=== PATIENT | male | born 1935 | race Caucasian/White ===

== ENCOUNTER 2018-10-31 21:03 | Emergency (ER) | payer OTHER ==
[~2018-10-31] VITALS: Ht 177.8 cm; Wt 77.1 kg
== END 2018-10-31 22:15 | disposition home or self-care (01) ==
LOC: ED 21:03
DX: F10.129 Alcohol abuse with intoxication, unspecified (principal); Z85.46 Personal history of malignant neoplasm of prostate; Z85.118 Personal history of other malignant neoplasm of bronchus and lung
CPT/HCPCS: 99284

== ENCOUNTER 2019-02-24 07:10 | Inpatient (IN) | payer MEDICARE, OTHER ==
[~2019-02-24] VITALS: Ht 175.3 cm; Wt 73.9 kg
--- OUTSIDE RECORDS SUMMARY | ~2019-02-24 | XMS | Encounter Summary ---
Demographics + + + | Address | [address] | | | [place] [address] | + + + | Home Phone | | + + + | Preferred Language | Unknown | + + + | Marital Status | Single | + + + | Uatsdin Affiliation | Unknown | + + + | Race | Unknown | + + + | Ethnic Group | Other Race | + + + Author + + + | Author | [facility] | + + + | Organization | [facility] | + + + | Address | Unknown | + + + | Phone | Unavailable | + + + Support + + +---------+ + | Name | Relationship | Address | Phone | + + +---------+ + | Alia Tracy | ECON | Unknown | | + + +---------+ + Care Team Providers + +------+ + | Care Cable Rigger Name | Role | Phone | + +------+ + | No Pcp Per Patient | PCP | Unavailable | + +------+ + Encounter Details +--------+ + + + + | Date | Type | Department | Care Team | Description | +--------+ + + + + | 02/18/ | Hospital | Radiation Oncology | | | | 2019 | Encounter | at [facility] [address] | | | | | | [address] | | | | | | [place] | | | | | | [place], [place] | | | | | | [address] | | | | | | [phone] | | | +--------+ + + + + Social History + +-------+ +--------+ + | Tobacco Use | Types | Packs/Day | Years | Date | | | | | Used | | + +-------+ +--------+ + | Former Smoker | | | | Quit: 05/29/1998 | + +-------+ +--------+ + + +---+---+---+ | Smokeless Tobacco: | | | | | Never Used | | | | + +---+---+---+ + + +---------+ + | Alcohol Use | Drinks/Week | oz/Week | Comments | + + +---------+ + | Not Asked | | | | + + +---------+ + + + + | Sex Assigned at [...]
--- OUTSIDE RECORDS SUMMARY | ~2019-02-24 | XMS | Encounter Summary ---
Demographics + + + | Address | [address] | | | [place] [address] | + + + | Home Phone | | + + + | Preferred Language | Unknown | + + + | Marital Status | Single | + + + | Scientologist Affiliation | Unknown | + + + | Race | Unknown | + + + | Ethnic Group | Other Race | + + + Author + + + | Author | [facility] | + + + | Organization | [facility] | + + + | Address | Unknown | + + + | Phone | Unavailable | + + + Support + + +---------+ + | Name | Relationship | Address | Phone | + + +---------+ + | Alia Tracy | ECON | Unknown | | + + +---------+ + Care Team Providers + +------+ + | Care Help Desk Intern Name | Role | Phone | + +------+ + | No Pcp Per Patient | PCP | Unavailable | + +------+ + Encounter Details +--------+ + + + + | Date | Type | Department | Care Team | Description | +--------+ + + + + | 08/31/ | Hospital | Radiation Oncology | | | | 2014 | Encounter | at [facility] [address] | | | | | | [address] | | | | | | [place] | | | | | | [place], [place] | | | | | | [address] | | | | | | [phone] | | | +--------+ + + + [...] Not on filedocumented as of this encounter Procedures + +--------+ + + + | Procedure Name | Priori | Date/Time | Associated Diagnosis | Comments | | | ty | | | | + +--------+ + + + | ONCOLOGY PATHWAYS | Routin | 09/18/2014 | | Results for this | | TREATMENT DECISION | e | | | procedure are in the | | | | | | results section. | + +--------+ + + + | ONCOLOGY PATHWAYS | Routin | 09/09/2014 | | Results for this | | TREATMENT DECISION | e | | | procedure are in the | | | | | | results section. | + +--------+ + + + documented in this encounter Results ONCOLOGY PATHWAYS TREATMENT DECISION (09/18/2014) + + + + + + | Component | Value | Ref Range | Performed | Pathologist | | | | | At | Signature | + + + + + + | ONCOLOGY | START ON PATHWAY REGIMEN | | [facility] | | | PATHWAYS | - Prostate PRO17: | | DEPARTMENT | | | TREATMENT | IGRT/IMRT with Androgen | | OF | | | PLAN | Suppression for | | PATHOLOGY | | | REGIMEN | Approximately 12 Months | | | | | | or Longer Radiation | | | | | | Selected: EBRT: | | | | | | (IGRT/IMRT) Prescription | | | | | | dose is 75.6 ? 81 Gy. | | | | | | 42 - 45 Fx at 1.8 Gy/fx. | | | | | | Additional Orders: | | | | | | PTV1: 50.4 ? 54 Gy to P | | | | | | + SV + 10 mm (5 mm | | | | | | posteriorly).PTV2: 21.6 | | | | | | ? 30.6 Gy to P + 5 mm. | | | | | | Clinician Notes: 70 Gy | | | | | | over 28 fractions. ADT x | | | | | | 24 months. IGRT with | | | | | | [place]. Patient | | | | | | Characteristics:High - | | | | | | RiskPost Prostatectomy?: | | | | | | NoRecurrence?: | | | | | | NoGleason Score: | | | | | | 8Gleason Secondary: | | | | | | 4Gleason Primary: 4AJCC | | | | | | T Stage: 3aPSA: ? 20AJCC | | | | | | Prognostic Grouping: | | | | | | IIIAJCC N Stage: 0AJCC M | | | | | | Stage: 0 Intent of | | | | | | Therapy:Curative Intent, | | | | | | Discussed with Patient | | | | + + + + + + | ONCOLOGY | PRO17 | | [facility] | | | PATHWAYS | | | DEPARTMENT | | | TREATMENT | | | OF | | | DECISION | | | PATHOLOGY | | + + + + + + + + | Specimen | + + | | + + + + + + + | Performing | Address | City/State/Zipcode | Phone Number | | Organization | | | | + + + + + | [facility] | [address] | [place], [place] [address] | | | PATHOLOGY | [address] | | | + + + + + ONCOLOGY PATHWAYS TREATMENT DECISION (09/09/2014) + + + + + + | Component | Value | Ref Range | Performed | Pathologist | | | | | At | Signature | + + + + + + | ONCOLOGY | START ON PATHWAY REGIMEN | | [facility] | | | PATHWAYS | - Prostate PRO17: | | DEPARTMENT | | | TREATMENT | IGRT/IMRT with Androgen | | OF | | | PLAN | Suppression for | | PATHOLOGY | | | REGIMEN | Approximately 12 Months | | | | | | or Longer Radiation | | | | | | Selected: EBRT: | | | | | | (IGRT/IMRT) Prescription | | | | | | dose is 75.6 ? 81 Gy. | | | | | | 42 - 45 Fx at 1.8 Gy/fx. | | | | | | Additional Orders: | | | | | | PTV1: 50.4 ? 54 Gy to P | | | | | | + SV + 10 mm (5 mm | | | | | | posteriorly).PTV2: 21.6 | | | | | | ? 30.6 Gy to P + 5 mm. | | | | | | Clinician Notes: 70 Gy | | | | | | over 28 fractions. ADT x | | | | | | 24 months. IGRT with | | | | | | [place]. Patient | | | | | | Characteristics:High - | | | | | | RiskPost Prostatectomy?: | | | | | | NoRecurrence?: | | | | | | NoGleason Score: | | | | | | 8Gleason Secondary: | | | | | | 4Gleason Primary: 4AJCC | | | | | | T Stage: 3aPSA: ? 20AJCC | | | | | | Prognostic Grouping: | | | | | | IIIAJCC N Stage: 0AJCC M | | | | | | Stage: 0 Intent of | | | | | | Therapy:Curative Intent, | | | | | | Discussed with Patient | | | | + + + + + + | ONCOLOGY | PRO17 | | [facility] | | | PATHWAYS | | | DEPARTMENT | | | TREATMENT | | | OF | | | DECISION | | | PATHOLOGY | | + + + + + + + + | Specimen | + + | | + + + + + + + | Performing | Address | City/State/Zipcode | Phone Number | | Organization | | | | + + + + + | [facility] | [address] | [place] [address] | | | PATHOLOGY | [address] | | | + + + + + documented in this encounter Visit Diagnoses Not on filedocumented in this encounter"
--- OUTSIDE RECORDS SUMMARY | ~2019-02-24 | XMS | Encounter Summary ---
Demographics + + + | Address | [address] | | | [place] [address] | + + + | Home Phone [...] Team Providers + +------+ + | Care Freight Tallier Name | Role | Phone | + +------+ + | No Pcp Per Patient | PCP | Unavailable | + +------+ + Reason for Visit + + + | Reason | Comments | + + + | RT Plan Review Note | | + + + Encounter Details +--------+ + + + + | Date | Type | Department | Care Team | Description | +--------+ + + + + | 02/07/ | Documentati | Radiation Oncology | Ye Doss MD | RT Plan Review Note | | 2019 | on | at [facility] [address] | [address] | | | | | [address] | [place], | | | | | [place] | [place] [address] | | | | | [place], [place] | [phone] | | | | | [address] | | | | | | [phone] | | | +--------+ + + + [...]
--- OUTSIDE RECORDS SUMMARY | ~2019-02-24 | XMS | Encounter Summary ---
Demographics + + + | Address | [address] | | | [place] [address] | + + + | Home Phone | | + + + | Preferred Language | Unknown | + + + | Marital Status | Single | + + + | Druze Affiliation | Unknown | + + + | Race | Unknown | + + + | Ethnic Group | Other Race | + + + Author + + + | Author | [facility] | + + + | Organization | [facility] | + + + | Address | Unknown | + + + | Phone | Unavailable | + + + Support + + +---------+ + | Name | Relationship | Address | Phone | + + +---------+ + | Alia Tracy | ECON | Unknown | | + + +---------+ + Care Team Providers + +------+ + | Care Process Environmental Technician Name | Role | Phone | + [...] neoplasm of | [address] | [address] [facility] | | | | | prostate | [facility] | [facility] | | | | | (HCC) | Way | [address], | | | | | Procedures | [place], [place] | [place] | | | | | Consult, | [address] | [address] | | | | | treat, f/u | Phone: | Phone: | | | | | | [phone] | [phone] | | | | | | Fax: | Fax: | | | | | | [phone] | [phone] | +--------+--------+ + + + + Encounter Details +--------+ + + + + | Date | Type | Department | Care Team | Description | +--------+ + + + + | 10/05/ | Hospital | Radiation Oncology | | | | 2014 | Encounter | at [facility] [address] | | | | | | [address] | | | | | | [address] | | | | | | [place], [place] | | | | | | [address] | | | | | | [phone] | | | +--------+ + + + [...]
--- OUTSIDE RECORDS SUMMARY | ~2019-02-24 | XMS | Encounter Summary ---
Demographics + + + | Address | [address] | | | [place] [address] | + + + | Home Phone | | + + + | Preferred Language | Unknown | + + + | Marital Status | Single | + + + | Advent Affiliation | Unknown | + + + | Race | Unknown | + + + | Ethnic Group | Other Race | + + + Author + + + | Author | [facility] | + + + | Organization | [facility] | + + + | Address | Unknown | + + + | Phone | Unavailable | + + + Support + + +---------+ + | Name | Relationship | Address | Phone | + + +---------+ + | Alia Tracy | ECON | Unknown | | + + +---------+ + Care Team Providers + +------+ + | Care Program Dir Name | Role | Phone | + [...] neoplasm of | [address] | [address] [facility] | | | | | prostate | [facility] | [facility] | | | | | (HCC) | Way | [address] [place], | | | | | Procedures | [place], [place] | [place] | | | | | Consult, | [address] | [address] | | | | | treat, f/u | Phone: | Phone: | | | | | | [phone] | [phone] | | | | | | Fax: | Fax: | | | | | | [phone] | [phone] | +--------+--------+ + + + + Encounter Details +--------+ + + + + | Date | Type | Department | Care Team | Description | +--------+ + + + + | 09/04/ | Hospital | Radiation Oncology | | | | 2014 | Encounter | at [facility] [address] | | | | | | [address] | | | | | | [address] | | | | | | [place], [place] | | | | | | [address] | | | | | | [phone] | | | +--------+ + + + [...]
--- OUTSIDE RECORDS SUMMARY | ~2019-02-24 | XMS | Encounter Summary ---
Demographics + + + | Address | [address] | | | [place] [address] | + + + | Home Phone [...] Author + + + | Author | [facility] | + + + | Organization | [facility] | + + + | Address | Unknown | + + + | Phone | Unavailable | + + + Support + + +---------+ + | Name | Relationship | Address | Phone | + + +---------+ + | Alia Tracy | ECON | Unknown | | + + +---------+ + Care Team Providers + +------+ + | Care Cloth Stretcher Name | Role | Phone | + +------+ + | No Pcp Per Patient | PCP | Unavailable | + +------+ + Encounter Details +--------+ + + + + | Date | Type | Department | Care Team | Description | +--------+ + + + + | 07/17/ | Outside | NON-[facility] | Veterans, | | | 2008 | Referral | Department | Administration | | | | Order | | [facility] | | | | | | [place] [id number] [facility] | | | | | | [facility] | | | | | | [address] [place], [place] | | | | | | [address] | | | | | | | | +--------+ + + + [...] as of this encounter Plan of Treatment + +---------+--------+ + + | Name | Type | Priori | Associated Diagnoses | Date/Time | | | | ty | | | + +---------+--------+ + + | PET LUNG INITIAL | Imaging | Priori | Malignant Neoplasm | 07/23/2008 1:22 PM | | ATTENUATED | | ty | of Bronchus and | PST | | | | | Lung, Unspecified | | | | | | Site | | + +---------+--------+ + + + +---------+--------+ + + | Name | Type | Priori | Associated Diagnoses | Order Schedule | | | | ty | | | + +---------+--------+ + + | PET LUNG INITIAL | Imaging | Routin | Malignant Neoplasm | Expected: 07/17/2008 | | ATTENUATED | | e | of Bronchus and | | | | | | Lung, Unspecified | | | | | | Site | | + +---------+--------+ + + documented as of this encounter Visit Diagnoses + + | Diagnosis | + + | Malignant neoplasm of bronchus and lung, unspecified site - Primary | + + documented in this encounter"
--- OUTSIDE RECORDS SUMMARY | ~2019-02-24 | XMS | Encounter Summary ---
Demographics + + + | Address | [address] | | | [place] [address] | + + + | Home Phone | | + + + | Preferred Language | Unknown | + + + | Marital Status | Single | + + + | Jew Affiliation | Unknown | + + + | Race | Unknown | + + + | Ethnic Group | Other Race | + + + Author + + + | Author | [facility] | + + + | Organization | [facility] | + + + | Address | Unknown | + + + | Phone | Unavailable | + + + Support + + +---------+ + | Name | Relationship | Address | Phone | + + +---------+ + | Alia Tracy | ECON | Unknown | | + + +---------+ + Care Team Providers + +------+ + | Care Firmware Developer Name | Role | Phone | + +------+ + | No Pcp Per Patient | PCP | Unavailable | + +------+ + Encounter Details +--------+ + + + + | Date | Type | Department | Care Team | Description | +--------+ + + + + | 02/11/ | Hospital | Radiation Oncology | | | | 2019 | Encounter | at [facility] [address] | | | | | | [address] | | | | | | [address] | | | | | | [place], [place] | | | | | | [address] | | | | | | [phone] | | | +--------+ + + + [...]
--- OUTSIDE RECORDS SUMMARY | ~2019-02-24 | XMS | Encounter Summary ---
Demographics + + + | Address | [address] | | | [place] [address] | + + + | Home Phone | | + + + | Preferred Language | Unknown | + + + | Marital Status | Single | + + + | Shinto Affiliation | Unknown | + + + | Race | Unknown | + + + | Ethnic Group | Other Race | + + + Author + + + | Author | [facility] | + + + | Organization | [facility] | + + + | Address | Unknown | + + + | Phone | Unavailable | + + + Support + + +---------+ + | Name | Relationship | Address | Phone | + + +---------+ + | Alia Tracy | ECON | Unknown | | + + +---------+ + Care Team Providers + +------+ + | Care Forming Process Line Worker Name | Role | Phone | + [...] neoplasm of | [address] | [address] [facility] | | | | | prostate | [facility] | [facility] | | | | | (HCC) | Way | [address] [place], | | | | | Procedures | [place], [place] | [place] | | | | | Consult, | [address] | [address] | | | | | treat, f/u | Phone: | Phone: | | | | | | [phone] | [phone] | | | | | | Fax: | Fax: | | | | | | [phone] | [phone] | +--------+--------+ + + + + Encounter Details +--------+ + + + + | Date | Type | Department | Care Team | Description | +--------+ + + + + | 09/18/ | Hospital | Radiation Oncology | | | | 2014 | Encounter | at [facility] [address] | | | | | | [address] | | | | | | [address] | | | | | | [place], [place] | | | | | | [address] | | | | | | [phone] | | | +--------+ + + + [...]
--- OUTSIDE RECORDS SUMMARY | ~2019-02-24 | XMS | Encounter Summary ---
Demographics + + + | Address | [address] | | | [place] [address] | + + + | Home Phone [...] Team Providers + +------+ + | Care Forestry Fire Aide Name | Role | Phone | + +------+ + | No Pcp Per Patient | PCP | Unavailable | + +------+ + Reason for Visit + + + | Reason | Comments | + + + | On Treatment Visit | | | (OTV) | | + + + Encounter Details +--------+---------+ + + + | Date | Type | Department | Care Team | Description | +--------+---------+ + + + | 09/08/ | Office | Radiation Oncology | Rishabh Quan MD | Radiotherapy | | 2014 | Visit | at [facility] [address] | [address] | (Primary Dx) | | | | [address] | [place], | | | | | [place] | [place] [address] | | | | | [place], [place] | [phone] | | | | | [address] | | | | | | [phone] | | | +--------+---------+ + + + Social History + +-------+ [...] + + documented as of this encounter Last Filed Vital Signs + + + + + | Vital Sign | Reading | Time Taken | Comments | + + + + + | Blood Pressure | 174/79 | 09/08/2014 5:13 PM | | | | | PDT | | + + + + + | Pulse | 71 | 09/08/2014 5:13 PM | | | | | PDT | | + + + + + | Temperature | - | - | | + + + + + | Respiratory Rate | - | - | | + + + + + | Oxygen Saturation | 100% | 09/08/2014 5:13 PM | | | | | PDT | | + + + + + | Inhaled Oxygen | - | - | | | Concentration | | | | + + + + + | Weight | 80.2 kg (176 lb 12.8 | 09/08/2014 5:13 PM | | | | oz) | PDT | | + + + + + | Height | 175.3 cm (5' 9") | 09/08/2014 5:13 PM | per Pt verbal report | | | | PDT | | + + + + + | Body Mass Index | 26.11 | 09/08/2014 5:13 PM | | | | | PDT | | + + + + + documented in this encounter Patient Instructions Patient Instructions Doni Flores MD - 09/08/2014 5:42 PM PDT-continue radiation -try some metamucil - one heaping tablespoon with a large glass a water every morning -please feel free to contact us with further questions: [phone] documented in this encounter Progress Notes Rishabh Quan MD - 09/08/2014 5:52 PM PDTI personally interviewed julius Sandoval uplicated the pertinent parts of the physical examination and formulated the treatment plan. I reviewed the excellent note by Dr. Flores and entered my findings directly into his not e. oni Flores MD - 0 09/08/2014 5:39 PM PDT 09/08/2014 Ammon Tracy is a 79 y.o. 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 This was treated successfully with jose adjuvant radiotherapy followed by surgical resection. 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 His pre-treatment PSA is 26.5 ng/mL drawn on 08/03/14. He is to be treated to a total dose of 70 Gy over 28 fra ctions with an IMRT technique with image guidance using [place] beacons. The patient will be receiving concurrent androgen deprivation for 24 months. His first inje ctions was 08/14/14 here today during treatment for a weekly visit. He has completed 4 fract ions of a planned 28. He notes nocturia of 4-5 times a night. He is having variable BM a day, he had to use sennosides the other day but he doesn't alway s need laxatives. He notes things are well, he is staying at [facility] and [place]. His legs are weak. Current Outpatient Prescriptions Medication Sig albuterol-ipratropium 18-103 mcg/Actuation Inhalation Aerosol Inhale 2 Puffs four times daily as needed for dyspnea/SOB. dexamethasone 4 mg Oral Tablet Take 4 mg by mouth. Take 2 tablets (for a dose of 8 mg) each evening for 2 days begiining the day of your chemotherapy lisinopril 20 mg Oral Tablet Take 20 mg by mouth once daily. metformin 500 mg Oral Tablet Take 500 mg by mouth. Take 2 tablets (for total dose of 10 00 mg) twice a day ondansetron (ZOFRAN) 8 mg Oral Tablet Take 8 mg by mouth every twelve hours as needed simvastatin 80 mg Oral Tablet Take 80 mg by mouth once daily in the evening. terazosin 2 mg Oral Capsule Take 2 mg by mouth. Take 2 capsules (for a total dose of 4 mg) at bedtime vardenafil 10 mg Oral Tablet Take 5-10 mg by mouth once daily as needed Administer appr oximately 1 hour before sexual activity. Max frequency: once daily. VICODIN 5-500 mg Oral Tablet Take 1-2 Tabs by mouth every six hours as needed Not to ex ceed 8 tablets per any 24 hour period. (Not to exceed 4000 mg of acetaminophen from all prod ucts per 24 hour period.) Ammon Tracy's mode of transportation is ambulatory. The patient looks well. A/P: Continue RT. The patient's chart and films were reviewed. Will try some metamucil. Zhanna Robert RN - 5:15 PM PDT Nursing Note Patient here for an On Treatment Visit. Completed 4 fractions of a planned 28. Current dose 1000 cGy of total 7000 cGy. Vitals/Pain Level: BP 174/79 | Pulse 71 | Ht 1.753 m (5' 9") | Wt 80.196 kg (176 lb 12.8 oz ) | SpO2 100% | BMI 26.1 kg/(m^2) Pain Score: 0/10 - denies pain Wt Readings from Last 3 Encounters: 09/08/14 80.196 kg (176 lb 12.8 oz) 09/03/14 49.034 kg (108 lb 1.6 oz) 08/04/14 81.647 kg (180 lb) No results found for this basename: WBC, HB, HCT, PLT, BUN, CR, NA, K, MG, in the last 720 hours Subjective: Pt reports 1/10 fatigue level - resolves with short nap. Pt c/o difficulty ini tiating urine stream. Pt denies any other problems at this time. Objective: Pt alert, oriented, and ambulatory. Driving self to treatments. Nursing Plan: Continue supportive care. Will continue to monitor. documented in this en counter Plan of Treatment Not on filedocumented as of this encounter Visit Diagnoses + + | Diagnosis | + + | Radiotherapy - Primary | + + documented in this encounter
--- OUTSIDE RECORDS SUMMARY | ~2019-02-24 | XMS | Encounter Summary ---
Demographics + + + | Address | [address] | | | [place] [address] | + + + | Home Phone | | + + + | Preferred Language | Unknown | + + + | Marital Status | Single | + + + | Orthodox Affiliation | Unknown | + + + | Race | Unknown | + + + | Ethnic Group | Other Race | + + + Author + + + | Author | [facility] | + + + | Organization | [facility] | + + + | Address | Unknown | + + + | Phone | Unavailable | + + + Support + + +---------+ + | Name | Relationship | Address | Phone | + + +---------+ + | Alia Tracy | ECON | Unknown | | + + +---------+ + Care Team Providers + +------+ + | Care Decator Operator Name | Role | Phone | + [...] neoplasm of | [address] | [address] [facility] | | | | | prostate | [facility] | [facility] | | | | | (HCC) | Way | [address] [place], | | | | | Procedures | [place], [place] | [place] | | | | | Consult, | [address] | [address] | | | | | treat, f/u | Phone: | Phone: | | | | | | [phone] | [phone] | | | | | | Fax: | Fax: | | | | | | [phone] | [phone] | +--------+--------+ + + + + Encounter Details +--------+ + + + + | Date | Type | Department | Care Team | Description | +--------+ + + + + | 10/05/ | Hospital | Radiation Oncology | | | | 2014 | Encounter | at [facility] [address] | | | | | | [address] | | | | | | [place] | | | | | | [place], [place] | | | | | | [address] | | | | | | [phone] | | | +--------+ + + + [...]
--- OUTSIDE RECORDS SUMMARY | ~2019-02-24 | XMS | Encounter Summary ---
Demographics + + + | Address | [address] | | | [place] [address] | + + + | Home Phone | | + + + | Preferred Language | Unknown | + + + | Marital Status | Single | + + + | Evangelical Affiliation | Unknown | + + + | Race | Unknown | + + + | Ethnic Group | Other Race | + + + Author + + + | Author | [facility] | + + + | Organization | [facility] | + + + | Address | Unknown | + + + | Phone | Unavailable | + + + Support + + +---------+ + | Name | Relationship | Address | Phone | + + +---------+ + | Alia Tracy | ECON | Unknown | | + + +---------+ + Care Team Providers + +------+ + | Care Produce Department Supervisor Name | Role | Phone | + [...] neoplasm of | [address] | [address] [facility] | | | | | prostate | [facility] | [facility] | | | | | (HCC) | Way | Rd [place], | | | | | Procedures | [place], [place] | [place] | | | | | Consult, | [address] | [address] | | | | | treat, f/u | Phone: | Phone: | | | | | | [phone] | [phone] | | | | | | Fax: | Fax: | | | | | | [phone] | [phone] | +--------+--------+ + + + + Encounter Details +--------+ + + + + | Date | Type | Department | Care Team | Description | +--------+ + + + + | 09/28/ | Hospital | Radiation Oncology | | | | 2014 | Encounter | at [facility] [address] | | | | | | [address] | | | | | | [place] | | | | | | [place], [place] | | | | | | [address] | | | | | | [phone] | | | +--------+ + + + [...]
--- OUTSIDE RECORDS SUMMARY | ~2019-02-24 | XMS | Encounter Summary ---
Demographics + + + | Address | [address] | | | [place] [address] | + + + | Home Phone [...] Author + + + | Author | [facility] | + + + | Organization | [facility] | + + + | Address | Unknown | + + + | Phone | Unavailable | + + + Support + + +---------+ + | Name | Relationship | Address | Phone | + + +---------+ + | Alia Tracy | ECON | Unknown | | + + +---------+ + Care Team Providers + +------+ + | Care Pot Filler Name | Role | Phone | + +------+ + PCP | Unavailable | + +------+ + Reason for Visit + + + | Reason | Comments | + + + | RT Treatment Summary | | + + + Encounter Details +--------+ + + + + | Date | Type | Department | Care Team | Description | +--------+ + + + + | 10/19/ | Documentati | Radiation Oncology | Ye Doss MD | RT Treatment Summary | | 2008 | on | at [facility] [address] | [address] | | | | | [address] | [place] | | | | | [place] | [place] [address] | | | | | [place], [place] | [phone] | | | | | [address] | | | | | | [phone] | | | +--------+ + + + [...]
--- OUTSIDE RECORDS SUMMARY | ~2019-02-24 | XMS | Encounter Summary ---
Demographics + + + | Address | [address] | | | [place] [address] | + + + | Home Phone [...] Author + + + | Author | [facility] | + + + | Organization | [facility] | + + + | Address | Unknown | + + + | Phone | Unavailable | + + + Support + + +---------+ + | Name | Relationship | Address | Phone | + + +---------+ + | Alia Tracy | ECON | Unknown | | + + +---------+ + Care Team Providers + +------+ + | Care Bass Singer Name | Role | Phone | + [...] neoplasm of | [address] | [address] [facility] | | | | | prostate | [facility] | [facility] | | | | | (HCC) | Way | [address] [place], | | | | | Procedures | [place], [place] | [place] | | | | | Consult, | [address] | [address] | | | | | treat, f/u | Phone: | Phone: | | | | | | [phone] | [phone] | | | | | | Fax: | Fax: | | | | | | [phone] | [phone] | +--------+--------+ + + + + Encounter Details +--------+ + + + + | Date | Type | Department | Care Team | Description | +--------+ + + + + | 09/29/ | Hospital | Radiation Oncology | | | | 2014 | Encounter | at [facility] [address] | | | | | | [address] | | | | | | [place] | | | | | | [place], [place] | | | | | | [address] | | | | | | [phone] | | | +--------+ + + + [...]
--- OUTSIDE RECORDS SUMMARY | ~2019-02-24 | XMS | Encounter Summary ---
Demographics + + + | Address | [address] | | | [place] [address] | + + + | Home Phone | | + + + | Preferred Language | Unknown | + + + | Marital Status | Single | + + + | Adventist Affiliation | Unknown | + + + | Race | Unknown | + + + | Ethnic Group | Other Race | + + + Author + + + | Author | [facility] | + + + | Organization | [facility] | + + + | Address | Unknown | + + + | Phone | Unavailable | + + + Support + + +---------+ + | Name | Relationship | Address | Phone | + + +---------+ + | Alia Tracy | ECON | Unknown | | + + +---------+ + Care Team Providers + +------+ + | Care Netsuite Developer Name | Role | Phone | [...] neoplasm of | [address] | [address] [facility] | | | | | prostate | [facility] | [facility] | | | | | (HCC) | Way | Rd [place], | | | | | Procedures | [place], [place] | [place] | | | | | Consult, | [address] | [address] | | | | | treat, f/u | Phone: | Phone: | | | | | | [phone] | [phone] | | | | | | Fax: | Fax: | | | | | | [phone] | [phone] | +--------+--------+ + + + + Encounter Details +--------+ + + + + | Date | Type | Department | Care Team | Description | +--------+ + + + + | 09/18/ | Hospital | Radiation Oncology | | | | 2014 | Encounter | at [facility] [address] | | | | | | [address] | | | | | | [place] | | | | | | [place], [place] | | | | | | [address] | | | | | | [phone] | | | +--------+ + + + [...]
--- OUTSIDE RECORDS SUMMARY | ~2019-02-24 | XMS | Encounter Summary ---
Demographics + + + | Address | [address] | | | [place] [address] | + + + | Home Phone | | + + + | Preferred Language | Unknown | + + + | Marital Status | Single | + + + | Episcopal Affiliation | Unknown | + + + | Race | Unknown | + + + | Ethnic Group | Other Race | + + + Author + + + | Author | [facility] | + + + | Organization | [facility] | + + + | Address | Unknown | + + + | Phone | Unavailable | + + + Support + + +---------+ + | Name | Relationship | Address | Phone | + + +---------+ + | Alia Tracy | ECON | Unknown | | + + +---------+ + Care Team Providers + +------+ + | Care Emergency Department Nurse Name | Role | Phone | + +------+ + PCP | Unavailable | + +------+ + Encounter Details +--------+ + + + + | Date | Type | Department | Care Team | Description | +--------+ + + + + | 10/09/ | Hospital | Radiation Oncology | | | | 2008 | Encounter | at [facility] [address] | | | | | | [address] | | | | | | [place] | | | | | | [place], [place] | | | | | | [address] | | | | | | [phone] | | | +--------+ + + + [...]
--- OUTSIDE RECORDS SUMMARY | ~2019-02-24 | XMS | Encounter Summary ---
Demographics + + + | Address | [address] | | | [place] [address] | + + + | Home Phone [...] Team Providers + +------+ + | Care Teaching Associate Name | Role | Phone | + [...] | [address] | [place], | | | | | [place] | [place] [address] | | | | | [place], [place] | [phone] | | | | | [address] | | | | | | [phone] | | | +--------+ + + + [...]
--- OUTSIDE RECORDS SUMMARY | ~2019-02-24 | XMS | Encounter Summary ---
Demographics + + + | Address | [address] | | | [place] [address] | + + + | Home Phone [...] + + + | Author | [facility] | + + + | Organization | [facility] | + + + | Address | Unknown | + + + | Phone | Unavailable | + + + Support + + +---------+ + | Name | Relationship | Address | Phone | + + +---------+ + | Alia Tracy | ECON | Unknown | | + + +---------+ + Care Team Providers + +------+ + | Care Fish Receiver Name | Role | Phone | + [...] neoplasm of | [address] | [address] [facility] | | | | | prostate | [facility] | [facility] | | | | | (HCC) | Way | [address] [place], | | | | | Procedures | [place], [place] | [place] | | | | | Consult, | [address] | [address] | | | | | treat, f/u | Phone: | Phone: | | | | | | [phone] | [phone] | | | | | | Fax: | Fax: | | | | | | [phone] | [phone] | +--------+--------+ + + + + Encounter Details +--------+ + + + + | Date | Type | Department | Care Team | Description | +--------+ + + + + | 09/15/ | Hospital | Radiation Oncology | | | | 2014 | Encounter | at [facility] [address] | | | | | | [address] | | | | | | [place] | | | | | | [place], [place] | | | | | | [address] | | | | | | [phone] | | | +--------+ + + + [...]
--- OUTSIDE RECORDS SUMMARY | ~2019-02-24 | XMS | Encounter Summary ---
Demographics + + + | Address | [address] | | | [place] [address] | + + + | Home Phone | | + + + | Preferred Language | Unknown | + + + | Marital Status | Single | + + + | Baptism Affiliation | Unknown | + + + | Race | Unknown | + + + | Ethnic Group | Other Race | + + + Author + + + | Author | [facility] | + + + | Organization | [facility] | + + + | Address | Unknown | + + + | Phone | Unavailable | + + + Support + + +---------+ + | Name | Relationship | Address | Phone | + + +---------+ + | Alia Tracy | ECON | Unknown | | + + +---------+ + Care Team Providers + +------+ + | Care Bonding Machine Setter Name | Role | Phone | + [...] [address] | | | | | | [place], [place] | | | | | | [address] | | | | | | [phone] | | | +--------+ + + + [...]
--- OUTSIDE RECORDS SUMMARY | ~2019-02-24 | XMS | Encounter Summary ---
Demographics + + + | Address | [address] | | | [place] [address] | + + + | Home Phone | | + + + | Preferred Language | Unknown | + + + | Marital Status | Single | + + + | Restorationist Affiliation | Unknown | + + + [...] Team Providers + +------+ + | Care Mat Weaver Name | Role | Phone | + [...] neoplasm of | [address] | [address] [facility] | | | | | prostate | [facility] | [facility] | | | | | (HCC) | Way | [address] [place], | | | | | Procedures | [place], [place] | [place] | | | | | Consult, | [address] | [address] | | | | | treat, f/u | Phone: | Phone: | | | | | | [phone] | [phone] | | | | | | Fax: | Fax: | | | | | | [phone] | [phone] | +--------+--------+ + + + + Encounter Details +--------+ + + + + | Date | Type | Department | Care Team | Description | +--------+ + + + + | 09/14/ | Hospital | Radiation Oncology | | | | 2014 | Encounter | at [facility] [address] | | | | | | [address] | | | | | | [place] | | | | | | [place], [place] | | | | | | [address] | | | | | | [phone] | | | +--------+ + + + [...]
--- OUTSIDE RECORDS SUMMARY | ~2019-02-24 | XMS | Encounter Summary ---
Demographics + + + | Address | [address] | | | [place] [address] | + + + | Home Phone | | + + + | Preferred Language | Unknown | + + + | Marital Status | Single | + + + | Orthodoxy Affiliation | Unknown | + + + | Race | Unknown | + + + | Ethnic Group | Other Race | + + + Author + + + | Author | [facility] | + + + | Organization | [facility] | + + + | Address | Unknown | + + + | Phone | Unavailable | + + + Support + + +---------+ + | Name | Relationship | Address | Phone | + + +---------+ + | Alia Tracy | ECON | Unknown | | + + +---------+ + Care Team Providers + +------+ + | Care Advertising Dispatch Clerks Supervisor Name | Role | Phone | [...] neoplasm of | [address] | [address] [facility] | | | | | prostate | [facility] | [facility] | | | | | (HCC) | Way | [address] [place], | | | | | Procedures | [place], [place] | [place] | | | | | Consult, | [address] | [address] | | | | | treat, f/u | Phone: | Phone: | | | | | | [phone] | [phone] | | | | | | Fax: | Fax: | | | | | | [phone] | [phone] | +--------+--------+ + + + + Encounter Details +--------+ + + + + | Date | Type | Department | Care Team | Description | +--------+ + + + + | 10/07/ | Hospital | Radiation Oncology | | | | 2014 | Encounter | at [facility] [address] | | | | | | [address] | | | | | | [place] | | | | | | [place], [place] | | | | | | [address] | | | | | | [phone] | | | +--------+ + + + [...]
--- OUTSIDE RECORDS SUMMARY | ~2019-02-24 | XMS | Encounter Summary ---
Demographics + + + | Address | [address] | | | [place] [address] | + + + | Home Phone | | + + + | Preferred Language | Unknown | + + + | Marital Status | Single | + + + | Yarsani Affiliation | Unknown | + + + | Race | Unknown | + + + | Ethnic Group | Other Race | + + + Author + + + | Author | [facility] | + + + | Organization | [facility] | + + + | Address | Unknown | + + + | Phone | Unavailable | + + + Support + + +---------+ + | Name | Relationship | Address | Phone | + + +---------+ + | Alia Tracy | ECON | Unknown | | + + +---------+ + Care Team Providers + +------+ + | Care Aoc Operations Intelligence Chief Name | Role | Phone | + [...] neoplasm of | [address] | [address] [facility] | | | | | prostate | [facility] | [facility] | | | | | (HCC) | Way | Rd [place], | | | | | Procedures | [place], [place] | [place] | | | | | Consult, | [address] | [address] | | | | | treat, f/u | Phone: | Phone: | | | | | | [phone] | [phone] | | | | | | Fax: | Fax: | | | | | | [phone] | [phone] | +--------+--------+ + + + + Encounter Details +--------+ + + + + | Date | Type | Department | Care Team | Description | +--------+ + + + + | 09/04/ | Hospital | Radiation Oncology | | | | 2014 | Encounter | at [facility] [address] | | | | | | [address] | | | | | | [place] | | | | | | [place], [place] | | | | | | [address] | | | | | | [phone] | | | +--------+ + + + [...]
--- OUTSIDE RECORDS SUMMARY | ~2019-02-24 | XMS | Encounter Summary ---
Demographics + + + | Address | [address] | | | [place] [address] | + + + | Home Phone [...] Author + + + | Author | [facility] | + + + | Organization | [facility] | + + + | Address | Unknown | + + + | Phone | Unavailable | + + + Support + + +---------+ + | Name | Relationship | Address | Phone | + + +---------+ + | Alia Tracy | ECON | Unknown | | + + +---------+ + Care Team Providers + +------+ + | Care Steel Detailer Name | Role | Phone | + +------+ + | No Pcp Per Patient | PCP | Unavailable | + +------+ + Reason for Visit + + + | Reason | Comments | + + + | Teaching session | | | with patient | | + + + Encounter Details +--------+ + + + + | Date | Type | Department | Care Team | Description | +--------+ + + + + | 09/03/ | Clinical | Radiation Oncology | [facility] [address] | Teaching session | | 2014 | Support | at [facility] [address] | [address] | with patient | | | Staff | [address] | [place], [place] | | | | | [place] | [address] | | | | | [place], [place] | | | | | | [address] | | | | | | [phone] | | | +--------+ + + + [...] + + + | Blood Pressure | - | - | | + + + + + | Pulse | - | - | | + + + + + | Temperature | - | - | | + + + + + | Respiratory Rate | - | - | | + + + + + | Oxygen Saturation | - | - | | + + + + + | Inhaled Oxygen | - | - | | | Concentration | | | | + + + + + | Weight | 49 kg (108 lb 1.6 | 09/03/2014 6:50 PM | | | | oz) | PDT | | + + + + + | Height | 175.3 cm (5' 9") | 09/03/2014 6:50 PM | per pt report | | | | PDT | | + + + + + | Body Mass Index | 15.96 | 09/03/2014 6:50 PM | | | | | PDT | | + + + + + documented in this encounter Progress Notes Sabiha Ty, LISA - 09/04/2014 10:58 AM PDTMet with pt today to give site specifi c radiation treatment education. Discussed short term side effects, length of treatment coar se, the overall process of radiation treatment, and the schedule for weekly physician visits . The pt is here to begin radiation treatment to the prostate, and has verified this is the c orrect location of treatment. The pt lives in [place], [place]; he is staying locally at [facility] housing during the course of his treatment. At the conclusion of the discussion the pt states that he unde rstands the information discussed and has no questions at this time. The pt will be seen tanisha dia and lamont. Patient's medications reviewed and updated. See Patient Education Activity for details of teaching session documented in this encounter Plan of Treatment Not on filedocumented as of this encounter Visit Diagnoses + + | Diagnosis | + + | Malignant neoplasm of prostate (HCC) - Primary Malignant neoplasm of prostate | + + documented in this encounter
--- OUTSIDE RECORDS SUMMARY | ~2019-02-24 | XMS | Encounter Summary ---
Demographics + + + | Address | [address] | | | [place] [address] | + + + | Home Phone | | + + + | Preferred Language | Unknown | + + + | Marital Status | Single | + + + | Adventism Affiliation | Unknown | + + + | Race | Unknown | + + + | Ethnic Group | Other Race | + + + Author + + + | Author | [facility] | + + + | Organization | [facility] | + + + | Address | Unknown | + + + | Phone | Unavailable | + + + Support + + +---------+ + | Name | Relationship | Address | Phone | + + +---------+ + | Alia Tracy | ECON | Unknown | | + + +---------+ + Care Team Providers + +------+ + | Care Palaeontologist Name | Role | Phone | + [...] neoplasm of | [address] | [address] [facility] | | | | | prostate | [facility] | [facility] | | | | | (HCC) | Way | [address], | | | | | Procedures | [place], [place] | [place] | | | | | Consult, | [address] | [address] | | | | | treat, f/u | Phone: | Phone: | | | | | | [phone] | [phone] | | | | | | Fax: | Fax: | | | | | | [phone] | [phone] | +--------+--------+ + + + + Encounter Details +--------+ + + + + | Date | Type | Department | Care Team | Description | +--------+ + + + + | 10/07/ | Hospital | Radiation Oncology | | | | 2014 | Encounter | at [facility] [address] | | | | | | [address] | | | | | | [address] | | | | | | [place], [place] | | | | | | [address] | | | | | | [phone] | | | +--------+ + + + [...]
--- OUTSIDE RECORDS SUMMARY | ~2019-02-24 | XMS | Encounter Summary ---
Demographics + + + | Address | [address] | | | [place] [address] | + + + | Home Phone | | + + + | Preferred Language | Unknown | + + + | Marital Status | Single | + + + | Hinduism Affiliation | Unknown | + + + [...] Team Providers + +------+ + | Care Stereo Operator Name | Role | Phone | + +------+ + PCP | Unavailable | + +------+ + Encounter Details +--------+ + + + + | Date | Type | Department | Care Team | Description | +--------+ + + + + | 09/17/ | Hospital | Radiation Oncology | | | | 2008 | Encounter | at [facility] [address] | | | | | | [address] | | | | | | [address] | | | | | | [place], [place] | | | | | | [address] | | | | | | [phone] | | | +--------+ + + + [...]
--- OUTSIDE RECORDS SUMMARY | ~2019-02-24 | XMS | Encounter Summary ---
Demographics + + + | Address | [address] | | | [place] [address] | + + + | Home Phone [...] Team Providers + +------+ + | Care Coal Bagger Name | Role | Phone | + [...] neoplasm of | [address] | [address] [facility] | | | | | prostate | [facility] | [facility] | | | | | (HCC) | Way | [address] [place], | | | | | Procedures | [place], [place] | [place] | | | | | Consult, | [address] | [address] | | | | | treat, f/u | Phone: | Phone: | | | | | | [phone] | [phone] | | | | | | Fax: | Fax: | | | | | | [phone] | [phone] | +--------+--------+ + + + + Encounter Details +--------+ + + + + | Date | Type | Department | Care Team | Description | +--------+ + + + + | 10/01/ | Hospital | Radiation Oncology | | | | 2014 | Encounter | at [facility] [address] | | | | | | [address] | | | | | | [address] | | | | | | [place], [place] | | | | | | [address] | | | | | | [phone] | | | +--------+ + + + [...]
--- OUTSIDE RECORDS SUMMARY | ~2019-02-24 | XMS | Encounter Summary ---
Demographics + + + | Address | [address] | | | [place] [address] | + + + | Home Phone | | + + + | Preferred Language | Unknown | + + + | Marital Status | Single | + + + | Taoism Affiliation | Unknown | + + + [...] Team Providers + +------+ + | Care Milling Machine Operator Name | Role | Phone | + +------+ + PCP | Unavailable | + +------+ + Encounter Details +--------+ + + + + | Date | Type | Department | Care Team | Description | +--------+ + + + + | 09/02/ | Documentati | Radiation Oncology | Ye Doss MD | | | 2008 | on | at [facility] [address] [facility] | [address] | | | | | [address] | [address] [place], | | | | | [place] | [place] [address] | | | | | [place], [place] | [phone] | | | | | [address] | | | | | | [phone] | | | +--------+ + + + [...]
--- OUTSIDE RECORDS SUMMARY | ~2019-02-24 | XMS | Encounter Summary ---
Demographics + + + | Address | [address] | | | [place] [address] | + + + | Home Phone | | + + + | Preferred Language | Unknown | + + + | Marital Status | Single | + + + | Caodaism Affiliation | Unknown | + + + [...] Team Providers + +------+ + | Care Drying Room Attendant Name | Role | Phone | [...] [address] | | | | | | [place], [place] | | | | | | [address] | | | | | | [phone] | | | +--------+ + + + [...]
--- OUTSIDE RECORDS SUMMARY | ~2019-02-24 | XMS | Encounter Summary ---
Demographics + + + | Address | [address] | | | [place] [address] | + + + | Home Phone [...] Author + + + | Author | [facility] | + + + | Organization | [facility] | + + + | Address | Unknown | + + + | Phone | Unavailable | + + + Support + + +---------+ + | Name | Relationship | Address | Phone | + + +---------+ + | Alia Tracy | ECON | Unknown | | + + +---------+ + Care Team Providers + +------+ + | Care Engineering Job Titles Name | Role | Phone | + +------+ + | No Pcp Per Patient | PCP | Unavailable | + +------+ + Reason for Referral PROC - Dept/Practice Procedure (Routine) +--------+--------+ + + + + | Status | Reason | Specialty | Diagnoses / | Referred By | Referred To | | | | | Procedures | Contact | Contact | +--------+--------+ + + + + | Closed | | Radiation | Diagnoses | Rafaela, | Romario, | | | | Oncology | Malignant | Oj Booker MD | MD Ye | | | | | neoplasm of | [place] | [address] [facility] | | | | | lung, | A MEDICAL | [facility] | | | | | unspecified | CENTER [address] | [address], | | | | | laterality, | [address] | [place] | | | | | unspecified | [place] | [address] | | | | | part of lung | [address] | Phone: | | | | | (HCC) | [place], | [phone] | | | | | Procedures | [place] [address] | Fax: | | | | | SIMULATION | Phone: | [phone] | | | | | IMAGING | [phone] | | | | | | | Fax: | | | | | | | [phone] | | +--------+--------+ + + + + PROC - Dept/Practice Procedure (Routine) +--------+--------+ + + + + | Status | Reason | Specialty | Diagnoses / | Referred By | Referred To | | | | | Procedures | Contact | Contact | +--------+--------+ + + + + | Closed | | Radiation | Diagnoses | Rafaela, | Romario, | | | | Oncology | Malignant | Oj Booker MD | MD Ye | | | | | neoplasm of | [place] | [address] [facility] | | | | | lung, | A MEDICAL | [facility] | | | | | unspecified | [address]ENTER [address] | [address], | | | | | laterality, | [address] [place] | [place] | | | | | unspecified | [place] | [address] | | | | | part of lung | [address] | Phone: | | | | | (HCC) | [place], | [phone] | | | | | Procedures | [place] [address] | Fax: | | | | | SIMULATION | Phone: | [phone] | | | | | IMAGING | [phone] | | | | | | | Fax: | | | | | | | [phone] | | +--------+--------+ + + + + Reason for Visit PROC - Dept/Practice Procedure (Routine) +--------+--------+ + + + + | Status | Reason | Specialty | Diagnoses / | Referred By | Referred To | | | | | Procedures | Contact | Contact | +--------+--------+ + + + + | Closed | | Radiation | Diagnoses | Rafaela, | Romario, | | | | Oncology | Malignant | Oj Booker MD | MD Ye | | | | | neoplasm of | [place] | [address] [facility] | | | | | lung, | A MEDICAL | [facility] | | | | | unspecified | [address] | [address] [place], | | | | | laterality, | [address] [place] | [place] | | | | | unspecified | [place] | [address] | | | | | part of lung | [address] | Phone: | | | | | (HCC) | [place], | [phone] | | | | | Procedures | [place] [address] | Fax: | | | | | SIMULATION | Phone: | [phone] | | | | | IMAGING | [phone] | | | | | | | Fax: | | | | | | | [phone] | | +--------+--------+ + + + + Encounter Details +--------+ + + + + | Date | Type | Department | Care Team | Description | +--------+ + + + + | 02/06/ | Hospital | Radiation Oncology | | | | 2019 | Encounter | at [facility] [address] | | | | | | [address] | | | | | | [address] [address] | | | | | | [place], [place] | | | | | | [address] | | | | | | [phone] | | | +--------+ + + + [...] | | + +--------+ + + + documented in this encounter Results SIMULATION IMAGING (02/06/2019 1:17 PM PDT) [...] | | | + +---------+ + + documented in this encounter Visit Diagnoses + + | Diagnosis | + + | Malignant neoplasm of lung, unspecified laterality, unspecified part of lung (HCC) | + + documented in this encounter"
--- OUTSIDE RECORDS SUMMARY | ~2019-02-24 | XMS | Encounter Summary ---
Demographics + + + | Address | [address] | | | [place] [address] | + + + | Home Phone [...] Author + + + | Author | [facility] | + + + | Organization | [facility] | + + + | Address | Unknown | + + + | Phone | Unavailable | + + + Support + + +---------+ + | Name | Relationship | Address | Phone | + + +---------+ + | Alia Tracy | ECON | Unknown | | + + +---------+ + Care Team Providers + +------+ + | Care End Worker Name | Role | Phone | + +------+ + | No Pcp Per Patient | PCP | Unavailable | + +------+ + Encounter Details +--------+ + + + + | Date | Type | Department | Care Team | Description | +--------+ + + + + | 11/17/ | Document-Sc | UNKNOWN DEPARTMENT | Unknown . | | | 2014 | anned | [address] | | | | | | [address] | | | | | | [place], [place] | | | | | | [address] | | | +--------+ + + + [...]
--- OUTSIDE RECORDS SUMMARY | ~2019-02-24 | XMS | Encounter Summary ---
Demographics + + + | Address | [address] | | | [place] [address] | + + + | Home Phone | | + + + | Preferred Language | Unknown | + + + | Marital Status | Single | + + + | Congregational Affiliation | Unknown | + + + [...] Team Providers + +------+ + | Care Security Tester Name | Role | Phone | + +------+ + PCP | Unavailable | + +------+ + Encounter Details +--------+ + + + + | Date | Type | Department | Care Team | Description | +--------+ + + + + | 09/21/ | Hospital | Radiation Oncology | | | | 2008 | Encounter | at [facility] [address] | | | | | | [address] | | | | | | [address] | | | | | | [place], [place] | | | | | | [address] | | | | | | [phone] | | | +--------+ + + + [...]
--- OUTSIDE RECORDS SUMMARY | ~2019-02-24 | XMS | Encounter Summary ---
Demographics + + + | Address | [address] | | | [place] [address] | + + + | Home Phone | | + + + | Preferred Language | Unknown | + + + | Marital Status | Single | + + + | Moravian Affiliation | Unknown | + + + [...] Team Providers + +------+ + | Care Running Specialist Name | Role | Phone | + +------+ + PCP | Unavailable | + +------+ + Encounter Details +--------+ + + + + | Date | Type | Department | Care Team | Description | +--------+ + + + + | 08/18/ | Office | Radiation Oncology | Ye Doss MD | CORRESPONDENCE | | 2008 | [facility]ECX | [facility] [address] | [address] | | | | | [address] | [address] [facility] | | | | | Mailcode: [id number] | [place] [address] | | | | | [facility] | [phone] | | | | | [place], [place] | | | | | | [address] | | | | | | [phone] | | | +--------+ + + + [...] + + documented as of this encounter Progress Notes Ye Doss MD - 08/23/2008 2:19 PM PDTI saw and examined Mr. Tracy with Dr. Jerry lion nd agree with her findings on examination and her treatment plan. EBUS is being scheduled to evaluate for the presence of mediastinal disease. If that is negative, then I would recommend neoadjuvant chemoradiation in a manner similar to Herrera, followed by surgical resection. If the mediastinum is involved, I recommend definitive chemoradiation for this gentleman. I will place our notes into [facility] with [facility]. 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 Consultation was requested to evaluate for pre-operati ve vs. definitive radiation in conjunction with chemotherapy. HPI: He underwent CXR to evaluate left anterior CW pain in 04/2008, which showed a 3cm cavitary TIMBO mass. Subsequent CT chest at [facility] 06/17/08 showed a 4cm cavitary mass with spic ulated margins in the posterior TIMBO with adjacent rib fractures, rib erosion, and pleural th ickening. PET 07/23/08 demonstrated SUV of 12.6 in TIMBO mass only. CT guided biopsy 08/06/08 s howed a moderately differentiated SCCA. MRI of the thoracic spine 08/07/08 shows erosion of the tumor 1cm into the left T5 transverse process. His case was discussed at [place] multi-disci plinary lung conference 08/17/08 with a consensus for the next step to be evaluation of the m ediastinum with EBUS vs. mediastinoscopy. We are seeing him in consultation for radiation, either pre-operative or definitive. Currently, he is doing pretty well. He reports some ache, 10 in the left upper chest. Rip hanson uses Vicodin 1qhs and Excedrin 1000mg daily for pain. He otherwise denies SOB, cough, darryl ght loss. PMH: -Esophagitis, Upper GI bleed due esophageal ulcer -05/2000 -Benign colon polyps last Colonoscopy 09/25 -High PSA with normal prostate bx in 11/23 -Smoked 2 ppd x 45 yrs, quit in 1998 -Hyperlipidemia -?neurogenic claudication -Hypertension -Diabetes Mellitus Type II FAMILY HISTORY: Non-contributory. 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 ALLERGIES: NKDA MEDICATIONS: Aspirin 81mg Ec Tab QD Albuterol 90/Ipratrop 18mcg 200d QID Hydrochlorothiazide 25mg QD Metformin Hcl 1000mg BID Omeprazole 20mg QD Simvastatin 80mg QD Vardenafil Hcl 20mg Lisinopril 20mg QD Terazosin Hcl 2mg QD REVIEW OF SYSTEMS: [facility] Radiation Oncology Questionnaire was completed by the patient and reviewed with e patient. It's positive for chest wall pain, 1 episode of blood tinged sputum. No prior h istory of radiation therapy. Remainder of ROS is otherwise negative except as reported in H PI, PMH and PSH. PHYSICAL EXAM: Vitals: Temp: 98.6 F (37 C) Pulse:108 Resp: 16 B/P: 128/82 Weight:197 lb (89.5 kg) P ain: 0 General: WDWN male in NAD. Appears younger than stated age. HEENT: NC/AT, sclera anicteric, MMM. CV: RR, no m/r/g Pulm: Some rhonchi. Abd: soft, NT/ND, NABS, no masses, no HSM, no inguinal LAD Ext: 2+ DP b/l, no c/c/e Neuro: CN II-XII intact, PERRLA, EOMI, nonfocal, gait wnl Musc: No spinous/paraspinous tenderness, no tenderness over b/l hips, no tenderness over P SIS b/l IMAGING: TUMOR IMAGING PET W/ CT TORSO Exm Date: JUL 23, 2008@13:00 FINDINGS: No abnormal metabolic activity in the head and neck region to suggest a malignant or metastatic process. The mass in the posterior aspect of the left lung apex demonstrates increased metabolic activity. The most metabolically active portion is the soft tissue between the cavitary mass and the rib at that level. MaxSUV is 12.2. This metabolic activity overlies the rib and it is difficult to delineate whether the rib is involved or not. The cavitary lesion itself demonstrates a mild rim of metabolic activity with a maxSUV of 4.0 Of clear evidence of mediastinal or hilar involvement. No clear evidence of hepatic or adrenal metastasis. Impression: The soft tissue between left upper lobe cavitary mass and adjacent rib demonstrates the most metabolic activity. This is concerning for a malignant process. Difficult to delineate whether the adjacent rib is involved or not. However, no clear evidence of mediastinal or hilar involvement. MRI SPINE, THORACIC W/O CONTRAST Exm Date: AUG 06, 2008@07:00 FINDINGS: Expected distruction and replacement of the normal marrow signal intensity within the left thoracic rib noted. The adjacent vertebral body and transverse process show normal cortical margins. The marrow signal intensity on T1-weighted sequences is normal. On the axial T2-weighted fat-suppressed sequence, there is questionable increased fluid signal intensity along the anterior margin of the left transverse process which is underlying the destroyed rib. The possibility of periosteal involvement is raised, and an additional axial sequence with gadolinium contrast will be helpful for clarification. The extent of rib involvement appears unchanged since the original PET CT scan. Impression: Edema in the articular space between the involved left thoracic rib and the adjacent transverse process raises the possibility of periosteal involvement of the transverse process. Additional imaging sequence with contrast would be helpful. PATHOLOGY: ---- SURGICAL PATHOLOGY ---- Date Spec taken: Aug 06, 2008 12:17 Pathologist:Maru DRISCOLL MD Date Spec rec'd: Aug 06, 2008 12:17 Resident: Date completed: Aug 07, 2008 Accession #: [id number] Submitted by: Practitioner:TREMAYNE ADAMSON MD MICROSCOPIC EXAM: (Date Spec taken: Aug 06, 2008 12:17) DIAGNOSIS AFTER MICROSCOPIC DESCRIPTION: LUNG, NEEDLE BIOPSY: - SQUAMOUS CELL CARCINOMA, MODERATELY DIFFERENTIATED. DIAGNOSIS: Ammon Tracy is a 73 y.o. male with a locally advanced SCCA of the TIMBO , needing mediastinal evaluation. KARNOFSKY SCORE: 80-90 RECOMMENDATIONS: Mr. Tracy will be scheduled for mediastinal evaluation with Dr. Russo next week. If th ere are no involved mediastinal nodes, we will plan for concurrent neoadjuvant chemoRT, foll owed by a coordinated neuro (involved transverse process) and thoracic surgical approach. If there are involved nodes, we will plan for definitive chemoRT. He is amenable to this plan. This patient was seen, examined and discussed with my attending, Dr. Ye Doss, who agre es with this assessment and plan. Thank you for the opportunity to participate in the care of this pleasant patient. Please contact us should you have any questions or concerns. EVELYN EDWARDS MD RADIATION MEDICINE [address] [place] [address] [address]: [address] [place] [address] CC: Oj Russo MD This note was uploaded into the [place] electronic medical record so it can be viewed by the ref erring provider, Oj Russo MD. documented in this e ncounter Plan of Treatment Not on filedocumented as of this encounter Visit Diagnoses Not on filedocumented in this encounter"
--- OUTSIDE RECORDS SUMMARY | ~2019-02-24 | XMS | Encounter Summary ---
Demographics + + + | Address | [address] | | | [place] [address] | + + + | Home Phone [...] Team Providers + +------+ + | Care Health Club Manager Name | Role | Phone | [...] Tr[place] | | | | | | [place], [place] | | | | | | [address] | | | | | | [phone] | | | +--------+ + + + [...]
--- OUTSIDE RECORDS SUMMARY | ~2019-02-24 | XMS | Encounter Summary ---
Demographics + + + | Address | [address] | | | [place] [address] | + + + | Home Phone | | + + + | Preferred Language | Unknown | + + + | Marital Status | Single | + + + | Yazidism Affiliation | Unknown | + + + [...] Team Providers + +------+ + | Care Paper Bag Maker Name | Role | Phone | + [...] neoplasm of | [address] | [address] [facility] | | | | | prostate | [facility] | [facility] | | | | | (HCC) | Way | [address], | | | | | Procedures | [place], [place] | [place] | | | | | Consult, | [address] | [address] | | | | | treat, f/u | Phone: | Phone: | | | | | | [phone] | [phone] | | | | | | Fax: | Fax: | | | | | | [phone] | [phone] | +--------+--------+ + + + + Encounter Details +--------+ + + + + | Date | Type | Department | Care Team | Description | +--------+ + + + + | 10/09/ | Hospital | Radiation Oncology | | | | 2014 | Encounter | at [facility] [address] | | | | | | [address] | | | | | | [address] | | | | | | [place], [place] | | | | | | [address] | | | | | | [phone] | | | +--------+ + + + [...]
--- OUTSIDE RECORDS SUMMARY | ~2019-02-24 | XMS | Encounter Summary ---
Demographics + + + | Address | [address] | | | [place] [address] | + + + | Home Phone | | + + + | Preferred Language | Unknown | + + + | Marital Status | Single | + + + | Jewish Affiliation | Unknown | + + + | Race | Unknown | + + + | Ethnic Group | Other Race | + + + Author + + + | Author | [facility] | + + + | Organization | [facility] | + + + | Address | Unknown | + + + | Phone | Unavailable | + + + Support + + +---------+ + | Name | Relationship | Address | Phone | + + +---------+ + | Alia Tracy | ECON | Unknown | | + + +---------+ + Care Team Providers + +------+ + | Care Gifted Teacher Name | Role | Phone | + +------+ + | No Pcp Per Patient | PCP | Unavailable | + +------+ + Encounter Details +--------+ + + + + | Date | Type | Department | Care Team | Description | +--------+ + + + + | 11/16/ | Document-Sc | UNKNOWN DEPARTMENT | Unknown . | | | 2014 | anned | [address] | | | | | | [address] | | | | | | [place], [place] | | | | | | [address] | | | +--------+ + + + [...]
--- OUTSIDE RECORDS SUMMARY | ~2019-02-24 | XMS | Encounter Summary ---
Demographics + + + | Address | [address] | | | [place] [address] | + + + | Home Phone [...] Team Providers + +------+ + | Care Commercial Front Load Operator Name | Role | Phone | [...]
--- OUTSIDE RECORDS SUMMARY | ~2019-02-24 | XMS | Encounter Summary ---
Demographics + + + | Address | [address] | | | [place] [address] | + + + | Home Phone | | + + + | Preferred Language | Unknown | + + + | Marital Status | Single | + + + | Holiness Affiliation | Unknown | + + + [...] Team Providers + +------+ + | Care Seed Cleaning Manager Name | Role | Phone | [...] neoplasm of | [address] | [address] [facility] | | | | | prostate | [facility] | [facility] | | | | | (HCC) | Way | [address] [place], | | | | | Procedures | [place], [place] | [place] | | | | | Consult, | [address] | [address] | | | | | treat, f/u | Phone: | Phone: | | | | | | [phone] | [phone] | | | | | | Fax: | Fax: | | | | | | [phone] | [phone] | +--------+--------+ + + + + Encounter [...] Tran | | | | | | [place], [place] | | | | | | [address] | | | | | | [phone] | | | +--------+ + + + [...]
--- OUTSIDE RECORDS SUMMARY | ~2019-02-24 | XMS | Encounter Summary ---
Demographics + + + | Address | [address] | | | [place] [address] | + + + | Home Phone [...] Team Providers + +------+ + | Care Lead Generation Representative Name | Role | Phone | + +------+ + PCP | Unavailable | + +------+ + Encounter Details +--------+ + + + + | Date | Type | Department | Care Team | Description | +--------+ + + + + | 10/19/ | Hospital | Radiation Oncology | | | | 2008 | Encounter | at [facility] [address] | | | | | | [address] | | | | | | [address] [address] | | | | | | [place], [place] | | | | | | [address] | | | | | | [phone] | | | +--------+ + + + [...]
--- OUTSIDE RECORDS SUMMARY | ~2019-02-24 | XMS | Encounter Summary ---
Demographics + + + | Address | [address] | | | [place] [address] | + + + | Home Phone [...] Team Providers + +------+ + | Care Sports Journalist Name | Role | Phone | + [...] Tran | | | | | | [place], [place] | | | | | | [address] | | | | | | [phone] | | | +--------+ + + + [...]
--- OUTSIDE RECORDS SUMMARY | ~2019-02-24 | XMS | Encounter Summary ---
Demographics + + + | Address | [address] | | | [place] [address] | + + + | Home Phone [...] + + + | Author | [facility] | + + + | Organization | [facility] | + + + | Address | Unknown | + + + | Phone | Unavailable | + + + Support + + +---------+ + | Name | Relationship | Address | Phone | + + +---------+ + | Alia Tracy | ECON | Unknown | | + + +---------+ + Care Team Providers + +------+ + | Care Rehabilitation Aide/Scheduler Name | Role | Phone | + +------+ + | No Pcp Per Patient | PCP | Unavailable | + +------+ + Reason for Visit + + + | Reason | Comments | + + + | On Treatment Visit | | | (OTV) | | + + + | On Treatment Visit | | | (OTV) | | + + + Encounter Details +--------+---------+ + + + | Date | Type | Department | Care Team | Description | +--------+---------+ + + + | 02/11/ | Office | Radiation Oncology | Ye Doss MD | Encounter for | | 2019 | Visit | at [facility] [address] | [address] | radiotherapy | | | | [address] | [address] [place], | (Primary Dx) | | | | [place] | [place] [address] | | | | | [place], [place] | [phone] | | | | | [address] | | | | | | [phone] | | | +--------+---------+ + + + [...] in this encounter Patient Instructions Patient Instructions Ye Doss MD - 02/11/2019 11:20 AM PDTFUP with new chest CT in [place] [address] more to go documented in this encounter Progress Notes Ye Doss MD - 02/11/2019 11:20 AM PDTJust starting this SBRT yesterday 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 This was treated successfully with neoadjuvant radiotherapy followed by surgical rese ction. 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 His pre-treatment PSA is 26.5 ng/mL drawn on 08/03/14. He was treated to a total dose of 70 Gy over 28 fraction s with an IMRT technique with image guidance using [employer], completed 10/09/14. The patient will be receiving concurrent androgen deprivation for 24 months. 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 5 C (97.7 F) (Oral) | Resp 14 | Wt 74.8 kg (165 lb) | SpO2 100% | BMI 24.37 kg/m | BSA 1.91 m +wheezy Finish SBRT next Monday 02/19 FUP with new chest CT in [place] erg[place], VIKA Santos - 11:20 AM PDT Nursing Note Patient here for an On Treatment Visit. Completed 2 fractions of a planned 5. Current dose 2200 cGy of total 5500 cGy. Vitals/Pain Level: BP 101/60 (BP Location: Right upper arm, Patient Position: Sitting) | P ulse 79 | Temp 36.5 C (97.7 F) (Oral) | Resp 14 | Wt 74.8 kg (165 lb) | SpO2 100% | BMI 24.37 kg/m | BSA 1.91 m Pain Score: Wt Readings from Last 3 Encounters: 02/11/19 74.8 kg (165 lb) 02/06/19 74.1 kg (163 lb 6.4 oz) 10/05/14 81.3 kg (179 lb 3.2 oz) No results for input(s): WBC, HB, HCT, PLT, BUN, CR, NA, K, MG in the last 720 hours. documented in this enc ounter Plan of Treatment Not on filedocumented as of this encounter Visit Diagnoses + + | Diagnosis | + + | Encounter for radiotherapy - Primary Radiotherapy | + + documented in this encounter"
--- OUTSIDE RECORDS SUMMARY | ~2019-02-24 | XMS | Encounter Summary ---
Demographics + + + | Address | [address] | | | [place] [address] | + + + | Home Phone [...] + + + | Author | [facility] | + + + | Organization | [facility] | + + + | Address | Unknown | + + + | Phone | Unavailable | + + + Support + + +---------+ + | Name | Relationship | Address | Phone | + + +---------+ + | Alia Tracy | ECON | Unknown | | + + +---------+ + Care Team Providers + +------+ + | Care Doctor Of Pharmacy Name | Role | Phone | + +------+ + | No Pcp Per Patient | PCP | Unavailable | + +------+ + Reason for Visit + + + | Reason | Comments | + + + | Patient education | | + + + Encounter Details +--------+ + + + + | Date | Type | Department | Care Team | Description | +--------+ + + + + | 02/06/ | Clinical | Radiation Oncology | Yfn Moya [address] | Patient education | | 2019 | Support | at [facility] [address] | [address] | | | | Staff | [address] | [place], [place] | | | | | [place] | [address] | | | | | [place], [place] | | | | | | [address] | | | | | | [phone] | | | +--------+ + + + [...] + documented as of this encounter Progress Lucie Santacruz RN - 02/06/2019 2:00 PM PDTNursing Note: Met with Ammon Tracy today to give site specific radiation treatment education. Jeyson de leon is alert, oriented, and ambulatory with stable gait, and is alone. The patient lives in [place]. He will stay at [facility] in [place] with his , and plans on takin g the shuttle to daily radiation treatments. The patient is here for radiation simulation. He will begin radiation treatment to the RUL Lung and has verified this is the correct location of the treatment. He is familiar with radiation, and has been treated previously to lung and prostate. Patient oriented to clinic, treatment routine, projected length of treatment (5 fractions S BRT), and the schedule for weekly physician visits. A site specific radiation therapy inform ational packet was given and possible side effects were reviewed. Patient verbalized underst anding of information discussed. 10 minutes was spent in face to face discussion and teaching with the patient during this e ncounter. Refer to Patient Education Report for additional documentation. documented in this enc ounter Plan of Treatment Not on filedocumented as of this encounter Visit Diagnoses + + | Diagnosis | + + | Malignant neoplasm of lung, unspecified laterality, unspecified part of lung (HCC) - | | Primary | + + documented in this encounter"
--- OUTSIDE RECORDS SUMMARY | ~2019-02-24 | XMS | Encounter Summary ---
Demographics + + + | Address | [address] | | | [place] [address] | + + + | Home Phone [...] Team Providers + +------+ + | Care Sand Filler Name | Role | Phone | + +------+ + | No Pcp Per Patient | PCP | Unavailable | + +------+ + Encounter Details +--------+--------+ + + + | Date | Type | Department | Care Team | Description | +--------+--------+ + + + | 02/10/ | Travel [...]
--- OUTSIDE RECORDS SUMMARY | ~2019-02-24 | XMS | Encounter Summary ---
Demographics + + + | Address | [address] | | | [place] [address] | + + + | Home Phone [...] Team Providers + +------+ + | Care Welt Pocket Machine Operator Name | Role | Phone [...]
--- OUTSIDE RECORDS SUMMARY | ~2019-02-24 | XMS | Encounter Summary ---
Demographics + + + | Address | [address] | | | [place] [address] | + + + | Home Phone | | + + + | Preferred Language | Unknown | + + + | Marital Status | Single | + + + | Oriental Orthodox Affiliation | Unknown | + + + | Race | Unknown | + + + | Ethnic Group | Other Race | + + + Author + + + | Author | [facility] | + + + | Organization | [facility] | + + + | Address | Unknown | + + + | Phone | Unavailable | + + + Support + + +---------+ + | Name | Relationship | Address | Phone | + + +---------+ + | Alia Tracy | ECON | Unknown | | + + +---------+ + Care Team Providers + +------+ + | Care Biomass Plant Technician Name | Role | Phone | [...] | 2014 | Only | at [facility] [address] | [address] | | | | | [address] | [address] [place] | | | | | [place] | [place] [address] | | | | | [place] | [phone] | | | | | [address] | | | | | | [phone] | | | +--------+ + + + [...]
--- OUTSIDE RECORDS SUMMARY | ~2019-02-24 | XMS | Encounter Summary ---
Demographics + + + | Address | [address] | | | [place] [address] | + + + | Home Phone | | + + + | Preferred Language | Unknown | + + + | Marital Status | Single | + + + | Bahai Affiliation | Unknown | + + + [...] Team Providers + +------+ + | Care Quail Farmer Name | Role | Phone | + [...] | | 2019 | Support | at [facility] [address] | [address] | | | | Staff | [address] | [place], [place] | | | | | [place] | [address] | | | | | [place], [place] | | | | | | [address] | | | | | | [phone] | | | +--------+ + + + [...] and is alone. The patient lives in [place]. He will stay at [facility] in [place] with his , and plans on takin [...]
--- OUTSIDE RECORDS SUMMARY | ~2019-02-24 | XMS | Encounter Summary ---
Demographics + + + | Address | [address] | | | [place] [address] | + + + | Home Phone [...] Team Providers + +------+ + | Care Collator Operator Name | Role | Phone | [...] Tran | | | | | | [place], [place] | | | | | | [address] | | | | | | [phone] | | | +--------+ + + + [...] + documented as of this encounter Discharge Summaries Other, Faculty - 09/02/2008 12:00 AM PDT documented [...]
--- OUTSIDE RECORDS SUMMARY | ~2019-02-24 | XMS | Encounter Summary ---
Demographics + + + | Address | [address] | | | [place] [address] | + + + | Home Phone | | + + + | Preferred Language | Unknown | + + + | Marital Status | Single | + + + | Lutheran Affiliation | Unknown | + + + | Race | Unknown | + + + | Ethnic Group | Other Race | + + + Author + + + | Author | [facility] | + + + | Organization | [facility] | + + + | Address | Unknown | + + + | Phone | Unavailable | + + + Support + + +---------+ + | Name | Relationship | Address | Phone | + + +---------+ + | Alia Tracy | ECON | Unknown | | + + +---------+ + Care Team Providers + +------+ + | Care Peritoneal Dialysis Registered Nurse Name | Role | Phone | [...] Tran | | | | | | [place], [place] | | | | | | [address] | | | | | | [phone] | | | +--------+ + + + [...]
--- OUTSIDE RECORDS SUMMARY | ~2019-02-24 | XMS | Encounter Summary ---
Demographics + + + | Address | [address] | | | [place] [address] | + + + | Home Phone | | + + + | Preferred Language | Unknown | + + + | Marital Status | Single | + + + | Sabianist Affiliation | Unknown | + + + [...] Team Providers + +------+ + | Care Form Setter Steel Pan Forms Name | Role | Phone | + [...] + + + + | 09/14/ | Documentati | Radiation Oncology | Ye Doss MD | Teaching session | | 2008 | on | at [facility] [address] [facility] | [address] | with patient | | | | [address] | [address] [place], | | | | | [place] | [place] [address] | | | | | [place], [place] | [phone] | | | | | [address] | | | | | | [phone] | | | +--------+ + + + [...]
--- OUTSIDE RECORDS SUMMARY | ~2019-02-24 | XMS | Encounter Summary ---
Demographics + + + | Address | [address] | | | [place] [address] | + + + | Home Phone | | + + + | Preferred Language | Unknown | + + + | Marital Status | Single | + + + | Mormonism Affiliation | Unknown | + + + [...] Team Providers + +------+ + | Care Oil Burner Mechanic Name | Role | Phone | + [...] Tran | | | | | | [place], [place] | | | | | | [address] | | | | | | [phone] | | | +--------+ + + + [...]
--- OUTSIDE RECORDS SUMMARY | ~2019-02-24 | XMS | Encounter Summary ---
Demographics + + + | Address | [address] | | | [place] [address] | + + + | Home Phone [...] Team Providers + +------+ + | Care Horticultural Specialty Grower Inside Name | Role | Phone | + [...] neoplasm of | [address] | [address] [facility] | | | | | prostate | [facility] | [facility] | | | | | (HCC) | Way | [address] [place], | | | | | Procedures | [place], [place] | [place] | | | | | Consult, | [address] | [address] | | | | | treat, f/u | Phone: | Phone: | | | | | | [phone] | [phone] | | | | | | Fax: | Fax: | | | | | | [phone] | [phone] | +--------+--------+ + + + + Encounter Details +--------+ + + + + | Date | Type | Department | Care Team | Description | +--------+ + + + + | 09/07/ | Hospital | Radiation Oncology | | | | 2014 | Encounter | at [facility] [address] | | | | | | [address] | | | | | | [place] | | | | | | [place], [place] | | | | | | [address] | | | | | | [phone] | | | +--------+ + + + [...]
--- OUTSIDE RECORDS SUMMARY | ~2019-02-24 | XMS | Encounter Summary ---
Demographics + + + | Address | [address] | | | [place] [address] | + + + | Home Phone [...] Team Providers + +------+ + | Care Biochemical Engineer Name | Role | Phone | [...] 2008 | Visit | at [facility] [address] [facility] | [address] | Therapy | | | | [address] | [address] [place], | | | | | [place] | [place] [address] | | | | | [place], [place] | [phone] | | | | | [address] | | | | | | [phone] | | | +--------+---------+ + + + [...] is a 73 y.o. male with a [id number] SCCA of TIMBO with posterior CW and [...] up both zofran and ativan today at [place]-will try ativan for anxiety-help sleeping at night. Nursing Intervention: continue supportive care.Electronically signed by Mila Martinez at 12:39 PM PDTdocumented in this encounter Plan of Treatment Not on filedocumented as of this encounter Visit Diagnoses + + | Diagnosis | + + | OTV/Radiation Therapy Radiotherapy | + + documented in this encounter"
--- OUTSIDE RECORDS SUMMARY | ~2019-02-24 | XMS | Encounter Summary ---
Demographics + + + | Address | [address] | | | [place] [address] | + + + | Home Phone | | + + + | Preferred Language | Unknown | + + + | Marital Status | Single | + + + | Amish Affiliation | Unknown | + + + | Race | Unknown | + + + | Ethnic Group | Other Race | + + + Author + + + | Author | [facility] | + + + | Organization | [facility] | + + + | Address | Unknown | + + + | Phone | Unavailable | + + + Support + + +---------+ + | Name | Relationship | Address | Phone | + + +---------+ + | Alia Tracy | ECON | Unknown | | + + +---------+ + Care Team Providers + +------+ + | Care Printmaker Name | Role | Phone | + [...] neoplasm of | [address] | [address] [facility] | | | | | prostate | [facility] | [facility] | | | | | (HCC) | Way | Rd [place], | | | | | Procedures | [place], [place] | [place] | | | | | Consult, | [address] | [address] | | | | | treat, f/u | Phone: | Phone: | | | | | | [phone] | [phone] | | | | | | Fax: | Fax: | | | | | | [phone] | [phone] | +--------+--------+ + + + + Encounter Details +--------+ + + + + | Date | Type | Department | Care Team | Description | +--------+ + + + + | 10/07/ | Hospital | Radiation Oncology | | | | 2014 | Encounter | at [facility] [address] | | | | | | [address] | | | | | | [place] | | | | | | [place], [place] | | | | | | [address] | | | | | | [phone] | | | +--------+ + + + [...]
--- OUTSIDE RECORDS SUMMARY | ~2019-02-24 | XMS | Encounter Summary ---
Demographics + + + | Address | [address] | | | [place] [address] | + + + | Home Phone | | + + + | Preferred Language | Unknown | + + + | Marital Status | Single | + + + | Christianity Affiliation | Unknown | + + + [...] Team Providers + +------+ + | Care Trauma Surgeon Name | Role | Phone | + [...] Tran | | | | | | [place], [place] | | | | | | [address] | | | | | | [phone] | | | +--------+ + + + [...]
--- OUTSIDE RECORDS SUMMARY | ~2019-02-24 | XMS | Encounter Summary ---
Demographics + + + | Address | [address] | | | [place] [address] | + + + | Home Phone [...] Team Providers + +------+ + | Care Patient Services Specialist Name | Role | Phone | [...] | [address] | [address] [place], | | | | | [place] | [place] [address] | | | | | [place], [place] | [phone] | | | | | [address] | | | | | | [phone] | | | +--------+ + + + [...]
--- OUTSIDE RECORDS SUMMARY | ~2019-02-24 | XMS | Encounter Summary ---
Demographics + + + | Address | [address] | | | [place] [address] | + + + | Home Phone [...] Team Providers + +------+ + | Care Employee Counselor Name | Role | Phone | [...] Tran | | | | | | [place], [place] | | | | | | [address] | | | | | | [phone] | | | +--------+ + + + [...]
--- OUTSIDE RECORDS SUMMARY | ~2019-02-24 | XMS | Encounter Summary ---
Demographics + + + | Address | [address] | | | [place] [address] | + + + | Home Phone [...] + + + | Author | [facility] | + + + | Organization | [facility] | + + + | Address | Unknown | + + + | Phone | Unavailable | + + + Support + + +---------+ + | Name | Relationship | Address | Phone | + + +---------+ + | Alia Tracy | ECON | Unknown | | + + +---------+ + Care Team Providers + +------+ + | Care Resident Care Assistant Name | Role | Phone [...] | | | | prostate | [facility] | [facility] | | | | | (HCC) | Way | Rd [place], | | | | | Procedures | [place], [place] | [place] | | | | | Consult, | [address] | [address] | | | | | treat, f/u | Phone: | Phone: | | | | | | [phone] | [phone] | | | | | | Fax: | Fax: | | | | | | [phone] | [phone] | +--------+--------+ + + + + Encounter Details +--------+ + + + + | Date | Type | Department | Care Team | Description | +--------+ + + + + | 09/03/ | Hospital | Radiation Oncology | | | | 2014 | Encounter | at [facility] [address] | | | | | | [address] | | | | | | [place] | | | | | | [place], [place] | | | | | | [address] | | | | | | [phone] | | | +--------+ + + + [...]
--- OUTSIDE RECORDS SUMMARY | ~2019-02-24 | XMS | Encounter Summary ---
Demographics + + + | Address | [address] | | | [place] [address] | + + + | Home Phone | | + + + | Preferred Language | Unknown | + + + | Marital Status | Single | + + + | Mandaeism Affiliation | Unknown | + + + [...] Team Providers + +------+ + | Care Bariatric Program Coordinator Name | Role | Phone | [...] neoplasm of | [address] | [address] [facility] | | | | | prostate | [facility] | [facility] | | | | | (HCC) | Way | [address] [place], | | | | | Procedures | [place], [place] | [place] | | | | | Consult, | [address] | [address] | | | | | treat, f/u | Phone: | Phone: | | | | | | [phone] | [phone] | | | | | | Fax: | Fax: | | | | | | [phone] | [phone] | +--------+--------+ + + + + Encounter Details +--------+ + + + + | Date | Type | Department | Care Team | Description | +--------+ + + + + | 09/24/ | Hospital | Radiation Oncology | | | | 2014 | Encounter | at [facility] [address] | | | | | | [address] | | | | | | [place] | | | | | | [place], [place] | | | | | | [address] | | | | | | [phone] | | | +--------+ + + + [...]
--- OUTSIDE RECORDS SUMMARY | ~2019-02-24 | XMS | Encounter Summary ---
Demographics + + + | Address | [address] | | | [place] [address] | + + + | Home Phone | | + + + | Preferred Language | Unknown | + + + | Marital Status | Single | + + + | Worship Affiliation | Unknown | + + + [...] Team Providers + +------+ + | Care Elementary School Band Director Name | Role | Phone | + +------+ + PCP | Unavailable | + +------+ + Encounter Details +--------+ + + + + | Date | Type | Department | Care Team | Description | +--------+ + + + + | 07/23/ | Hospital | Radiation Oncology | | | | 2008 | Encounter | at [facility] [address] | | | | | | [address] | | | | | | [place] | | | | | | [place] | | | | | | [place], [place] | | | | | | [address] | | | | | | [phone] | | | +--------+ + + + [...] Imaging | Routin | Malignant Neoplasm | 1 Occurrences | | ATTENUATED | | e | of Bronchus and | starting 07/23/2008 | | | | | Lung, Unspecified | | | | | | Site | | + +---------+--------+ + + documented as of this encounter Procedures + +--------+ + + + | Procedure Name | Priori | Date/Time | Associated Diagnosis | Comments | | | ty | | | | + +--------+ + + + | ORDERS OTHER | | 07/24/2008 | | Results for this | | | | 12:00 AM | | procedure are in the | | | | PST | | results section. | + +--------+ + + + documented in this encounter Results ORDERS OTHER (07/24/2008 12:00 AM PST) + + + | Narrative | Performed At | + + + | | | + + + + + | Procedure Note | + + | Jeane Horowitz - 07/24/2008 12:00 AM PST | | | + + documented in this encounter Visit Diagnoses + + | Diagnosis | + + | Malignant neoplasm of bronchus and lung, unspecified site | + + documented in this encounter"
--- OUTSIDE RECORDS SUMMARY | ~2019-02-24 | XMS | Encounter Summary ---
Demographics + + + | Address | [address] | | | [place] [address] | + + + | Home Phone [...] Team Providers + +------+ + | Care Nursing Home Director Name | Role | Phone | [...] | Radiation | Diagnoses | Parag, | Kademe, | | | | Oncology | Malignant | Pavan Booker MD | MD Rishabh | | | | | neoplasm of | [address] | [address] [facility] | | | | | prostate | [facility] | [facility] | | | | | (HCC) | Way | [address] [place], | | | | | Procedures | [place], [place] | [place] | | | | | Consult, | [address] | [address] | | | | | treat, f/u | Phone: | Phone: | | | | | | [phone] | [phone] | | | | | | Fax: | Fax: | | | | | | [phone] | [phone] | +--------+--------+ + + + + Encounter Details +--------+ + + + + | Date | Type | Department | Care Team | Description | +--------+ + + + + | 09/07/ | Hospital | Radiation Oncology | | | | 2014 | Encounter | at [facility] [address] | | | | | | [address] | | | | | | [place] | | | | | | [place], [place] | | | | | | [address] | | | | | | [phone] | | | +--------+ + + + [...]
--- OUTSIDE RECORDS SUMMARY | ~2019-02-24 | XMS | Encounter Summary ---
Demographics + + + | Address | [address] | | | [place] [address] | + + + | Home Phone [...] Team Providers + +------+ + | Care Lock Operator Name | Role | Phone | [...] | | prostate | [facility] | [facility] | | | | | (HCC) | Way | Rd [place], | | | | | Procedures | [place], [place] | [place] | | | | | Consult, | [address] | [address] | | | | | treat, f/u | Phone: | Phone: | | | | | | [phone] | [phone] | | | | | | Fax: | Fax: | | | | | | [phone] | [phone] | +--------+--------+ + + + + Encounter Details +--------+ + + + + | Date | Type | Department | Care Team | Description | +--------+ + + + + | 09/17/ | Hospital | Radiation Oncology | | | | 2014 | Encounter | at [facility] [address] | | | | | | [address] | | | | | | [place] | | | | | | [place], [place] | | | | | | [address] | | | | | | [phone] | | | +--------+ + + + [...]
--- OUTSIDE RECORDS SUMMARY | ~2019-02-24 | XMS | Encounter Summary ---
Demographics + + + | Address | [address] | | | [place] [address] | + + + | Home Phone [...] Team Providers + +------+ + | Care Software Consultant Name | Role | Phone | [...] neoplasm of | [address] | [address] [facility] | | | | | prostate | [facility] | [facility] | | | | | (HCC) | Way | [address] [place], | | | | | Procedures | [place], [place] | [place] | | | | | Consult, | [address] | [address] | | | | | treat, f/u | Phone: | Phone: | | | | | | [phone] | [phone] | | | | | | Fax: | Fax: | | | | | | [phone] | [phone] | +--------+--------+ + + + + Encounter Details +--------+ + + + + | Date | Type | Department | Care Team | Description | +--------+ + + + + | 09/23/ | Hospital | Radiation Oncology | | | | 2014 | Encounter | at [facility] [address] | | | | | | [address] | | | | | | [place] | | | | | | [place], [place] | | | | | | [address] | | | | | | [phone] | | | +--------+ + + + [...]
--- OUTSIDE RECORDS SUMMARY | ~2019-02-24 | XMS | Encounter Summary ---
Demographics + + + | Address | [address] | | | [place] [address] | + + + | Home Phone [...] + +------+ + | Care Occupational Therapy Asst Name | Role | Phone | + +------+ + | No Pcp Per Patient | PCP | Unavailable | + +------+ + Reason for Referral PROC - Dept/Practice Procedure (Routine) + +--------+ + + + + | Status | Reason | Specialty | Diagnoses / | Referred By | Referred To | | | | | Procedures | Contact | Contact | + +--------+ + + + + | Canceled | | Radiation | Diagnoses | Mark, | [facility] | | | | Oncology | Malignant | Doni Soriano MD | [facility] [address] | | | | | neoplasm of | [address] | [address] | | | | | prostate | [address] | [facility] [place] | | | | | (HCC) | [facility] | Mailcode: | | | | | Procedures | [place], [place] | [address] | | | | | SIMULATION, | [address] [facility] | | | | | RADIATION | | Hospital | | | | | | | [facility] | | | | | | | [place], [place] | | | | | | | [address] | | | | | | | Phone: | | | | | | | [phone] | | | | | | | Fax: | | | | | | | [phone] | + +--------+ + + + + Reason for Visit + + + | Reason | Comments | + + + | Consultation | | + + + Encounter Details +--------+---------+ + + + | Date | Type | Department | Care Team | Description | +--------+---------+ + + + | 08/04/ | Office | Radiation Oncology | Rishabh Quan MD | Malignant neoplasm | | 2015 | Visit | at [facility] [address] | [address] | of prostate (HCC) | | | | [address] | [place], | (Primary Dx) | | | | [place] [address] | [place] [address] | | | | | [place], [place] | [phone] | | | | | [address] | | | | | | [phone] | | | +--------+---------+ + + + [...] + + + | Blood Pressure | 125/67 | 08/04/2014 11:15 AM | | | | | PDT | | + + + + + | Pulse | 67 | 08/04/2014 11:15 AM | | | | | PDT [...] + + + + | Weight | 81.6 kg (180 lb) | 08/04/2014 11:15 AM | | | | | PDT | | + + + + + | Height | 175.3 cm (5' 9") | 08/04/2014 11:15 AM | | | | | PDT | | + + + + + | Body Mass Index | 26.58 | 08/04/2014 11:15 AM | | | | | PDT | | + + + + + documented in this encounter Patient Instructions Patient Instructions Doni Flores MD - 08/04/2014 12:13 PM PDTWe will have Alia Russell son, she works in social work and housing at the [facility], call you about housing here in [place] during treatment. We will setup the bone scan and CT Pelvis as well as thebeacon placement to coordinate over the same trip. START TAKING THE BICALUTAMIDE TWO DAYS BEFORE THE BONE SCAN IS SCHEDULED, NOT ANY EARLIER!! One to two weeks after the beacon placement we will setup the simulation (planning) appoint ment here at [facility]. You should plan to start radiation two to three weeks after the planning session documented in this encounter Progress Notes Rishabh Quan MD - 08/11/2014 2:28 PM PDTI personally interviewed Ammon Hilliard Tracyjulius uplicated the pertinent parts of the physical examination and formulated the treatment plan. I reviewed the excellent note by Dr. Flores and entered my findings directly into his not e. Riri Clarke RN - 07/19 1:07 PM PDTNursing documentation: Pt here for a consultation visit with Dr. Quan regarding radiation treatment options. Pt a lert, oriented, and ambulatory with a steady gait and accompanied by his . Pt oriented to clinic and reviewed the Introduction to the [facility] Radiation Oncology Departme nt pt information handout. Pt verbalizes understanding. 10 minutes was spent in face to face discussion and teaching with the patient. Doni Emerson MD - 08/04/2014 10:40 AM PDT RADIATION ONCOLOGY CONSULTATION Requesting Physician: Dr. Tuttle. CHIEF COMPLAINT: Prostate cancer IDENTIFICATION: Ammon Tracy is a 79 year old male with prostate adenocarcinoma. He was originally diagnosed in December of [address] Limon because of a elevated PSA, negat mera SAVANNAH. He underwent a biopsy on 01/12/2014 that revealed a prostate of 30 mL. The biopsy demonstrated a maximum Shayan score of 8 (4+4) in 3 of 12 cores. Involving right base, rig ht lateral mid and right lateral base with 10 - 90% involvement. Has had two previous negati ve biopsy most recently in July 2010. The urologist talked to him about the various treatment options for prostate cancer. His current urinary symptoms are hesitation and weak stream. His AUA BPH score is 13. He notes nocturia of 2-3, he takes tamsulosin 0.4mg qhs . He wakes up with sporadic erections. His MAGDA score is 8. He notes bowel movements are regular. DATE PSA ng/mL 08/03/2014 26.5 04/02/2013 14.55 09/04/2012 10.95 % free 14-16. Chemoradiation neoadjuvant lung cancer in 2008, he was just given a clean bill of health in regards to lung cancer by his light technician Dr. Russo yesterday. Consultation was requested to evaluate for radiotherapy. 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 It's positive for memory loss, sleep disturbance, easy bruising and nose bleeds. No prior history of radiation therapy. Remainder of ROS is otherwise negative except as r eported in HPI, PMH and PSH. PHYSICAL EXAM: Vitals: BP 125/67 | Pulse 67 | Ht 1.753 m (5' 9") | Wt 81.647 kg (180 lb) | BMI 26.57 kg/(m ^2) Pain Score: General: WDWN in NAD ECOG Performance Status: 1 HEENT: PERRL, EOMI. Abd: soft, NTND Ext: no edema Neuro: nonfocal Rectal: normal sphincter tone. Firm small nodule on the right lateral prostate, nontender, about the 1cm in size, left side of prostate is firm but no palpable nodule, edges of the p rostate are crisp LABORATORY: DATE PSA ng/mL 08/03/2014 26.5 04/02/2013 14.55 09/04/2012 10.95 IMAGING: CT Pelvis w/contrast 02/06/14 - no suspicious adenopathy PATHOLOGY: DIAGNOSIS: cT3a high risk prostate cancer KARNOFSKY SCORE: 90 ECO RECOMMENDATIONS: Ammon Tracy is a 79 y.o. male with a Lizemores 8 (in 3 of 12 cores) adenocarcinoma of the prostate. His pre-treatment PSA is 26.5 ng/mL from 08/02/2014. We counseled him abou t the different treatment options. We discussed in detail the treatment options for high-ri sk prostate cancer as defined by NCCN guidelines: Low (T1 - T2a and Shayan score 2 - 6 and PSA < 10 ng/mL), Intermediate (X7e-Y4s or Lizemores score of 7 or PSA 10 - 20 ng/mL), High (T3 a or Lizemores score 8 - 10 or PSA > 20 ng/mL, Locally Advanced/Very High (T3b or T4). We dis cussed how the best current standard therapy is combined modality therapy consisting of conc urrent androgen ablation and external beam radiation. We specifically mentioned the expecte d outcomes from the EORTC trial combining 3 years of androgen ablation with radiation demons trating a survival benefit and a 5 year disease-free survival of 74%. We discussed how surgery usually provides the best outcome when the disease is confined to the prostate. But in high-risk disease, the cancer is rarely confined to the prostate. The Colton Tables indicate that patients are likely to have high rates of extracapsular extensi on, seminal vesicle involvement and/or lymph node metastasis. Surgery alone is possible for patients with high-risk features, but two randomized trials ( SWOG 8794 and EORTC 14928) have demonstrated a significant benefit with the addition of adju vant radiation for patients with any high-risk features found at the time of surgery. The 5 -year disease free survival for surgery alone in this population of patients from the two ia was 40 - 50%. With the addition of radiation, the 5-year disease-free survival for fernanda karo followed by adjuvant radiation is about 70 - 75%. . We would want to restage with bone scan and CT Pelvis w/contrast before proceeding with ro atment [facility] here at [facility]. His previous bone scan had a right rib lesion that was equivocal but though to be from tra sarah. If these are negative we would plan to treat to 70 Gy in 28 fractions, ~5.5 weeks, with two years of androgen deprivation therapy, 30 days of bicalutamide followed by 6 month leup rolide injections coordinated at the [facility] urology team. [place] beacons to be place by Dr. Dov fenton's team one to two weeks prior to simulation. -Have Alia Mayo Call him with housing discussion during treatment -We will send bicalutamide but we don't want him to start taking until 3 days before bone s can to not change the results documented in this encou nter Plan of Treatment + + +--------+ + + | Name | Type | Priori | Associated Diagnoses | Order Schedule | | | | ty | | | + + +--------+ + + | SIMULATION, | Procedures | Routin | Malignant neoplasm | Ordered: 08/04/2014 | | RADIATION | | e | of prostate (HCC) | | + + +--------+ + + documented as of this encounter Visit Diagnoses + + | Diagnosis | + + | Malignant neoplasm of prostate (HCC) - Primary Malignant neoplasm of prostate | + + documented in this encounter
--- OUTSIDE RECORDS SUMMARY | ~2019-02-24 | XMS | Encounter Summary ---
Demographics + + + | Address | [address] | | | [place] [address] | + + + | Home Phone [...] + + + | Author | [facility] | + + + | Organization | [facility] | + + + | Address | Unknown | + + + | Phone | Unavailable | + + + Support + + +---------+ + | Name | Relationship | Address | Phone | + + +---------+ + | Alia Tracy | ECON | Unknown | | + + +---------+ + Care Team Providers + +------+ + | Care Photo Stylist Name | Role | Phone | + [...] neoplasm of | [address] | [address] [facility] | | | | | prostate | [facility] | [facility] | | | | | (HCC) | Way | Rd [place], | | | | | Procedures | [place], [place] | [place] | | | | | Consult, | [address] | [address] | | | | | treat, f/u | Phone: | Phone: | | | | | | [phone] | [phone] | | | | | | Fax: | Fax: | | | | | | [phone] | [phone] | +--------+--------+ + + + + Encounter Details +--------+ + + + + | Date | Type | Department | Care Team | Description | +--------+ + + + + | 09/08/ | Hospital | Radiation Oncology | | | | 2014 | Encounter | at [facility] [address] | | | | | | [address] | | | | | | [address] | | | | | | [place], [place] | | | | | | [address] | | | | | | [phone] | | | +--------+ + + + [...]
--- OUTSIDE RECORDS SUMMARY | ~2019-02-24 | XMS | Encounter Summary ---
Demographics + + + | Address | [address] | | | [place] [address] | + + + | Home Phone [...] Team Providers + +------+ + | Care Curriculum Assistant Principal Name | Role | Phone | + [...] Tran | | | | | | [place], [place] | | | | | | [address] | | | | | | [phone] | | | +--------+ + + + [...]
--- OUTSIDE RECORDS SUMMARY | ~2019-02-24 | XMS | Encounter Summary ---
Demographics + + + | Address | [address] | | | [place] [address] | + + + | Home Phone [...] Team Providers + +------+ + | Care Rubber Attacher Name | Role | Phone | + [...] Tran | | | | | | [place], [place] | | | | | | [address] | | | | | | [phone] | | | +--------+ + + + [...]
--- OUTSIDE RECORDS SUMMARY | ~2019-02-24 | XMS | Encounter Summary ---
Demographics + + + | Address | [address] | | | [place] [address] | + + + | Home Phone [...] Providers + +------+ + | Care Environmental Engineering Manager Name | Role | Phone | [...] neoplasm of | [address] | [address] [facility] | | | | | prostate | [facility] | [facility] | | | | | (HCC) | Way | [address] [place], | | | | | Procedures | [place], [place] | [place] | | | | | Consult, | [address] | [address] | | | | | treat, f/u | Phone: | Phone: | | | | | | [phone] | [phone] | | | | | | Fax: | Fax: | | | | | | [phone] | [phone] | +--------+--------+ + + + + Encounter Details +--------+ + + + + | Date | Type | Department | Care Team | Description | +--------+ + + + + | 09/22/ | Hospital | Radiation Oncology | | | | 2014 | Encounter | at [facility] [address] | | | | | | [address] | | | | | | [address] | | | | | | [place], [place] | | | | | | [address] | | | | | | [phone] | | | +--------+ + + + [...]
--- OUTSIDE RECORDS SUMMARY | ~2019-02-24 | XMS | Encounter Summary ---
Demographics + + + | Address | [address] | | | [place] [address] | + + + | Home Phone | | + + + | Preferred Language | Unknown | + + + | Marital Status | Single | + + + | Rastafarian Affiliation | Unknown | + + + [...] Team Providers + +------+ + | Care Civil Draftsman Name | Role | Phone | + [...] neoplasm of | [address] | [address] [facility] | | | | | prostate | [facility] | [facility] | | | | | (HCC) | Way | [address] [place], | | | | | Procedures | [place], [place] | [place] | | | | | Consult, | [address] | [address] | | | | | treat, f/u | Phone: | Phone: | | | | | | [phone] | [phone] | | | | | | Fax: | Fax: | | | | | | [phone] | [phone] | +--------+--------+ + + + + Encounter Details +--------+ + + + + | Date | Type | Department | Care Team | Description | +--------+ + + + + | 09/10/ | Hospital | Radiation Oncology | | | | 2014 | Encounter | at [facility] [address] | | | | | | [address] | | | | | | [address] [address] | | | | | | [place], [place] | | | | | | [address] | | | | | | [phone] | | | +--------+ + + + [...]
--- OUTSIDE RECORDS SUMMARY | ~2019-02-24 | XMS | Encounter Summary ---
Demographics + + + | Address | [address] | | | [place] [address] | + + + | Home Phone [...] Team Providers + +------+ + | Care Conflicts Analyst Name | Role | Phone | [...] Tran | | | | | | [place], [place] | | | | | | [address] | | | | | | [phone] | | | +--------+ + + + [...]
--- OUTSIDE RECORDS SUMMARY | ~2019-02-24 | XMS | Encounter Summary ---
Demographics + + + | Address | [address] | | | [place] [address] | + + + | Home Phone [...] Team Providers + +------+ + | Care Tag Stringer Name | Role | Phone | + [...] Rd | | | | | | [place], [place] | | | | | | [address] | | | +--------+ + + + [...]
--- OUTSIDE RECORDS SUMMARY | ~2019-02-24 | XMS | Encounter Summary ---
Demographics + + + | Address | [address] | | | [place] [address] | + + + | Home Phone | | + + + | Preferred Language | Unknown | + + + | Marital Status | Single | + + + | Yarsanism Affiliation | Unknown | + + + [...] Team Providers + +------+ + | Care Farm Boss Name | Role | Phone | + [...] 2008 | Visit | at [facility] [address] [facility] | [address] | Therapy | | | | [address] | [place], | | | | | [place] [address] | [place] [address] | | | | | [place], [place] | [phone] | | | | | [address] | | | | | | [phone] | | | +--------+---------+ + + + [...] is a 73 y.o. male with a [id number] SCCA of TIMBO with posterior CW and [...]
--- OUTSIDE RECORDS SUMMARY | ~2019-02-24 | XMS | Encounter Summary ---
Demographics + + + | Address | [address] | | | [place] [address] | + + + | Home Phone [...] Team Providers + +------+ + | Care Gis Software Developer Name | Role | Phone | [...]
--- OUTSIDE RECORDS SUMMARY | ~2019-02-24 | XMS | Encounter Summary ---
Demographics + + + | Address | [address] | | | [place] [address] | + + + | Home Phone [...] Team Providers + +------+ + | Care Transformer Molder Name | Role | Phone | [...] neoplasm of | [address] | [address] [facility] | | | | | prostate | [facility] | [facility] | | | | | (HCC) | Way | Rd [place], | | | | | Procedures | [place], [place] | [place] | | | | | Consult, | [address] | [address] | | | | | treat, f/u | Phone: | Phone: | | | | | | [phone] | [phone] | | | | | | Fax: | Fax: | | | | | | [phone] | [phone] | +--------+--------+ + + + + Encounter Details +--------+ + + + + | Date | Type | Department | Care Team | Description | +--------+ + + + + | 10/02/ | Hospital | Radiation Oncology | | | | 2014 | Encounter | at [facility] [address] | | | | | | [address] | | | | | | [address] | | | | | | [place], [place] | | | | | | [address] | | | | | | [phone] | | | +--------+ + + + [...]
--- OUTSIDE RECORDS SUMMARY | ~2019-02-24 | XMS | Encounter Summary ---
Demographics + + + | Address | [address] | | | [place] [address] | + + + | Home Phone [...] Team Providers + +------+ + | Care Senior Backup Administrator Name | Role | Phone | + [...] | | Oncology | Malignant | Pavan oBoker MD | MD Rishabh | | | | | neoplasm of | [address] | [address] [facility] | | | | | prostate | [facility] | [facility] | | | | | (HCC) | Way | [address] [place], | | | | | Procedures | [place], [place] | [place] | | | | | Consult, | [address] | [address] | | | | | treat, f/u | Phone: | Phone: | | | | | | [phone] | [phone] | | | | | | Fax: | Fax: | | | | | | [phone] | [phone] | +--------+--------+ + + + + Encounter Details +--------+ + + + + | Date | Type | Department | Care Team | Description | +--------+ + + + + | 09/09/ | Hospital | Radiation Oncology | | | | 2014 | Encounter | at [facility] [address] | | | | | | [address] | | | | | | [address] [address] | | | | | | [place], [place] | | | | | | [address] | | | | | | [phone] | | | +--------+ + + + [...]
--- OUTSIDE RECORDS SUMMARY | ~2019-02-24 | XMS | Encounter Summary ---
Demographics + + + | Address | [address] | | | [place] [address] | + + + | Home Phone [...] Author + + + | Author | [facility] | + + + | Organization | [facility] | + + + | Address | Unknown | + + + | Phone | Unavailable | + + + Support + + +---------+ + | Name | Relationship | Address | Phone | + + +---------+ + | Alia Tracy | ECON | Unknown | | + + +---------+ + Care Team Providers + +------+ + | Care Cobol Application Developer Name | Role | Phone | [...] Oncology | [address] [place] [address] | Teaching session | | 2014 | Support | at [facility] [address] | [address] | with patient | | | Staff | [address] | [place], [place] | | | | | [place] [address] | [address] | | | | | [place], [place] | | | | | | [address] | | | | | | [phone] | | | +--------+ + + + [...] location of treatment. The pt lives in [place], [place]; he is staying locally at [facility] housing during the course of his treatment. [...]
--- OUTSIDE RECORDS SUMMARY | ~2019-02-24 | XMS | Encounter Summary ---
Demographics + + + | Address | [address] | | | [place] [address] | + + + | Home Phone [...] Author + + + | Author | [facility] | + + + | Organization | [facility] | + + + | Address | Unknown | + + + | Phone | Unavailable | + + + Support + + +---------+ + | Name | Relationship | Address | Phone | + + +---------+ + | Alia Tracy | ECON | Unknown | | + + +---------+ + Care Team Providers + +------+ + | Care Extermination Supervisor Name | Role | Phone | [...] Tran | | | | | | [place], [place] | | | | | | [address] | | | | | | [phone] | | | +--------+ + + + [...]
--- OUTSIDE RECORDS SUMMARY | ~2019-02-24 | XMS | Encounter Summary ---
Demographics + + + | Address | [address] | | | [place] [address] | + + + | Home Phone [...] Team Providers + +------+ + | Care Latin Dance Instructor Name | Role | Phone | + [...] Tran | | | | | | [place], [place] | | | | | | [address] | | | | | | [phone] | | | +--------+ + + + [...]
--- OUTSIDE RECORDS SUMMARY | ~2019-02-24 | XMS | Encounter Summary ---
Demographics + + + | Address | [address] | | | [place] [address] | + + + | Home Phone | | + + + | Preferred Language | Unknown | + + + | Marital Status | Single | + + + | Zoroastrian Affiliation | Unknown | + + + [...] Team Providers + +------+ + | Care Roller Leveler Operator Name | Role | Phone | + +------+ + PCP | Unavailable | + +------+ + Encounter Details +--------+ + + + + | Date | Type | Department | Care Team | Description | +--------+ + + + + | 08/26/ | Community Living Specialist | Radiation Oncology | Ye Doss MD | Lung Cancer (HCC) | | 2008 | | at [facility] [address] | [address] | (Primary Dx) | | | | [address] | [place], | | | | | [address] | [place] [address] | | | | | [place], [place] | [phone] | | | | | [address] | | | | | | [phone] | | | +--------+ + + + [...]
--- OUTSIDE RECORDS SUMMARY | ~2019-02-24 | XMS | Encounter Summary ---
Demographics + + + | Address | [address] | | | [place] [address] | + + + | Home Phone [...] Team Providers + +------+ + | Care Taxi Truck Driver Name | Role | Phone | + [...] neoplasm of | [address] | [address] [facility] | | | | | prostate | [facility] | [facility] | | | | | (HCC) | Way | Rd [place], | | | | | Procedures | [place], [place] | [place] | | | | | Consult, | [address] | [address] | | | | | treat, f/u | Phone: | Phone: | | | | | | [phone] | [phone] | | | | | | Fax: | Fax: | | | | | | [phone] | [phone] | +--------+--------+ + + + + Encounter [...] Tran | | | | | | [place], [place] | | | | | | [address] | | | | | | [phone] | | | +--------+ + + + [...]
--- OUTSIDE RECORDS SUMMARY | ~2019-02-24 | XMS | Clinical Summary ---
Demographics + + + | Address | [address] | | | [place] [address] | + + + | Home Phone | | + + + | Preferred Language | Unknown | + + + | Marital Status | Single | + + + | Nondenominational Affiliation | Unknown | + + + [...] Providers + +------+ + | Care Medical And Health Services Manager Name | Role | Phone | + +------+ + | No Pcp Per Patient | PCP | Unavailable | + +------+ + Source Comments KORTNEY is fully live on both [facility] Ambulatory and [facility] InPatient.[facility] Allergies + + + + + [...] | ITY | | for | | [place], | | | | [place] | | all | | [place] [address] | | | | RCE | | dates | | | | + +--------+ +--------+ + +--------+ | [facility] | [place] | [phone] | | [phone] | [address] | Agency | | ADMINISTRATION | CHOICE | | [address]-/ | 8 | [phone] | | | | PLAN | | | | [place], | | | | | | 0 | | [place] [address] | | + +--------+ +--------+ + +--------+ [...] | 1935 | [phone] | [place] [address] | | | prateek | | | 3 (Home) | | + +--------+ +--------+ + + | Ammon Tracy | [place] | Self | [birth year] | [address] | | Babak | Kimmyo | | 1935 | [phone] | [place] [address] | | | red | | | 3 (Home) | | + +--------+ +--------+ + + Advance Directives + + + + + | Type | Date Recorded | Patient | Explanation | | | | Signal Operator | | + + + + + | Advance | | | | | Directives and | | | | | Living Will | | | | + + + + + | Power of | | | | | Energy Efficiency Finance Manager | | | | + + + + +
--- OUTSIDE RECORDS SUMMARY | ~2019-02-24 | XMS | Encounter Summary ---
Demographics + + + | Address | [address] | | | [place] [address] | + + + | Home Phone [...] Team Providers + +------+ + | Care Hourly Shift Name | Role | Phone | + [...] neoplasm of | [address] | [address] [facility] | | | | | prostate | [facility] | [facility] | | | | | (HCC) | Way | [address] [place], | | | | | Procedures | [place], [place] | [place] | | | | | Consult, | [address] | [address] | | | | | treat, f/u | Phone: | Phone: | | | | | | [phone] | [phone] | | | | | | Fax: | Fax: | | | | | | [phone] | [phone] | +--------+--------+ + + + + Encounter Details +--------+ + + + + | Date | Type | Department | Care Team | Description | +--------+ + + + + | 10/07/ | Hospital | Radiation Oncology | | | | 2014 | Encounter | at [facility] [address] | | | | | | [address] | | | | | | [address] [address] | | | | | | [place], [place] | | | | | | [address] | | | | | | [phone] | | | +--------+ + + + [...]
--- OUTSIDE RECORDS SUMMARY | ~2019-02-24 | XMS | Encounter Summary ---
Demographics + + + | Address | [address] | | | [place] [address] | + + + | Home Phone [...] Team Providers + +------+ + | Care Garage Supervisor Name | Role | Phone | [...] Tran | | | | | | [place], [place] | | | | | | [address] | | | | | | [phone] | | | +--------+ + + + [...]
--- OUTSIDE RECORDS SUMMARY | ~2019-02-24 | XMS | Clinical Summary ---
Demographics + + + | Address | [address] | | | [place] [address] | + + + | Home Phone | | + + + | Preferred Language | Unknown | + + + | Marital Status | Single | + + + | Amish Affiliation | Unknown | + + + | Race | Unknown | + + + | Ethnic Group | Unknown | + + + Author + + + | Author | [facility] | | | and [place] | + + + | Organization | [facility] | | | and [place] | + + + | Address | Unknown | + + + | Phone | Unavailable | + + + Support + + +---------+ + | Name | Relationship | Address | Phone | + + +---------+ + | GUSTABO SALINAS | KAROL | Unknown | | + + +---------+ + Care Team Providers + +------+ + | Care Clerical Specialist Name | Role | Phone | [...] | | | | | Pneumococcal 65+ | 1 | | | | Low/Medium Risk (1 | | | | | of 2 - PCV13) | | | | + + + + + | Vaccine: Influenza | | | | | (#1) | 9 | | | + + + + + Results Not on filefrom Last 3 Months"
--- OUTSIDE RECORDS SUMMARY | ~2019-02-24 | XMS | Encounter Summary ---
Demographics + + + | Address | [address] | | | [place] [address] | + + + | Home Phone [...] Team Providers + +------+ + | Care Network Security Consultant Name | Role | Phone | [...] | | 2019 | Visit | at [facility] [address] | [address] | radiotherapy | | | | [address] | [address] [place], | (Primary Dx) | | | | [place] | [place] [address] | | | | | [place], [place] | [phone] | | | | | [address] | | | | | | [phone] | | | +--------+---------+ + + + [...] AM PDTFUP with new chest CT in [place] [address] more to go documented in this encounter Progress Notes Ye Doss MD - 02/11/2019 11:20 AM PDTJust starting this SBRT yesterday history of a Stage 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 The patient will be receiving [...]
--- OUTSIDE RECORDS SUMMARY | ~2019-02-24 | XMS | Encounter Summary ---
Demographics + + + | Address | [address] | | | [place] [address] | + + + | Home Phone [...] Team Providers + +------+ + | Care Leather Grader Name | Role | Phone | + [...] | | Oncology | Malignant | Oj Hanson MD | MD Ye | | | | | neoplasm of | [place] | [address] [facility] | | | | | lung, | A MEDICAL | [facility] | | | | | unspecified | CENTER [address] [place], | | | | | laterality, | [place] | [place] | | | | | unspecified | [place] | [address] | | | | | part of lung | HOS[address] | Phone: | | | | | (HCC) | [place], | [phone] | | | | | Procedures | [place] [address] | Fax: | | | | | SIMULATION | Phone: | [phone] | | | | | IMAGING | [phone] | | | | | | | Fax: | | | | | | | [phone] | | +--------+--------+ + + + + Reason for Visit + + + | Reason | Comments | + + + | Consultation | | + + + Intake Referral (Routine) + +--------+ + + + + | Status | Reason | Specialty | Diagnoses / | Referred By | Referred To | | | | | Procedures | Contact | Contact | + +--------+ + + + + | Authorized | | Radiation | Diagnoses | Rafaela, | Romario, | | | | Oncology | Solitary | Oj Hanson MD | MD Ye | | | | | pulmonary | [place] | [address] [facility] | | | | | nodule | A MEDICAL | [facility] | | | | | | [place] [address] | [address] [place], | | | | | | [address] [place] | [place] | | | | | | [place] | [address] | | | | | | [address] | Phone: | | | | | | [place], | [phone] | | | | | | [place] [address] | Fax: | | | | | | Phone: | [phone] | | | | | | [phone] | | | | | | | Fax: | | | | | | | [phone] | | + +--------+ + + + + Encounter Details +--------+---------+ + + + | Date | Type | Department | Care Team | Description | +--------+---------+ + + + | 02/06/ | Office | Radiation Oncology | Ye Doss MD | Malignant neoplasm | | 2019 | Visit | at [facility] [address] | [address] | of lung, unspecified | | | | [address] | [address] [place], | laterality, | | | | [place] | [place] [address] | unspecified part of | | | | [place], [place] | [phone] | lung (HCC) (Primary | | | | [address] | | Dx) | | | | [phone] | | | +--------+---------+ + + + [...] + + + | Blood Pressure | 105/60 | 02/06/2019 9:38 AM | | | | | PDT | | + + + + + | Pulse | 85 | 02/06/2019 9:38 AM | | | | | PDT | | + + + + + | Temperature | - | - | | + + + + + | Respiratory Rate | - | - | | + + + + + | Oxygen Saturation | 97% | 02/06/2019 9:38 AM | | | | | PDT | | + + + + + | Inhaled Oxygen | - | - | | | Concentration | | | | + + + + + | Weight | 74.1 kg (163 lb 6.4 | 02/06/2019 9:38 AM | | | | oz) | PDT | | + + + + + | Height | - | - | | + + + + + | Body Mass Index | 24.13 | 09/08/2014 5:13 PM | | | | | PDT | | + + + + + documented in this encounter Progress Notes Ye Doss MD - 02/06/2019 9:30 AM PDTI saw and examined Mr. Ammon Tracy with Dr. Ivan Contreras. I agree with Dr. Contreras's findings on examination and his treatment recommendations. I know Mr. Tracy well from his 2009 radiation for lung cancer. He now has a small RUL lesion which has been biopsied and shows cells consistent with non-s mall cell lung cancer. We plan stereotactic body radiotherapy (SBRT) for this lesion. We simulated today with 4D CT and plan 11 Gy x 5 to 55 Gy to this disease starting Sunday. I will place a brief note into [facility] to communicate with [facility]. JH Bere Roberto RN - 02/06/2019 9:30 AM PDTNursing Note: Met with Ammon Tracy today. The patient is here today to be seen by Dr. Doss and Dr. Contreras in consultation for consideration of radiotherapy options. The pt is alert and oriented, and walks with a steady gait. Patient is unaccompanied. The purpose and flow of the consult visit was reviewed with the pt. The pt has had radiation treatment previously an d is familiar with our department. He has already spoken with the [facility] about lodging assistanc e during treatment. Cameron Perrin MD - 01/19 9:30 AM PDT RADIATION ONCOLOGY CONSULTATION Requesting Physician: Oj Russo MD [facility] [address] [place] [address] Identification/Chief Complaint: Ammon Tracy is a 84 year old male with RUL nodule s/p bronch EBUS confirmed to be non small lung cancer. HPI: Mr. Ammon Tracy is a 84 y.o. 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 This was treated successfully w ith neoadjuvant radiotherapy followed by surgical resection back in 2008. He also had a hx o f adenocarcinoma of the prostate, which he was treated to a total dose of 70 Gy over 28 frac tions with an IMRT technique with image guidance using [place] beacons, completed 10/09/14. Rip hanson now has a small (T1aN0) NSCLC of the RUL lung. We plan SBRT to this cancer. The patient is being seen today in consultation for consideration of radiotherapy treatment options. PMH: has a past medical history of Lung cancer (HCC) (08/26/2008) and Unspecified essential hyper tension. Medications: Current Outpatient Medications Medication albuterol-ipratropium 18-103 mcg/Actuation Inhalation Aerosol dexamethasone 4 mg Oral Tablet lisinopril 20 mg Oral Tablet metformin 500 mg Oral Tablet ondansetron (ZOFRAN) 8 mg Oral Tablet simvastatin 80 mg Oral Tablet terazosin 2 mg Oral Capsule vardenafil 10 mg Oral Tablet VICODIN 5-500 mg Oral Tablet No current facility-administered medications for this visit. Allergies: No Known Allergies Social History: Tobacco use: Social History Tobacco Use Smoking Status Former Smoker Last attempt to quit: 05/29/1998 Years since quittin.6 Alcohol use: has no alcohol history on file. Social History Social History Narrative Not on file Family History: Family History Problem Relation Cancer Brother Prostate Cancer REVIEW OF SYSTEMS: [facility] Radiation Oncology Questionnaire was completed by the patient a nd reviewed with the patient. Remainder of ROS is otherwise negative except as reported in H PI, PMH and PSH. PHYSICAL EXAM: General: NCAT, in no acute distress, breathing comfortably on room air Back: ~ 20 cm surgical scar on his left back from his previous lung surgery, no sign of inf ection, healed well ENT: No cervical LAD, no visible mucosal abnormalities Pulm: Unlabored breathing in RA Abd: Non-distended Extremities: No distal extremity swelling LABORATORY: No results found for: NA, K, CL, BICARB, BUN, EGFRAFRICAN, EGFRNONAFR, CR, GLU, CA, ANIONGA P, ANIONALBCOR No results found for: WBC, HB, HCT, PLT, MCV, RDW IMAGIN01/23/[address] chest from 01/23/2019 PATHOLOGY: EBUS FNA from 01/24/2019 Karnofsky Performance Status: 90% ASSESSMENT: Mr. Ammon Tracy is a 84 y.o. male with history of a Stage [id number] SCC A of TIMBO with posterior CW and left T5 transverse process invasion. This was treated success fully with neoadjuvant radiotherapy followed by surgical resection back in 2008. He also had a hx of adenocarcinoma of the prostate, which he was treated to a total dose of 70 Gy over 28 fractions with an IMRT technique with image guidance using [employer] beacons, completed 09/19 07/05. 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 We plan SBRT to this cancer. The pat john is being seen today in consultation for consideration of radiotherapy treatment options . PLAN: The risks and benefits of radiation therapy were discussed in detail with the patient. Our plan is as below: - He underwent successful CT simulation today. - We plan to give SBRT to his RUL, 5 Gy x 11 to 55 Gy. - He is scheduled to start SBRT on 02/10/2019. He will be treated on 02/10, 02/11, 01/20, 02/17, and 02/19 at [facility]. Cameron Contreras MD PGY2 Radiation Medicine The attending of this encounter is Dr. Doss who agrees with the findings and the plans.E lectronically signed by Cameron Contreras MD at 02/07/2019 9:02 AM PDTdocumented in this encounter Plan of Treatment Not on filedocumented as of this encounter Results SIMULATION IMAGING (02/06/2019 1:17 [...]
--- OUTSIDE RECORDS SUMMARY | ~2019-02-24 | XMS | Encounter Summary ---
Demographics + + + | Address | [address] | | | [place] [address] | + + + | Home Phone [...] Author + + + | Author | [facility] | + + + | Organization | [facility] | + + + | Address | Unknown | + + + | Phone | Unavailable | + + + Support + + +---------+ + | Name | Relationship | Address | Phone | + + +---------+ + | Alia Tracy | ECON | Unknown | | + + +---------+ + Care Team Providers + +------+ + | Care House Detective Name | Role | Phone | + [...] neoplasm of | [address] | [address] [facility] | | | | | prostate | [facility] | [facility] | | | | | (HCC) | Way | Rd [place], | | | | | Procedures | [place], [place] | [place] | | | | | Consult, | [address] | [address] | | | | | treat, f/u | Phone: | Phone: | | | | | | [phone] | [phone] | | | | | | Fax: | Fax: | | | | | | [phone] | [phone] | +--------+--------+ + + + + Encounter Details +--------+ + + + + | Date | Type | Department | Care Team | Description | +--------+ + + + + | 09/22/ | Hospital | Radiation Oncology | | | | 2014 | Encounter | at [facility] [address] | | | | | | [address] | | | | | | [address] | | | | | | [place], [place] | | | | | | [address] | | | | | | [phone] | | | +--------+ + + + [...]
--- OUTSIDE RECORDS SUMMARY | ~2019-02-24 | XMS | Encounter Summary ---
Demographics + + + | Address | [address] | | | [place] [address] | + + + | Home Phone [...] Team Providers + +------+ + | Care Marbleizing Machine Tender Name | Role | Phone [...] neoplasm of | [address] | [address] [facility] | | | | | prostate | [facility] | [facility] | | | | | (HCC) | Way | [address] [place], | | | | | Procedures | [place], [place] | [place] | | | | | Consult, | [address] | [address] | | | | | treat, f/u | Phone: | Phone: | | | | | | [phone] | [phone] | | | | | | Fax: | Fax: | | | | | | [phone] | [phone] | +--------+--------+ + + + + Encounter [...] Tran | | | | | | [place], [place] | | | | | | [address] | | | | | | [phone] | | | +--------+ + + + [...]
--- OUTSIDE RECORDS SUMMARY | ~2019-02-24 | XMS | Encounter Summary ---
Demographics + + + | Address | [address] | | | [place] [address] | + + + | Home Phone [...] Team Providers + +------+ + | Care Food Service Name | Role | Phone | + [...] Tran | | | | | | [place], [place] | | | | | | [address] | | | | | | [phone] | | | +--------+ + + + [...]
--- OUTSIDE RECORDS SUMMARY | ~2019-02-24 | XMS | Encounter Summary ---
Demographics + + + | Address | [address] | | | [place] [address] | + + + | Home Phone [...] Team Providers + +------+ + | Care Loan Teller Name | Role | Phone | + [...] Tran | | | | | | [place], [place] | | | | | | [address] | | | | | | [phone] | | | +--------+ + + + [...]
--- OUTSIDE RECORDS SUMMARY | ~2019-02-24 | XMS | Encounter Summary ---
Demographics + + + | Address | [address] | | | [place] [address] | + + + | Home Phone [...] Team Providers + +------+ + | Care Quarter Backer Name | Role | Phone | + [...] | | | 2019 | | at [facility] [address] | [address] | | | | | [address] | [address] [place], | | | | | [place] [address] | [place] [address] | | | | | [place] | [phone] | | | | | [address] | | | | | | [phone] | | | +--------+ + + + [...]
--- OUTSIDE RECORDS SUMMARY | ~2019-02-24 | XMS | Encounter Summary ---
Demographics + + + | Address | [address] | | | [place] [address] | + + + | Home Phone [...] Team Providers + +------+ + | Care Baggage Agent Name | Role | Phone | [...] | 2014 | on | at [facility] [address] [facility] | [address] [facility] [address] | RT Clinical | | | | [address] | [address] [place], | Treatment Planning | | | | [place] [address] | [place] [address] | Note | | | | [place], [place] | [phone] | | | | | [address] | | | | | | [phone] | | | +--------+ + + + [...]
--- OUTSIDE RECORDS SUMMARY | ~2019-02-24 | XMS | Encounter Summary ---
Demographics + + + | Address | [address] | | | [place] [address] | + + + | Home Phone [...] Team Providers + +------+ + | Care Copy Center Specialist Name | Role | Phone | [...] | | | | | prostate | [facility] | [facility] | | | | | (HCC) | Way | Rd [place], | | | | | Procedures | [place], [place] | [place] | | | | | Consult, | [address] | [address] | | | | | treat, f/u | Phone: | Phone: | | | | | | [phone] | [phone] | | | | | | Fax: | Fax: | | | | | | [phone] | [phone] | +--------+--------+ + + + + Encounter Details +--------+ + + + + | Date | Type | Department | Care Team | Description | +--------+ + + + + | 09/29/ | Hospital | Radiation Oncology | | | | 2014 | Encounter | at [facility] [address] | | | | | | [address] | | | | | | [address] | | | | | | [place], [place] | | | | | | [address] | | | | | | [phone] | | | +--------+ + + + [...]
--- OUTSIDE RECORDS SUMMARY | ~2019-02-24 | XMS | Encounter Summary ---
Demographics + + + | Address | [address] | | | [place] [address] | + + + | Home Phone [...] + + + | Author | [facility] | + + + | Organization | [facility] | + + + | Address | Unknown | + + + | Phone | Unavailable | + + + Support + + +---------+ + | Name | Relationship | Address | Phone | + + +---------+ + | Alia Tracy | ECON | Unknown | | + + +---------+ + Care Team Providers + +------+ + | Care Pack Worker Name | Role | Phone | [...] Tran | | | | | | [place], [place] | | | | | | [address] | | | | | | [phone] | | | +--------+ + + + [...]
--- OUTSIDE RECORDS SUMMARY | ~2019-02-24 | XMS | Encounter Summary ---
Demographics + + + | Address | [address] | | | [place] [address] | + + + | Home Phone [...] Team Providers + +------+ + | Care Hat Blocking Operator Name | Role | Phone | [...] | | | | | prostate | [facility] | [facility] | | | | | (HCC) | Way | Rd [place], | | | | | Procedures | [place], [place] | [place] | | | | | Consult, | [address] | [address] | | | | | treat, f/u | Phone: | Phone: | | | | | | [phone] | [phone] | | | | | | Fax: | Fax: | | | | | | [phone] | [phone] | +--------+--------+ + + + + Encounter Details +--------+ + + + + | Date | Type | Department | Care Team | Description | +--------+ + + + + | 09/24/ | Hospital | Radiation Oncology | | | | 2014 | Encounter | at [facility] [address] | | | | | | [address] | | | | | | [place] [address] | | | | | | [place], [place] | | | | | | [address] | | | | | | [phone] | | | +--------+ + + + [...]
--- OUTSIDE RECORDS SUMMARY | ~2019-02-24 | XMS | Encounter Summary ---
Demographics + + + | Address | [address] | | | [place] [address] | + + + | Home Phone [...] Team Providers + +------+ + | Care Web Content Writer Name | Role | Phone | + +------+ + PCP | Unavailable | + +------+ + Encounter Details +--------+ + + + + | Date | Type | Department | Care Team | Description | +--------+ + + + + | 10/14/ | Hospital | Radiation Oncology | | | | 2008 | Encounter | at [facility] [address] | | | | | | [address] | | | | | | [place] [address] | | | | | | [place], [place] | | | | | | [address] | | | | | | [phone] | | | +--------+ + + + [...]
--- OUTSIDE RECORDS SUMMARY | ~2019-02-24 | XMS | Encounter Summary ---
Demographics + + + | Address | [address] | | | [place] [address] | + + + | Home Phone [...] Providers + +------+ + | Care Quality Systems Manager Name | Role | Phone | [...] Tran | | | | | | [place], [place] | | | | | | [address] | | | | | | [phone] | | | +--------+ + + + [...]
--- OUTSIDE RECORDS SUMMARY | ~2019-02-24 | XMS | Encounter Summary ---
Demographics + + + | Address | [address] | | | [place] [address] | + + + | Home Phone [...] Team Providers + +------+ + | Care Stock Speculator Name | Role | Phone | + [...] 2008 | Visit | at [facility] [address] [facility] | [address] | Therapy | | | | [address] | [address] [place], | | | | | [place] [address] | [place] [address] | | | | | [place], [place] | [phone] | | | | | [address] | | | | | | [phone] | | | +--------+---------+ + + + [...] chemo finished last Thursday 09/21 JH Evelyn iVcente MD - 09/29/2008 1:21 PM PDT 09/29/2008 1:15 PM Ammon Tracy is a 73 y.o. male with a [id number] SCCA of TIMBO with posterior CW and [...]
--- OUTSIDE RECORDS SUMMARY | ~2019-02-24 | XMS | Encounter Summary ---
Demographics + + + | Address | [address] | | | [place] [address] | + + + | Home Phone [...] Team Providers + +------+ + | Care Director Corporate Name | Role | Phone | + [...] neoplasm of | [address] | [address] [facility] | | | | | prostate | [facility] | [facility] | | | | | (HCC) | Way | Rd [place], | | | | | Procedures | [place], [place] | [place] | | | | | Consult, | [address] | [address] | | | | | treat, f/u | Phone: | Phone: | | | | | | [phone] | [phone] | | | | | | Fax: | Fax: | | | | | | [phone] | [phone] | +--------+--------+ + + + + Encounter [...] Tran | | | | | | [place], [place] | | | | | | [address] | | | | | | [phone] | | | +--------+ + + + [...]
--- OUTSIDE RECORDS SUMMARY | ~2019-02-24 | XMS | Encounter Summary ---
Demographics + + + | Address | [address] | | | [place] [address] | + + + | Home Phone [...] Author + + + | Author | [facility] | + + + | Organization | [facility] | + + + | Address | Unknown | + + + | Phone | Unavailable | + + + Support + + +---------+ + | Name | Relationship | Address | Phone | + + +---------+ + | Alia Tracy | ECON | Unknown | | + + +---------+ + Care Team Providers + +------+ + | Care Lecturer In Computer Science Name | Role | Phone | + [...] Tran | | | | | | [place], [place] | | | | | | [address] | | | | | | [phone] | | | +--------+ + + + [...]
--- OUTSIDE RECORDS SUMMARY | ~2019-02-24 | XMS | Encounter Summary ---
Demographics + + + | Address | [address] | | | [place] [address] | + + + | Home Phone [...] Team Providers + +------+ + | Care Welder Setter Resistance Machine Name | Role | Phone | + [...] | [address] | [address] [place], | | | | | [place] | [place] [address] | | | | | [place], [place] | [phone] | | | | | [address] | | | | | | [phone] | | | +--------+---------+ + + + [...] male with a history of a Stage [id number] SCCA of TIMBO with posterior CW and [...] an IMRT technique with image guidance using [place] beacons. The patient will be receiving concurrent [...]
--- OUTSIDE RECORDS SUMMARY | ~2019-02-24 | XMS | Encounter Summary ---
Demographics + + + | Address | [address] | | | [place] [address] | + + + | Home Phone [...] + +------+ + | Care Quality Assurance Intern Name | Role | Phone | [...] Tran | | | | | | [place], [place] | | | | | | [address] | | | | | | [phone] | | | +--------+ + + + [...]
--- OUTSIDE RECORDS SUMMARY | ~2019-02-24 | XMS | Encounter Summary ---
Demographics + + + | Address | [address] | | | [place] [address] | + + + | Home Phone [...] Team Providers + +------+ + | Care Consulting Utility Forester Name | Role | Phone | + [...] | on | at [facility] [address] [facility] | [address] | with patient | | | | [address] | [address] [place], | | | | | [place] [address] | [place] [address] | | | | | [place], [place] | [phone] | | | | | [address] | | | | | | [phone] | | | +--------+ + + + [...]
--- OUTSIDE RECORDS SUMMARY | ~2019-02-24 | XMS | Encounter Summary ---
Demographics + + + | Address | [address] | | | [place] [address] | + + + | Home Phone [...] Team Providers + +------+ + | Care Presser Hand Name | Role | Phone | + [...] | | | | | Procedures | [place], [place] | [address] | | | | | SIMULATION, | [address] [facility] | | | | | RADIATION | | Hospital | | | | | | | [facility] | | | | | | | [place], [place] | | | | | | | [address] | | | | | | | Phone: | | | | | | | [phone] | | | | | | | Fax: | | | | | | | [phone] | + +--------+ + + + + [...] | [address] | Charis Valdes [place], | (Primary Dx) | | | | [place] | [place] [address] | | | | | [place], [place] | [phone] | | | | | [address] | | | | | | [phone] | | | +--------+---------+ + + + [...] [place], call you about housing here in [place] during treatment. We will setup the bone scan and CT Pelvis as well as thebeacon placement to coordinate over the same trip. START TAKING THE BICALUTAMIDE TWO DAYS BEFORE THE BONE SCAN IS SCHEDULED, NOT ANY EARLIER!! One to two weeks after the beacon placement we will setup the simulation (planning) appoint ment here at [facility]. You should plan to start radiation [...] clinic and reviewed the Introduction to the [facility] Radiation Oncology Departme nt pt information [...] in regards to lung cancer by his engineering research manager Dr. Russo yesterday. Consultation was requested to [...] inhaler Budenosinide inhaler REVIEW OF SYSTEMS: The [facility] Radiation Oncology Questionnaire was completed by [...] is a 79 y.o. male with a [place] 8 (in 3 of 12 cores) adenocarcinoma of the prostate. His pre-treatment PSA is 26.5 ng/mL from 08/02/2014. We counseled him abou t the different treatment options. We discussed in detail the treatment options for high-ri sk prostate cancer as defined by NCCN guidelines: Low (T1 - T2a and [place] score 2 - 6 and PSA < 10 ng/mL), Intermediate (O9t-U2u or [place] score of 7 or PSA 10 - 20 ng/mL), High (T3 a or [place] score 8 - 10 or PSA > [...] randomized trials ( SWOG 8794 and EORTC 36040) have demonstrated a significant benefit with the [...] coordinate with injection, beacon placement here at [facility]. His previous bone scan had a [...]
--- OUTSIDE RECORDS SUMMARY | ~2019-02-24 | XMS | Encounter Summary ---
Demographics + + + | Address | [address] | | | [place] [address] | + + + | Home Phone [...] Team Providers + +------+ + | Care Clinical Provider Trainer Name | Role | Phone | + [...] at [place] [address] | ,PhD [address] | | | | | [address] | [address] | | | | | [place] | [place], [place] | | | | | [place], [place] | [address] | | | | | [address] | [phone] | | | | | [phone] | | | +--------+ + + + [...]
--- OUTSIDE RECORDS SUMMARY | ~2019-02-24 | XMS | Encounter Summary ---
Demographics + + + | Address | [address] | | | [place] [address] | + + + | Home Phone [...] Team Providers + +------+ + | Care Spiral Winder Name | Role | Phone | + [...] | | | | | | [place], [place] | | | | | | [address] | | | | | | [phone] | | | +--------+ + + + [...]
--- OUTSIDE RECORDS SUMMARY | ~2019-02-24 | XMS | Encounter Summary ---
Demographics + + + | Address | [address] | | | [place] [address] | + + + | Home Phone | | + + + | Preferred Language | Unknown | + + + | Marital Status | Single | + + + | Tenriism Affiliation | Unknown | + + + [...] Team Providers + +------+ + | Care Merchandise For Resale Purchasing Agent Name | Role | Phone | [...] Tran | | | | | | [place], [place] | | | | | | [address] | | | | | | [phone] | | | +--------+ + + + [...]
--- OUTSIDE RECORDS SUMMARY | ~2019-02-24 | XMS | Encounter Summary ---
Demographics + + + | Address | [address] | | | [place] [address] | + + + | Home Phone [...] Team Providers + +------+ + | Care Heat Treatment Technician Name | Role | Phone | [...] Tran | | | | | | [place], [place] | | | | | | [address] | | | | | | [phone] | | | +--------+ + + + [...]
--- OUTSIDE RECORDS SUMMARY | ~2019-02-24 | XMS | Encounter Summary ---
Demographics + + + | Address | [address] | | | [place] [address] | + + + | Home Phone [...] Team Providers + +------+ + | Care Inspector Salvage Name | Role | Phone | + [...] neoplasm of | [address] | [address] [facility] | | | | | prostate | [facility] | [facility] | | | | | (HCC) | Way | Rd [place], | | | | | Procedures | [place], [place] | [place] | | | | | Consult, | [address] | [address] | | | | | treat, f/u | Phone: | Phone: | | | | | | [phone] | [phone] | | | | | | Fax: | Fax: | | | | | | [phone] | [phone] | +--------+--------+ + + + + Encounter Details +--------+ + + + + | Date | Type | Department | Care Team | Description | +--------+ + + + + | 10/08/ | Hospital | Radiation Oncology | | | | 2014 | Encounter | at [facility] [address] | | | | | | [address] | | | | | | [place] | | | | | | [place], [place] | | | | | | [address] | | | | | | [phone] | | | +--------+ + + + [...]
--- OUTSIDE RECORDS SUMMARY | ~2019-02-24 | XMS | Encounter Summary ---
Demographics + + + | Address | [address] | | | [place] [address] | + + + | Home Phone [...] Team Providers + +------+ + | Care Computer Operator Name | Role | Phone | [...] Tran | | | | | | [place], [place] | | | | | | [address] | | | | | | [phone] | | | +--------+ + + + [...]
--- OUTSIDE RECORDS SUMMARY | ~2019-02-24 | XMS | Encounter Summary ---
Demographics + + + | Address | [address] | | | [place] [address] | + + + | Home Phone [...] Team Providers + +------+ + | Care Housekeeper And Laundry Assistant Name | Role | Phone | [...] Tran | | | | | | [place], [place] | | | | | | [address] | | | | | | [phone] | | | +--------+ + + + [...]
--- OUTSIDE RECORDS SUMMARY | ~2019-02-24 | XMS | Encounter Summary ---
Demographics + + + | Address | [address] | | | [place] [address] | + + + | Home Phone [...] Team Providers + +------+ + | Care Sharepoint Consultant Name | Role | Phone | + +------+ + PCP | Unavailable | + +------+ + Encounter Details +--------+ + + + + | Date | Type | Department | Care Team | Description | +--------+ + + + + | 08/31/ | Abstract | Radiation Oncology | Ye Doss MD | | | 2008 | | at [place] [address] [facility] | [address] | | | | | [address] | Charis Valdes [facility] | | | | | [place] | [place] [address] | | | | | [place], [place] | [phone] | | | | | [address] | | | | | | [phone] | | | +--------+ + + + [...]
--- OUTSIDE RECORDS SUMMARY | ~2019-02-24 | XMS | Encounter Summary ---
Demographics + + + | Address | [address] | | | [place] [address] | + + + | Home Phone [...] Team Providers + +------+ + | Care Manager Of Maintenance Name | Role | Phone | + [...] Doss MD | RT Clinical | | 2008 | on | at [place] [address] [facility] | [address] | Treatment Planning | | | | [address] | Charis Valdes [place], | Note | | | | [place] | [place] [address] | | | | | [place], [place] | [phone] | | | | | [address] | | | | | | [phone] | | | +--------+ + + + [...]
--- OUTSIDE RECORDS SUMMARY | ~2019-02-24 | XMS | Encounter Summary ---
Demographics + + + | Address | [address] | | | [place] [address] | + + + | Home Phone [...] Team Providers + +------+ + | Care Logistics Supply Officer Name | Role | Phone | [...] | | 2015 | Visit | at 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 The patient will be receiving concurrent [...]
--- OUTSIDE RECORDS SUMMARY | ~2019-02-24 | XMS | Encounter Summary ---
Demographics + + + | Address | [address] | | | [place] [address] | + + + | Home Phone [...] Team Providers + +------+ + | Care Group Account Director Name | Role | Phone | [...] | | | | neoplasm of | [place] | [address] [facility] | | | | | lung, | A MEDICAL | [facility] | | | | | unspecified | CENTER [address] | [address] [place], | | | | | laterality, | [address] [place] | [place] | | | | | unspecified | [place] | [address] | | | | | part of lung | [address] | Phone: | | | | | (HCC) | [place], | [phone] | | | | | Procedures | [place] [address] | Fax: | | | | | SIMULATION | Phone: | [phone] | | | | | IMAGING | [phone] | | | | | | | Fax: | | | | | | | [phone] | | +--------+--------+ + + + + [...] | | | | | pulmonary | [place] | [address] [facility] | | | | | nodule | A MEDICAL | [facility] | | | | | | [place] [address] | [address] [place], | | | | | | [address] [place] | [place] | | | | | | [place] | [address] | | | | | | [address] | Phone: | | | | | | [place], | [phone] | | | | | | [place] [address] | Fax: | | | | | | Phone: | [phone] | | | | | | [phone] | | | | | | | Fax: | | | | | | | [phone] | | + +--------+ + + + + Encounter Details +--------+---------+ + + + | Date | Type | Department | Care Team | Description | +--------+---------+ + + + | 02/06/ | Office | Radiation Oncology | Ye Doss MD | Malignant neoplasm | | 2019 | Visit | at [facility] [address] | [address] | of lung, unspecified | | | | [address] | Charis Valdes [place], | laterality, | | | | [place] | [place] [address] | unspecified part of | | | | [place], [place] | [phone] | lung (HCC) (Primary | | | | [address] | | Dx) | | | | [phone] | | | +--------+---------+ + + + [...] ONCOLOGY CONSULTATION Requesting Physician: Oj Russo MD [facility] [address] [place] [address] Identification/Chief Complaint: Ammon Tracy is a 84 year old male with RUL nodule s/p bronch EBUS confirmed to be non small lung cancer. HPI: Mr. Ammon Tracy is a 84 y.o. 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 This was treated successfully w ith neoadjuvant radiotherapy followed by surgical resection back in 2008. He also had a hx o f adenocarcinoma of the prostate, which he was treated to a total dose of 70 Gy over 28 frac tions with an IMRT technique with image guidance using [place] beacons, completed 10/09/14. Rip hanson now has [...] Brother Prostate Cancer REVIEW OF SYSTEMS: The [facility] Radiation Oncology Questionnaire was completed by the [...] y.o. male with history of a Stage [id number] SCC A of TIMBO with posterior CW and left T5 transverse process invasion. This was treated success fully with neoadjuvant radiotherapy followed by surgical resection back in 2008. He also had a hx of adenocarcinoma of the prostate, which he was treated to a total dose of 70 Gy over 28 fractions with an IMRT technique with image guidance using [employer] beacons, completed 09/19 07/05. He now has [...]
--- OUTSIDE RECORDS SUMMARY | ~2019-02-24 | XMS | Encounter Summary ---
Demographics + + + | Address | [address] | | | [place] [address] | + + + | Home Phone [...] Team Providers + +------+ + | Care Compensation Administrator Name | Role | Phone | [...] Tran | | | | | | [place], [place] | | | | | | [address] | | | | | | [phone] | | | +--------+ + + + [...]
--- OUTSIDE RECORDS SUMMARY | ~2019-02-24 | XMS | Encounter Summary ---
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 This was treated successfully with jose adjuvant radiotherapy followed by surgical resection. Stage cT3a, [place] 4+4 (3 of 12 cores), adenocarcinoma of the prostate. His pre-treatment PSA is 26.5 ng/mL drawn on 08/03/14. He is to be treated to a total dose of 70 Gy over 28 fra ctions with an IMRT technique with image guidance using [employer] beacons. The patient will be receiving concurrent [...]
--- OUTSIDE RECORDS SUMMARY | ~2019-02-24 | XMS | Encounter Summary ---
Demographics + + + | Address | [address] | | | [place] [address] | + + + | Home Phone [...] Team Providers + +------+ + | Care Assembler Liquid Center Name | Role | Phone | + [...] Rd | | | | | | [place], [place] | | | | | | [address] | | | +--------+ + + + [...]
--- OUTSIDE RECORDS SUMMARY | ~2019-02-24 | XMS | Encounter Summary ---
Demographics + + + | Address | [address] | | | [place] [address] | + + + | Home Phone [...] Team Providers + +------+ + | Care Biostatistics Director Name | Role | Phone | [...] Tran | | | | | | [place], [place] | | | | | | [address] | | | | | | [phone] | | | +--------+ + + + [...]
--- OUTSIDE RECORDS SUMMARY | ~2019-02-24 | XMS | Encounter Summary ---
Demographics + + + | Address | [address] | | | [place] [address] | + + + | Home Phone [...] Team Providers + +------+ + | Care Sap Bw Architect Name | Role | Phone | [...] 2008 | Visit | at [facility] [address] [facility] | [address] | Therapy | | | | [address] | Charis Valdes [place], | | | | | [place] | [place] [address] | | | | | [place], [place] | [phone] | | | | | [address] | | | | | | [phone] | | | +--------+---------+ + + + [...] and chemotherapy both on 10/19 [facility] at [facility] with a new chest CT 11/16 Evaluate for surgical resection at that FUP [facility] Evelyn Vicente MD - 10/13/2008 3:57 PM PDT 10/13/2008 3:46 PM Ammon Tracy is a 73 y.o. male with a yK3IkT1 SCCA of TIMBO with posterior CW and [...] We would like to see him in [place] lung clinic 11/16/08 , with CT prior. [...]
--- OUTSIDE RECORDS SUMMARY | ~2019-02-24 | XMS | Encounter Summary ---
Demographics + + + | Address | [address] | | | [place] [address] | + + + | Home Phone [...] Team Providers + +------+ + | Care Bullet Slugs Inspector Name | Role | Phone | [...] Tran | | | | | | [place], [place] | | | | | | [address] | | | | | | [phone] | | | +--------+ + + + [...]
--- OUTSIDE RECORDS SUMMARY | ~2019-02-24 | XMS | Encounter Summary ---
Demographics + + + | Address | [address] | | | [place] [address] | + + + | Home Phone [...] Team Providers + +------+ + | Care Residential Designer Name | Role | Phone | [...] 2008 | Visit | at [facility] [address] [facility] | [address] | Therapy | | | | [address] | Charis Valdes [place], | | | | | [place] | [place] [address] | | | | | [place], [place] | [phone] | | | | | [address] | | | | | | [phone] | | | +--------+---------+ + + + [...] is a 73 y.o. male with a yA1RhY3 SCCA of TIMBO with posterior CW and [...]
--- OUTSIDE RECORDS SUMMARY | ~2019-02-24 | XMS | Encounter Summary ---
Demographics + + + | Address | [address] | | | [place] [address] | + + + | Home Phone [...] Providers + +------+ + | Care Cloth Cutter Name | Role | Phone | + [...]
--- OUTSIDE RECORDS SUMMARY | ~2019-02-24 | XMS | Encounter Summary ---
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 This was treated successfully with jose adjuvant radiotherapy followed by surgical resection. Stage cT3a, [place] 4+4 (3 of 12 cores), adenocarcinoma of the prostate. His pre-treatment PSA is 26.5 ng/mL drawn on 08/03/14. He is to be treated to a total dose of 70 Gy over 28 fra ctions with an IMRT technique with image guidance using [place] beacons. The patient will be receiving concurrent [...]
--- OUTSIDE RECORDS SUMMARY | ~2019-02-24 | XMS | Encounter Summary ---
Demographics + + + | Address | [address] | | | [place] [address] | + + + | Home Phone [...] Providers + +------+ + | Care Medical Accounts Receivable Specialist Name | Role | Phone | [...] Tran | | | | | | [place], [place] | | | | | | [address] | | | | | | [phone] | | | +--------+ + + + [...]
--- OUTSIDE RECORDS SUMMARY | ~2019-02-24 | XMS | Encounter Summary ---
Demographics + + + | Address | [address] | | | [place] [address] | + + + | Home Phone [...] Team Providers + +------+ + | Care Manufacturing Shift Supervisor Name | Role | Phone | [...] Tran | | | | | | [place], [place] | | | | | | [address] | | | | | | [phone] | | | +--------+ + + + [...]
--- OUTSIDE RECORDS SUMMARY | ~2019-02-24 | XMS | Encounter Summary ---
Demographics + + + | Address | [address] | | | [place] [address] | + + + | Home Phone [...] Providers + +------+ + | Care Warp Trucker Name | Role | Phone | + [...] Tran | | | | | | [place], [place] | | | | | | [address] | | | | | | [phone] | | | +--------+ + + + [...]
--- OUTSIDE RECORDS SUMMARY | ~2019-02-24 | XMS | Encounter Summary ---
Demographics + + + | Address | [address] | | | [place] [address] | + + + | Home Phone [...] Team Providers + +------+ + | Care Central Supply Aide Name | Role | Phone | [...] of | [address] | [address] [facility] | | | | | prostate | [facility] | [facility] | | | | | (HCC) | Way | Rd [place], | | | | | Procedures | [place], [place] | [place] | | | | | Consult, | [address] | [address] | | | | | treat, f/u | Phone: | Phone: | | | | | | [phone] | [phone] | | | | | | Fax: | Fax: | | | | | | [phone] | [phone] | +--------+--------+ + + + + Encounter Details +--------+ + + + + | Date | Type | Department | Care Team | Description | +--------+ + + + + | 09/11/ | Hospital | Radiation Oncology | | | | 2014 | Encounter | at [facility] [address] | | | | | | [address] | | | | | | [place] | | | | | | [place], [place] | | | | | | [address] | | | | | | [phone] | | | +--------+ + + + [...]
--- OUTSIDE RECORDS SUMMARY | ~2019-02-24 | XMS | Encounter Summary ---
Demographics + + + | Address | [address] | | | [place] [address] | + + + | Home Phone [...] Providers + +------+ + | Care Retail Management Trainee Name | Role | Phone | + [...] | [address] | Charis Valdes [place], | | | | | [place] | [place] [address] | | | | | [place], [place] | [phone] | | | | | [address] | | | | | | [phone] | | | +--------+---------+ + + + [...] male with a history of a Stage yC8KgT4 SCCA of TIMBO with posterior CW and [...] an IMRT technique with image guidance using [place] beacons. The patient will be receiving concurrent [...]
--- OUTSIDE RECORDS SUMMARY | ~2019-02-24 | XMS | Encounter Summary ---
Demographics + + + | Address | [address] | | | [place] [address] | + + + | Home Phone [...] Team Providers + +------+ + | Care Lathing Supervisor Name | Role | Phone | + +------+ + PCP | Unavailable | + +------+ + Encounter Details +--------+ + + + + | Date | Type | Department | Care Team | Description | +--------+ + + + + | 08/26/ | Stake Driver | Radiation Oncology | Ye Doss MD | Lung Cancer (HCC) | | 2008 | | at [facility] [address] | [address] | (Primary Dx) | | | | [address] | Charis Valdes [place], | | | | | [place] | [place] [address] | | | | | [place], [place] | [phone] | | | | | [address] | | | | | | [phone] | | | +--------+ + + + [...]
--- OUTSIDE RECORDS SUMMARY | ~2019-02-24 | XMS | Encounter Summary ---
Demographics + + + | Address | [address] | | | [place] [address] | + + + | Home Phone [...] Team Providers + +------+ + | Care Coating And Embossing Unit Operator Name | Role | Phone | [...] Tran | | | | | | [place], [place] | | | | | | [address] | | | | | | [phone] | | | +--------+ + + + [...]
--- OUTSIDE RECORDS SUMMARY | ~2019-02-24 | XMS | Encounter Summary ---
Demographics + + + | Address | [address] | | | [place] [address] | + + + | Home Phone | | + + + | Preferred Language | Unknown | + + + | Marital Status | Single | + + + | Christian Affiliation | Unknown | + + + [...] Providers + +------+ + | Care Mold Cutting Machine Operator Name | Role | [...]
--- OUTSIDE RECORDS SUMMARY | ~2019-02-24 | XMS | Encounter Summary ---
Demographics + + + | Address | [address] | | | [place] [address] | + + + | Home Phone [...] Team Providers + +------+ + | Care Acute Dialysis Registered Nurse Name | Role | [...] | [address] | Charis Valdes [place], | | | | | [place] | [place] [address] | | | | | [place], [place] | [phone] | | | | | [address] | | | | | | [phone] | | | +--------+---------+ + + + [...] male with a history of a Stage yM6AuY4 SCCA of TIMBO with posterior CW and [...] an IMRT technique with image guidance using [employer] beacons. The patient will be receiving concurrent [...]
--- OUTSIDE RECORDS SUMMARY | ~2019-02-24 | XMS | Encounter Summary ---
Demographics + + + | Address | [address] | | | [place] [address] | + + + | Home Phone [...] Team Providers + +------+ + | Care Incident Engineer Name | Role | Phone | [...] | | | | | | [place], [place] | | | | | | [address] | | | | | | [phone] | | | +--------+ + + + [...]
--- OUTSIDE RECORDS SUMMARY | ~2019-02-24 | XMS | Encounter Summary ---
Demographics + + + | Address | [address] | | | [place] [address] | + + + | Home Phone [...] Team Providers + +------+ + | Care Dry Kiln Operator Name | Role | Phone [...] of | [address] | [address] [facility] | | | | | prostate | [facility] | [facility] | | | | | (HCC) | Way | [address], | | | | | Procedures | [place], [place] | [place] | | | | | Consult, | [address] | [address] | | | | | treat, f/u | Phone: | Phone: | | | | | | [phone] | [phone] | | | | | | Fax: | Fax: | | | | | | [phone] | [phone] | +--------+--------+ + + + + Encounter Details +--------+ + + + + | Date | Type | Department | Care Team | Description | +--------+ + + + + | 10/06/ | Hospital | Radiation Oncology | | | | 2014 | Encounter | at [facility] [address] | | | | | | [address] | | | | | | [place] | | | | | | [place], [place] | | | | | | [address] | | | | | | [phone] | | | +--------+ + + + [...]
--- OUTSIDE RECORDS SUMMARY | ~2019-02-24 | XMS | Encounter Summary ---
Demographics + + + | Address | [address] | | | [place] [address] | + + + | Home Phone [...] Team Providers + +------+ + | Care Lacing Cutter Name | Role | Phone | [...] Rd | | | | | | [place], [place] | | | | | | [address] | | | +--------+ + + + [...]
--- OUTSIDE RECORDS SUMMARY | ~2019-02-24 | XMS | Encounter Summary ---
Demographics + + + | Address | [address] | | | [place] [address] | + + + | Home Phone [...] Team Providers + +------+ + | Care Russian Language Professor Name | Role | Phone | [...] of | [address] | [address] [facility] | | | | | prostate | [facility] | [facility] | | | | | (HCC) | Way | Rd [place], | | | | | Procedures | [place], [place] | [place] | | | | | Consult, | [address] | [address] | | | | | treat, f/u | Phone: | Phone: | | | | | | [phone] | [phone] | | | | | | Fax: | Fax: | | | | | | [phone] | [phone] | +--------+--------+ + + + + Encounter Details +--------+ + + + + | Date | Type | Department | Care Team | Description | +--------+ + + + + | 09/03/ | Hospital | Radiation Oncology | | | | 2014 | Encounter | at [facility] [address] | | | | | | [address] | | | | | | [place] | | | | | | [place], [place] | | | | | | [address] | | | | | | [phone] | | | +--------+ + + + [...]
--- OUTSIDE RECORDS SUMMARY | ~2019-02-24 | XMS | Encounter Summary ---
Demographics + + + | Address | [address] | | | [place] [address] | + + + | Home Phone [...] Providers + +------+ + | Care Senior Mobile Developer Name | Role | Phone | [...] 2008 | Visit | at [facility] [address] [facility] | [address] | Therapy | | | | [address] | Charis Valdes [place], | | | | | [place] | [place] [address] | | | | | [place], [place] | [phone] | | | | | [address] | | | | | | [phone] | | | +--------+---------+ + + + [...] is a 73 y.o. male with a [id number] SCCA of TIMBO with posterior CW and [...]
--- OUTSIDE RECORDS SUMMARY | ~2019-02-24 | XMS | Encounter Summary ---
Demographics + + + | Address | [address] | | | [place] [address] | + + + | Home Phone [...] Providers + +------+ + | Care Senior Shipping Clerk Name | Role | Phone | [...] | on | at [facility] [address] [facility] | [address] [facility] [address] | RT Clinical | | | | [address] | Charis Valdes [place], | Treatment Planning | | | | [place] | [place] [address] | Note | | | | [place], [place] | [phone] | | | | | [address] | | | | | | [phone] | | | +--------+ + + + [...]
--- OUTSIDE RECORDS SUMMARY | ~2019-02-24 | XMS | Encounter Summary ---
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 This was treated successfully with jose adjuvant radiotherapy followed by surgical resection. Stage cT3a, Morven 4+4 (3 of 12 cores), adenocarcinoma of the prostate. His pre-treatment PSA is 26.5 ng/mL drawn on 08/03/14. He is to be treated to a total dose of 70 Gy over 28 fra ctions with an IMRT technique with image guidance using Duncan beacons. The patient will be receiving concurrent [...]
--- OUTSIDE RECORDS SUMMARY | ~2019-02-24 | XMS | Encounter Summary ---
Demographics + + + | Address | [address] | | | [place] [address] | + + + | Home Phone [...] Team Providers + +------+ + | Care Graphics Production Specialist Name | Role | Phone | [...] | [address] | Charis Valdes [place], | Note | | | | [place] | [place] [address] | | | | | [place], [place] | [phone] | | | | | [address] | | | | | | [phone] | | | +--------+ + + + [...]
--- OUTSIDE RECORDS SUMMARY | ~2019-02-24 | XMS | Encounter Summary ---
Demographics + + + | Address | [address] | | | [place] [address] | + + + | Home Phone [...] Team Providers + +------+ + | Care Shuttle Truck Driver Name | Role | Phone [...] Rd | | | | | | [place], [place] | | | | | | [address] | | | +--------+ + + + [...]
--- OUTSIDE RECORDS SUMMARY | ~2019-02-24 | XMS | Encounter Summary ---
Demographics + + + | Address | [address] | | | [place] [address] | + + + | Home Phone [...] Team Providers + +------+ + | Care Investment Officer Name | Role | Phone | [...] | [address] | [address] [facility] | | | | | prostate | [facility] | [facility] | | | | | (HCC) | Way | Rd [place], | | | | | Procedures | [place], [place] | [place] | | | | | Consult, | [address] | [address] | | | | | treat, f/u | Phone: | Phone: | | | | | | [phone] | [phone] | | | | | | Fax: | Fax: | | | | | | [phone] | [phone] | +--------+--------+ + + + + Encounter Details +--------+ + + + + | Date | Type | Department | Care Team | Description | +--------+ + + + + | 09/21/ | Hospital | Radiation Oncology | | | | 2014 | Encounter | at [facility] [address] | | | | | | [address] | | | | | | [place] | | | | | | [place], [place] | | | | | | [address] | | | | | | [phone] | | | +--------+ + + + [...]
--- OUTSIDE RECORDS SUMMARY | ~2019-02-24 | XMS | Encounter Summary ---
Demographics + + + | Address | [address] | | | [place] [address] | + + + | Home Phone [...] Team Providers + +------+ + | Care Scanning Manager Name | Role | Phone | [...] Tran | | | | | | [place], [place] | | | | | | [address] | | | | | | [phone] | | | +--------+ + + + [...]
--- OUTSIDE RECORDS SUMMARY | ~2019-02-24 | XMS | Encounter Summary ---
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 | Pavan Booker MD | MD Rishabh | | | | | neoplasm of | [address] | [address] [facility] | | | | | prostate | [facility] | [facility] | | | | | (HCC) | Way | Rd [place], | | | | | Procedures | [place], [place] | [place] | | | | | Consult, | [address] | [address] | | | | | treat, f/u | Phone: | Phone: | | | | | | [phone] | [phone] | | | | | | Fax: | Fax: | | | | | | [phone] | [phone] | +--------+--------+ + + + + Encounter Details +--------+ + + + + | Date | Type | Department | Care Team | Description | +--------+ + + + + | 09/16/ | Hospital | Radiation Oncology | | | | 2014 | Encounter | at [facility] [address] | | | | | | [address] | | | | | | [place] | | | | | | [place], [place] | | | | | | [address] | | | | | | [phone] | | | +--------+ + + + [...]
--- OUTSIDE RECORDS SUMMARY | ~2019-02-24 | XMS | Encounter Summary ---
Demographics + + + | Address | [address] | | | [place] [address] | + + + | Home Phone [...] Team Providers + +------+ + | Care Ore Trimmer Name | Role | Phone | + [...] Tran | | | | | | [place], [place] | | | | | | [address] | | | | | | [phone] | | | +--------+ + + + [...]
--- OUTSIDE RECORDS SUMMARY | ~2019-02-24 | XMS | Encounter Summary ---
Demographics + + + | Address | [address] | | | [place] [address] | + + + | Home Phone [...] Team Providers + +------+ + | Care Steamboat Inspector Name | Role | Phone | [...] Tran | | | | | | [place], [place] | | | | | | [address] | | | | | | [phone] | | | +--------+ + + + [...]
--- OUTSIDE RECORDS SUMMARY | ~2019-02-24 | XMS | Encounter Summary ---
Demographics + + + | Address | [address] | | | [place] [address] | + + + | Home Phone [...] Team Providers + +------+ + | Care Diamond Wheel Molder Name | Role | Phone | [...] Tran | | | | | | [place], [place] | | | | | | [address] | | | | | | [phone] | | | +--------+ + + + [...]
--- OUTSIDE RECORDS SUMMARY | ~2019-02-24 | XMS | Encounter Summary ---
Demographics + + + | Address | [address] | | | [place] [address] | + + + | Home Phone [...] Team Providers + +------+ + | Care Assessment Rn Name | Role | Phone | [...] | | | | Order | | [facility] | | | | | | [place] [id number] [facility] | | | | | | [facility] | | | | | | RD [place], [place] | | | | | | [...]
--- OUTSIDE RECORDS SUMMARY | ~2019-02-24 | XMS | Encounter Summary ---
Demographics + + + | Address | [address] | | | [place] [address] | + + + | Home Phone [...] Author | [facility] | + + + | Organization | 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 The patient will be receiving concurrent [...]
--- OUTSIDE RECORDS SUMMARY | ~2019-02-24 | XMS | Encounter Summary ---
Demographics + + + | Address | [address] | | | [place] [address] | + + + | Home Phone [...] Team Providers + +------+ + | Care Interior Plant Caretaker Name | Role | Phone | + [...] Rd | | | | | | [place], [place] | | | | | | [address] | | | +--------+ + + + [...]
--- OUTSIDE RECORDS SUMMARY | ~2019-02-24 | XMS | Encounter Summary ---
Demographics + + + | Address | [address] | | | [place] [address] | + + + | Home Phone [...] Team Providers + +------+ + | Care Furnace Tapper Name | Role | Phone | + [...] Tran | | | | | | [place], [place] | | | | | | [address] | | | | | | [phone] | | | +--------+ + + + [...] with | | | | | | Florien. Patient | | | | | | [...] DEPARTMENT OF | [address] | [place], [place] [address] | | | PATHOLOGY | [address] [...] with | | | | | | Florien. Patient | | | | | | [...] | + + + + + | [facility] | [address] | [place] [address] | | | PATHOLOGY | NAOMI AGUSTIN | | | + + + + + documented in this encounter Visit Diagnoses Not on filedocumented in this encounter"
--- OUTSIDE RECORDS SUMMARY | ~2019-02-24 | XMS | Encounter Summary ---
Demographics + + + | Address | [address] | | | [place] [address] | + + + | Home Phone [...] Team Providers + +------+ + | Care Farmer Diversified Crops Name | Role | Phone | + [...] Tran | | | | | | [place], [place] | | | | | | [address] | | | | | | [phone] | | | +--------+ + + + [...]
--- OUTSIDE RECORDS SUMMARY | ~2019-02-24 | XMS | Encounter Summary ---
Demographics + + + | Address | [address] | | | [place] [address] | + + + | Home Phone [...] Providers + +------+ + | Care Car Jockey Name | Role | Phone | + [...] Tran | | | | | | [place], [place] | | | | | | [address] | | | | | | [phone] | | | +--------+ + + + [...]
--- OUTSIDE RECORDS SUMMARY | ~2019-02-24 | XMS | Encounter Summary ---
Demographics + + + | Address | [address] | | | [place] [address] | + + + | Home Phone [...] Team Providers + +------+ + | Care Webfed Offset Press Operator Name | Role | Phone [...] Tran | | | | | | [place], [place] | | | | | | [address] | | | | | | [phone] | | | +--------+ + + + [...]
--- OUTSIDE RECORDS SUMMARY | ~2019-02-24 | XMS | Encounter Summary ---
Demographics + + + | Address | [address] | | | [place] [address] | + + + | Home Phone [...] Team Providers + +------+ + | Care Contracts Administrator Name | Role | Phone | [...] 2008 | Visit | at [facility] [address] [facility] | [address] | Therapy | | | | [address] | Charis Valdes [place], | | | | | [place] | [place] [address] | | | | | [place], [place] | [phone] | | | | | [address] | | | | | | [phone] | | | +--------+---------+ + + + [...] is a 73 y.o. male with a [id number] SCCA of TIMBO with posterior CW and [...]
--- OUTSIDE RECORDS SUMMARY | ~2019-02-24 | XMS | Encounter Summary ---
Demographics + + + | Address | [address] | | | [place] [address] | + + + | Home Phone [...] Team Providers + +------+ + | Care Financial Sales Associate Name | Role | Phone | [...] neoplasm of | [address] | [address] [facility] | | | | | prostate | [facility] | [facility] | | | | | (HCC) | Way | [address] [place], | | | | | Procedures | [place], [place] | [place] | | | | | Consult, | [address] | [address] | | | | | treat, f/u | Phone: | Phone: | | | | | | [phone] | [phone] | | | | | | Fax: | Fax: | | | | | | [phone] | [phone] | +--------+--------+ + + + + Encounter [...] Tran | | | | | | [place], [place] | | | | | | [address] | | | | | | [phone] | | | +--------+ + + + [...]
--- OUTSIDE RECORDS SUMMARY | ~2019-02-24 | XMS | Encounter Summary ---
Demographics + + + | Address | [address] | | | [place] [address] | + + + | Home Phone [...] Team Providers + +------+ + | Care Catering Associate Name | Role | Phone | [...] 2008 | Visit | at [facility] [address] [facility] | [address] | Therapy | | | | [address] | Charis Valdes [place], | | | | | [place] | [place] [address] | | | | | [place], [place] | [phone] | | | | | [address] | | | | | | [phone] | | | +--------+---------+ + + + [...] is a 73 y.o. male with a [id number] SCCA of TIMBO with posterior CW and [...]
--- OUTSIDE RECORDS SUMMARY | ~2019-02-24 | XMS | Encounter Summary ---
Demographics + + + | Address | [address] | | | [place] [address] | + + + | Home Phone [...] Team Providers + +------+ + | Care Rink Rat Name | Role | Phone | + [...]
--- OUTSIDE RECORDS SUMMARY | ~2019-02-24 | XMS | Encounter Summary ---
Demographics + + + | Address | [address] | | | [place] [address] | + + + | Home Phone [...] Team Providers + +------+ + | Care Alternative Energy Engineer Name | Role | Phone | + +------+ + PCP | Unavailable | + +------+ + Encounter Details +--------+ + + + + | Date | Type | Department | Care Team | Description | +--------+ + + + + | 08/31/ | Abstract | Radiation Oncology | Ye Doss MD | | | 2008 | | at [facility] [address] [facility] | [address] | | | | | [address] | Charis Valdes [facility] | | | | | [place] | [place] [address] | | | | | [place], [place] | [phone] | | | | | [address] | | | | | | [phone] | | | +--------+ + + + [...]
--- OUTSIDE RECORDS SUMMARY | ~2019-02-24 | XMS | Encounter Summary ---
Demographics + + + | Address | [address] | | | [place] [address] | + + + | Home Phone [...] Team Providers + +------+ + | Care Explosives Truck Driver Name | Role | Phone [...] | | prostate | [facility] | [facility] | | | | | (HCC) | Way | Rd [place], | | | | | Procedures | [place], [place] | [place] | | | | | Consult, | [address] | [address] | | | | | treat, f/u | Phone: | Phone: | | | | | | [phone] | [phone] | | | | | | Fax: | Fax: | | | | | | [phone] | [phone] | +--------+--------+ + + + + Encounter Details +--------+ + + + + | Date | Type | Department | Care Team | Description | +--------+ + + + + | 09/25/ | Hospital | Radiation Oncology | | | | 2014 | Encounter | at [facility] [address] | | | | | | [address] | | | | | | [place] | | | | | | [place], [place] | | | | | | [address] | | | | | | [phone] | | | +--------+ + + + [...]
--- OUTSIDE RECORDS SUMMARY | ~2019-02-24 | XMS | Encounter Summary ---
Demographics + + + | Address | [address] | | | [place] [address] | + + + | Home Phone [...] Team Providers + +------+ + | Care Career Development Associate Name | Role | Phone | + +------+ + PCP | Unavailable | + +------+ + Encounter Details +--------+ + + + + | Date | Type | Department | Care Team | Description | +--------+ + + + + | 09/02/ | Documentati | Radiation Oncology | Ye Doss MD | | | 2008 | on | at [facility] [address] [facility] | [address] | | | | | [address] | Charis [place], | | | | | [place] | [place] [address] | | | | | [place], [place] | [phone] | | | | | [address] | | | | | | [phone] | | | +--------+ + + + [...]
--- OUTSIDE RECORDS SUMMARY | ~2019-02-24 | XMS | Encounter Summary ---
Demographics + + + | Address | [address] | | | [place] [address] | + + + | Home Phone [...] Team Providers + +------+ + | Care Insurance Investigator Name | Role | Phone | + [...] Closed | | Radiation | Diagnoses | Paarg, | Kadeem, | | | | Oncology | Malignant | Pavan Booker MD | MD Rishabh | | | | | neoplasm of | [address] | [address] [facility] | | | | | prostate | [facility] | [facility] | | | | | (HCC) | Way | Rd [place], | | | | | Procedures | [place], [place] | [place] | | | | | Consult, | [address] | [address] | | | | | treat, f/u | Phone: | Phone: | | | | | | [phone] | [phone] | | | | | | Fax: | Fax: | | | | | | [phone] | [phone] | +--------+--------+ + + + + Encounter Details +--------+ + + + + | Date | Type | Department | Care Team | Description | +--------+ + + + + | 10/06/ | Hospital | Radiation Oncology | | | | 2014 | Encounter | at [facility] [address] | | | | | | [address] | | | | | | [place] | | | | | | [place], [place] | | | | | | [address] | | | | | | [phone] | | | +--------+ + + + [...]
--- OUTSIDE RECORDS SUMMARY | ~2019-02-24 | XMS | Encounter Summary ---
Demographics + + + | Address | [address] | | | [place] [address] | + + + | Home Phone [...] Team Providers + +------+ + | Care Machining Engineer Name | Role | Phone | [...] neoplasm of | [address] | [address] [facility] | | | | | prostate | [facility] | [facility] | | | | | (HCC) | Way | Rd [place], | | | | | Procedures | [place], [place] | [place] | | | | | Consult, | [address] | [address] | | | | | treat, f/u | Phone: | Phone: | | | | | | [phone] | [phone] | | | | | | Fax: | Fax: | | | | | | [phone] | [phone] | +--------+--------+ + + + + Encounter Details +--------+ + + + + | Date | Type | Department | Care Team | Description | +--------+ + + + + | 09/21/ | Hospital | Radiation Oncology | | | | 2014 | Encounter | at [facility] [address] | | | | | | [address] | | | | | | [place] | | | | | | [place], [place] | | | | | | [address] | | | | | | [phone] | | | +--------+ + + + [...]
--- OUTSIDE RECORDS SUMMARY | ~2019-02-24 | XMS | Encounter Summary ---
Demographics + + + | Address | [address] | | | [place] [address] | + + + | Home Phone [...] Team Providers + +------+ + | Care Straightener Gun Parts Name | Role | Phone | + [...] neoplasm of | [address] | [address] [facility] | | | | | prostate | [facility] | [facility] | | | | | (HCC) | Way | [address] [place], | | | | | Procedures | [place], [place] | [place] | | | | | Consult, | [address] | [address] | | | | | treat, f/u | Phone: | Phone: | | | | | | [phone] | [phone] | | | | | | Fax: | Fax: | | | | | | [phone] | [phone] | +--------+--------+ + + + + Encounter Details +--------+ + + + + | Date | Type | Department | Care Team | Description | +--------+ + + + + | 10/08/ | Hospital | Radiation Oncology | | | | 2014 | Encounter | at [facility] [address] | | | | | | [address] | | | | | | [place] | | | | | | [place], [place] | | | | | | [address] | | | | | | [phone] | | | +--------+ + + + [...]
--- OUTSIDE RECORDS SUMMARY | ~2019-02-24 | XMS | Encounter Summary ---
Demographics + + + | Address | [address] | | | [place] [address] | + + + | Home Phone [...] Team Providers + +------+ + | Care Aquatics Group Fitness Instructor Name | Role | Phone | [...] | [address] [facility] | | | | | prostate | [facility] | [facility] | | | | | (HCC) | Way | Rd [place], | | | | | Procedures | [place], [place] | [place] | | | | | Consult, | [address] | [address] | | | | | treat, f/u | Phone: | Phone: | | | | | | [phone] | [phone] | | | | | | Fax: | Fax: | | | | | | [phone] | [phone] | +--------+--------+ + + + + Encounter Details +--------+ + + + + | Date | Type | Department | Care Team | Description | +--------+ + + + + | 09/10/ | Hospital | Radiation Oncology | | | | 2014 | Encounter | at [facility] [address] | | | | | | [address] | | | | | | [place] | | | | | | [place], [place] | | | | | | [address] | | | | | | [phone] | | | +--------+ + + + [...]
--- OUTSIDE RECORDS SUMMARY | ~2019-02-24 | XMS | Encounter Summary ---
Demographics + + + | Address | [address] | | | [place] [address] | + + + | Home Phone [...] Providers + +------+ + | Care Recreation Teacher Name | Role | Phone | [...] Tran | | | | | | [place], [place] | | | | | | [address] | | | | | | [phone] | | | +--------+ + + + [...]
--- OUTSIDE RECORDS SUMMARY | ~2019-02-24 | XMS | Encounter Summary ---
Demographics + + + | Address | [address] | | | [place] [address] | + + + | Home Phone [...] Team Providers + +------+ + | Care Cleaner And Polisher Name | Role | Phone | + [...] neoplasm of | [address] | [address] [facility] | | | | | prostate | [facility] | [facility] | | | | | (HCC) | Way | Rd [place], | | | | | Procedures | [place], [place] | [place] | | | | | Consult, | [address] | [address] | | | | | treat, f/u | Phone: | Phone: | | | | | | [phone] | [phone] | | | | | | Fax: | Fax: | | | | | | [phone] | [phone] | +--------+--------+ + + + + Encounter [...] Tran | | | | | | [place], [place] | | | | | | [address] | | | | | | [phone] | | | +--------+ + + + [...]
--- OUTSIDE RECORDS SUMMARY | ~2019-02-24 | XMS | Encounter Summary ---
Demographics + + + | Address | [address] | | | [place] [address] | + + + | Home Phone [...] Team Providers + +------+ + | Care Convertible Power Shovel Operator Name | Role | Phone | [...] Tran | | | | | | [place], [place] | | | | | | [address] | | | | | | [phone] | | | +--------+ + + + [...]
--- OUTSIDE RECORDS SUMMARY | ~2019-02-24 | XMS | Encounter Summary ---
Demographics + + + | Address | [address] | | | [place] [address] | + + + | Home Phone [...] Team Providers + +------+ + | Care Hide Handler Name | Role | Phone | [...] 2008 | Visit | at [facility] [address] [facility] | [address] | Therapy | | | | [address] | Charis Valdes [place], | | | | | [place] | [place] [address] | | | | | [place], [place] | [phone] | | | | | [address] | | | | | | [phone] | | | +--------+---------+ + + + [...] is a 73 y.o. male with a [id number] SCCA of TIMBO with posterior CW and [...] up both zofran and ativan today at [place]-will try ativan for anxiety-help sleeping at night. Nursing Intervention: continue supportive care.Electronically signed by Mila Martinez at 12:39 PM PDTdocumented in this encounter Plan of Treatment Not on filedocumented as of this encounter Visit Diagnoses + + | Diagnosis | + + | OTV/Radiation Therapy Radiotherapy | + + documented in this encounter"
--- OUTSIDE RECORDS SUMMARY | ~2019-02-24 | XMS | Encounter Summary ---
Demographics + + + | Address | [address] | | | [place] [address] | + + + | Home Phone [...] Providers + +------+ + | Care General Manager [employer] Name | Role | Phone | + [...] Tran | | | | | | [place], [place] | | | | | | [address] | | | | | | [phone] | | | +--------+ + + + [...]
--- OUTSIDE RECORDS SUMMARY | ~2019-02-24 | XMS | Encounter Summary ---
Demographics + + + | Address | [address] | | | [place] [address] | + + + | Home Phone [...] Team Providers + +------+ + | Care Quarantine Officer Name | Role | Phone | [...] | | | | | prostate | [facility] | [facility] | | | | | (HCC) | Way | [address], | | | | | Procedures | [place], [place] | [place] | | | | | Consult, | [address] | [address] | | | | | treat, f/u | Phone: | Phone: | | | | | | [phone] | [phone] | | | | | | Fax: | Fax: | | | | | | [phone] | [phone] | +--------+--------+ + + + + Encounter Details +--------+ + + + + | Date | Type | Department | Care Team | Description | +--------+ + + + + | 09/23/ | Hospital | Radiation Oncology | | | | 2014 | Encounter | at [facility] [address] | | | | | | [address] | | | | | | [place] | | | | | | [place], [place] | | | | | | [address] | | | | | | [phone] | | | +--------+ + + + [...]
--- OUTSIDE RECORDS SUMMARY | ~2019-02-24 | XMS | Encounter Summary ---
Demographics + + + | Address | [address] | | | [place] [address] | + + + | Home Phone [...] Team Providers + +------+ + | Care Loom Operator Name | Role | Phone | [...] | [address] | Charis Valdes [place], | Note | | | | [place] | [place] [address] | | | | | [place], [place] | [phone] | | | | | [address] | | | | | | [phone] | | | +--------+ + + + [...]
--- OUTSIDE RECORDS SUMMARY | ~2019-02-24 | XMS | Encounter Summary ---
Demographics + + + | Address | [address] | | | [place] [address] | + + + | Home Phone [...] Team Providers + +------+ + | Care Websphere Administrator Name | Role | Phone | + +------+ + PCP | Unavailable | + +------+ + Encounter Details +--------+ + + + + | Date | Type | Department | Care Team | Description | +--------+ + + + + | 07/23/ | Document-Sc | UNKNOWN DEPARTMENT | Radiologist, Nuc | | | 2008 | anned | [address] | [facility] | | | | | [address] | | | | | | [place], [place] | | | | | | [address] | | | +--------+ + + + [...]
--- OUTSIDE RECORDS SUMMARY | ~2019-02-24 | XMS | Encounter Summary ---
Demographics + + + | Address | [address] | | | [place] [address] | + + + | Home Phone [...] Providers + +------+ + | Care Customer Service Receptionist Name | Role | Phone | [...] 2008 | Visit | at [facility] [address] [facility] | [address] | Therapy | | | | [address] | Charis Valdes [place], | | | | | [place] | [place] [address] | | | | | [place], [place] | [phone] | | | | | [address] | | | | | | [phone] | | | +--------+---------+ + + + [...] and chemotherapy both on 10/19 [facility] at [place] [facility] with a new chest CT 11/16 Evaluate for surgical resection at that F[facility] Evelyn Vicente MD - 10/13/2008 3:57 PM PDT 10/13/2008 3:46 PM Ammon Tracy is a 73 y.o. male with a [id number] SCCA of TIMBO with posterior CW and [...] We would like to see him in [place] [facility] 11/16/08 , with CT prior. [...]
--- OUTSIDE RECORDS SUMMARY | ~2019-02-24 | XMS | Encounter Summary ---
Demographics + + + | Address | [address] | | | [place] [address] | + + + | Home Phone [...] Team Providers + +------+ + | Care Cancer Genetic Counselor Name | Role | Phone | [...] Tran | | | | | | [place], [place] | | | | | | [address] | | | | | | [phone] | | | +--------+ + + + [...]
--- OUTSIDE RECORDS SUMMARY | ~2019-02-24 | XMS | Encounter Summary ---
Demographics + + + | Address | [address] | | | [place] [address] | + + + | Home Phone [...] Providers + +------+ + | Care Supervisor Coffee Name | Role | Phone | + [...] | | | 2019 | | at [facility] [address] | [address] | | | | | [address] | Charis Valdes [place], | | | | | [place] | [place] [address] | | | | | [place] | [phone] | | | | | [address] | | | | | | [phone] | | | +--------+ + + + [...]
--- OUTSIDE RECORDS SUMMARY | ~2019-02-24 | XMS | Encounter Summary ---
Demographics + + + | Address | [address] | | | [place] [address] | + + + | Home Phone [...] Team Providers + +------+ + | Care Heating Element Repairer Name | Role | Phone | [...]
--- OUTSIDE RECORDS SUMMARY | ~2019-02-24 | XMS | Clinical Summary ---
Demographics + + + | Address | [address] | | | [place] [address] | + + + | Home Phone [...] Providers + +------+ + | Care Car Refinisher Name | Role | Phone | + +------+ + | No Pcp Per Patient | PCP | Unavailable | + +------+ + Source Comments KORTNEY is fully live on both [facility] Ambulatory and [facility] InPatient.[facility] Allergies + + + + + [...] | Clinical | Radiation Oncology | Yfn oMya | Patient education | | 2018 | [...] | ITY | | for | | [place], | | | | [place] | | all | | [place] [address] | | | | RCE | | dates | | | | + +--------+ +--------+ + +--------+ | [place] | [place] | [phone] | | [phone] | [address] | Agency | | ADMINISTRATION | CHOICE | | 019-/ | 8 | [phone] | | | | PLAN | | | | [place], | | | | | | 0 | | [place] [address] | | + +--------+ +--------+ + +--------+ [...] | 1935 | [phone] | [place] [address] | | | prateek | | | 3 (Home) | | + +--------+ +--------+ + + | Ammon Tracy | [place] | Self | [birth year] | [address] | | Babak | Kimmyo | | 1935 | [id number] | [place] [address] | | | red | | | 3 (Home) | | + +--------+ +--------+ + + Advance Directives + + + + + | Type | Date Recorded | Patient | Explanation | | | | Roll Builder | | + + + + + | Advance | | | | | Directives and | | | | | Living Will | | | | + + + + + | Power of | | | | | Hand Compositor | | | | + + + + +
--- OUTSIDE RECORDS SUMMARY | ~2019-02-24 | XMS | Encounter Summary ---
Demographics + + + | Address | [address] | | | [place] [address] | + + + | Home Phone [...] Team Providers + +------+ + | Care School Janitor Name | Role | Phone | + [...] | | | | neoplasm of | [place] [facility] | [address] [facility] | | | | | lung, | A MEDICAL | [facility] | | | | | unspecified | CENTER [address] | [address] [place], | | | | | laterality, | [place] | [place] | | | | | unspecified | [place] | [address] | | | | | part of lung | [address] | Phone: | | | | | (HCC) | [place], | [phone] | | | | | Procedures | [place] [address] | Fax: | | | | | SIMULATION | Phone: | [phone] | | | | | IMAGING | [phone] | | | | | | | Fax: | | | | | | | [phone] | | +--------+--------+ + + + + [...] | | | | neoplasm of | [place] | [address] [facility] | | | | | lung, | A MEDICAL | [facility] | | | | | unspecified | CENTER [address] | [address] [place], | | | | | laterality, | [address] [place] | [place] | | | | | unspecified | [place] | [address] | | | | | part of lung | [address] | Phone: | | | | | (HCC) | [place], | [phone] | | | | | Procedures | [place] [address] | Fax: | | | | | SIMULATION | Phone: | [phone] | | | | | IMAGING | [phone] | | | | | | | Fax: | | | | | | | [phone] | | +--------+--------+ + + + + [...] | | | | neoplasm of | [place] | [address] [facility] | | | | | lung, | A MEDICAL | [facility] | | | | | unspecified | CENTER [address] | [address] [place], | | | | | laterality, | [address] [place] | [place] | | | | | unspecified | [place] | [address] | | | | | part of lung | [address] | Phone: | | | | | (HCC) | [place], | [phone] | | | | | Procedures | [place] [address] | Fax: | | | | | SIMULATION | Phone: | [phone] | | | | | IMAGING | [phone] | | | | | | | Fax: | | | | | | | [phone] | | +--------+--------+ + + + + Encounter Details +--------+ + + + + | Date | Type | Department | Care Team | Description | +--------+ + + + + | 02/06/ | Hospital | Radiation Oncology | | | | 2019 | Encounter | at [facility] [address] | | | | | | [address] | | | | | | [place] | | | | | | [place], [place] | | | | | | [address] | | | | | | [phone] | | | +--------+ + + + [...]
--- OUTSIDE RECORDS SUMMARY | ~2019-02-24 | XMS | Encounter Summary ---
Demographics + + + | Address | [address] | | | [place] [address] | + + + | Home Phone [...] Team Providers + +------+ + | Care Endoscopy Technican Name | Role | Phone | + [...] | | prostate | [facility] | [facility] | | | | | (HCC) | Way | [address] [place], | | | | | Procedures | [place], [place] | [place] | | | | | Consult, | [address] | [address] | | | | | treat, f/u | Phone: | Phone: | | | | | | [phone] | [phone] | | | | | | Fax: | Fax: | | | | | | [phone] | [phone] | +--------+--------+ + + + + Encounter Details +--------+ + + + + | Date | Type | Department | Care Team | Description | +--------+ + + + + | 09/11/ | Hospital | Radiation Oncology | | | | 2014 | Encounter | at [facility] [address] | | | | | | [address] | | | | | | [place] | | | | | | [place], [place] | | | | | | [address] | | | | | | [phone] | | | +--------+ + + + [...]
--- OUTSIDE RECORDS SUMMARY | ~2019-02-24 | XMS | Encounter Summary ---
Demographics + + + | Address | [address] | | | [place] [address] | + + + | Home Phone [...] Team Providers + +------+ + | Care Radiology Supervisor Name | Role | Phone | [...] | [facility] | [facility] | | | | | (HCC) | Way | [address] [place], | | | | | Procedures | [place], [place] | [place] | | | | | Consult, | [address] | [address] | | | | | treat, f/u | Phone: | Phone: | | | | | | [phone] | [phone] | | | | | | Fax: | Fax: | | | | | | [phone] | [phone] | +--------+--------+ + + + + Encounter Details +--------+ + + + + | Date | Type | Department | Care Team | Description | +--------+ + + + + | 09/25/ | Hospital | Radiation Oncology | | | | 2014 | Encounter | at [facility] [address] | | | | | | [address] | | | | | | [place] | | | | | | [place], [place] | | | | | | [address] | | | | | | [phone] | | | +--------+ + + + [...]
--- OUTSIDE RECORDS SUMMARY | ~2019-02-24 | XMS | Encounter Summary ---
[...] Providers + +------+ + | Care Event Sales Manager Name | Role | Phone | [...] [place] | | | | | | [address] | | | | | | [phone] | | | +--------+ + + + [...]
--- OUTSIDE RECORDS SUMMARY | ~2019-02-24 | XMS | Encounter Summary ---
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 Consultation was requested to evaluate for pre-operati ve vs. definitive radiation in conjunction with chemotherapy. HPI: He underwent CXR to evaluate left anterior CW pain in 04/2008, which showed a 3cm cavitary TIMBO mass. Subsequent CT chest at [facility] 06/17/08 showed a 4cm cavitary [...] transverse process. His case was discussed at [facility] multi-disci plinary lung conference 08/17/08 with a [...] Use: 2 drinks daily Social History Narrative [employer], then [employer]. Plays Nubli. ALLERGIES: NKDA MEDICATIONS: Aspirin 81mg Ec Tab QD Albuterol 90/Ipratrop 18mcg 200d QID Hydrochlorothiazide 25mg QD Metformin Hcl 1000mg BID Omeprazole 20mg QD Simvastatin 80mg QD Vardenafil Hcl 20mg Lisinopril 20mg QD Terazosin Hcl 2mg QD REVIEW OF SYSTEMS: The [facility] Radiation Oncology Questionnaire was completed by the [...] Accession #: [id number] Submitted by: Practitioner:TREAMYNE ADAMSON MD MICROSCOPIC EXAM: (Date Spec taken: [...] or concerns. EVELYN EDWARDS MD RADIATION MEDICINE [address] [place] [address] Mailcode: L[address] [place] [address] CC: Oj Russo MD This note was uploaded into the [place] electronic medical record so it can be viewed by the ref erring provider, Oj Russo MD. documented in this e ncounter Plan of Treatment Not on filedocumented as of this encounter Visit Diagnoses Not on filedocumented in this encounter"
--- OUTSIDE RECORDS SUMMARY | ~2019-02-24 | XMS | Encounter Summary ---
Demographics + + + | Address | [address] | | | [place] [address] | + + + | Home Phone [...] Team Providers + +------+ + | Care Sod Farmer Name | Role | Phone | [...] | | | [place] [address] | [place] [address] | | | | | [place], [place] | [phone] | | | | | [address] | | | | | | [phone] | | | +--------+ + + + [...]
--- OUTSIDE RECORDS SUMMARY | ~2019-02-24 | XMS | Encounter Summary ---
Demographics + + + | Address | [address] | | | [place] [address] | + + + | Home Phone [...] Team Providers + +------+ + | Care Tire Mounter Name | Role | Phone | + +------+ + | No Pcp Per Patient | PCP | Unavailable | + +------+ + Encounter Details +--------+ + + + + | Date | Type | Department | Care Team | Description | +--------+ + + + + | 08/31/ | Results | Radiation Oncology | Rishabh Quna MD | | | 2014 | Only | at [facility] [address] | [address] | | | | | [address] | Charis [place]des [place] | | | | | [place] | [place] [address] | | | | | [place] | [phone] | | | | | [address] | | | | | | [phone] | | | +--------+ + + + [...]
--- OUTSIDE RECORDS SUMMARY | ~2019-02-24 | XMS | Encounter Summary ---
Demographics + + + | Address | [address] | | | [place] [address] | + + + | Home Phone [...] Team Providers + +------+ + | Care Social Science Teacher Name | Role | Phone | [...] Tran | | | | | | [place], [place] | | | | | | [address] | | | | | | [phone] | | | +--------+ + + + [...]
--- OUTSIDE RECORDS SUMMARY | ~2019-02-24 | XMS | Encounter Summary ---
Demographics + + + | Address | [address] | | | [place] [address] | + + + | Home Phone [...] Team Providers + +------+ + | Care Bilingual Legal Assistant Name | Role | Phone | [...] | [address] | Charis Valdes [place], | | | | | [place] | [place] [address] | | | | | [place], [place] | [phone] | | | | | [address] | | | | | | [phone] | | | +--------+ + + + [...]
--- OUTSIDE RECORDS SUMMARY | ~2019-02-24 | XMS | Encounter Summary ---
Demographics + + + | Address | [address] | | | [place] [address] | + + + | Home Phone [...] Providers + +------+ + | Care Escrow Officer Name | Role | Phone | [...] Tran | | | | | | [place], [place] | | | | | | [address] | | | | | | [phone] | | | +--------+ + + + [...]
--- OUTSIDE RECORDS SUMMARY | ~2019-02-24 | XMS | Encounter Summary ---
Demographics + + + | Address | [address] | | | [place] [address] | + + + | Home Phone [...] Team Providers + +------+ + | Care Map And Chart Mounter Name | Role | Phone | [...] neoplasm of | [address] | [address] [facility] | | | | | prostate | [facility] | [facility] | | | | | (HCC) | Way | [address] [place], | | | | | Procedures | [place], [place] | [place] | | | | | Consult, | [address] | [address] | | | | | treat, f/u | Phone: | Phone: | | | | | | [phone] | [phone] | | | | | | Fax: | Fax: | | | | | | [phone] | [phone] | +--------+--------+ + + + + Encounter Details +--------+ + + + + | Date | Type | Department | Care Team | Description | +--------+ + + + + | 09/14/ | Hospital | Radiation Oncology | | | | 2014 | Encounter | at [facility] [address] | | | | | | [address] | | | | | | [place] | | | | | | [place], [place] | | | | | | [address] | | | | | | [phone] | | | +--------+ + + + [...]
--- OUTSIDE RECORDS SUMMARY | ~2019-02-24 | XMS | Encounter Summary ---
Demographics + + + | Address | [address] | | | [place] [address] | + + + | Home Phone [...] Team Providers + +------+ + | Care Continuing Education Director Name | Role | Phone | [...] Rd | | | | | | [place], [place] | | | | | | [address] | | | +--------+ + + + [...]
--- OUTSIDE RECORDS SUMMARY | ~2019-02-24 | XMS | Encounter Summary ---
Demographics + + + | Address | [address] | | | [place] [address] | + + + | Home Phone [...] Providers + +------+ + | Care Baker Second Name | Role | Phone | + [...] | | 2015 | Visit | at [facility] [address] [facility] | [address] | (Primary Dx) | | | | [address] | [place], [place] | | | | | [place] | [address] | | | | | [place], [place] | [phone] | | | | | [address] | | | | | | [phone] | | | +--------+---------+ + + + [...] male with a history of a Stage [id number] SCCA of TIMBO with posterior CW and [...] an IMRT technique with image guidance using Tedcas beacons. The patient will be receiving concurrent [...]
--- OUTSIDE RECORDS SUMMARY | ~2019-02-24 | XMS | Encounter Summary ---
Demographics + + + | Address | [address] | | | [place] [address] | + + + | Home Phone [...] Team Providers + +------+ + | Care Finger Buffs Assembler Name | Role | Phone | [...] [place] | | | | | | [address] | | | | | | [phone] | | | +--------+ + + + [...]
--- OUTSIDE RECORDS SUMMARY | ~2019-02-24 | XMS | Encounter Summary ---
Demographics + + + | Address | [address] | | | [place] [address] | + + + | Home Phone [...] Providers + +------+ + | Care Marine Cargo Specialist Name | Role | Phone | [...] [place] | | | | | | [address] | | | | | | [phone] | | | +--------+ + + + [...]
--- OUTSIDE RECORDS SUMMARY | ~2019-02-24 | XMS | Encounter Summary ---
Demographics + + + | Address | [address] | | | [place] [address] | + + + | Home Phone [...] Team Providers + +------+ + | Care Base Cloth Inspector Name | Role | Phone | [...] neoplasm of | [address] | [address] [facility] | | | | | prostate | [facility] | [facility] | | | | | (HCC) | Way | Rd [place], | | | | | Procedures | [place], [place] | [place] | | | | | Consult, | [address] | [address] | | | | | treat, f/u | Phone: | Phone: | | | | | | [phone] | [phone] | | | | | | Fax: | Fax: | | | | | | [phone] | [phone] | +--------+--------+ + + + + Encounter [...] Tran | | | | | | [place], [place] | | | | | | [address] | | | | | | [phone] | | | +--------+ + + + [...]
--- OUTSIDE RECORDS SUMMARY | ~2019-02-24 | XMS | Encounter Summary ---
Demographics + + + | Address | [address] | | | [place] [address] | + + + | Home Phone [...] Team Providers + +------+ + | Care Medication Specialist Name | Role | Phone | + +------+ + PCP | Unavailable | + +------+ + Encounter Details +--------+ + + + + | Date | Type | Department | Care Team | Description | +--------+ + + + + | 07/23/ | Document-Sc | UNKNOWN DEPARTMENT | Radiologist, Nuc | | | 2008 | anned | [address] | [facility] | | | | | [address] | | | | | | [place], [place] | | | | | | [address] | | | +--------+ + + + [...]
--- OUTSIDE RECORDS SUMMARY | ~2019-02-24 | XMS | Encounter Summary ---
Demographics + + + | Address | [address] | | | [place] [address] | + + + | Home Phone [...] Team Providers + +------+ + | Care Revenue Coordinator Name | Role | Phone | [...] at [facility] [address] | ,PhD [address] | | | | | [address] | [address] | | | | | [place] | [place], [place] | | | | | [place], [place] | [address] | | | | | [address] | [phone] | | | | | [phone] | | | +--------+ + + + [...]
--- OUTSIDE RECORDS SUMMARY | ~2019-02-24 | XMS | Encounter Summary ---
Demographics + + + | Address | [address] | | | [place] [address] | + + + | Home Phone [...] Team Providers + +------+ + | Care Licensing Court Magistrate Name | Role | Phone | + [...] Tran | | | | | | [place], [place] | | | | | | [address] | | | | | | [phone] | | | +--------+ + + + [...]
--- OUTSIDE RECORDS SUMMARY | ~2019-02-24 | XMS | Encounter Summary ---
Demographics + + + | Address | [address] | | | [place] [address] | + + + | Home Phone [...] Providers + +------+ + | Care Educational Manager Name | Role | Phone | [...] neoplasm of | [address] | [address] [facility] | | | | | prostate | [facility] | [facility] | | | | | (HCC) | Way | Rd [place], | | | | | Procedures | [place], [place] | [place] | | | | | Consult, | [address] | [address] | | | | | treat, f/u | Phone: | Phone: | | | | | | [phone] | [phone] | | | | | | Fax: | Fax: | | | | | | [phone] | [phone] | +--------+--------+ + + + + Encounter Details +--------+ + + + + | Date | Type | Department | Care Team | Description | +--------+ + + + + | 09/30/ | Hospital | Radiation Oncology | | | | 2014 | Encounter | at [facility] [address] | | | | | | [address] | | | | | | [place] | | | | | | [place], [place] | | | | | | [address] | | | | | | [phone] | | | +--------+ + + + [...]
--- OUTSIDE RECORDS SUMMARY | ~2019-02-24 | XMS | Encounter Summary ---
Demographics + + + | Address | [address] | | | [place] [address] | + + + | Home Phone [...] Providers + +------+ + | Care Medical Grade Shoemaker Name | Role | Phone | + [...] | prostate | [facility] | [facility] | | | | | (HCC) | Way | [address] [place], | | | | | Procedures | [place], [place] | [place] | | | | | Consult, | [address] | [address] | | | | | treat, f/u | Phone: | Phone: | | | | | | [phone] | [phone] | | | | | | Fax: | Fax: | | | | | | [phone] | [phone] | +--------+--------+ + + + + Encounter Details +--------+ + + + + | Date | Type | Department | Care Team | Description | +--------+ + + + + | 10/02/ | Hospital | Radiation Oncology | | | | 2014 | Encounter | at [facility] [address] | | | | | | [address] | | | | | | [place] | | | | | | [place], [place] | | | | | | [address] | | | | | | [phone] | | | +--------+ + + + [...]
--- OUTSIDE RECORDS SUMMARY | ~2019-02-24 | XMS | Encounter Summary ---
Demographics + + + | Address | [address] | | | [place] [address] | + + + | Home Phone [...] Team Providers + +------+ + | Care Full Charge Bookkeeper Name | Role | Phone | + [...] Tran | | | | | | [place], [place] | | | | | | [address] | | | | | | [phone] | | | +--------+ + + + [...]
--- OUTSIDE RECORDS SUMMARY | ~2019-02-24 | XMS | Encounter Summary ---
Demographics + + + | Address | [address] | | | [place] [address] | + + + | Home Phone [...] Providers + +------+ + | Care Web Search Evaluator Name | Role | Phone | + [...] [place] | | | | | | [address] | | | | | | [phone] | | | +--------+ + + + [...]
--- OUTSIDE RECORDS SUMMARY | ~2019-02-24 | XMS | Encounter Summary ---
Demographics + + + | Address | [address] | | | [place] [address] | + + + | Home Phone [...] Team Providers + +------+ + | Care Unit Assistant Name | Role | Phone | + +------+ + PCP | Unavailable | + +------+ + Encounter Details +--------+ + + + + | Date | Type | Department | Care Team | Description | +--------+ + + + + | 09/02/ | Results | Radiation Oncology | Ye Doss MD | | | 2008 | Only | at [facility] [address] [facility] | [address] | | | | | [address] | Charis Valdes [facility] | | | | | [place] | [place] [address] | | | | | [place], [place] | [phone] | | | | | [address] | | | | | | [phone] | | | +--------+ + + + [...]
--- OUTSIDE RECORDS SUMMARY | ~2019-02-24 | XMS | Encounter Summary ---
Demographics + + + | Address | [address] | | | [place] [address] | + + + | Home Phone [...] Team Providers + +------+ + | Care Camp Maintenance Supervisor Name | Role | Phone | [...] neoplasm of | [address] | [address] [facility] | | | | | prostate | [facility] | [facility] | | | | | (HCC) | Way | [address], | | | | | Procedures | [place], [place] | [place] | | | | | Consult, | [address] | [address] | | | | | treat, f/u | Phone: | Phone: | | | | | | [phone] | [phone] | | | | | | Fax: | Fax: | | | | | | [phone] | [phone] | +--------+--------+ + + + + Encounter Details +--------+ + + + + | Date | Type | Department | Care Team | Description | +--------+ + + + + | 10/09/ | Hospital | Radiation Oncology | | | | 2014 | Encounter | at [facility] [address] | | | | | | [address] | | | | | | [address] [address] | | | | | | [place], [place] | | | | | | [address] | | | | | | [phone] | | | +--------+ + + + [...]
--- OUTSIDE RECORDS SUMMARY | ~2019-02-24 | XMS | Encounter Summary ---
Demographics + + + | Address | [address] | | | [place] [address] | + + + | Home Phone [...] Team Providers + +------+ + | Care Harp Maker Name | Role | Phone | [...] [address] | | | | | | [place], [place] | | | | | | [address] | | | | | | [phone] | | | +--------+ + + + [...]
--- OUTSIDE RECORDS SUMMARY | ~2019-02-24 | XMS | Encounter Summary ---
[...] Providers + +------+ + | Care Plant Operations Vice President Name | Role | Phone | + [...] 2008 | on | at [facility] [address] [facility] | [address] | Treatment Planning | | | | [address] | [address] [place], | Note | | | | [place] | [place] [address] | | | | | [place], [place] | [phone] | | | | | [address] | | | | | | [phone] | | | +--------+ + + + [...]
--- OUTSIDE RECORDS SUMMARY | ~2019-02-24 | XMS | Clinical Summary ---
Demographics + + + | Address | [address] | | | [place] [address] | + + + | Home Phone | | + + + | Preferred Language | Unknown | + + + | Marital Status | Single | + + + | Christianity Affiliation | Unknown | + + + | Race | Unknown | + + + | Ethnic Group | Unknown | + + + Author + + + | Author | [facility] | | | and [place] | + + + | Organization | [facility] | | | and [place] | [...] Providers + +------+ + | Care Traffic Safety Administrator Name | Role | Phone | [...]
--- OUTSIDE RECORDS SUMMARY | ~2019-02-24 | XMS | Encounter Summary ---
Demographics + + + | Address | [address] | | | [place] [address] | + + + | Home Phone [...] Providers + +------+ + | Care Engineering Analyst Name | Role | Phone | + +------+ + PCP | Unavailable | + +------+ + Encounter Details +--------+ + + + + | Date | Type | Department | Care Team | Description | +--------+ + + + + | 09/02/ | Results | Radiation Oncology | Ye Doss MD | | | 2008 | Only | at [facility] [address] [facility] | [address] | | | | | [address] | [address] [facility] | | | | | [place] | [place] [address] | | | | | [place], [place] | [phone] | | | | | [address] | | | | | | [phone] | | | +--------+ + + + [...]
--- OUTSIDE RECORDS SUMMARY | ~2019-02-24 | XMS | Encounter Summary ---
Demographics + + + | Address | [address] | | | [place] [address] | + + + | Home Phone [...] Team Providers + +------+ + | Care Fagoter Name | Role | Phone | + [...] neoplasm of | [address] | [address] [facility] | | | | | prostate | [facility] | [facility] | | | | | (HCC) | Way | [address] [place], | | | | | Procedures | [place], [place] | [place] | | | | | Consult, | [address] | [address] | | | | | treat, f/u | Phone: | Phone: | | | | | | [phone] | [phone] | | | | | | Fax: | Fax: | | | | | | [phone] | [phone] | +--------+--------+ + + + + Encounter Details +--------+ + + + + | Date | Type | Department | Care Team | Description | +--------+ + + + + | 10/01/ | Hospital | Radiation Oncology | | | | 2014 | Encounter | at [facility] [address] | | | | | | [address] | | | | | | [address] [address] | | | | | | [place], [place] | | | | | | [address] | | | | | | [phone] | | | +--------+ + + + [...]
[~2019-02-24 07:10] MED LIST: ASPIR-LOW81 MG PO; ATORVASTATIN CA20 MG PO; B-121000 MC2 PO; DONEPEZIL HCL10 MG PO; FLOMAX0.4 MG PO; FOLIC ACID1 MG PO; KEFLEX500 MG PO; MELATONIN5 M2 PO; PROAIR RESPICL90 MCG INH; PROSCAR5 MG PO; SPIRIVA18 MCG INH; VITAMIN D31000 UNI1 PO; ZOLOFT100 MG PO
--- OUTSIDE RECORDS SUMMARY | 2019-02-24 07:16 | XMS ---
PreManage Notification: BRADY VILLANUEVA Security Blueprint Reproducer Events No recent Security Events currently on file CRITERIA MET - [facility] - Has Care Guidelines CARE PROVIDERS NAZIA AGOSTO Physical Therapist 12/02/2018-Current PHONE: [phone] JOSEMANUEL CHIN Internal Medicine 12/02/2018-Current HEMANTH PHONE: [phone] Mitchell Levin MD Treatment Current PHONE: Unknown Connie has no Care Guidelines for this patient. Care History Medical/Surgical 12/02/2018 [facility] - PATIENT CURRENTLY RECEIVES SERVICES AT THE [facility]. - PATIENT HAS A UROLOGIST AT THE [facility]. E.D. VISIT COUNT (12 MO.) 3 NAJMA Irvin TOTAL 3 NOTE: Visits indicate total known visits. ED/UCC VISIT TRACKING (12 MO.) 02/24/2019 07:11 [facility] [place] TYPE: Emergency COMPLAINT: - SOB 11/30/2018 09:35 [facility] [place] TYPE: Emergency COMPLAINT: - BLOOD IN URINE DIAGNOSES: - Personal history of nicotine dependence - Urinary tract infection, site not specified - Hematuria, unspecified - Other senior care (current) drug therapy - termite technician (current) use of aspirin - Personal history of malignant neoplasm of prostate 10/31/2018 21:03 [facility] [place] TYPE: Emergency COMPLAINT: - FALL, ETOH INTOXICATION DIAGNOSES: - Alcohol abuse with intoxication, unspecified - Personal history of other malignant neoplasm of bronchus and lung - Personal history of malignant neoplasm of prostate INPATIENT VISIT TRACKING (12 MO.) No inpatient visits to display in this time frame [email or web address]
--- NOTE | 2019-02-24 11:30 | NUR ---
PT HERE TO UNIT IN ROOM 127 FROM ER. PT IS ALERT AND ORIENTED X4. PT ABLE TO TRANSFER SELF FROM GURNEY TO BED BY ROLLING. PT DENIES PAIN, NAUSEA, AND SOB AT THIS TIME.
--- NOTE | 2019-02-24 11:47 | NUR ---
IV SITE IS INTACT, NO REDNESS OR SWELLING NOTED, PT DENIES PAIN AT SITE, FLUSHES EASILY. PT IS ALERT AND ORIENTED X4, IS AT THE BEDSIDE. PT DENIES PAIN, NAUSEA, AND SOB AT THIS TIME. LUNCH ORDERED FOR PT.
--- NOTE | 2019-02-24 12:50 | NUR ---
PT ABLE TO LATASHA 100% OF LUNCH, SITTING UP IN BED TO EAT.
--- NOTE | 2019-02-24 13:09 | NUR ---
PATIENT BACK TO BED WITH HELP OF HIS AFTER USING COMMODE. PT VOIDS AND HAS SMALL, TINY PEBBLE SIZE BM. ASKED TO USE CALL LIGHT IN FUTURE PATIENT'S IS LEAVING AT THIS TIME. PT WANTING TO REST.
--- NOTE | 2019-02-24 13:29 | NUR ---
OXYGEN TURNED UP TO 3 L NASAL CANNULA WHILE RESTING. PT'S SPO2 NOTED TO DROP TO 86% WHILE RESTING. PT ALSO NOTED TO BE MOSTLY MOUTH BREATHING. PT MAY BENEFIT FROM OXYMASK INSTEAD OF NASAL CANNULA WHILE RESTING.
--- NOTE | 2019-02-24 14:37 | NUR ---
O2 TURNED DOWN TO 2L VIA OXYMASK. PT O2 SATS ARE 96%. PT IS RESTING QUIETLY IN BED WITH THE BED ALARM ON. PT HAS CALL LIGHT WIHTIN REACH. ALL VITALS ARE WITHIN NORMAL.
--- NOTE | 2019-02-24 15:51 | NUR ---
PT FORGETS TO USE CALL LIGHT AND GETS OUT OF BED ON HIS OWN. BED ALARM IS IN PLACE. ASSISTED PT WITH URINAL, HE IS ABLE TO STAND AND THE BEDSIDE AND VOID. BACK TO BED WITH ALARM ON. PT IS COOPERATIVE AND POLITE HOWEVER, FORGETFUL ABOUT FOLLOWING DIRECTIONS. PT HAS CALL LIGHT WITHIN REACH. ALL VITALS ARE WNL AT THIS TIME. PT DENIES PAIN, NAUSEA, AND SBO.
[2019-02-24] MEDS ORDERED: VOLTAREN100 GM TOP (15:56)
[2019-02-24] MEDS ORDERED: MUCUS RELIEF C200 MG PO (15:57)
[2019-02-24] MEDS ORDERED: STIOLTO RESPIMAT4 GM INH (16:00)
--- NOTE | 2019-02-24 16:00 | NUR ---
PATIENT WAS SLEEPING. RN ASKS TO LET HIM REST. WILL CHECK AGAIN TO FOLLOW.
--- NOTE | 2019-02-24 16:04 | NUR ---
Medications reconciled using [facility] chart notes
--- NOTE | 2019-02-24 16:50 | EKG ---
[facility] [address] [facility] [place] [address] Signed Normal sinus rhythm Cannot rule out Inferior infarct , age undetermined Abnormal ECG When compared with ECG of 24-FEB-2019 07:26, (Unconfirmed) Vent. rate has decreased BY 43 BPM Non-specific change in ST segment in Anterolateral leads Nonspecific T wave abnormality no longer evident in Inferior leads Confirmed by ANTIONE HECK DO ([id number]) on 02/24/2019 4:50:10 PM Electronically Signed By: ANTIONE HECK DO 02/24/19 1650 PATIENT NAME: BRADY VILLANUEVA Electrocardiogram DATE OF : 37 PHYSICIAN: ANTIONE HECK DO REPORT #: [id number] REPORT IS CONFIDENTIAL AND NOT TO BE RELEASED WITHOUT AUTHORIZATION
--- NOTE | 2019-02-24 17:28 | NUR ---
PT BACK TO BED FROM STANDING AT THE BEDSIDE TO VOID. PT AGAIN UNABLE TO REMEMBER TO USE CALL LIGHT PRIOR TO GETTING OUT OF BED, SET OFF BED ALARM. PT STATES "I'M SORRY I JUST CAN'T REMEMBER TO CALL BEFORE I GET UP". PT SPOUSE IS AT THE BEDSIDE. PT DENIES PAIN, NAUSEA, AND SOB AT THIS TIME. IV SITE IS INTACT, NO REDNESS OR SWELLING NOTED, FLUSH INFUSES EASILY.
--- NOTE | 2019-02-24 19:56 | NUR ---
REPORT RECEIVED FROM DAY SHIFT RN. PT UP TO VOID THEN BACK TO BED. NO C/O AT THIS TIME. DR HECK IN UNIT TO ROUND ON PTS, NO ISSUES AT THIS TIME.
--- NOTE | 2019-02-24 21:00 | NUR ---
PT UP TO VOID AT EDGE OF BED, WANTS TO SIT UP AT BEDSIDE FOR A WHILE, SNACK GIVEN PER REQUEST.
--- NOTE | 2019-02-24 21:35 | NUR ---
RT IN TO DO NEB TX.
--- NOTE | 2019-02-25 00:15 | NUR ---
PT HAS BEEN RESTLESS, UP AND DOWN IN BED UNABLE TO SLEEP. C/O SOME COUGHING, OCC COUGHING NOTED. ASSESSMENT UNCHANGED FROM PREVIOUS.
--- NOTE | 2019-02-25 00:32 | NUR ---
RT IN TO DO NEB TX.
--- NOTE | 2019-02-25 02:39 | NUR ---
PT HAS BEEN RESTFUL IN BED FOR THE LAST HOUR. RRR, VSS, BED ALARM ON.
--- NOTE | 2019-02-25 03:15 | NUR ---
PT WOKE UP TO VOID, THEN SIT AT EDGE OF BED. IS CONFUSED REGARDING SITUATION AND PLACE. CONSTANTLY TRYING TO ARRANGE HIS MONITOR CORDS AND O2 TUBING AND DOES NOT WANT TO SLEEP.
--- NOTE | 2019-02-25 04:30 | NUR ---
PT HAS BECOMINE INCREASINGLY RESTLESS, PARANOID, AND AGITATED REGARDING STAYING IN THE HOSPITAL, WHEN THE DOCTOR WILL BE IN TO SEE HIM, WHY HE IS STAYING THE NIGHT IN THE HOSPITAL. 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
--- NOTE | 2019-02-25 06:25 | NUR ---
PT AWAKE IN ROOM, RESTLESS AND FIDGETING WITH THINGS IN HIS ROOM.
--- NOTE | 2019-02-25 07:30 | NUR ---
report recieved. PATIENT IS AWAKE IN ROOM. IS CONFUSED TO PLACE AND EVENT. TALKED WITH PATIENT ABOUT POC FOR DAY. WILL NEED TO REPEAT THIS OFTEN. DENIES PAIN.
--- NOTE | 2019-02-25 08:00 | NUR ---
ASSESSMENT DONE. HAS FEW WHEEZES, DENIES SHORTNESS OF BREATH.
--- NOTE | 2019-02-25 09:15 | NUR ---
SPOKE WITH PATIENT IN ROOM. PATIENT UP IN ROOM AMBULATING ON OWN. PATIENT PLANS TO RETURN HOME WITH . PATIENT ORIENTED EXCEPT TO EXACT DAY. PATIENT DOES WANDER OFF WITH SPEAKING AT TIME. PATIENT STATES HE DOESN'T DRIVE, DRIVES HIM TO APPOINTMENTS. PATIENT DENIES QUESTIONS. STATES HE WILL FOLLOW UP WITH PCP. DENIES NEEDS.
--- NOTE | 2019-02-25 09:45 | NUR ---
TOOK BREAKFAST WELL. DENIES PROBLEMS. VERY FRIENDLY AND TALKATIVE. NO DISTRESSS NOTED.
--- NOTE | 2019-02-25 10:00 | NUR ---
DR. HECK HERE TO SEE PATIENT. PATIENT TO BE DISCHARGED LATER TODAY. IN ROOM.
[2019-02-25] MEDS ORDERED: PREDNISONE20 MG PO (10:25)
--- NOTE | 2019-02-25 11:20 | NUR ---
DISCHARGE INSTRUCTIONS GIVEN WITH PATIENT WITH PATIENT UNDERSTANDING.
--- NOTE | 2019-02-25 11:40 | NUR ---
DISCHARGED VIA W/C ACCOMP BY AND RN.
== END 2019-02-25 12:10 | disposition home or self-care (01) | DRG 189 ==
LOC: ED 07:10 → CCU 11:07
PROVIDERS: ADMIT Student in an Organized Health Care Education/Training Program
DX: J96.01 Acute respiratory failure with hypoxia (principal); J44.1 Chronic obstructive pulmonary disease with (acute) exacerbation; F03.90 Unspecified dementia, unspecified severity, without behavioral disturbance, psychotic disturbance, mood disturbance, and anxiety; N40.0 Benign prostatic hyperplasia without lower urinary tract symptoms; E78.5 Hyperlipidemia, unspecified; F39 Unspecified mood [affective] disorder; Z87.891 Personal history of nicotine dependence; Z90.2 Acquired absence of lung [part of]; Z85.46 Personal history of malignant neoplasm of prostate; Z85.118 Personal history of other malignant neoplasm of bronchus and lung; Z79.82 Long term (current) use of aspirin; Z79.899 Other long term (current) drug therapy
CPT/HCPCS: 36415; 71045; 71260; 80048; 80053; 82607; 83735; 84484; 85025; 90662; 93005; 93010; 94640; 94644; 94660; 94667; 94668; 97162; 97165; 99285-25; J1100; J1650; J2060; J2930; J3475; J7120; J7512; Q9967

== ENCOUNTER 2019-04-10 14:56 | Emergency (ER) | payer OTHER ==
[~2019-04-10] VITALS: Ht 175.3 cm; Wt 73.9 kg
--- OUTSIDE RECORDS SUMMARY | ~2019-04-10 | XMS | Encounter Summary ---
Demographics + + + | Address | [address] | | | [place] [address] | + + + | Home Phone | | + + + | Preferred Language | Unknown | + + + | Marital Status | Single | + + + | Quaker Affiliation | Unknown | + + + | Race | Unknown | + + + | Ethnic Group | Other Race | + + + Author + + + | Author | [facility] | + + + | Organization | [facility] | + + + | Address | Unknown | + + + | Phone | Unavailable | + + + Support + + +---------+ + | Name | Relationship | Address | Phone | + + +---------+ + | Alia Tracy | ECON | Unknown | | + + +---------+ + Care Team Providers + +------+ + | Care Teacher Of The Emotionally Disturbed Name | Role | Phone | + +------+ + PCP | Unavailable | + +------+ + Encounter Details +--------+ + + + + | Date | Type | Department | Care Team | Description | +--------+ + + + + | 10/05/ | Hospital | Radiation Oncology | | | | 2008 | Encounter | at [facility] [address] | | | | | | [address] | | | | | | [place] [address] | | | | | | [place], [place] | | | | | | [address] | | | | | | [phone] | | | +--------+ + + + + Social History + +-------+ +--------+------+ | Tobacco Use | Types | Packs/Day | Years | Date | | | | | Used | | + +-------+ +--------+------+ | Never Assessed | | | | | + +-------+ +--------+------+ + + + | Sex Assigned at | Date Recorded | | | | + + + | Not on file | | + + + + + + + | Job Start Date | Occupation | Industry | + + + + | Not on file | Not on file | Not on file | + + + + + + + + | Travel History | Travel Start | Travel End | + + + + + + | No recent travel history available. | + + documented as of this encounter Medications at Time of Discharge + + + +---------+--------+ + | Medication | Sig | Dispensed | Refills | Start | End Date | | | | | | Date | | + + + +---------+--------+ + | | Inhale 2 Puffs four | | 0 | | | | albuterol-ipratropiu | times daily as | | | | | | m 18-103 | needed for | | | | | | mcg/Actuation | dyspnea/SOB. | | | | | | Inhalation Aerosol | | | | | | + + + +---------+--------+ + | dexamethasone 4 mg | Take 4 mg by mouth. | | 0 | | | | Oral Tablet | Take 2 tablets (for | | | | | | | a dose of 8 mg) each | | | | | | | evening for 2 days | | | | | | | begiining the day of | | | | | | | your chemotherapy | | | | | + + + +---------+--------+ + | lisinopril 20 mg | Take 20 mg by mouth | | 0 | | | | Oral Tablet | once daily. | | | | | + + + +---------+--------+ + | metformin 500 mg | Take 500 mg by | | 0 | | | | Oral Tablet | mouth. Take 2 | | | | | | | tablets (for total | | | | | | | dose of 1000 mg) | | | | | | | twice a day | | | | | + + + +---------+--------+ + | ondansetron | Take 8 mg by mouth | | 0 | | | | (ZOFRAN) 8 mg Oral | every twelve hours | | | | | | Tablet | as needed | | | | | + + + +---------+--------+ + | simvastatin 80 mg | Take 80 mg by mouth | | 0 | | | | Oral Tablet | once daily in the | | | | | | | evening. | | | | | + + + +---------+--------+ + | terazosin 2 mg | Take 2 mg by mouth. | | 0 | | | | Oral Capsule | Take 2 capsules (for | | | | | | | a total dose of 4 | | | | | | | mg) at bedtime | | | | | + + + +---------+--------+ + | vardenafil 10 mg | Take 5-10 mg by | | 0 | | | | Oral Tablet | mouth once daily as | | | | | | | needed Administer | | | | | | | approximately 1 hour | | | | | | | before sexual | | | | | | | activity. Max | | | | | | | frequency: once | | | | | | | daily. | | | | | + + + +---------+--------+ + | VICODIN 5-500 mg | Take 1-2 Tabs by | | 0 | | | | Oral Tablet | mouth every six | | | | | | | hours as needed Not | | | | | | | to exceed 8 tablets | | | | | | | per any 24 hour | | | | | | | period. (Not to | | | | | | | exceed 4000 mg of | | | | | | | acetaminophen from | | | | | | | all products per 24 | | | | | | | hour period.) | | | | | + + + +---------+--------+ + documented as of this encounter Plan of Treatment Not on filedocumented as of this encounter Visit Diagnoses Not on filedocumented in this encounter"
--- OUTSIDE RECORDS SUMMARY | ~2019-04-10 | XMS | Encounter Summary ---
Demographics + + + | Address | [address] | | | [place] [address] | + + + | Home Phone | | + + + | Preferred Language | Unknown | + + + | Marital Status | Single | + + + | Sabianism Affiliation | Unknown | + + + | Race | Unknown | + + + | Ethnic Group | Unknown | + + + Author + + + | Author | [facility] | | | and [place] | + + + | Organization | [facility] | | | and [place] | + + + | Address | Unknown | + + + | Phone | Unavailable | + + + Support + + +---------+ + | Name | Relationship | Address | Phone | + + +---------+ + | Mahnaz Fernandez | ECON | Unknown | | + + +---------+ + Care Team Providers + +------+ + | Care Openstack Cloud Consulting Architect Name | Role | Phone | + +------+ + PCP | Unavailable | + +------+ + Encounter Details +--------+ + + + + | Date | Type | Department | Care Team | Description | +--------+ + + + + | 06/02/ | Hospital | [facility] | | | | 2000 | Encounter | MED CTR GENERIC OP | | | | | | CONV DEPT [address] | | | | | | [place], | | | | | | [place] [address] | | | | | | [phone] | | | +--------+ + + + [...] + + documented as of this encounter Plan of Treatment Not on filedocumented as of this encounter Visit Diagnoses Not on filedocumented in this encounter"
--- OUTSIDE RECORDS SUMMARY | ~2019-04-10 | XMS | Encounter Summary ---
Demographics + + + | Address | [address] | | | [place] [address] | + + + | Home Phone | | + + + | Preferred Language | Unknown | + + + | Marital Status | Single | + + + | Mandaen Affiliation | Unknown | + + + | Race | Unknown | + + + | Ethnic Group | Other Race | + + + Author + + + | Author | [facility] | + + + | Organization | [facility] | + + + | Address | Unknown | + + + | Phone | Unavailable | + + + Support + + +---------+ + | Name | Relationship | Address | Phone | + + +---------+ + | Alia Tracy | ECON | Unknown | | + + +---------+ + Care Team Providers + +------+ + | Care Doctor'S Assistant Name | Role | Phone | + +------+ + | No Pcp Per Patient | PCP | Unavailable | + +------+ + Reason for Visit Consultation (Routine) +--------+--------+ + + + + | Status | Reason | Specialty | Diagnoses / | Referred By | Referred To | | | | | Procedures | Contact | Contact | +--------+--------+ + + + + | Closed | | Radiation | Diagnoses | Parag, | Kadeem, | | | | Oncology | Malignant | Pavan Booker MD | MD Rishabh | | | | | neoplasm of | [address] | [address] [facility] | | | | | prostate | [facility] | [facility] | | | | | (HCC) | Way | [address], | | | | | Procedures | [place], [place] | [place] | | | | | Consult, | [address] | [address] | | | | | treat, f/u | Phone: | Phone: | | | | | | [phone] | [phone] | | | | | | Fax: | Fax: | | | | | | [phone] | [phone] | +--------+--------+ + + + + Encounter Details +--------+ + + + + | Date | Type | Department | Care Team | Description | +--------+ + + + + | 09/28/ | Hospital | Radiation Oncology | | | | 2014 | Encounter | at [facility] [address] | | | | | | [address] | | | | | | [address] [address] | | | | | | [place], [place] | | | | | | [address] | | | | | | [phone] | | | +--------+ + + + + Social History + +-------+ +--------+ + | Tobacco Use | Types | Packs/Day | Years | Date | | | | | Used | | + +-------+ +--------+ + | Former Smoker | | | | Quit: 05/29/1998 | + +-------+ +--------+ + + + +---------+ + | Alcohol Use [...]
--- OUTSIDE RECORDS SUMMARY | ~2019-04-10 | XMS | Encounter Summary ---
Demographics + + + | Address | [address] | | | [place] [address] | + + + | Home Phone | | + + + | Preferred Language | Unknown | + + + | Marital Status | Single | + + + | Religion Affiliation | Unknown | + + + | Race | Unknown | + + + | Ethnic Group | Other Race | + + + Author + + + | Author | [facility] | + + + | Organization | [facility] | + + + | Address | Unknown | + + + | Phone | Unavailable | + + + Support + + +---------+ + | Name | Relationship | Address | Phone | + + +---------+ + | Alia Tracy | ECON | Unknown | | + + +---------+ + Care Team Providers + +------+ + | Care Gasket Former Name | Role | Phone | + [...] Description | +--------+---------+ + + + | 09/14/ | Office | Radiation Oncology | Rishabh Quan MD | Radiotherapy | | 2014 | Visit | at [facility] [address] | [address] | (Primary Dx) | | | | [address] | [address] [place], | | | | | [place] | [place] [address] | | | | | [place], [place] | [phone] | | | | | [address] | | | | | | [phone] | | | +--------+---------+ + + + [...] + + + | Blood Pressure | 144/72 | 09/14/2014 8:32 AM | | | | | PDT | | + + + + + | Pulse | 67 | 09/14/2014 8:32 AM | | | | | PDT | | + + + + + | Temperature | 37.1 C (98.7 F) | 09/14/2014 8:32 AM | | | | | PDT | | + + + + + | Respiratory Rate | - | - | | + + + + + | Oxygen Saturation | 92% | 09/14/2014 8:32 AM | | | | | PDT | | + + + + + | Inhaled Oxygen | - | - | | | Concentration | | | | + + + + + | Weight | 80 kg (176 lb 6.4 | 09/14/2014 8:32 AM | | | | oz) | PDT | | + + + + + | Height | - | - | | + + + + + | Body Mass Index | 26.05 | 09/08/2014 5:13 PM | | | | | PDT | | + + + + + documented in this encounter Patient Instructions Patient Instructions Rishabh Quan MD - 09/14/2014 8:50 AM PDTPSYLLIUM SEED HUSKS is metam ucil. documented in this encounter Progress Notes Rishabh Quan MD - 09/14/2014 8:47 AM PDTFormatting of this note might be different from t he original. 09/14/2014 8:48 AM 8 of 28 fractions Urination [place], Ammon Tracy notes nocturia of 4-5 times per night. He notes slig ht dysuria, when he first wakes up. GI: He averages variable bowel movements per day. And he looked at metamucil but found the name brand too expensive. General: His energy level is good. [place] a day. Physical exam is unremarkable. Vital signs documented in the nursing note. Chart reviewed. Continue with radiation. 09/08/2014 Ammon Tracy is a 79 y.o. 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 This was treated successfully with jose adjuvant radiotherapy followed by surgical resection. 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 His pre-treatment PSA is 26.5 ng/mL drawn on 08/03/14. He is to be treated to a total dose of 70 Gy over 28 fra ctions with an IMRT technique with image guidance using [employer] beacons. The patient will be receiving concurrent [...] films were reviewed. Will try some metamucil. Riri Clarke RN - 08/20 7:37 AM PDT Nursing Note Patient here for an On Treatment Visit. Completed 4 fractions of a planned 35. Current dose 800 cGy of total 7000 cGy. Vitals/Pain Level: BP 144/72 | Pulse 67 | Temp (Src) 37.1 C (98.7 F) (Oral) | Wt 80.015 kg (176 lb 6.4 oz) | SpO2 92% | BMI 26.04 kg/(m^2) Wt Readings from Last 3 Encounters: 09/14/14 80.015 kg (176 lb 6.4 oz) 09/08/14 80.196 kg (176 lb 12.8 oz) 09/03/14 49.034 kg (108 lb 1.6 oz) Subjective: Pt reports very mild fatigue level. Pt c/o frequency with urination throughout the day; noctuia x4; having daily BMs with Miralax. Pt denies any other issues. Objective: Pt alert, oriented, and ambulatory. Accompanied by self. Nursing Plan: Continue supportive care. Will continue to monitor. documented in this en counter Plan of Treatment Not on filedocumented as of this encounter Visit Diagnoses + + | Diagnosis | + + | Radiotherapy - Primary | + + documented in this encounter"
--- OUTSIDE RECORDS SUMMARY | ~2019-04-10 | XMS | Encounter Summary ---
Demographics + + + | Address | [address] | | | [place] [address] | + + + | Home Phone | | + + + | Preferred Language | Unknown | + + + | Marital Status | Single | + + + | Scientology Affiliation | Unknown | + + + | Race | Unknown | + + + | Ethnic Group | Other Race | + + + Author + + + | Author | [facility] | + + + | Organization | [facility] | + + + | Address | Unknown | + + + | Phone | Unavailable | + + + Support + + +---------+ + | Name | Relationship | Address | Phone | + + +---------+ + | Alia Tracy | ECON | Unknown | | + + +---------+ + Care Team Providers + +------+ + | Care Predatory Animal Exterminator Name | Role | Phone | + [...] | | | | Order | | [facility] | | | | | | [place] [id number] [facility] | | | | | | [facility] | | | | | | [address] [place], [place] | | | | | | [...]
--- OUTSIDE RECORDS SUMMARY | ~2019-04-10 | XMS | Clinical Summary ---
Demographics + + + | Address | [address] | | | [place] [address] | + + + | Home Phone | | + + + | Preferred Language | Unknown | + + + | Marital Status | Single | + + + | Restoration Affiliation | Unknown | + + + | Race | Unknown | + + + | Ethnic Group | Other Race | + + + Author + + + | Author | [facility] | + + + | Organization | [facility] REVENUE LOC[facility] | + + + | Address | Unknown | + + + | Phone | Unavailable | + + + Support + + +---------+ + | Name | Relationship | Address | Phone | + + +---------+ + | Alia Tracy | ECON | Unknown | | + + +---------+ + Care Team Providers + +------+ + | Care Midlevel Provider Name | Role | Phone | + +------+ + | No Pcp Per Patient | PCP | Unavailable | + +------+ + Source Comments KORTNEY is fully live on both [facility] and [facility] InPatient.[facility] Allergies + + + + + + | Active Allergy | Reactions | Severity | Noted | Comments | | | | | Date | | + + + + + + | Zolpidem | Hallucinations | | 10/15/19 | | | | | | 14 | | + + + + + + Medications + + + +---------+------+------+-------+ | Medication | Sig | Dispensed | Refills | Star | End | Statu | | | | | | t | Date | s | | | | | | Date | | | + + + +---------+------+------+-------+ | VICODIN 5-500 mg | Take 1-2 Tabs by | | 0 | | | Activ | | Oral Tablet | mouth every six | | | | | e | | | hours as needed Not [...] hour period.) | | | | | | + + + +---------+------+------+-------+ | terazosin 2 mg | Take 2 mg by mouth. | | 0 | | | Activ | | Oral Capsule | Take 2 capsules (for | | | | | e | | | a total dose of 4 | | | | | | | | mg) at bedtime | | | | | | + + + +---------+------+------+-------+ | lisinopril 20 mg | Take 20 mg by mouth | | 0 | | | Activ | | Oral Tablet | once daily. | | | | | e | + + + +---------+------+------+-------+ | metformin 500 mg | Take 500 mg by | | 0 | | | Activ | | Oral Tablet | mouth. Take 2 | | | | | e | | | tablets (for total | | | | | | | | dose of 1000 mg) | | | | | | | | twice a day | | | | | | + + + +---------+------+------+-------+ | simvastatin 80 mg | Take 80 mg by mouth | | 0 | | | Activ | | Oral Tablet | once daily in the | | | | | e | | | evening. | | | | | | + + + +---------+------+------+-------+ | | Inhale 2 Puffs four | | 0 | | | Activ | | albuterol-ipratropiu | times daily as | | | | | e | | m 18-103 | needed for | | | | | | | mcg/Actuation | dyspnea/SOB. | | | | | | | Inhalation Aerosol | | | | | | | + + + +---------+------+------+-------+ | vardenafil 10 mg | Take 5-10 mg by | | 0 | | | Activ | | Oral Tablet | mouth once daily as | | | | | e | | | needed Administer | | | | | | | | approximately 1 hour | | | | | | | | before sexual | | | | | | | | activity. Max | | | | | | | | frequency: once | | | | | | | | daily. | | | | | | + + + +---------+------+------+-------+ | dexamethasone 4 mg | Take 4 mg by mouth. | | 0 | | | Activ | | Oral Tablet | Take 2 tablets (for | | | | | e | | | a dose of 8 mg) each | | | | | | | | evening for 2 days | | | | | | | | begiining the day of | | | | | | | | your chemotherapy | | | | | | + + + +---------+------+------+-------+ | ondansetron | Take 8 mg by mouth | | 0 | | | Activ | | (ZOFRAN) 8 mg Oral | every twelve hours | | | | | e | | Tablet | as needed | | | | | | + + + +---------+------+------+-------+ Active Problems + + + | Problem | Noted Date | + + + | Malignant neoplasm of prostate | 08/11/2014 | + + + | Lung cancer | 08/26/2008 | + + + Encounters +--------+ + + + + | Date | Type | Specialty | Care Team | Description | +--------+ + + + + | 02/18/ | Hospital | Radiation Oncology | | | | 2019 | Encounter | | | | +--------+ + + + + | 02/17/ | Hospital | Radiation Oncology | | | | 2019 | Encounter | | | | +--------+ + + + + | 02/17/ | Travel | | | | | 2018 | | | | | +--------+ + + + + | 02/14/ | Hospital | Radiation Oncology | | | | 2018 | Encounter | | | | +--------+ + + + + | 02/14/ | Travel | | | | | 2019 | | | | | +--------+ + + + + | 02/12/ | Telephone | Radiation Oncology | Ye Doss MD | | | 2019 | | | | | +--------+ + + + + | 02/11/ | Office | Radiation Oncology | Ye Doss MD | Encounter for | | 2018 | Visit | | | radiotherapy | | | | | | (Primary Dx) | +--------+ + + + + | 02/11/ | Hospital | Radiation Oncology | | | | 2018 | Encounter | | | | +--------+ + + + + | 02/10/ | Hospital | Radiation Oncology | | | | 2018 | Encounter | | | | +--------+ + + + + | 02/10/ | Travel | | | | | 2018 | | | | | +--------+ + + + + | 02/07/ | Documentati | Radiation Oncology | Ye Doss MD | RT Plan Review Note | | 2018 | on | | | | +--------+ + + + + | 02/06/ | Clinical | Radiation Oncology | Yfn Moya | Patient education | | 2018 | Support | | | | | | Staff | | | | +--------+ + + + + | 02/06/ | Hospital | Radiation Oncology | | | | 2018 | Encounter | | | | +--------+ + + + + | 02/06/ | Office | Radiation Oncology | Ye Doss MD | Malignant neoplasm | | 2019 | Visit | | | of lung, unspecified | | | | | | laterality, | | | | | | unspecified part of | | | | | | lung (HCC) (Primary | | | | | | Dx) | +--------+ + + + + | 02/06/ | Documentati | Radiation Oncology | Ye Doss MD | RT Clinical | | 2019 | on | | | Treatment Planning | | | | | | Note | +--------+ + + + + | 02/06/ | Documentati | Radiation Oncology | Ye Doss MD | RT Simulation Note | | 2018 | on | | | | +--------+ + + + + | 02/06/ | Travel | | | | | 2018 | | | | | +--------+ + + + + from Last 3 Months Family History + + +------+ + | Medical History | Relation | Name | Comments | + + +------+ + | Cancer | Brother | | Prostate Cancer | + + +------+ + + +------+--------+ + | Relation | Name | Status | Comments | + +------+--------+ + | Brother | | | | + +------+--------+ + Social History + +-------+ +--------+ + [...] recent travel history available. | + + Last Filed Vital Signs + + + + + | Vital Sign | Reading | Time Taken | Comments | + + + + + | Blood Pressure | 101/60 | 02/11/2019 11:29 AM | | | | | PDT | | + + + + + | Pulse | 79 | 02/11/2019 11:29 AM | | | | | PDT | | + + + + + | Temperature | 36.5 C (97.7 F) | 02/11/2019 11:29 AM | | | | | PDT | | + + + + + | Respiratory Rate | 14 | 02/11/2019 11:29 AM | | | | | PDT | | + + + + + | Oxygen Saturation | 100% | 02/11/2019 11:29 AM | | | | | PDT | | + + + + + | Inhaled Oxygen | - | - | | | Concentration | | | | + + + + + | Weight | 74.8 kg (165 lb) | 02/11/2019 11:29 AM | | | | | PDT | | + + + + + | Height | 175.3 cm (5' 9") | 09/08/2014 5:13 PM | per Pt verbal report | | | | PDT | | + + + + + | Body Mass Index | 24.37 | 09/08/2014 5:13 PM | | | | | PDT | | + + + + + Plan of Treatment + + + + + | Health Maintenance | Due Date | Last Done | Comments | + + + + + | Influenza (Flu) | | 02/12/2018, 03/05/2017, | | | vaccination (#1) | 9 | 03/17/2016, Additional history | | | | | exists | | + + + + + | Pneumococcal | Completed | 03/17/2016, 11/11/2014 | | | vaccination | | | | + + + + + Procedures + +--------+ + + + | Procedure Name | Priori | Date/Time | Associated Diagnosis | Comments | | | ty | | | | + +--------+ + + + | SIMULATION IMAGING | Routin | 02/06/2019 | Malignant neoplasm | Results for this | | | e | 1:17 PM | of lung, | procedure are in the | | | | PDT | unspecified | results section. | | | | | laterality, | | | | | | unspecified part of | | | | | | lung (HCC) | | + +--------+ + + + from Last 3 Months Results SIMULATION IMAGING (02/06/2019 1:17 PM PDT) + + | Specimen | + + | | + + + + + | Narrative | Performed At | + + + | Refer to the encounter notes for imaging results. | [facility] | | | [facility] | + + + + +---------+ + + | Performing | Address | City/State/Zipcode | Phone Number | | Organization | | | | + +---------+ + + | [facility] | | | | + +---------+ + + from Last 3 Months Insurance + +--------+ +--------+ + +--------+ | Payer | Benefi | Subscriber | Effect | Phone | Address | Type | | | t Plan | ID | mera | | | | | | / | | Dates | | | | | | Group | | | | | | + +--------+ +--------+ + +--------+ | [place] | [phone] | [address] | Agency | | ADMINISTRATION | COMMUN | | mera | [phone] | [phone] | | | | ITY | | for | | [place], | | | | [place] | | all | | [place] [address] | | | | RCE | | dates | | | | + +--------+ +--------+ + +--------+ | [place] | [phone] | | [id number] | [address] | Agency | | ADMINISTRATION | CHOICE | | [phone]/ | [phone] | | | | PLAN | | | | [place], | | | | | | 0 | | [place] [address] | | + +--------+ +--------+ + +--------+ + +--------+ +--------+ + + | Guarantor Name | Accoun | Relation to | Date | Phone | Billing Address | | | t Type | Patient | of | | | | | | | | | | + +--------+ +--------+ + + | Ammon Tracy | Person | Self | [birth year] | [address] | | Babak | al/Fam | | 1935 | [phone] | [place] [address] | | | prateek | | | 3 (Home) | | + +--------+ +--------+ + + | Ammon Tracy | [place] | Self | [birth year] | [address] | | Babak | Kimmyo | | 1935 | [phone] | [place] [address] | | | red | | | 3 (Home) | | + +--------+ +--------+ + + Advance Directives + + + + + | Type | Date Recorded | Patient | Explanation | | | | Door To Door Salesperson | | + + + + + | Advance | | | | | Directives and | | | | | Living Will | | | | + + + + + | Power of | | | | | Building Construction Superintendent | | | | + + + + +
--- OUTSIDE RECORDS SUMMARY | ~2019-04-10 | XMS | Encounter Summary ---
Demographics + + + | Address | [address] | | | [place] [address] | + + + | Home Phone [...] Author + + + | Author | [facility] | + + + | Organization | [facility] | + + + | Address | Unknown | + + + | Phone | Unavailable | + + + Support + + +---------+ + | Name | Relationship | Address | Phone | + + +---------+ + | Alia Tracy | ECON | Unknown | | + + +---------+ + Care Team Providers + +------+ + | Care Whiting Can Worker Name | Role | Phone | + +------+ + PCP | Unavailable | + +------+ + Encounter Details +--------+ + + + + | Date | Type | Department | Care Team | Description | +--------+ + + + + | 09/30/ | Hospital | Radiation Oncology | | | | 2008 | Encounter | at [facility] [address] | | | | | | [address] | | | | | | [place] | | | | | | [place], [place] | | | | | | [address] | | | | | | [phone] | | | +--------+ + + + [...]
--- OUTSIDE RECORDS SUMMARY | ~2019-04-10 | XMS | Encounter Summary ---
Demographics + + + | Address | [address] | | | [place] [address] | + + + | Home Phone | | + + + | Preferred Language | Unknown | + + + | Marital Status | Single | + + + | Jain Affiliation | Unknown | + + + | Race | Unknown | + + + | Ethnic Group | Other Race | + + + Author + + + | Author | [facility] | + + + | Organization | [facility] | + + + | Address | Unknown | + + + | Phone | Unavailable | + + + Support + + +---------+ + | Name | Relationship | Address | Phone | + + +---------+ + | Alia Tracy | ECON | Unknown | | + + +---------+ + Care Team Providers + +------+ + | Care Sternman Name | Role | Phone | + [...] neoplasm of | [address] | [address] [facility] | | | | | prostate | [facility] | [facility] | | | | | (HCC) | Way | [address] [place], | | | | | Procedures | [place], [place] | [place] | | | | | Consult, | [address] | [address] | | | | | treat, f/u | Phone: | Phone: | | | | | | [phone] | [phone] | | | | | | Fax: | Fax: | | | | | | [phone] | [phone] | +--------+--------+ + + + + Encounter Details +--------+ + + + + | Date | Type | Department | Care Team | Description | +--------+ + + + + | 10/06/ | Hospital | Radiation Oncology | | | | 2014 | Encounter | at [facility] [address] | | | | | | [address] | | | | | | [place] | | | | | | [place], [place] | | | | | | [address] | | | | | | [phone] | | | +--------+ + + + [...]
--- OUTSIDE RECORDS SUMMARY | ~2019-04-10 | XMS | Encounter Summary ---
Demographics + + + | Address | [address] | | | [place] [address] | + + + | Home Phone | | + + + | Preferred Language | Unknown | + + + | Marital Status | Single | + + + | Faith Affiliation | Unknown | + + + | Race | Unknown | + + + | Ethnic Group | Other Race | + + + Author + + + | Author | [facility] | + + + | Organization | [facility] | + + + | Address | Unknown | + + + | Phone | Unavailable | + + + Support + + +---------+ + | Name | Relationship | Address | Phone | + + +---------+ + | Alia Tracy | ECON | Unknown | | + + +---------+ + Care Team Providers + +------+ + | Care Chief Nurse Anesthetist Name | Role | Phone | + [...] neoplasm of | [address] | [address] [facility] | | | | | prostate | [facility] | [facility] | | | | | (HCC) | Way | [address] [place], | | | | | Procedures | [place], [place] | [place] | | | | | Consult, | [address] | [address] | | | | | treat, f/u | Phone: | Phone: | | | | | | [phone] | [phone] | | | | | | Fax: | Fax: | | | | | | [phone] | [phone] | +--------+--------+ + + + + Encounter Details +--------+ + + + + | Date | Type | Department | Care Team | Description | +--------+ + + + + | 09/23/ | Hospital | Radiation Oncology | | | | 2014 | Encounter | at [facility] [address] | | | | | | [address] | | | | | | [place] | | | | | | [place], [place] | | | | | | [address] | | | | | | [phone] | | | +--------+ + + + [...]
--- OUTSIDE RECORDS SUMMARY | ~2019-04-10 | XMS | Encounter Summary ---
Demographics + + + | Address | [address] | | | [place] [address] | + + + | Home Phone | | + + + | Preferred Language | Unknown | + + + | Marital Status | Single | + + + | Zoroastrianism Affiliation | Unknown | + + + | Race | Unknown | + + + | Ethnic Group | Other Race | + + + Author + + + | Author | [facility] | + + + | Organization | [facility] | + + + | Address | Unknown | + + + | Phone | Unavailable | + + + Support + + +---------+ + | Name | Relationship | Address | Phone | + + +---------+ + | Alia Tracy | ECON | Unknown | | + + +---------+ + Care Team Providers + +------+ + | Care Occupational Therapy Specialist Name | Role | Phone | + +------+ + | No Pcp Per Patient | PCP | Unavailable | + +------+ + Reason for Visit + + + | Reason | Comments | + + + | RT Simulation Note | | + + + Encounter Details +--------+ + + + + | Date | Type | Department | Care Team | Description | +--------+ + + + + | 02/06/ | Documentati | Radiation Oncology | Ye Doss MD | RT Simulation Note | | 2019 | on | at [facility] [address] | [address] | | | | | [address] | [address] [address] [place], | | | | | [place] | [place] [address] | | | | | [place], [place] | [phone] | | | | | [address] | | | | | | [phone] | | | +--------+ + + + [...]
--- OUTSIDE RECORDS SUMMARY | ~2019-04-10 | XMS | Encounter Summary ---
Demographics + + + | Address | [address] | | | [place] [address] | + + + | Home Phone | | + + + | Preferred Language | Unknown | + + + | Marital Status | Single | + + + | Methodist Affiliation | Unknown | + + + | Race | Unknown | + + + | Ethnic Group | Other Race | + + + Author + + + | Author | [facility] | + + + | Organization | [facility] | + + + | Address | Unknown | + + + | Phone | Unavailable | + + + Support + + +---------+ + | Name | Relationship | Address | Phone | + + +---------+ + | Alia Tracy | ECON | Unknown | | + + +---------+ + Care Team Providers + +------+ + | Care Tunnel Kiln Operator Name | Role | Phone | [...] [address] | | | | | | [place], [place] | | | | | | [address] | | | | | | [phone] | | | +--------+ + + + [...]
--- OUTSIDE RECORDS SUMMARY | ~2019-04-10 | XMS | Encounter Summary ---
Demographics + + + | Address | [address] | | | [place] [address] | + + + | Home Phone [...] + + + | Author | [facility] | + + + | Organization | [facility] | + + + | Address | Unknown | + + + | Phone | Unavailable | + + + Support + + +---------+ + | Name | Relationship | Address | Phone | + + +---------+ + | Alia Tracy | ECON | Unknown | | + + +---------+ + Care Team Providers + +------+ + | Care Metal Hardener Name | Role | Phone | + [...] neoplasm of | [address] | [address] [facility] | | | | | prostate | [facility] | [facility] | | | | | (HCC) | Way | [address] [place], | | | | | Procedures | [place], [place] | [place] | | | | | Consult, | [address] | [address] | | | | | treat, f/u | Phone: | Phone: | | | | | | [phone] | [phone] | | | | | | Fax: | Fax: | | | | | | [phone] | [phone] | +--------+--------+ + + + + Encounter Details +--------+ + + + + | Date | Type | Department | Care Team | Description | +--------+ + + + + | 09/04/ | Hospital | Radiation Oncology | | | | 2014 | Encounter | at [facility] [address] | | | | | | [address] | | | | | | [place] | | | | | | [place], [place] | | | | | | [address] | | | | | | [phone] | | | +--------+ + + + [...]
--- OUTSIDE RECORDS SUMMARY | ~2019-04-10 | XMS | Encounter Summary ---
Demographics + + + | Address | [address] | | | [place] [address] | + + + | Home Phone [...] Author + + + | Author | [facility] | + + + | Organization | [facility] | + + + | Address | Unknown | + + + | Phone | Unavailable | + + + Support + + +---------+ + | Name | Relationship | Address | Phone | + + +---------+ + | Alia Tracy | ECON | Unknown | | + + +---------+ + Care Team Providers + +------+ + | Care Knee Bolter Name | Role | Phone | + +------+ + PCP | Unavailable | + +------+ + Encounter Details +--------+ + + + + | Date | Type | Department | Care Team | Description | +--------+ + + + + | 10/07/ | Hospital | Radiation Oncology | | | | 2008 | Encounter | at [facility] [address] | | | | | | [address] | | | | | | [place] | | | | | | [place], [place] | | | | | | [address] | | | | | | [phone] | | | +--------+ + + + [...]
--- OUTSIDE RECORDS SUMMARY | ~2019-04-10 | XMS | Encounter Summary ---
Demographics + + + | Address | [address] | | | [place] [address] | + + + | Home Phone | | + + + | Preferred Language | Unknown | + + + | Marital Status | Single | + + + | Mormon Affiliation | Unknown | + + + [...] Team Providers + +------+ + | Care Service Establishment Attendant Name | Role | Phone | + [...] Description | +--------+---------+ + + + | 09/29/ | Office | Radiation Oncology | Ye Doss MD | OTV/Radiation | | 2008 | Visit | at [facility] [address] [facility] | [address] | Therapy | | | | [address] | [address] [place], | | | | | [place] | [place] [address] | | | | | [place], [place] | [phone] | | | | | [address] | | | | | | [phone] | | | +--------+---------+ + + + [...] + + + | Blood Pressure | 123/69 | 09/29/2008 1:03 PM | | | | | PDT | | + + + + + | Pulse | 108 | 09/29/2008 1:03 PM | | | | | PDT | | + + + + + | Temperature | 36.4 C (97.5 F) | 09/29/2008 1:03 PM | | | | | PDT | | + + + + + | Respiratory Rate | - | - | | + + + + + | Oxygen Saturation | 97% | 09/29/2008 1:03 PM | | | | | PDT | | + + + + + | Inhaled Oxygen | - | - | | | Concentration | | | | + + + + + | Weight | 87.5 kg (192 lb 14.4 | 09/29/2008 1:03 PM | | | | oz) | PDT | | + + + + + | Height | - | - | | + + + + + | Body Mass Index | - | - | | + + + + + documented in this encounter Progress Notes Ye Doss MD - 09/29/2008 1:40 PM PDTAt 2160 cGy Feels good Still using vicodin but using 8/day Pain is really in L front -10/28 BP 123/69 | Pulse 108 | Temp (Src) 36.4 C (97.5 F) (Oral) | Wt 87.499 kg (192 lb 14.4 o z) | SpO2 97% Lungs clear Mild erythema Try Morphine sulfate 15 mg IR tablets Senokot for constipation WBC 09/28 1.8 Continue RT Watch for fever - chemo finished last Thursday 09/21 JH Evelyn Vicente MD - 09/29/2008 1:21 PM PDT 09/29/2008 1:15 PM Ammon Tracy is a 73 y.o. 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 here today during treatment for a weekly visit. He has completed 12 fractions of a planned 25 to a total of 2160 of 4500cGy. S: He is doing well. No sore throat. Eating well. O:Current outpatient prescriptions Medication Sig albuterol-ipratropium 18-103 mcg/Actuation Inhalation Aerosol Inhale 2 Puffs four times daily as needed for dyspnea/SOB. dexamethasone 4 mg Oral Tablet Take 4 mg by mouth. Take 2 tablets (for a dose of 8 mg) each evening for 2 days begiining the day of your chemotherapy hydrochlorothiazide 25 mg Oral Tablet Take 25 mg by mouth once daily. lisinopril 20 mg Oral Tablet Take 20 mg by mouth once daily. lorazepam 1 mg Oral Tablet Take 1 mg by mouth once daily. metformin 500 mg Oral Tablet Take 500 mg by mouth. Take 2 tablets (for total dose of 10 00 mg) twice a day omeprazole 20 mg Oral Capsule, Delayed Release(E.C.) Take 20 mg by mouth once daily. ondansetron (ZOFRAN) 8 mg Oral Tablet Take 8 mg by mouth every twelve hours as needed prochlorperazine 10 mg Oral Tablet Take 10 mg by mouth every six hours as needed for na usea/vomiting. Max dose: 40 mg/day simvastatin 80 mg Oral Tablet Take 80 [...] all prod ucts per 24 hour period.) BP 123/69, Pulse 108, Temperature 36.4 C (97.5 F), Temperature source Oral, Wt 87.499 k g (192 lbs 14.4 oz)( < 3 %ile), SpO2 97%. Lost 8 lb. Ammon Tracy's mode of transportation is ambulatory. The skin shows light erythem a. Lungs sound good, moving air well. The patient looks great. A/P: Continue with neoadjuvant-intent chemoradiation Rachel Varela - 2008 1:08 PM PDT Nursing Note Vitals: BP 123/69 | Pulse 108 | Temp (Src) 36.4 C (97.5 F) (Oral) | Wt 87.499 kg (192 l b 14.4 oz) | SpO2 97% Pain Score: 3 SpO2 on: RA #Fractions: 12, Planned Fractions/Dose: , Current Dose: 2160 Subjective: fatigue 6/10, appetite good, denies sore throat, denies difficulity swallow, de nies heartburn, states "only bloating" Nursing Intervention: continue supportive care Last 3 Encounter Wt Readings: Date Wt 09/29/2008 87.499 kg (192 lb 14.4 oz) 09/22/2008 90.81 kg (200 lb 3.2 oz) 09/15/2008 93.895 kg (207 lb) Last 3 Encounter BP Readings: Date BP 09/29/2008 123/69 09/22/2008 149/79 09/15/2008 142/72 documented in this encount er Plan of Treatment Not on filedocumented as of this encounter Visit Diagnoses + + | Diagnosis | + + | OTV/Radiation Therapy Radiotherapy | + + documented in this encounter
--- OUTSIDE RECORDS SUMMARY | ~2019-04-10 | XMS | Encounter Summary ---
Demographics + + + | Address | [address] | | | [place] [address] | + + + | Home Phone | | + + + | Preferred Language | Unknown | + + + | Marital Status | Single | + + + | Congregation Affiliation | Unknown | + + + [...] Team Providers + +------+ + | Care Build Engineer Name | Role | Phone | + +------+ + PCP | Unavailable | + +------+ + Encounter Details +--------+ + + + + | Date | Type | Department | Care Team | Description | +--------+ + + + + | 09/22/ | Hospital | Radiation Oncology | | | | 2008 | Encounter | at [facility] [address] | | | | | | [address] | | | | | | [place] | | | | | | [place], [place] | | | | | | [address] | | | | | | [phone] | | | +--------+ + + + [...]
--- OUTSIDE RECORDS SUMMARY | ~2019-04-10 | XMS | Encounter Summary ---
Demographics + + + | Address | [address] | | | [place] [address] | + + + | Home Phone | | + + + | Preferred Language | Unknown | + + + | Marital Status | Single | + + + | Anabaptism Affiliation | Unknown | + + + | Race | Unknown | + + + | Ethnic Group | Other Race | + + + Author + + + | Author | [facility] | + + + | Organization | [facility] | + + + | Address | Unknown | + + + | Phone | Unavailable | + + + Support + + +---------+ + | Name | Relationship | Address | Phone | + + +---------+ + | Alia Tracy | ECON | Unknown | | + + +---------+ + Care Team Providers + +------+ + | Care Signal Supervisor Name | Role | Phone | [...] Description | +--------+---------+ + + + | 10/06/ | Office | Radiation Oncology | Ye Doss MD | OTV/Radiation | | 2008 | Visit | at [facility] [address] [facility] | [address] | Therapy | | | | [address] | [place]is [place]des [place], | | | | | [place] | [place] [address] | | | | | [place], [place] | [phone] | | | | | [address] | | | | | | [phone] | | | +--------+---------+ + + + [...] + + + | Blood Pressure | 95/57 | 10/06/2008 12:30 PM | | | | | PDT | | + + + + + | Pulse | 101 | 10/06/2008 12:30 PM | | | | | PDT | | + + + + + | Temperature | 36.3 C (97.3 F) | 10/06/2008 12:30 PM | | | | | PDT | | + + + + + | Respiratory Rate | - | - | | + + + + + | Oxygen Saturation | 99% | 10/06/2008 12:30 PM | | | | | PDT | | + + + + + | Inhaled Oxygen | - | - | | | Concentration | | | | + + + + + | Weight | 84.3 kg (185 lb 12.8 | 10/06/2008 12:30 PM | | | | oz) | PDT | | + + + + + | Height | - | - | | + + + + + | Body Mass Index | - | - | | + + + + + documented in this encounter Progress Notes Ye Doss MD - 10/06/2008 1:11 PM PDTAt 3060 cGy Doing ok Pain is managed well with immediate release morphine Breathing better Constipated BP 95/57 | Pulse 101 | Temp (Src) 36.3 C (97.3 F) (Oral) | Wt 84.278 kg (185 lb 12.8 oz ) | SpO2 99% Some tenderness L back with palpation Lungs clear Cor regular Fleets enemas given Continue RT Final chemotherapy starts 10/13-ends October 19 JH Evelyn Vicente MD - 10/06/2008 1:02 PM PDT 10/06/2008 12:54 PM Ammon Tracy is a 73 y.o. 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 here today during treatment for a weekly visit. He has completed 17 fractions of a planned 25, to a total of 3060 of a planned 4500cGy. S: He notes an improvement in breathing. Some cough with clear phlegm. No hemoptysis. Still has pain under the breast. Has new morphine IR 15mg BID rx, and sennekot. But no BM for la st 3-4d. Small pellets. No sore throat. O:Current outpatient prescriptions Medication Sig albuterol-ipratropium 18-103 [...] prod ucts per 24 hour period.) BP 95/57, Pulse 101, Temperature 36.3 C (97.3 F), Temperature source Oral, Wt 84.278 kg (185 lbs 12.8 oz)( < 3 %ile), SpO2 99%. Ammon Tracy's mode of transportation is ambulatory. The skin shows light erythem a. Moving air well, CTAB. The patient looks great. Labs 08/05: Mg 1.6 Wbc 4.1 Cr 1.0 K+ 4.3 A/P: Doing well. Continue chemoRT. Next chemo 10/13. Take mg 420mg BID. The patient's chart a nd films were reviewed. Rachel Varela - 12:50 PM PDT Nursing Note Vitals: BP 95/57 | Pulse 101 | Temp (Src) 36.3 C (97.3 F) (Oral) | Wt 84.278 kg (185 lb 12.8 oz) | SpO2 99% at RA; Pain Score: 0, location: NA Last 3 Encounter Wt Readings: Date Wt 10/06/2008 84.278 kg (185 lb 12.8 oz) 09/29/2008 87.499 kg (192 lb 14.4 oz) 09/22/2008 90.81 kg (200 lb 3.2 oz) #Fractions: 17, Planned Fractions/Dose: , Current Dose: 3060 Subjective: fatigue 7-8/10, appetite poor, denies sore throat or esophagus , some heartburn , denies difficulity swallowing Nursing Plan: Continue supportive care, encouraged to drink fluids documented in this encounter Plan of Treatment Not on filedocumented as of this encounter Visit Diagnoses + + | Diagnosis | + + | OTV/Radiation Therapy Radiotherapy | + + documented in this encounter"
--- OUTSIDE RECORDS SUMMARY | ~2019-04-10 | XMS | Encounter Summary ---
Demographics + + + | Address | [address] | | | [place] [address] | + + + | Home Phone [...] Team Providers + +------+ + | Care Licensed Sales Assistant Name | Role | Phone | [...] of | [address] | [address] [facility] | | | | | prostate | [facility] | [facility] | | | | | (HCC) | Way | [address], | | | | | Procedures | [place], [place] | [place] | | | | | Consult, | [address] | [address] | | | | | treat, f/u | Phone: | Phone: | | | | | | [phone] | [phone] | | | | | | Fax: | Fax: | | | | | | [phone] | [phone] | +--------+--------+ + + + + Encounter Details +--------+ + + + + | Date | Type | Department | Care Team | Description | +--------+ + + + + | 10/08/ | Hospital | Radiation Oncology | | | | 2014 | Encounter | at [facility] [address] | | | | | | [address] | | | | | | [place] | | | | | | [place], [place] | | | | | | [address] | | | | | | [phone] | | | +--------+ + + + [...]
--- OUTSIDE RECORDS SUMMARY | ~2019-04-10 | XMS | Encounter Summary ---
Demographics + + + | Address | [address] | | | [place] [address] | + + + | Home Phone [...] + + + | Author | [facility] | + + + | Organization | [facility] | + + + | Address | Unknown | + + + | Phone | Unavailable | + + + Support + + +---------+ + | Name | Relationship | Address | Phone | + + +---------+ + | Alia Tracy | ECON | Unknown | | + + +---------+ + Care Team Providers + +------+ + | Care Regional Account Manager Name | Role | Phone | [...] Description | +--------+---------+ + + + | 09/15/ | Office | Radiation Oncology | Ye Doss MD | OTV/Radiation | | 2008 | Visit | at [facility] [address] [facility] | [address] | Therapy | | | | [address] | [place], | | | | | [place] | [place] [address] | | | | | [place], [place] | [phone] | | | | | [address] | | | | | | [phone] | | | +--------+---------+ + + + [...] + + + | Blood Pressure | 142/72 | 09/15/2008 12:36 PM | | | | | PDT | | + + + + + | Pulse | 110 | 09/15/2008 12:36 PM | | | | | PDT | | + + + + + | Temperature | 36.3 C (97.3 F) | 09/15/2008 12:36 PM | | | | | PDT | | + + + + + | Respiratory Rate | - | - | | + + + + + | Oxygen Saturation | 95% | 09/15/2008 12:36 PM | | | | | PDT | | + + + + + | Inhaled Oxygen | - | - | | | Concentration | | | | + + + + + | Weight | 93.9 kg (207 lb) | 09/15/2008 12:36 PM | | | | | PDT | | + + + + + | Height | - | - | | + + + + + | Body Mass Index | - | - | | + + + + + documented in this encounter Progress Notes Ye Doss MD - 09/15/2008 2:27 PM PDTAt 360 cGy Just starting radiation and chemotherapy Doing well Pain managed with vicodin BP 142/72 | Pulse 110 | Temp (Src) 36.3 C (97.3 F) (Oral) | Wt 93.895 kg (207 lb) | SpO 2 95% Mild tenderness L upper back Continue RT JH icEvelyn zhang MD - 09/15/2008 12:56 PM PDT 09/15/2008 12:55 PM Ammon Tracy is a 73 y.o. 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 here today during treatment for a weekly visit. He has completed 2 fractions of a planned 25 to a total of 360 of a planned 4500cGy. S: He notes no changes since starting Rt. O:Current outpatient prescriptions Medication Sig albuterol-ipratropium 18-103 [...] all prod ucts per 24 hour period.) Vital Signs are recorded in the nursing note. Ammon Tracy's mode of transportation is ambulatory. The skin shows no erythema. Lungs sound good, decreased BS in left base. The patient looks good. A/P: Doing well. Continue chemoRT. Next chemo 09/21. The patient's chart and films were revie sun. Arlyn Mila - 12:39 PM PDTNursing Note Vitals: BP 142/72 | Pulse 110 | Temp (Src) 36.3 C (97.3 F) (Oral) | Wt 93.895 kg (207 l b) | SpO2 95% Pain Score: 0 SpO2 on: RA Chemo: last administration: 09/15/08, next administration: 09/21/08 #Fractions: 2, Planned Fractions/Dose: , Current Dose: 360 Subjective: feeling well still, denies any side effects or radiation. Picked up both zofran and ativan today at MD-will try ativan for anxiety-help sleeping at night. Nursing Intervention: continue supportive care.Electronically signed by Mila Martinez at 12:39 PM PDTdocumented in this encounter Plan of Treatment Not on filedocumented as of this encounter Visit Diagnoses + + | Diagnosis | + + | OTV/Radiation Therapy Radiotherapy | + + documented in this encounter"
--- OUTSIDE RECORDS SUMMARY | ~2019-04-10 | XMS | Encounter Summary ---
Demographics + + + | Address | [address] | | | [place] [address] | + + + | Home Phone [...] Team Providers + +------+ + | Care Retail Marketing Specialist Name | Role | Phone | [...] neoplasm of | [address] | [address] [facility] | | | | | prostate | [facility] | [facility] | | | | | (HCC) | Way | [address], | | | | | Procedures | [place], [place] | [place] | | | | | Consult, | [address] | [address] | | | | | treat, f/u | Phone: | Phone: | | | | | | [phone] | [phone] | | | | | | Fax: | Fax: | | | | | | [phone] | [phone] | +--------+--------+ + + + + Encounter Details +--------+ + + + + | Date | Type | Department | Care Team | Description | +--------+ + + + + | 10/01/ | Hospital | Radiation Oncology | | | | 2014 | Encounter | at [facility] [address] | | | | | | [address] | | | | | | [place] | | | | | | [place], [place] | | | | | | [address] | | | | | | [phone] | | | +--------+ + + + [...]
--- OUTSIDE RECORDS SUMMARY | ~2019-04-10 | XMS | Encounter Summary ---
Demographics + + + | Address | [address] | | | [place] [address] | + + + | Home Phone [...] Team Providers + +------+ + | Care Animal Husbandman Name | Role | Phone | + [...] Tran | | | | | | [place], [place] | | | | | | [address] | | | | | | [phone] | | | +--------+ + + + [...] with | | | | | | Fannin. Patient | | | | | | [...] DEPARTMENT OF | [address] | [place], [place] [address] | | | PATHOLOGY | [address] [...] with | | | | | | Fannin. Patient | | | | | | [...] | + + + + + | [facility] | [address] | [place] [address] | | | PATHOLOGY | NAOMI AGUSTIN | | | + + + + + documented in this encounter Visit Diagnoses Not on filedocumented in this encounter"
--- OUTSIDE RECORDS SUMMARY | ~2019-04-10 | XMS | Encounter Summary ---
Demographics + + + | Address | [address] | | | [place] [address] | + + + | Home Phone | | + + + | Preferred Language | Unknown | + + + | Marital Status | Single | + + + | Voodoo Affiliation | Unknown | + + + [...] Team Providers + +------+ + | Care Steward/Stewardess Bath Name | Role | Phone | + [...] Tran | | | | | | [place], [place] | | | | | | [address] | | | | | | [phone] | | | +--------+ + + + [...]
--- OUTSIDE RECORDS SUMMARY | ~2019-04-10 | XMS | Encounter Summary ---
Demographics + + + | Address | [address] | | | [place] [address] | + + + | Home Phone | | + + + | Preferred Language | Unknown | + + + | Marital Status | Single | + + + | Advent Affiliation | Unknown | + + + | Race | Unknown | + + + | Ethnic Group | Other Race | + + + Author + + + | Organization | Unknown | + + + | Address | Unknown | + + + | Phone | Unavailable | + + + Support + + +---------+ + | Name | Relationship | Address | Phone | + + +---------+ + | Alia Tracy | ECON | Unknown | | + + +---------+ + Care Team Providers + +------+ + | Care Logging Supervisor Name | Role | Phone | + +------+ + | No Pcp Per Patient | PCP | Unavailable | + +------+ + Encounter Details +--------+--------+ + + + | Date | Type | Department | Care Team | Description | +--------+--------+ + + + | 02/17/ | Travel | | | | | 2018 | | | | | +--------+--------+ + + + Social History + +-------+ [...]
--- OUTSIDE RECORDS SUMMARY | ~2019-04-10 | XMS | Encounter Summary ---
Demographics + + + | Address | [address] | | | [place] [address] | + + + | Home Phone [...] Author + + + | Author | [facility] | + + + | Organization | [facility] | + + + | Address | Unknown | + + + | Phone | Unavailable | + + + Support + + +---------+ + | Name | Relationship | Address | Phone | + + +---------+ + | Alia Tracy | ECON | Unknown | | + + +---------+ + Care Team Providers + +------+ + | Care Roll Setter Name | Role | Phone | [...] 2008 | Visit | at [facility] [address] [facility] | [address] | Therapy | | | | [address] | Char[place] Valdes [place], | | | | | [place] | [place] [address] | | | | | [place], [place] | [phone] | | | | | [address] | | | | | | [phone] | | | +--------+---------+ + + + [...] is a 73 y.o. 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
--- OUTSIDE RECORDS SUMMARY | ~2019-04-10 | XMS | Encounter Summary ---
Demographics + + + | Address | [address] | | | [place] [address] | + + + | Home Phone | | + + + | Preferred Language | Unknown | + + + | Marital Status | Single | + + + | Episcopalian Affiliation | Unknown | + + + | Race | Unknown | + + + | Ethnic Group | Other Race | + + + Author + + + | Author | [facility] | + + + | Organization | [facility] | + + + | Address | Unknown | + + + | Phone | Unavailable | + + + Support + + +---------+ + | Name | Relationship | Address | Phone | + + +---------+ + | Alia Tracy | ECON | Unknown | | + + +---------+ + Care Team Providers + +------+ + | Care Elevator Installer Apprentice Name | Role | Phone | + +------+ + PCP | Unavailable | + +------+ + Encounter Details +--------+ + + + + | Date | Type | Department | Care Team | Description | +--------+ + + + + | 09/25/ | Hospital | Radiation Oncology | | | | 2008 | Encounter | at [facility] [address] | | | | | | [address] | | | | | | [place] | | | | | | [place], [place] | | | | | | [address] | | | | | | [phone] | | | +--------+ + + + [...]
--- OUTSIDE RECORDS SUMMARY | ~2019-04-10 | XMS | Encounter Summary ---
Demographics + + + | Address | [address] | | | [place] [address] | + + + | Home Phone [...] Author + + + | Author | [facility] | + + + | Organization | [facility] | + + + | Address | Unknown | + + + | Phone | Unavailable | + + + Support + + +---------+ + | Name | Relationship | Address | Phone | + + +---------+ + | Alia Tracy | ECON | Unknown | | + + +---------+ + Care Team Providers + +------+ + | Care Public Affairs Manager Name | Role | Phone | [...] Tran | | | | | | [place], [place] | | | | | | [address] | | | | | | [phone] | | | +--------+ + + + [...]
--- OUTSIDE RECORDS SUMMARY | ~2019-04-10 | XMS | Encounter Summary ---
Demographics + + + | Address | [address] | | | [place] [address] | + + + | Home Phone [...] Team Providers + +------+ + | Care Golf Course Assistant Name | Role | Phone | [...] neoplasm of | [address] | [address] [facility] | | | | | prostate | [facility] | [facility] | | | | | (HCC) | Way | [address] [place], | | | | | Procedures | [place], [place] | [place] | | | | | Consult, | [address] | [address] | | | | | treat, f/u | Phone: | Phone: | | | | | | [phone] | [phone] | | | | | | Fax: | Fax: | | | | | | [phone] | [phone] | +--------+--------+ + + + + Encounter Details +--------+ + + + + | Date | Type | Department | Care Team | Description | +--------+ + + + + | 10/01/ | Hospital | Radiation Oncology | | | | 2014 | Encounter | at [facility] [address] | | | | | | [address] | | | | | | [place] | | | | | | [place], [place] | | | | | | [address] | | | | | | [phone] | | | +--------+ + + + [...]
--- OUTSIDE RECORDS SUMMARY | ~2019-04-10 | XMS | Encounter Summary ---
Demographics + + + | Address | [address] | | | [place] [address] | + + + | Home Phone | | + + + | Preferred Language | Unknown | + + + | Marital Status | Single | + + + | Spiritism Affiliation | Unknown | + + + | Race | Unknown | + + + | Ethnic Group | Other Race | + + + Author + + + | Author | [facility] | + + + | Organization | [facility] | + + + | Address | Unknown | + + + | Phone | Unavailable | + + + Support + + +---------+ + | Name | Relationship | Address | Phone | + + +---------+ + | Alia Tracy | ECON | Unknown | | + + +---------+ + Care Team Providers + +------+ + | Care Engineering Test Specialist Name | Role | Phone | [...] neoplasm of | [address] | [address] [facility] | | | | | prostate | [facility] | [facility] | | | | | (HCC) | Way | [address], | | | | | Procedures | [place], [place] | [place] | | | | | Consult, | [address] | [address] | | | | | treat, f/u | Phone: | Phone: | | | | | | [phone] | [phone] | | | | | | Fax: | Fax: | | | | | | [phone] | [phone] | +--------+--------+ + + + + Encounter Details +--------+ + + + + | Date | Type | Department | Care Team | Description | +--------+ + + + + | 09/28/ | Hospital | Radiation Oncology | | | | 2014 | Encounter | at [facility] [address] | | | | | | [address] | | | | | | [place] | | | | | | [place], [place] | | | | | | [address] | | | | | | [phone] | | | +--------+ + + + [...]
--- OUTSIDE RECORDS SUMMARY | ~2019-04-10 | XMS | Encounter Summary ---
Demographics + + + | Address | [address] | | | [place] [address] | + + + | Home Phone | | + + + | Preferred Language | Unknown | + + + | Marital Status | Single | + + + | Cheondoism Affiliation | Unknown | + + + [...] Team Providers + +------+ + | Care Cutter Operator Helper Name | Role | Phone | + +------+ + | No Pcp Per Patient | PCP | Unavailable | + +------+ + Encounter Details +--------+--------+ + + + | Date | Type | Department | Care Team | Description | +--------+--------+ + + + | 02/14/ | Travel [...]
--- OUTSIDE RECORDS SUMMARY | ~2019-04-10 | XMS | Encounter Summary ---
Demographics + + + | Address | [address] | | | [place] [address] | + + + | Home Phone | | + + + | Preferred Language | Unknown | + + + | Marital Status | Single | + + + | Synagogue Affiliation | Unknown | + + + | Race | Unknown | + + + | Ethnic Group | Other Race | + + + Author + + + | Author | [facility] | + + + | Organization | [facility] | + + + | Address | Unknown | + + + | Phone | Unavailable | + + + Support + + +---------+ + | Name | Relationship | Address | Phone | + + +---------+ + | Alia Tracy | ECON | Unknown | | + + +---------+ + Care Team Providers + +------+ + | Care Roughener Name | Role | Phone | + +------+ + PCP | Unavailable | + +------+ + Encounter Details +--------+ + + + + | Date | Type | Department | Care Team | Description | +--------+ + + + + | 07/23/ | Document-Sc | UNKNOWN DEPARTMENT | Radiologist, Nuc | | | 2008 | anned | [address] | [facility] | | | | | [address] | | | | | | [place], [place] | | | | | | [address] | | | +--------+ + + + [...] | + +--------+ + + + | ORDERS OTHER | | 07/23/2008 | | Results for this | | | | 12:00 AM | | procedure are in the | | | | PST | | results section. | + +--------+ + + + documented in this encounter Results ORDERS OTHER (07/23/2008 12:00 AM PST) + + + | Narrative | Performed At | + + + | | | + + + + + | Procedure Note | + + | Jeane Horowitz - 07/23/2008 12:00 AM PST | | | + + documented in this encounter Visit Diagnoses Not on filedocumented in this encounter"
--- OUTSIDE RECORDS SUMMARY | ~2019-04-10 | XMS | Encounter Summary ---
Demographics + + + | Address | [address] | | | [place] [address] | + + + | Home Phone [...] Team Providers + +------+ + | Care Bull Rider Name | Role | Phone | + [...] | | | | prostate | [facility] | [facility] | | | | | (HCC) | Way | [address], | | | | | Procedures | [place], [place] | [place] | | | | | Consult, | [address] | [address] | | | | | treat, f/u | Phone: | Phone: | | | | | | [phone] | [phone] | | | | | | Fax: | Fax: | | | | | | [phone] | [phone] | +--------+--------+ + + + + Encounter Details +--------+ + + + + | Date | Type | Department | Care Team | Description | +--------+ + + + + | 09/09/ | Hospital | Radiation Oncology | | | | 2014 | Encounter | at [facility] [address] | | | | | | [address] | | | | | | [place] | | | | | | [place], [place] | | | | | | [address] | | | | | | [phone] | | | +--------+ + + + [...]
--- OUTSIDE RECORDS SUMMARY | ~2019-04-10 | XMS | Encounter Summary ---
Demographics + + + | Address | [address] | | | [place] [address] | + + + | Home Phone | | + + + | Preferred Language | Unknown | + + + | Marital Status | Single | + + + | Confucianist Affiliation | Unknown | + + + | Race | Unknown | + + + | Ethnic Group | Other Race | + + + Author + + + | Author | [facility] | + + + | Organization | [facility] | + + + | Address | Unknown | + + + | Phone | Unavailable | + + + Support + + +---------+ + | Name | Relationship | Address | Phone | + + +---------+ + | Alia Tracy | ECON | Unknown | | + + +---------+ + Care Team Providers + +------+ + | Care Surveillance Dual Rate Officer Name | Role | Phone | + [...] Tran | | | | | | [place], [place] | | | | | | [address] | | | | | | [phone] | | | +--------+ + + + [...]
--- OUTSIDE RECORDS SUMMARY | ~2019-04-10 | XMS | Encounter Summary ---
Demographics + + + | Address | [address] | | | [place] [address] | + + + | Home Phone [...] Team Providers + +------+ + | Care Front Desk Manager Name | Role | Phone | [...] neoplasm of | [address] | [address] [facility] | | | | | prostate | [facility] | [facility] | | | | | (HCC) | Way | [address], | | | | | Procedures | [place], [place] | [place] | | | | | Consult, | [address] | [address] | | | | | treat, f/u | Phone: | Phone: | | | | | | [phone] | [phone] | | | | | | Fax: | Fax: | | | | | | [phone] | [phone] | +--------+--------+ + + + + Encounter Details +--------+ + + + + | Date | Type | Department | Care Team | Description | +--------+ + + + + | 09/10/ | Hospital | Radiation Oncology | | | | 2014 | Encounter | at [facility] [address] | | | | | | [address] | | | | | | [place] | | | | | | [place], [place] | | | | | | [address] | | | | | | [phone] | | | +--------+ + + + [...]
--- OUTSIDE RECORDS SUMMARY | ~2019-04-10 | XMS | Encounter Summary ---
Demographics + + + | Address | [address] | | | [place] [address] | + + + | Home Phone [...] Team Providers + +------+ + | Care Cisco Certified Internetwork Expert Name | Role | Phone | + [...] Tran | | | | | | [place], [place] | | | | | | [address] | | | | | | [phone] | | | +--------+ + + + [...]
--- OUTSIDE RECORDS SUMMARY | ~2019-04-10 | XMS | Encounter Summary ---
Demographics + + + | Address | [address] | | | [place] [address] | + + + | Home Phone [...] Author + + + | Author | [facility] | + + + | Organization | [facility] | + + + | Address | Unknown | + + + | Phone | Unavailable | + + + Support + + +---------+ + | Name | Relationship | Address | Phone | + + +---------+ + | Alia Tracy | ECON | Unknown | | + + +---------+ + Care Team Providers + +------+ + | Care Health Education Specialist Name | Role | Phone | [...] Tran | | | | | | [place], [place] | | | | | | [address] | | | | | | [phone] | | | +--------+ + + + [...]
--- OUTSIDE RECORDS SUMMARY | ~2019-04-10 | XMS | Encounter Summary ---
Demographics + + + | Address | [address] | | | [place] [address] | + + + | Home Phone [...] Team Providers + +------+ + | Care Car Rental Manager Name | Role | Phone | [...] neoplasm of | [address] | [address] [facility] | | | | | prostate | [facility] | [facility] | | | | | (HCC) | Way | [address], | | | | | Procedures | [place], [place] | [place] | | | | | Consult, | [address] | [address] | | | | | treat, f/u | Phone: | Phone: | | | | | | [phone] | [phone] | | | | | | Fax: | Fax: | | | | | | [phone] | [phone] | +--------+--------+ + + + + Encounter Details +--------+ + + + + | Date | Type | Department | Care Team | Description | +--------+ + + + + | 09/03/ | Hospital | Radiation Oncology | | | | 2014 | Encounter | at [facility] [address] | | | | | | [address] | | | | | | [place] | | | | | | [place], [place] | | | | | | [address] | | | | | | [phone] | | | +--------+ + + + [...]
--- OUTSIDE RECORDS SUMMARY | ~2019-04-10 | XMS | Encounter Summary ---
Demographics + + + | Address | [address] | | | [place] [address] | + + + | Home Phone | | + + + | Preferred Language | Unknown | + + + | Marital Status | Single | + + + | Buddhism Affiliation | Unknown | + + + [...] Team Providers + +------+ + | Care Sidewalk Repairer Name | Role | Phone | + [...] Tran | | | | | | [place], [place] | | | | | | [address] | | | | | | [phone] | | | +--------+ + + + [...]
--- OUTSIDE RECORDS SUMMARY | ~2019-04-10 | XMS | Encounter Summary ---
Demographics + + + | Address | [address] | | | [place] [address] | + + + | Home Phone [...] Providers + +------+ + | Care Coal Crusher Operator Name | Role | Phone | [...] | | | | | | [address] | | | | | | [place], [place] | | | | | | [address] | | | | | | [phone] | | | +--------+ + + + [...]
--- OUTSIDE RECORDS SUMMARY | ~2019-04-10 | XMS | Encounter Summary ---
Demographics + + + | Address | [address] | | | [place] [address] | + + + | Home Phone | | + + + | Preferred Language | Unknown | + + + | Marital Status | Single | + + + | Church Affiliation | Unknown | + + + | Race | Unknown | + + + | Ethnic Group | Unknown | + + + Author + + + | Author | [facility] | | | and [place] | + + + | Organization | [facility] | | | [...] Team Providers + +------+ + | Care Environmental Field Technician Name | Role | Phone | + +------+ + PCP | Unavailable | + +------+ + Encounter Details +--------+ + + + + | Date | Type | Department | Care Team | Description | +--------+ + + + + | 06/02/ | Hospital | [facility] | | | | 2000 | Encounter | MED CTR GENERIC OP | | | | | | CONV DEPT [address] | | | | | | [place], | | | | | | [place] [address] | | | | | | [phone] | | | +--------+ + + + [...]
--- OUTSIDE RECORDS SUMMARY | ~2019-04-10 | XMS | Encounter Summary ---
Demographics + + + | Address | [address] | | | [place] [address] | + + + | Home Phone | | + + + | Preferred Language | Unknown | + + + | Marital Status | Single | + + + | Baptist Affiliation | Unknown | + + + [...] Team Providers + +------+ + | Care Laborer Laboratory Name | Role | Phone | + [...] neoplasm of | [address] | [address] [facility] | | | | | prostate | [facility] | [facility] | | | | | (HCC) | Way | Rd [place], | | | | | Procedures | [place], [place] | [place] | | | | | Consult, | [address] | [address] | | | | | treat, f/u | Phone: | Phone: | | | | | | [phone] | [phone] | | | | | | Fax: | Fax: | | | | | | [phone] | [phone] | +--------+--------+ + + + + Encounter Details +--------+ + + + + | Date | Type | Department | Care Team | Description | +--------+ + + + + | 09/11/ | Hospital | Radiation Oncology | | | | 2014 | Encounter | at [facility] [address] | | | | | | [address] | | | | | | [place] | | | | | | [place], [place] | | | | | | [address] | | | | | | [phone] | | | +--------+ + + + [...]
--- OUTSIDE RECORDS SUMMARY | ~2019-04-10 | XMS | Encounter Summary ---
Demographics + + + | Address | [address] | | | [place] [address] | + + + | Home Phone [...] Author + + + | Author | [facility] | + + + | Organization | [facility] | + + + | Address | Unknown | + + + | Phone | Unavailable | + + + Support + + +---------+ + | Name | Relationship | Address | Phone | + + +---------+ + | Alia Tracy | ECON | Unknown | | + + +---------+ + Care Team Providers + +------+ + | Care Hr Manager Name | Role | Phone | [...] Rd | | | | | | [place], [place] | | | | | | [address] | | | +--------+ + + + [...]
--- OUTSIDE RECORDS SUMMARY | ~2019-04-10 | XMS | Encounter Summary ---
Demographics + + + | Address | [address] | | | [place] [address] | + + + | Home Phone [...] Author + + + | Author | [facility] | + + + | Organization | [facility] | + + + | Address | Unknown | + + + | Phone | Unavailable | + + + Support + + +---------+ + | Name | Relationship | Address | Phone | + + +---------+ + | Alia Tracy | ECON | Unknown | | + + +---------+ + Care Team Providers + +------+ + | Care Right Of Way Appraiser Name | Role | Phone | + [...] | | | | | prostate | [facility] | [facility] | | | | | (HCC) | Way | Rd [place], | | | | | Procedures | [place], [place] | [place] | | | | | Consult, | [address] | [address] | | | | | treat, f/u | Phone: | Phone: | | | | | | [phone] | [phone] | | | | | | Fax: | Fax: | | | | | | [phone] | [phone] | +--------+--------+ + + + + Encounter Details +--------+ + + + + | Date | Type | Department | Care Team | Description | +--------+ + + + + | 09/21/ | Hospital | Radiation Oncology | | | | 2014 | Encounter | at [facility] [address] | | | | | | [address] | | | | | | [place] | | | | | | [place], [place] | | | | | | [address] | | | | | | [phone] | | | +--------+ + + + [...]
--- OUTSIDE RECORDS SUMMARY | ~2019-04-10 | XMS | Encounter Summary ---
Demographics + + + | Address | [address] | | | [place] [address] | + + + | Home Phone [...] Team Providers + +------+ + | Care Ic Design Manager Name | Role | Phone | [...] Description | +--------+---------+ + + + | 09/28/ | Office | Radiation Oncology | Rishabh Quan MD | Radiotherapy | | 2014 | Visit | at [facility] [address] | [address] | (Primary Dx) | | | | [address] | [place], | | | | | [place] | [place] [address] | | | | | [place], [place] | [phone] | | | | | [address] | | | | | | [phone] | | | +--------+---------+ + + + [...] + + + | Blood Pressure | 153/66 | 09/28/2014 6:07 PM | | | | | PDT | | + + + + + | Pulse | 65 | 09/28/2014 6:07 PM | | | | | PDT | | + + + + + | Temperature | 36.8 C (98.2 F) | 09/28/2014 6:07 PM | | | | | PDT | | + + + + + | Respiratory Rate | - | - | | + + + + + | Oxygen Saturation | 100% | 09/28/2014 6:07 PM | rom air | | | | PDT | | + + + + + | Inhaled Oxygen | - | - | | | Concentration | | | | + + + + + | Weight | 80.5 kg (177 lb 6.4 | 09/28/2014 6:07 PM | | | | oz) | PDT | | + + + + + | Height | - | - | | + + + + + | Body Mass Index | 26.2 | 09/08/2014 5:13 PM | | | | | PDT | | + + + + + documented in this encounter Progress Notes Rishabh Quan MD - 09/28/2014 6:16 PM PDTFormatting of this note might be different from t cait original. 09/28/2014 6:16 PM 18 of 28 fractions Urination Ammon [place] notes nocturia of 3-5 times per night. He notes dysu jo-ann with the initial urination but then gets better. GI: He averages 1 bowel movements per day. He is taking metamucil - it is helping him stay regular. General: His energy level is good, he is walking across the [place] but no more than once a day. Physical exam is unremarkable. Vital signs documented in the nursing note. Chart reviewed. Continue with radiation. would like to finish before so we will treat him twice in one day. 09/22/2014 10:22 AM 14 of 28 fractions Urination Ammon houston notes nocturia of 5 times per night. He notes some d ysuria at night. He is taking tamsulosin 0.4 mg DAILY. GI: He averages 1 bowel movements per day. He is not taking any metamucil at this time. General: His energy level is down slightly since last week. He has been feeling fatigued i n the afternoons. Physical exam is unremarkable. Vital signs documented in the nursing note. Chart reviewed. Continue with radiation. 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 The patient will be receiving concurrent [...] films were reviewed. Will try some metamucil. ppSabiha Tyler RN - 09/28/2014 5:40 PM PDT Nursing Note Patient here for an On Treatment Visit. Completed 18 fractions of a planned 28. Current dose 4500 cGy of total 7000 cGy. Vitals/Pain Level: BP 153/66 | Pulse 65 | Temp (Src) 36.8 C (98.2 F) (Oral) | Wt 80.468 kg (177 lb 6.4 oz) | SpO2 100[rom air[% | BMI 26.19 kg/(m^2) Pain Score: 0 Wt Readings from Last 3 Encounters: 09/28/14 80.468 kg (177 lb 6.4 oz) 09/22/14 79.969 kg (176 lb 4.8 oz) 09/14/14 80.015 kg (176 lb 6.4 oz) Subjective: Pt reports 3/10 fatigue level. Pt c/o urinary frequency at night, tendency to dribble, and incomplete voiding. Pt denies pain or any other s/sx of discomfort this aftern oon. Objective: Pt alert, oriented, and ambulatory. Accompanied by self. Nursing Plan: Continue supportive care. Will continue to monitor. documented in this encounter Plan of Treatment Not on filedocumented as of this encounter Visit Diagnoses + + | Diagnosis | + + | Radiotherapy - Primary | + + documented in this encounter"
--- OUTSIDE RECORDS SUMMARY | ~2019-04-10 | XMS | Encounter Summary ---
Demographics + + + | Address | [address] | | | [place] [address] | + + + | Home Phone | | + + + | Preferred Language | Unknown | + + + | Marital Status | Single | + + + | Sikhism Affiliation | Unknown | + + + | Race | Unknown | + + + | Ethnic Group | Other Race | + + + Author + + + | Author | [facility] | + + + | Organization | [facility] | + + + | Address | Unknown | + + + | Phone | Unavailable | + + + Support + + +---------+ + | Name | Relationship | Address | Phone | + + +---------+ + | Alia Tracy | ECON | Unknown | | + + +---------+ + Care Team Providers + +------+ + | Care Lead Nurse Name | Role | Phone | [...] | | | | neoplasm of | [place] | [address] [facility] | | | | | lung, | A MEDICAL | [facility] | | | | | unspecified | CENTER [address] | [address] [place], | | | | | laterality, | [address] [place] | [place] | | | | | unspecified | [place] | [address] | | | | | part of lung | HOS[address] | Phone: | | | | | (HCC) | [place], | [phone] | | | | | Procedures | [place] [address] | Fax: | | | | | SIMULATION | Phone: | [phone] | | | | | IMAGING | [phone] | | | | | | | Fax: | | | | | | | [phone] | | +--------+--------+ + + + + [...] | | | | neoplasm of | [place] | [address] [facility] | | | | | lung, | A MEDICAL | [facility] | | | | | unspecified | [place] [address] | [address] [place], | | | | | laterality, | [address] [place] | [place] | | | | | unspecified | [place] | [address] | | | | | part of lung | HOSPITAL | Phone: | | | | | (HCC) | [place], | [phone] | | | | | Procedures | [place] [address] | Fax: | | | | | SIMULATION | Phone: | [phone] | | | | | IMAGING | [phone] | | | | | | | Fax: | | | | | | | [phone] | | +--------+--------+ + + + + Encounter Details +--------+ + + + + | Date | Type | Department | Care Team | Description | +--------+ + + + + | 02/06/ | Hospital | Radiation Oncology | | | | 2019 | Encounter | at [facility] [address] | | | | | | [address] | | | | | | [place] | | | | | | [place], [place] | | | | | | [address] | | | | | | [phone] | | | +--------+ + + + [...]
--- OUTSIDE RECORDS SUMMARY | ~2019-04-10 | XMS | Encounter Summary ---
Demographics + + + | Address | [address] | | | [place] [address] | + + + | Home Phone [...] Team Providers + +------+ + | Care Elderly Sitter Name | Role | Phone | + [...] neoplasm of | [address] | [address] [facility] | | | | | prostate | [facility] | [facility] | | | | | (HCC) | Way | [address] [place], | | | | | Procedures | [place], [place] | [place] | | | | | Consult, | [address] | [address] | | | | | treat, f/u | Phone: | Phone: | | | | | | [phone] | [phone] | | | | | | Fax: | Fax: | | | | | | [phone] | [phone] | +--------+--------+ + + + + Encounter Details +--------+ + + + + | Date | Type | Department | Care Team | Description | +--------+ + + + + | 09/23/ | Hospital | Radiation Oncology | | | | 2014 | Encounter | at [facility] [address] | | | | | | [address] | | | | | | [place] | | | | | | [place], [place] | | | | | | [address] | | | | | | [phone] | | | +--------+ + + + [...]
--- OUTSIDE RECORDS SUMMARY | ~2019-04-10 | XMS | Encounter Summary ---
Demographics + + + | Address | [address] | | | [place] [address] | + + + | Home Phone [...] Team Providers + +------+ + | Care Escrow Secretary Name | Role | Phone | + [...] Tran | | | | | | [place], [place] | | | | | | [address] | | | | | | [phone] | | | +--------+ + + + [...]
--- OUTSIDE RECORDS SUMMARY | ~2019-04-10 | XMS | Encounter Summary ---
Demographics + + + | Address | [address] | | | [place] [address] | + + + | Home Phone [...] + + + | Author | [facility] | + + + | Organization | [facility] | + + + | Address | Unknown | + + + | Phone | Unavailable | + + + Support + + +---------+ + | Name | Relationship | Address | Phone | + + +---------+ + | Alia Tracy | ECON | Unknown | | + + +---------+ + Care Team Providers + +------+ + | Care Saw Runner Name | Role | Phone | + [...] Tran | | | | | | [place], [place] | | | | | | [address] | | | | | | [phone] | | | +--------+ + + + [...]
--- OUTSIDE RECORDS SUMMARY | ~2019-04-10 | XMS | Encounter Summary ---
Demographics + + + | Address | [address] | | | [place] [address] | + + + | Home Phone | | + + + | Preferred Language | Unknown | + + + | Marital Status | Single | + + + | Rastafari Affiliation | Unknown | + + + [...] Team Providers + +------+ + | Care Livestock Producer Name | Role | Phone | + [...] neoplasm of | [address] | [address] [facility] | | | | | prostate | [facility] | [facility] | | | | | (HCC) | Way | [address] [place], | | | | | Procedures | [place], [place] | [place] | | | | | Consult, | [address] | [address] | | | | | treat, f/u | Phone: | Phone: | | | | | | [phone] | [phone] | | | | | | Fax: | Fax: | | | | | | [phone] | [phone] | +--------+--------+ + + + + Encounter Details +--------+ + + + + | Date | Type | Department | Care Team | Description | +--------+ + + + + | 09/15/ | Hospital | Radiation Oncology | | | | 2014 | Encounter | at [facility] [address] | | | | | | [address] | | | | | | [place] | | | | | | [place], [place] | | | | | | [address] | | | | | | [phone] | | | +--------+ + + + [...]
--- OUTSIDE RECORDS SUMMARY | ~2019-04-10 | XMS | Clinical Summary ---
Demographics + + + | Address | [address] | | | [place] [address] | + + + | Home Phone [...] Team Providers + +------+ + | Care Underwater Trapper Name | Role | Phone | + +------+ + | No Pcp Per Patient | PCP | Unavailable | + +------+ + Source Comments KORTNEY is fully live on both [facility]ulatory and [facility] InPatient.[facility] Allergies + + + + + [...] | ITY | | for | | [place], | | | | [place] | | all | | [place] [address] | | | | RCE | | dates | | | | + +--------+ +--------+ + +--------+ | [place] | [phone] | | [phone] | [address] | Agency | | ADMINISTRATION | CHOICE | | [address]/ | [address] | [phone] | | | | PLAN | | | | [place], | | | | | | 0 | | [place] [address] | | + +--------+ +--------+ + +--------+ [...] | 1935 | [phone] | [place] [address] | | | prateek | | | 3 (Home) | | + +--------+ +--------+ + + | Ammon Tracy | [place] | Self | [birth year] | [address] | | Babak | Kimmyo | | 1935 | [phone] | [place] [address] | | | red | | | 3 (Home) | | + +--------+ +--------+ + + Advance Directives + + + + + | Type | Date Recorded | Patient | Explanation | | | | Laundry Housekeeper | | + + + + + | Advance | | | | | Directives and | | | | | Living Will | | | | + + + + + | Power of | | | | | Nurse Rn Bsn | | | | + + + + +
--- OUTSIDE RECORDS SUMMARY | ~2019-04-10 | XMS | Encounter Summary ---
Demographics + + + | Address | [address] | | | [place] [address] | + + + | Home Phone [...] + + | Author | [facility] | + + + | Organization | [facility] | + + + | Address | Unknown | + + + | Phone | Unavailable | + + + Support + + +---------+ + | Name | Relationship | Address | Phone | + + +---------+ + | Alia Tracy | ECON | Unknown | | + + +---------+ + Care Team Providers + +------+ + | Care Core Checker Name | Role | Phone | + [...] neoplasm of | [address] | [address] [facility] | | | | | prostate | [facility] | [facility] | | | | | (HCC) | Way | [address] [place], | | | | | Procedures | [place], [place] | [place] | | | | | Consult, | [address] | [address] | | | | | treat, f/u | Phone: | Phone: | | | | | | [phone] | [phone] | | | | | | Fax: | Fax: | | | | | | [phone] | [phone] | +--------+--------+ + + + + Encounter Details +--------+ + + + + | Date | Type | Department | Care Team | Description | +--------+ + + + + | 10/09/ | Hospital | Radiation Oncology | | | | 2014 | Encounter | at [facility] [address] | | | | | | [address] | | | | | | [place] | | | | | | [place], [place] | | | | | | [address] | | | | | | [phone] | | | +--------+ + + + [...]
--- OUTSIDE RECORDS SUMMARY | ~2019-04-10 | XMS | Encounter Summary ---
Demographics + + + | Address | [address] | | | [place] [address] | + + + | Home Phone [...] Team Providers + +------+ + | Care Spanish Moss Picker Name | Role | Phone | + [...] | | 2019 | Support | at [facility] [address] | [address] | | | | Staff | [address] | [place], [place] | | | | | [place] | [address] | | | | | [place], [place] | | | | | | [address] | | | | | | [phone] | | | +--------+ + + + [...] and is alone. The patient lives in [place]. He will stay at [facility] in [place] with his , and plans on takin [...]
--- OUTSIDE RECORDS SUMMARY | ~2019-04-10 | XMS | Encounter Summary ---
Demographics + + + | Address | [address] | | | [place] [address] | + + + | Home Phone [...] Team Providers + +------+ + | Care Systems Applications Programming Lead Name | Role | Phone | + +------+ + | No Pcp Per Patient | PCP | Unavailable | + +------+ + Reason for Visit + + + | Reason | Comments | + + + | RT Clinical | | | Treatment Planning | | | Note | | + + + Encounter Details +--------+ + + + + | Date | Type | Department | Care Team | Description | +--------+ + + + + | 02/06/ | Documentati | Radiation Oncology | Ye Doss MD | RT Clinical | | 2019 | on | at [facility] [address] | [address] | Treatment Planning | | | | [address] | [place], | Note | | | | [place] | [place] [address] | | | | | [place], [place] | [phone] | | | | | [address] | | | | | | [phone] | | | +--------+ + + + [...]
--- OUTSIDE RECORDS SUMMARY | ~2019-04-10 | XMS | Encounter Summary ---
Demographics + + + | Address | [address] | | | [place] [address] | + + + | Home Phone [...] Team Providers + +------+ + | Care Plant Anatomist Name | Role | Phone | + [...] | [address] | [place], | | | | | [place] | [place] [address] | | | | | [place], [place] | [phone] | | | | | [address] | | | | | | [phone] | | | +--------+ + + + [...]
--- OUTSIDE RECORDS SUMMARY | ~2019-04-10 | XMS | Encounter Summary ---
Demographics + + + | Address | [address] | | | [place] [address] | + + + | Home Phone [...] Phone | + + +---------+ + | lAia Tracy | ECON | Unknown | | + + +---------+ + Care Team Providers + +------+ + | Care Home Visitor Name | Role | Phone | + +------+ + PCP | Unavailable | + +------+ + Encounter Details +--------+ + + + + | Date | Type | Department | Care Team | Description | +--------+ + + + + | 08/26/ | Hematologist Oncologist | Radiation Oncology | Ye Doss MD | Lung Cancer (HCC) | | 2008 | | at [facility] [address] | [address] | (Primary Dx) | | | | [address] | [place], | | | | | [place] | [place] [address] | | | | | [place], [place] | [phone] | | | | | [address] | | | | | | [phone] | | | +--------+ + + + [...] of this encounter Plan of Treatment + + +--------+ + + | Name | Type | Priori | Associated Diagnoses | Order Schedule | | | | ty | | | + + +--------+ + + | SIMULATION, | Procedures | Routin | Lung Cancer (HCC) | Ordered: 08/26/2008 | | RADIATION | | e | | | + + +--------+ + + documented as of this encounter Visit Diagnoses + + | Diagnosis | + + | Lung cancer (HCC) - Primary Malignant neoplasm of bronchus and lung, unspecified site | + + documented in this encounter"
--- OUTSIDE RECORDS SUMMARY | ~2019-04-10 | XMS | Encounter Summary ---
Demographics + + + | Address | [address] | | | [place] [address] | + + + | Home Phone [...] Team Providers + +------+ + | Care Rn Cardiac Name | Role | Phone | + [...] Tran | | | | | | [place], [place] | | | | | | [address] | | | | | | [phone] | | | +--------+ + + + [...]
--- OUTSIDE RECORDS SUMMARY | ~2019-04-10 | XMS | Encounter Summary ---
Demographics + + + | Address | [address] | | | [place] [address] | + + + | Home Phone | | + + + | Preferred Language | Unknown | + + + | Marital Status | Single | + + + | Gnosticism Affiliation | Unknown | + + + [...] Team Providers + +------+ + | Care Rougher Machine Operator Name | Role | Phone | + +------+ + PCP | Unavailable | + +------+ + Encounter Details +--------+ + + + + | Date | Type | Department | Care Team | Description | +--------+ + + + + | 09/02/ | Documentati | Radiation Oncology | Ye Doss MD | | | 2008 | on | at [facility] [address] [facility] | [address] | | | | | [address] | [place], | | | | | [place] [address] | [place] [address] | | | | | [place], [place] | [phone] | | | | | [address] | | | | | | [phone] | | | +--------+ + + + [...]
--- OUTSIDE RECORDS SUMMARY | ~2019-04-10 | XMS | Encounter Summary ---
Demographics + + + | Address | [address] | | | [place] [address] | + + + | Home Phone [...] + + + | Author | [facility] | + + + | Organization | [facility] | + + + | Address | Unknown | + + + | Phone | Unavailable | + + + Support + + +---------+ + | Name | Relationship | Address | Phone | + + +---------+ + | Alia Tracy | ECON | Unknown | | + + +---------+ + Care Team Providers + +------+ + | Care Media Analyst Name | Role | Phone | + [...] Rd | | | | | | [place], [place] | | | | | | [address] | | | +--------+ + + + [...]
--- OUTSIDE RECORDS SUMMARY | ~2019-04-10 | XMS | Encounter Summary ---
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 The patient will be receiving concurrent [...]
--- OUTSIDE RECORDS SUMMARY | ~2019-04-10 | XMS | Encounter Summary ---
Demographics + + + | Address | [address] | | | [place] [address] | + + + | Home Phone | | + + + | Preferred Language | Unknown | + + + | Marital Status | Single | + + + | Muslim Affiliation | Unknown | + + + | Race | Unknown | + + + | Ethnic Group | Unknown | + + + Author + + + | Author | [facility] | | | and [place] | + + + | Organization | [facility] | | | [...] Team Providers + +------+ + | Care Film Touch Up Inspector Name | Role | Phone | + +------+ + PCP | Unavailable | + +------+ + Encounter Details +--------+ + + + + | Date | Type | Department | Care Team | Description | +--------+ + + + + | 10/04/ | Hospital | [facility] | Víctor Schwartz | | | 1995 | Encounter | MED CTR XRAY [address] | [address] | | | | | [place] | [facility] | | | | | [place] [address] | [place] | | | | | [phone] | [id number] | | | | | | | [...]
--- OUTSIDE RECORDS SUMMARY | ~2019-04-10 | XMS | Encounter Summary ---
[...] Team Providers + +------+ + | Care Veneer Slicing Machine Operator Name | Role | Phone [...] neoplasm of | [address] | [address] [facility] | | | | | prostate | [facility] | [facility] | | | | | (HCC) | Way | [address] [place], | | | | | Procedures | [place], [place] | [place] | | | | | Consult, | [address] | [address] | | | | | treat, f/u | Phone: | Phone: | | | | | | [phone] | [phone] | | | | | | Fax: | Fax: | | | | | | [phone] | [phone] | +--------+--------+ + + + + Encounter Details +--------+ + + + + | Date | Type | Department | Care Team | Description | +--------+ + + + + | 09/07/ | Hospital | Radiation Oncology | | | | 2014 | Encounter | at [facility] [address] | | | | | | [address] | | | | | | [place] | | | | | | [place], [place] | | | | | | [address] | | | | | | [phone] | | | +--------+ + + + [...]
--- OUTSIDE RECORDS SUMMARY | ~2019-04-10 | XMS | Encounter Summary ---
Demographics + + + | Address | [address] | | | [place] [address] | + + + | Home Phone [...] Team Providers + +------+ + | Care Outbound Sales Advisor Name | Role | Phone | + [...] neoplasm of | [address] | [address] [facility] | | | | | prostate | [facility] | [facility] | | | | | (HCC) | Way | [address] [place], | | | | | Procedures | [place], [place] | [place] | | | | | Consult, | [address] | [address] | | | | | treat, f/u | Phone: | Phone: | | | | | | [phone] | [phone] | | | | | | Fax: | Fax: | | | | | | [phone] | [phone] | +--------+--------+ + + + + Encounter Details +--------+ + + + + | Date | Type | Department | Care Team | Description | +--------+ + + + + | 10/07/ | Hospital | Radiation Oncology | | | | 2014 | Encounter | at [facility] [address] | | | | | | [address] | | | | | | [place] | | | | | | [place], [place] | | | | | | [address] | | | | | | [phone] | | | +--------+ + + + [...]
--- OUTSIDE RECORDS SUMMARY | ~2019-04-10 | XMS | Encounter Summary ---
Demographics + + + | Address | [address] | | | [place] [address] | + + + | Home Phone [...] Team Providers + +------+ + | Care Jackhammer Splitter Operator Name | Role | Phone | [...] + + + + | 10/09/ | Documentati | Radiation Oncology | Bunny Lopez, | RT Treatment Summary | | 2014 | on | at [facility] [address] | ,PhD [address] | | | | | [address] | [address] | | | | | [place] | [place], [place] | | | | | [place], [place] | [address] | | | | | [address] | [phone] | | | | | [phone] | | | +--------+ + + + [...]
--- OUTSIDE RECORDS SUMMARY | ~2019-04-10 | XMS | Encounter Summary ---
Demographics + + + | Address | [address] | | | [place] [address] | + + + | Home Phone [...] Team Providers + +------+ + | Care Carroting Machine Offbearer Name | Role | Phone | + [...] 2008 | Visit | at [facility] [address] [facility] | [address] | Therapy | | | | [address] | Charis Valdes [place], | | | | | [place] | [place] [address] | | | | | [place], [place] | [phone] | | | | | [address] | | | | | | [phone] | | | +--------+---------+ + + + [...] is a 73 y.o. male with a [id number] SCCA of TIMBO with posterior CW and [...]
--- OUTSIDE RECORDS SUMMARY | ~2019-04-10 | XMS | Clinical Summary ---
Demographics + + + | Address | [address] | | | [place] [address] | + + + | Home Phone [...] + + + | Author | [facility] | | | and [place] | + + + | Organization | [facility] | | | [...] Team Providers + +------+ + | Care Tipple Operator Name | Role | Phone | + +------+ + PCP | Unavailable | + +------+ + Allergies Not on File Medications Not on file Active Problems Not on file Social History + +-------+ +--------+------+ | Tobacco [...] | + + Last Filed Vital Signs Not on file Plan of Treatment + + + + + | Health Maintenance | Due Date | Last Done | Comments | + + + + + | Vaccine: | | | | | Dtap/Tdap/Td (1 - | 5 | | | | Tdap) | | | | + + + + + | Vaccine: Zoster (1 | | | | | of 2) | 6 | | | + + + + + | Vaccine: | | | | | Pneumococcal 65+ (1 | 1 | | | | of 2 - PCV13) | | | | + + + + + | Vaccine: Influenza | | | | | (#1) | 9 | | | + + + + + Results Not on filefrom Last 3 Months"
--- OUTSIDE RECORDS SUMMARY | ~2019-04-10 | XMS | Encounter Summary ---
Demographics + + + | Address | [address] | | | [place] [address] | + + + | Home Phone | | + + + | Preferred Language | Unknown | + + + | Marital Status | Single | + + + | Mu-Ism Affiliation | Unknown | + + + [...] Team Providers + +------+ + | Care Jet Dyeing Machine Tender Name | Role | Phone | + [...] Description | +--------+---------+ + + + | 10/13/ | Office | Radiation Oncology | Ye Doss MD | OTV/Radiation | | 2008 | Visit | at [facility] [address] [facility] | [address] | Therapy | | | | [address] | Charis Valdes [place], | | | | | [place] | [place] [address] | | | | | [place], [place] | [phone] | | | | | [address] | | | | | | [phone] | | | +--------+---------+ + + + [...] + + + | Blood Pressure | 145/82 | 10/13/2008 3:35 PM | | | | | PDT | | + + + + + | Pulse | 116 | 10/13/2008 3:35 PM | | | | | PDT | | + + + + + | Temperature | 35.4 C (95.8 F) | 10/13/2008 3:35 PM | | | | | PDT | | + + + + + | Respiratory Rate | - | - | | + + + + + | Oxygen Saturation | 97% | 10/13/2008 3:35 PM | | | | | PDT | | + + + + + | Inhaled Oxygen | - | - | | | Concentration | | | | + + + + + | Weight | 89.4 kg (197 lb 3.2 | 10/13/2008 3:35 PM | | | | oz) | PDT | | + + + + + | Height | - | - | | + + + + + | Body Mass Index | - | - | | + + + + + documented in this encounter Progress Notes Ye Doss MD - 10/13/2008 4:03 PM PDTAt 3780 cGy Doing very well Pain is less in left chest Breathing well No dysphagia, no odynophagia BP 145/82 | Pulse 116 | Temp (Src) 35.4 C (95.8 F) (Oral) | Wt 89.449 kg (197 lb 3.2 oz ) | SpO2 97% Lungs clear Finish RT and chemotherapy both on 10/19 [facility] with a new chest CT 11/16 Evaluate for surgical resection at that FUP [facility] Evelyn Vicente MD - 10/13/2008 3:57 PM PDT 10/13/2008 3:46 PM Ammon Tracy is a 73 y.o. 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 here today during treatment for a weekly visit. He has completed 21 fractions of a planned 25, to a total of 3780 of a planned 4500cGy. S: He notes feeling better. Used enema x 1 with relief. Breathing is good. O:Current outpatient prescriptions Medication Sig albuterol-ipratropium 18-103 [...] prod ucts per 24 hour period.) BP 145/82, Pulse 116, Temperature 35.4 C (95.8 F), Temperature source Oral, Wt 89.449 k g (197 lbs 3.2 oz)( < 3 %ile), SpO2 97%. Ammon Tracy's mode of transportation is ambulatory. The skin shows moderately br isk erythema, post>ant The patient looks good. A/P: Chemo tomorrow. Finish RT Thursday 10/19. We would like to see him in [facility] 11[place]16/08 , with CT prior. Order for CT chest in [facility]. Please have him go to lab prior to CT. Marifer led him to watch for fever this next week. The patient's chart and films were reviewed. Mila Stoddard - 3:38 PM PDT Nursing Note Vitals: BP 145/82 | Pulse 116 | Temp (Src) 35.4 C (95.8 F) (Oral) | Wt 89.449 kg (197 l b 3.2 oz) | SpO2 97% at ; Pain Score: 0, location: Last 3 Encounter Wt Readings: Date Wt 10/13/2008 89.449 kg (197 lb 3.2 oz) 10/06/2008 84.278 kg (185 lb 12.8 oz) 09/29/2008 87.499 kg (192 lb 14.4 oz) #Fractions: 21, Planned Fractions/Dose: , Current Dose: 3780 Subjective: feeling much much better today. Denies any side effects of the radiation. Sofía g pain pills-1 in am and 1 in pm. Got fluids today in chemo, and also states he is drinking lots more. Objective: Pt is much more upbeat, energetic, and happy today. Skin looks excellent, no de squamtion. Nursing Plan: continue supportive care. Electronically signed by Mila Martinez at 3:43 PM PDTdocumented in this encounter Plan of Treatment Not on filedocumented as of this encounter Visit Diagnoses + + | Diagnosis | + + | OTV/Radiation Therapy Radiotherapy | + + documented in this encounter"
--- OUTSIDE RECORDS SUMMARY | ~2019-04-10 | XMS | Encounter Summary ---
Demographics + + + | Address | [address] | | | [place] [address] | + + + | Home Phone [...] Team Providers + +------+ + | Care Grounds Keeper Name | Role | Phone | + [...] Tran | | | | | | [place], [place] | | | | | | [address] | | | | | | [phone] | | | +--------+ + + + [...]
--- OUTSIDE RECORDS SUMMARY | ~2019-04-10 | XMS | Encounter Summary ---
Demographics + + + | Address | [address] | | | [place] [address] | + + + | Home Phone [...] Team Providers + +------+ + | Care Lumber Handler Name | Role | Phone | + [...] | | | | | (HCC) | hCaris Valdes | Mailcode: | | | | | Procedures | [place], [place] | [address] | | | | | SIMULATION, | [address] [facility] | | | | | RADIATION | | Hospital | | | | | | | [facility] | | | | | | | [place], [place] | | | | | | | [address] | | | | | | | Phone: | | | | | | | [phone] | | | | | | | Fax: | | | | | | | [phone] | + +--------+ + + + + [...] | [address] | Charis Valdes [place], | (Primary Dx) | | | | [place] | [place] [address] | | | | | [place], [place] | [phone] | | | | | [address] | | | | | | [phone] | | | +--------+---------+ + + + [...] in social work and housing at the [facility], call you about housing here in [place] during treatment. We will setup the bone scan and CT Pelvis as well as thebeacon placement to coordinate over the same trip. START TAKING THE BICALUTAMIDE TWO DAYS BEFORE THE BONE SCAN IS SCHEDULED, NOT ANY EARLIER!! One to two weeks after the beacon placement we will setup the simulation (planning) appoint ment here at [facility]. You should plan to start radiation two [...] clinic and reviewed the Introduction to the [facility] Radiation Oncology Departme nt pt information handout. [...] in regards to lung cancer by his manager furniture Dr. Russo yesterday. Consultation was requested to [...] inhaler Budenosinide inhaler REVIEW OF SYSTEMS: The [facility] Radiation Oncology Questionnaire was completed by [...] is a 79 y.o. male with a [place] 8 (in 3 of 12 cores) adenocarcinoma of the prostate. His pre-treatment PSA is 26.5 ng/mL from 08/02/2014. We counseled him abou t the different treatment options. We discussed in detail the treatment options for high-ri sk prostate cancer as defined by NCCN guidelines: Low (T1 - T2a and Shayan score 2 - 6 and PSA < 10 ng/mL), Intermediate (W3t-O4s or [place] score of 7 or PSA 10 - 20 ng/mL), High (T3 a or [place] score 8 - 10 or PSA > [...] randomized trials ( SWOG 8794 and EORTC 10248) have demonstrated a significant benefit with the [...] coordinate with injection, beacon placement here at [facility]. His previous bone scan had a right rib lesion that was equivocal but though to be from tra sarah. If these are negative we would plan to treat to 70 Gy in 28 fractions, ~5.5 weeks, with two years of androgen deprivation therapy, 30 days of bicalutamide followed by 6 month leup rolide injections coordinated at the [facility] urology team. [place] beacons to be place [...]
--- OUTSIDE RECORDS SUMMARY | ~2019-04-10 | XMS | Encounter Summary ---
Demographics + + + | Address | [address] | | | [place] [address] | + + + | Home Phone [...] Team Providers + +------+ + | Care Medical Assistant Cardiology Name | Role | Phone | + [...] Tran | | | | | | [place], [place] | | | | | | [address] | | | | | | [phone] | | | +--------+ + + + [...]
--- OUTSIDE RECORDS SUMMARY | ~2019-04-10 | XMS | Encounter Summary ---
Demographics + + + | Address | [address] | | | [place] [address] | + + + | Home Phone [...] Team Providers + +------+ + | Care Supervisor Concrete Stone Finishing Name | Role | Phone | + [...] | | | | | Procedures | [place], [place] | [address] | | | | | SIMULATION, | [address] [facility] | | | | | RADIATION | | Hospital | | | | | | | [facility] | | | | | | | [place], [place] | | | | | | | [address] | | | | | | | Phone: | | | | | | | [phone] | | | | | | | Fax: | | | | | | | [phone] | + +--------+ + + + + [...] | [address] | Charis Valdes [place], | (Primary Dx) | | | | [place] | [place] [address] | | | | | [place], [place] | [phone] | | | | | [address] | | | | | | [phone] | | | +--------+---------+ + + + [...] in [facility], call you about housing here in [place] during treatment. We will setup the bone scan and CT Pelvis as well as thebeacon placement to coordinate over the same trip. START TAKING THE BICALUTAMIDE TWO DAYS BEFORE THE BONE SCAN IS SCHEDULED, NOT ANY EARLIER!! One to two weeks after the beacon placement we will setup the simulation (planning) appoint ment here at [facility]. You should plan to start radiation two [...] clinic and reviewed the Introduction to the [facility] Radiation Oncology Departme nt pt information handout. [...] in regards to lung cancer by his square shear operator Dr. Russo yesterday. Consultation was requested to [...] inhaler Budenosinide inhaler REVIEW OF SYSTEMS: The [facility] Radiation Oncology Questionnaire was completed by the [...] is a 79 y.o. male with a [place] 8 (in 3 of 12 cores) adenocarcinoma of the prostate. His pre-treatment PSA is 26.5 ng/mL from 08/02/2014. We counseled him abou t the different treatment options. We discussed in detail the treatment options for high-ri sk prostate cancer as defined by NCCN guidelines: Low (T1 - T2a and Shayan score 2 - 6 and PSA < 10 ng/mL), Intermediate (R1b-R1w or [place] score of 7 or PSA 10 - 20 ng/mL), High (T3 a or [place] score 8 - 10 or PSA > [...] randomized trials ( SWOG 8794 and EORTC 14684) have demonstrated a significant benefit with the [...] coordinate with injection, beacon placement here at [facility]. His previous bone scan had a right rib lesion that was equivocal but though to be from tra sarah. If these are negative we would plan to treat to 70 Gy in 28 fractions, ~5.5 weeks, with two years of androgen deprivation therapy, 30 days of bicalutamide followed by 6 month leup rolide injections coordinated at the [facility]. [place] beacons to be place [...]
--- OUTSIDE RECORDS SUMMARY | ~2019-04-10 | XMS | Encounter Summary ---
Demographics + + + | Address | [address] | | | [place] [address] | + + + | Home Phone [...] Team Providers + +------+ + | Care Quality Assurance Name | Role | Phone | + [...] Tran | | | | | | [place], [place] | | | | | | [address] | | | | | | [phone] | | | +--------+ + + + [...]
--- OUTSIDE RECORDS SUMMARY | ~2019-04-10 | XMS | Encounter Summary ---
Demographics + + + | Address | [address] | | | [place] [address] | + + + | Home Phone [...] Team Providers + +------+ + | Care Salesperson Art Objects Name | Role | Phone | + +------+ + PCP | Unavailable | + +------+ + Encounter Details +--------+ + + + + | Date | Type | Department | Care Team | Description | +--------+ + + + + | 10/15/ | Hospital | Radiation Oncology | | | | 2008 | Encounter | at [facility] [address] | | | | | | [address] | | | | | | [place] | | | | | | [place], [place] | | | | | | [address] | | | | | | [phone] | | | +--------+ + + + [...]
--- OUTSIDE RECORDS SUMMARY | ~2019-04-10 | XMS | Encounter Summary ---
Demographics + + + | Address | [address] | | | [place] [address] | + + + | Home Phone [...] Team Providers + +------+ + | Care Stone Spreader Operator Name | Role | Phone | [...] Description | +--------+---------+ + + + | 10/05/ | Office | Radiation Oncology | Rishabh Quan MD | Radiotherapy | | 2014 | Visit | at [facility] [address] | [address] | (Primary Dx) | | | | [address] | Charis Valdes [place], | | | | | [place] | [place] [address] | | | | | [place], [place] | [phone] | | | | | [address] | | | | | | [phone] | | | +--------+---------+ + + + [...] + + + | Blood Pressure | 137/80 | 10/05/2014 9:52 AM | | | | | PDT | | + + + + + | Pulse | 69 | 10/05/2014 9:52 AM | | | | | PDT | | + + + + + | Temperature | 37 C (98.6 F) | 10/05/2014 9:52 AM | | | | | PDT | | + + + + + | Respiratory Rate | - | - | | + + + + + | Oxygen Saturation | 98% | 10/05/2014 9:52 AM | | | | | PDT | | + + + + + | Inhaled Oxygen | - | - | | | Concentration | | | | + + + + + | Weight | 81.3 kg (179 lb 3.2 | 10/05/2014 9:52 AM | | | | oz) | PDT | | + + + + + | Height | - | - | | + + + + + | Body Mass Index | 26.46 | 09/08/2014 5:13 PM | | | | | PDT | | + + + + + documented in this encounter Patient Instructions Patient Instructions Rishabh Quan MD - 10/05/2014 10:26 AM PDTIt was great seeing you augustine ferguson. Please go to the lab for a PSA on Sunday and again in 3 months and 6 months from today. 10/05/2014 The lab will not notify you of the date. You just have to show up. The order is already i n the computer system. Return to see us in 6 months. documented in this encounter Progress Notes Rishabh Quan MD - 10/05/2014 10:23 AM PDTFormatting of this note might be different from t he original. 10/05/2014 10:24 AM 23 of 28 fractions Urination Ammon houston notes nocturia of 1-2 times per night. He notes diff iculty initiating his stream. GI: He averages 1 bowel movements every other day with metamucil. General: His energy level is good. Physical exam is unremarkable. Vital signs documented in the nursing note. Chart reviewed. Continue with radiation. f/u 6 months. PSA on Sunday and q 3 months. 09/28/2014 6:16 PM 18 of 28 fractions [...] 8:48 AM 8 of 28 fractions Urination Ammon houston notes nocturia of 4-5 times per night. 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 This was treated successfully with jose adjuvant radiotherapy followed by surgical resection. Stage cT3a, [place] 4+4 (3 of 12 cores), adenocarcinoma of the prostate. His pre-treatment PSA is 26.5 ng/mL drawn on 08/03/14. He is to be treated to a total dose of 70 Gy over 28 fra ctions with an IMRT technique with image guidance using [place] beacons. The patient will be receiving concurrent [...] films were reviewed. Will try some metamucil. Rick Moore RN - 9:52 AM PDT Nursing Note Patient here for an On Treatment Visit. Completed 23 fractions of a planned 28. Current dose 5750 cGy of total 7000 cGy. Vitals/Pain Level: BP 137/80 | Pulse 69 | Temp (Src) 37 C (98.6 F) (Oral) | Wt 81.285 k g (179 lb 3.2 oz) | SpO2 98% | BMI 26.45 kg/(m^2) Pain Score: 0 Wt Readings from Last 3 Encounters: 10/05/14 81.285 kg (179 lb 3.2 oz) 09/28/14 80.468 kg (177 lb 6.4 oz) 09/22/14 79.969 kg (176 lb 4.8 oz) No results for input(s): WBC, HB, HCT, PLT, BUN, CR, NA, K, MG in the last 720 hours. Subjective: Pt reports 2/10 fatigue level. Pt c/o dysuria, "especially in afternoon", freq uency and urgency with urination, nocturia 4-5x per night, last night none, "seems to be les sening"; last BM today, constipated over past couple of weeks, started taking Metamucil appr ox 3 days. Pt denies any pain, hematuria, diarrhea, fever or chills. Objective: Pt alert, oriented, and ambulatory. Accompanied by self. Nursing Plan: Continue supportive care. Will continue to monitor. documented in this en counter Plan of Treatment Not on filedocumented as of this encounter Visit Diagnoses + + | Diagnosis | + + | Radiotherapy - Primary | + + documented in this encounter
--- OUTSIDE RECORDS SUMMARY | ~2019-04-10 | XMS | Encounter Summary ---
Demographics + + + | Address | [address] | | | [place] [address] | + + + | Home Phone [...] Team Providers + +------+ + | Care Shell Freezing Machine Operator Name | Role | Phone [...] Tran | | | | | | [place], [place] | | | | | | [address] | | | | | | [phone] | | | +--------+ + + + [...]
--- OUTSIDE RECORDS SUMMARY | ~2019-04-10 | XMS | Encounter Summary ---
Demographics + + + | Address | [address] | | | [place] [address] | + + + | Home Phone [...] Author + + + | Author | [facility] | + + + | Organization | [facility] | + + + | Address | Unknown | + + + | Phone | Unavailable | + + + Support + + +---------+ + | Name | Relationship | Address | Phone | + + +---------+ + | Alia Tracy | ECON | Unknown | | + + +---------+ + Care Team Providers + +------+ + | Care Douper Name | Role | Phone | + [...] Eugenia Sousa MD | Radiotherapy | | 2015 | Visit | at [facility] [address] [facility] | [address] | (Primary Dx) | | | | [address] | [place], [place] | | | | | [place] | [address] | | | | | [place], [place] | [phone] | | | | | [address] | | | | | | [phone] | | | +--------+---------+ + + + [...] MD Staff Physician Dept of Radiation Medicine alBunny brice MD, PhD - 09/22/2014 10:21 AM PDT [...] male with a history of a Stage [id number] SCCA of TIMBO with posterior CW and [...] an IMRT technique with image guidance using [place] beacons. The patient will be receiving concurrent [...]
--- OUTSIDE RECORDS SUMMARY | ~2019-04-10 | XMS | Encounter Summary ---
Demographics + + + | Address | [address] | | | [place] [address] | + + + | Home Phone [...] Team Providers + +------+ + | Care Junction Maker Name | Role | Phone | + +------+ + | No Pcp Per Patient | PCP | Unavailable | + +------+ + Encounter Details +--------+--------+ + + + | Date | Type | Department | Care Team | Description | +--------+--------+ + + + | 02/06/ | Travel [...]
--- OUTSIDE RECORDS SUMMARY | ~2019-04-10 | XMS | Encounter Summary ---
Demographics + + + | Address | [address] | | | [place] [address] | + + + | Home Phone [...] Team Providers + +------+ + | Care Educational Assistant Teacher Name | Role | Phone | + +------+ + PCP | Unavailable | + +------+ + Encounter Details +--------+ + + + + | Date | Type | Department | Care Team | Description | +--------+ + + + + | 07/23/ | Document-Sc | UNKNOWN DEPARTMENT | Radiologist, Nuc | | | 2008 | anned | [address] | [facility] | | | | | [address] | | | | | | [place], [place] | | | | | | [address] | | | +--------+ + + + [...]
--- OUTSIDE RECORDS SUMMARY | ~2019-04-10 | XMS | Encounter Summary ---
Demographics + + + | Address | [address] | | | [place] [address] | + + + | Home Phone [...] Team Providers + +------+ + | Care Matrix Worker Name | Role | Phone | [...] | | | | | prostate | [facility] | [facility] | | | | | (HCC) | Way | [address], | | | | | Procedures | [place], [place] | [place] | | | | | Consult, | [address] | [address] | | | | | treat, f/u | Phone: | Phone: | | | | | | [phone] | [phone] | | | | | | Fax: | Fax: | | | | | | [phone] | [phone] | +--------+--------+ + + + + Encounter Details +--------+ + + + + | Date | Type | Department | Care Team | Description | +--------+ + + + + | 09/10/ | Hospital | Radiation Oncology | | | | 2014 | Encounter | at [facility] [address] | | | | | | [address] | | | | | | [place] [address] | | | | | | [place], [place] | | | | | | [address] | | | | | | [phone] | | | +--------+ + + + [...]
--- OUTSIDE RECORDS SUMMARY | ~2019-04-10 | XMS | Encounter Summary ---
Demographics + + + | Address | [address] | | | [place] [address] | + + + | Home Phone [...] Team Providers + +------+ + | Care Epic Cupid Specialists Name | Role | Phone | + [...] neoplasm of | [address] | [address] [facility] | | | | | prostate | [facility] | [facility] | | | | | (HCC) | Way | Rd [place], | | | | | Procedures | [place], [place] | [place] | | | | | Consult, | [address] | [address] | | | | | treat, f/u | Phone: | Phone: | | | | | | [phone] | [phone] | | | | | | Fax: | Fax: | | | | | | [phone] | [phone] | +--------+--------+ + + + + Encounter Details +--------+ + + + + | Date | Type | Department | Care Team | Description | +--------+ + + + + | 09/11/ | Hospital | Radiation Oncology | | | | 2014 | Encounter | at [facility] [address] | | | | | | [address] | | | | | | [address] | | | | | | [place], [place] | | | | | | [address] | | | | | | [phone] | | | +--------+ + + + [...]
--- OUTSIDE RECORDS SUMMARY | ~2019-04-10 | XMS | Encounter Summary ---
Demographics + + + | Address | [address] | | | [place] [address] | + + + | Home Phone [...] + + | Author | [facility] | + + + | Organization | [facility] | + + + | Address | Unknown | + + + | Phone | Unavailable | + + + Support + + +---------+ + | Name | Relationship | Address | Phone | + + +---------+ + | Alia Tracy | ECON | Unknown | | + + +---------+ + Care Team Providers + +------+ + | Care Air Hoist Operator Name | Role | Phone | [...] Tran | | | | | | [place], [place] | | | | | | [address] | | | | | | [phone] | | | +--------+ + + + [...]
--- OUTSIDE RECORDS SUMMARY | ~2019-04-10 | XMS | Encounter Summary ---
Demographics + + + | Address | [address] | | | [place] [address] | + + + | Home Phone [...] Team Providers + +------+ + | Care Weather Observer Name | Role | Phone | + [...] Tran | | | | | | [place], [place] | | | | | | [address] | | | | | | [phone] | | | +--------+ + + + [...]
--- OUTSIDE RECORDS SUMMARY | ~2019-04-10 | XMS | Encounter Summary ---
Demographics + + + | Address | [address] | | | [place] [address] | + + + | Home Phone [...] Team Providers + +------+ + | Care Portfolio Lead Name | Role | Phone | [...] Tran | | | | | | [place], [place] | | | | | | [address] | | | | | | [phone] | | | +--------+ + + + [...]
--- OUTSIDE RECORDS SUMMARY | ~2019-04-10 | XMS | Encounter Summary ---
Demographics + + + | Address | [address] | | | [place] [address] | + + + | Home Phone [...] Team Providers + +------+ + | Care Caramel Cutter Helper Name | Role | Phone | [...] at [facility] [address] | ,PhD [address] | | | | | [address] | [address] | | | | | [place] | [place], [place] | | | | | [place], [place] | [address] | | | | | [address] | [phone] | | | | | [phone] | | | +--------+ + + + [...]
--- OUTSIDE RECORDS SUMMARY | ~2019-04-10 | XMS | Encounter Summary ---
Demographics + + + | Address | [address] | | | [place] [address] | + + + | Home Phone | | + + + | Preferred Language | Unknown | + + + | Marital Status | Single | + + + | Baptist Affiliation | Unknown | + + + | Race | Unknown | + + + | Ethnic Group | Unknown | + + + Author + + + | Author | [facility] | | | and [place] | + + + | Organization | [facility] | | | [...] Team Providers + +------+ + | Care Welding Equipment Repairer Supervisor Name | Role | Phone | + +------+ + PCP | Unavailable | + +------+ + Encounter Details +--------+ + + + + | Date | Type | Department | Care Team | Description | +--------+ + + + + | 10/04/ | Hospital | [facility] | Víctor Schwartz | | | 1995 | Encounter | MED CTR XRAY [address] | [address] | | | | | [place] | [facility] | | | | | [place] [address] | [place] | | | | | [phone] | 688332 | | | | | | | [...]
--- OUTSIDE RECORDS SUMMARY | ~2019-04-10 | XMS | Encounter Summary ---
Demographics + + + | Address | [address] | | | [place] [address] | + + + | Home Phone | | + + + | Preferred Language | Unknown | + + + | Marital Status | Single | + + + | Latter-Day Affiliation | Unknown | + + + [...] Providers + +------+ + | Care Cloth Shrinking Supervisor Name | Role | Phone | [...] | | 2019 | Visit | at [facility] [address] | [address] | radiotherapy | | | | [address] | [address] [place], | (Primary Dx) | | | | [address] | [place] [address] | | | | | [place], [place] | [phone] | | | | | [address] | | | | | | [phone] | | | +--------+---------+ + + + [...] AM PDTFUP with new chest CT in [place] [address] more to go documented in this encounter Progress Notes Ye Doss MD - 02/11/2019 11:20 AM PDTJust starting this SBRT yesterday history of a Stage [id number] SCCA of TIMBO with posterior CW and [...] an IMRT technique with image guidance using [employer], completed 10/09/14. The patient will be receiving [...]
--- OUTSIDE RECORDS SUMMARY | ~2019-04-10 | XMS | Encounter Summary ---
Demographics + + + | Address | [address] | | | [place] [address] | + + + | Home Phone [...] Team Providers + +------+ + | Care Solution Manager Name | Role | Phone | [...] neoplasm of | [address] | [address] [facility] | | | | | prostate | [facility] | [facility] | | | | | (HCC) | Way | [address] [place], | | | | | Procedures | [place], [place] | [place] | | | | | Consult, | [address] | [address] | | | | | treat, f/u | Phone: | Phone: | | | | | | [phone] | [phone] | | | | | | Fax: | Fax: | | | | | | [phone] | [phone] | +--------+--------+ + + + + Encounter [...] Tran | | | | | | [place], [place] | | | | | | [address] | | | | | | [phone] | | | +--------+ + + + [...]
--- OUTSIDE RECORDS SUMMARY | ~2019-04-10 | XMS | Encounter Summary ---
Demographics + + + | Address | [address] | | | [place] [address] | + + + | Home Phone [...] Team Providers + +------+ + | Care Bowl Attendant Name | Role | Phone | [...] | | 2015 | Visit | at [facility] [address] [facility] | [address] | (Primary Dx) | | | | [address] | [place], [place] | | | | | [place] | [address] | | | | | [place], [place] | [phone] | | | | | [address] | | | | | | [phone] | | | +--------+---------+ + + + [...] male with a history of a Stage [id number] SCCA of TIMBO with posterior CW and [...] an IMRT technique with image guidance using [employer]. The patient will be receiving concurrent [...]
--- OUTSIDE RECORDS SUMMARY | ~2019-04-10 | XMS | Encounter Summary ---
Demographics + + + | Address | [address] | | | [place] [address] | + + + | Home Phone [...] Team Providers + +------+ + | Care Lining Folder Name | Role | Phone | + [...] neoplasm of | [address] | [address] [facility] | | | | | prostate | [facility] | [facility] | | | | | (HCC) | Way | [address] [place], | | | | | Procedures | [place], [place] | [place] | | | | | Consult, | [address] | [address] | | | | | treat, f/u | Phone: | Phone: | | | | | | [phone] | [phone] | | | | | | Fax: | Fax: | | | | | | [phone] | [phone] | +--------+--------+ + + + + Encounter Details +--------+ + + + + | Date | Type | Department | Care Team | Description | +--------+ + + + + | 09/30/ | Hospital | Radiation Oncology | | | | 2014 | Encounter | at [facility] [address] | | | | | | [address] | | | | | | [place] [address] | | | | | | [place], [place] | | | | | | [address] | | | | | | [phone] | | | +--------+ + + + [...]
--- OUTSIDE RECORDS SUMMARY | ~2019-04-10 | XMS | Encounter Summary ---
Demographics + + + | Address | [address] | | | [place] [address] | + + + | Home Phone [...] + + + | Author | [facility] | + + + | Organization | [facility] | + + + | Address | Unknown | + + + | Phone | Unavailable | + + + Support + + +---------+ + | Name | Relationship | Address | Phone | + + +---------+ + | Alia Tracy | ECON | Unknown | | + + +---------+ + Care Team Providers + +------+ + | Care Beam Carrier Hauler Pusher Name | Role | Phone | + [...] Tran | | | | | | [place], [place] | | | | | | [address] | | | | | | [phone] | | | +--------+ + + + [...]
--- OUTSIDE RECORDS SUMMARY | ~2019-04-10 | XMS | Encounter Summary ---
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 Consultation was requested to evaluate for pre-operati ve vs. definitive radiation in conjunction with chemotherapy. HPI: He underwent CXR to evaluate left anterior CW pain in 04/2008, which showed a 3cm cavitary TIMBO mass. Subsequent CT chest at [facility] 06/17/08 showed a 4cm cavitary mass with [...] transverse process. His case was discussed at [place] multi-disci plinary lung conference 08/17/08 with a [...] Use: 2 drinks daily Social History Narrative [employer], then [employer]. Plays [employer]. ALLERGIES: NKDA MEDICATIONS: Aspirin 81mg Ec Tab QD Albuterol 90/Ipratrop 18mcg 200d QID Hydrochlorothiazide 25mg QD Metformin Hcl 1000mg BID Omeprazole 20mg QD Simvastatin 80mg QD Vardenafil Hcl 20mg Lisinopril 20mg QD Terazosin Hcl 2mg QD REVIEW OF SYSTEMS: The [facility] Radiation Oncology Questionnaire was completed by the [...] Accession #: [id number] Submitted by: Practitioner:TRMEAYNE ADAMSON MD MICROSCOPIC EXAM: (Date Spec taken: [...] or concerns. EVELYN EDWARDS MD RADIATION MEDICINE [address] [place] [address] Mailcode: [address] [place] [address] CC: Oj Russo MD This note was uploaded into the [place] electronic medical record so it can be viewed by the ref erring provider, Oj Russo MD. documented in this e ncounter Plan of Treatment Not on filedocumented as of this encounter Visit Diagnoses Not on filedocumented in this encounter"
--- OUTSIDE RECORDS SUMMARY | ~2019-04-10 | XMS | Encounter Summary ---
Demographics + + + | Address | [address] | | | [place] [address] | + + + | Home Phone [...] Team Providers + +------+ + | Care Criminal Judge Name | Role | Phone | + [...] [place] | | | | | | [address] | | | | | | [phone] | | | +--------+ + + + [...]
--- OUTSIDE RECORDS SUMMARY | ~2019-04-10 | XMS | Encounter Summary ---
Demographics + + + | Address | [address] | | | [place] [address] | + + + | Home Phone [...] Providers + +------+ + | Care Metal Fabricating Inspector Name | Role | Phone | [...] 09/22/ | Office | Radiation Oncology | Ye Doss MD | OTV/Radiation | | 2008 | Visit | at [facility] [address] [facility] | [address] | Therapy | | | | [address] | [address] [place], | | | | | [place] | [place] [address] | | | | | [place], [place] | [phone] | | | | | [address] | | | | | | [phone] | | | +--------+---------+ + + + [...] + + + | Blood Pressure | 149/79 | 09/22/2008 12:31 PM | | | | | PDT | | + + + + + | Pulse | 95 | 09/22/2008 12:22 PM | | | | | PDT | | + + + + + | Temperature | 35.8 C (96.4 F) | 09/22/2008 12:22 PM | | | | | PDT | | + + + + + | Respiratory Rate | 18 | 09/22/2008 12:22 PM | | | | | PDT | | + + + + + | Oxygen Saturation | 96% | 09/22/2008 12:22 PM | | | | | PDT | | + + + + + | Inhaled Oxygen | - | - | | | Concentration | | | | + + + + + | Weight | 90.8 kg (200 lb 3.2 | 09/22/2008 12:22 PM | | | | oz) | PDT | | + + + + + | Height | - | - | | + + + + + | Body Mass Index | - | - | | + + + + + documented in this encounter Progress Notes Ye Doss MD - 09/22/2008 12:52 PM PDTAt 1260 cGy Feels good Pain is better Finished first chemotherapy yesterday BP 149/79 | Pulse 95 | Temp (Src) 35.8 C (96.4 F) (Oral) | Resp 18 | Wt 90.81 kg (200 l b 3.2 oz) | SpO2 96% Lungs clear No back tenderness No L axillary nodes Continue RT Taking po magnesium Watch for fever next week JH velyn Edwards MD - 09/22/2008 12:44 PM PDT 09/22/2008 12:38 PM Ammon Tracy is a 73 y.o. 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 here today during treatment for a weekly visit. He has completed 7 fractions of a planned 25, to a total of 1260 of a planned 4500cGy. S: He notes pain at night because he wasn't taking his vicodin because of worries of hepatotox icty. Takes 2 tabs q6 now, and this relieves his pain. Swallowing is good. No respiratory problems. He does clear his throat often. Chemo yesterday. O:Current outpatient prescriptions Medication Sig albuterol-ipratropium 18-103 [...] ambulatory. The skin shows light erythem a. The patient looks good. A/P: Doing good. Continue RT. Encouraged him to eat and maintain his weight. Take Mag Ox 420m g BID. Encouraged him to eat salt. Cautioned to watch for fever. The patient's chart and films were reviewed. Jia Olvera - 0 09/22/2008 12:26 PM PDT Nursing Note Vitals: BP 179/101 | Pulse 95 | Temp (Src) 35.8 C (96.4 F) (Oral) | Resp 18 | Wt 90.81 kg (200 lb 3.2 oz) | SpO2 96% Pain Score: 0 SpO2 on: RA Last 3 Encounter Wt Readings: Date Wt 09/22/2008 90.81 kg (200 lb 3.2 oz) 09/15/2008 93.895 kg (207 lb) Chemo: last administration: 09/21/08, next administration: 10/13/08 #Fractions: 7, Planned Fractions/Dose: , Current Dose: 1260 Subjective:fatigued; nausea last week, but none since; pain better with full dose analgesic s Nursing Intervention: BUN 25 and wt down 7 pounds this week- enc po food and fluids; watch BP documented in this enco unter Plan of Treatment Not on filedocumented as of this encounter Visit Diagnoses + + | Diagnosis | + + | OTV/Radiation Therapy Radiotherapy | + + documented in this encounter"
--- OUTSIDE RECORDS SUMMARY | ~2019-04-10 | XMS | Encounter Summary ---
Demographics + + + | Address | [address] | | | [place] [address] | + + + | Home Phone [...] Team Providers + +------+ + | Care Branding Machine Operator Name | Role | Phone [...] [place] | | | | | | [address] | | | | | | [phone] | | | +--------+ + + + [...]
--- OUTSIDE RECORDS SUMMARY | ~2019-04-10 | XMS | Encounter Summary ---
Demographics + + + | Address | [address] | | | [place] [address] | + + + | Home Phone [...] Team Providers + +------+ + | Care Apprentice/Lineman Name | Role | Phone | + [...] Tran | | | | | | [place], [place] | | | | | | [address] | | | | | | [phone] | | | +--------+ + + + [...] with | | | | | | [place]. Patient | | | | | | [...] DEPARTMENT OF | [address] | [place], [place] [address] | | | PATHOLOGY | [address] [...] with | | | | | | [place]. Patient | | | | | | [...] | + + + + + | [facility] | [address] | [place] [address] | | | PATHOLOGY | NAOMI AGUSTIN | | | + + + + + documented in this encounter Visit Diagnoses Not on filedocumented in this encounter"
--- OUTSIDE RECORDS SUMMARY | ~2019-04-10 | XMS | Encounter Summary ---
Demographics + + + | Address | [address] | | | [place] [address] | + + + | Home Phone [...] Team Providers + +------+ + | Care General Internal Medicine Doctor Name | Role | Phone | + [...] Tran | | | | | | [place], [place] | | | | | | [address] | | | | | | [phone] | | | +--------+ + + + [...]
--- OUTSIDE RECORDS SUMMARY | ~2019-04-10 | XMS | Encounter Summary ---
Demographics + + + | Address | [address] | | | [place] [address] | + + + | Home Phone | | + + + | Preferred Language | Unknown | + + + | Marital Status | Single | + + + | Anglican Affiliation | Unknown | + + + [...] Team Providers + +------+ + | Care Fire Code Inspector Name | Role | Phone | [...] neoplasm of | [address] | [address] [facility] | | | | | prostate | [facility] | [facility] | | | | | (HCC) | Way | Rd [place], | | | | | Procedures | [place], [place] | [place] | | | | | Consult, | [address] | [address] | | | | | treat, f/u | Phone: | Phone: | | | | | | [phone] | [phone] | | | | | | Fax: | Fax: | | | | | | [phone] | [phone] | +--------+--------+ + + + + Encounter Details +--------+ + + + + | Date | Type | Department | Care Team | Description | +--------+ + + + + | 09/22/ | Hospital | Radiation Oncology | | | | 2014 | Encounter | at [facility] [address] | | | | | | [address] | | | | | | [place] [address] | | | | | | [place], [place] | | | | | | [address] | | | | | | [phone] | | | +--------+ + + + [...]
--- OUTSIDE RECORDS SUMMARY | ~2019-04-10 | XMS | Encounter Summary ---
Demographics + + + | Address | [address] | | | [place] [address] | + + + | Home Phone | | + + + | Preferred Language | Unknown | + + + | Marital Status | Single | + + + | Jehovah'S Witness Affiliation | Unknown | + + + [...] Providers + +------+ + | Care Chief Solution Architect Name | Role | Phone | + +------+ + PCP | Unavailable | + +------+ + Encounter Details +--------+ + + + + | Date | Type | Department | Care Team | Description | +--------+ + + + + | 08/31/ | Abstract | Radiation Oncology | Ye Doss MD | | | 2008 | | at [facility] [address] [facility] | [address] | | | | | [address] | [address] [facility] | | | | | [place] [address] | [place] [address] | | | | | [place], [place] | [phone] | | | | | [address] | | | | | | [phone] | | | +--------+ + + + [...]
--- OUTSIDE RECORDS SUMMARY | ~2019-04-10 | XMS | Encounter Summary ---
Demographics + + + | Address | [address] | | | [place] [address] | + + + | Home Phone [...] Team Providers + +------+ + | Care Traffic Operations Engineer Name | Role | Phone | [...] Tran | | | | | | [place], [place] | | | | | | [address] | | | | | | [phone] | | | +--------+ + + + [...]
--- OUTSIDE RECORDS SUMMARY | ~2019-04-10 | XMS | Encounter Summary ---
Demographics + + + | Address | [address] | | | [place] [address] | + + + | Home Phone [...] Providers + +------+ + | Care Software Systems Architect Name | Role | Phone | [...] Rd | | | | | | [place], [place] | | | | | | [address] | | | +--------+ + + + [...]
--- OUTSIDE RECORDS SUMMARY | ~2019-04-10 | XMS | Encounter Summary ---
Demographics + + + | Address | [address] | | | [place] [address] | + + + | Home Phone [...] Team Providers + +------+ + | Care Captain Cannery Tender Name | Role | Phone | [...] neoplasm of | [address] | [address] [facility] | | | | | prostate | [facility] | [facility] | | | | | (HCC) | Way | Rd [place], | | | | | Procedures | [place], [place] | [place] | | | | | Consult, | [address] | [address] | | | | | treat, f/u | Phone: | Phone: | | | | | | [phone] | [phone] | | | | | | Fax: | Fax: | | | | | | [phone] | [phone] | +--------+--------+ + + + + Encounter Details +--------+ + + + + | Date | Type | Department | Care Team | Description | +--------+ + + + + | 09/25/ | Hospital | Radiation Oncology | | | | 2014 | Encounter | at [facility] [address] | | | | | | [address] | | | | | | [address] | | | | | | [place], [place] | | | | | | [address] | | | | | | [phone] | | | +--------+ + + + [...]
--- OUTSIDE RECORDS SUMMARY | ~2019-04-10 | XMS | Encounter Summary ---
Demographics + + + | Address | [address] | | | [place] [address] | + + + | Home Phone [...] Team Providers + +------+ + | Care Appraisal Coordinator Name | Role | Phone | + +------+ + PCP | Unavailable | + +------+ + Encounter Details +--------+ + + + + | Date | Type | Department | Care Team | Description | +--------+ + + + + | 09/02/ | Results | Radiation Oncology | Ye Doss MD | | | 2008 | Only | at [facility] [address] [facility] | [address] | | | | | [address] | [address] [facility] | | | | | [place] | [place] [address] | | | | | [place], [place] | [phone] | | | | | [address] | | | | | | [phone] | | | +--------+ + + + [...]
--- OUTSIDE RECORDS SUMMARY | ~2019-04-10 | XMS | Encounter Summary ---
Demographics + + + | Address | [address] | | | [place] [address] | + + + | Home Phone | | + + + | Preferred Language | Unknown | + + + | Marital Status | Single | + + + | Jainism Affiliation | Unknown | + + + | Race | Unknown | + + + | Ethnic Group | Other Race | + + + Author + + + | Author | [facility] | + + + | Organization | [facility] | + + + | Address | Unknown | + + + | Phone | Unavailable | + + + Support + + +---------+ + | Name | Relationship | Address | Phone | + + +---------+ + | Alia Tracy | ECON | Unknown | | + + +---------+ + Care Team Providers + +------+ + | Care Population Health Manager Name | Role | Phone | [...] Tran | | | | | | [place], [place] | | | | | | [address] | | | | | | [phone] | | | +--------+ + + + [...]
--- OUTSIDE RECORDS SUMMARY | ~2019-04-10 | XMS | Encounter Summary ---
Demographics + + + | Address | [address] | | | [place] [address] | + + + | Home Phone [...] Team Providers + +------+ + | Care Buffer Nickel Name | Role | Phone | + [...] Tran | | | | | | [place], [place] | | | | | | [address] | | | | | | [phone] | | | +--------+ + + + [...]
--- OUTSIDE RECORDS SUMMARY | ~2019-04-10 | XMS | Encounter Summary ---
Demographics + + + | Address | [address] | | | [place] [address] | + + + | Home Phone [...] Team Providers + +------+ + | Care Fur Cutting Machine Operator Name | Role | Phone [...] | on | at [facility] [address] [facility] | [address] | with patient | | | | [address] | [address] [place], | | | | | [address] | [place] [address] | | | | | [place], [place] | [phone] | | | | | [address] | | | | | | [phone] | | | +--------+ + + + [...]
--- OUTSIDE RECORDS SUMMARY | ~2019-04-10 | XMS | Encounter Summary ---
Demographics + + + | Address | [address] | | | [place] [address] | + + + | Home Phone [...] + + + | Author | [facility] | + + + | Organization | [facility] | + + + | Address | Unknown | + + + | Phone | Unavailable | + + + Support + + +---------+ + | Name | Relationship | Address | Phone | + + +---------+ + | Alia Tracy | ECON | Unknown | | + + +---------+ + Care Team Providers + +------+ + | Care Tower Climber Name | Role | Phone | + +------+ + PCP | Unavailable | + +------+ + Encounter Details +--------+ + + + + | Date | Type | Department | Care Team | Description | +--------+ + + + + | 09/02/ | Documentati | Radiation Oncology | Ye Doss MD | | | 2008 | on | at [facility] [address] [facility] | [address] | | | | | [address] | [place] [place], | | | | | [place] | [place] [address] | | | | | [place], [place] | [phone] | | | | | [address] | | | | | | [phone] | | | +--------+ + + + [...]
--- OUTSIDE RECORDS SUMMARY | ~2019-04-10 | XMS | Encounter Summary ---
Demographics + + + | Address | [address] | | | [place] [address] | + + + | Home Phone | | + + + | Preferred Language | Unknown | + + + | Marital Status | Single | + + + | Samaritan Affiliation | Unknown | + + + [...] Team Providers + +------+ + | Care Water And Fire Technician Name | Role | Phone | [...] Tran | | | | | | [place], [place] | | | | | | [address] | | | | | | [phone] | | | +--------+ + + + [...]
--- OUTSIDE RECORDS SUMMARY | ~2019-04-10 | XMS | Encounter Summary ---
Demographics + + + | Address | [address] | | | [place] [address] | + + + | Home Phone [...] Team Providers + +------+ + | Care Pony Cylinder Press Operator Name | Role | Phone | [...] | | | 2019 | | at [facility] [address] | [address] | | | | | [address] | [place] [place]des [place], | | | | | [place] [address] | [place] [address] | | | | | [place] | [phone] | | | | | [address] | | | | | | [phone] | | | +--------+ + + + [...]
--- OUTSIDE RECORDS SUMMARY | ~2019-04-10 | XMS | Encounter Summary ---
Demographics + + + | Address | [address] | | | [place] [address] | + + + | Home Phone [...] Team Providers + +------+ + | Care Equipment Detailer Name | Role | Phone | [...] neoplasm of | [address] | [address] [facility] | | | | | prostate | [facility] | [facility] | | | | | (HCC) | Way | [address] [place], | | | | | Procedures | [place], [place] | [place] | | | | | Consult, | [address] | [address] | | | | | treat, f/u | Phone: | Phone: | | | | | | [phone] | [phone] | | | | | | Fax: | Fax: | | | | | | [phone] | [phone] | +--------+--------+ + + + + Encounter Details +--------+ + + + + | Date | Type | Department | Care Team | Description | +--------+ + + + + | 09/25/ | Hospital | Radiation Oncology | | | | 2014 | Encounter | at [facility] [address] | | | | | | [address] | | | | | | [place] | | | | | | [place], [place] | | | | | | [address] | | | | | | [phone] | | | +--------+ + + + [...]
--- OUTSIDE RECORDS SUMMARY | ~2019-04-10 | XMS | Encounter Summary ---
Demographics + + + | Address | [address] | | | [place] [address] | + + + | Home Phone [...] Team Providers + +------+ + | Care Recreation Therapy Teacher Name | Role | Phone | [...] of | [address] | [address] [facility] | | | | | prostate | [facility] | [facility] | | | | | (HCC) | Way | [address], | | | | | Procedures | [place], [place] | [place] | | | | | Consult, | [address] | [address] | | | | | treat, f/u | Phone: | Phone: | | | | | | [phone] | [phone] | | | | | | Fax: | Fax: | | | | | | [phone] | [phone] | +--------+--------+ + + + + Encounter [...] Tran | | | | | | [place], [place] | | | | | | [address] | | | | | | [phone] | | | +--------+ + + + [...]
--- OUTSIDE RECORDS SUMMARY | ~2019-04-10 | XMS | Encounter Summary ---
Demographics + + + | Address | [address] | | | [place] [address] | + + + | Home Phone [...] Team Providers + +------+ + | Care Through Operator Name | Role | Phone | [...] | [address] | Char[address] [place], | Note | | | | [place] | [place] [address] | | | | | [place], [place] | [phone] | | | | | [address] | | | | | | [phone] | | | +--------+ + + + [...]
--- OUTSIDE RECORDS SUMMARY | ~2019-04-10 | XMS | Encounter Summary ---
Demographics + + + | Address | [address] | | | [place] [address] | + + + | Home Phone [...] Providers + +------+ + | Care Trade Show Specialist Name | Role | Phone | [...] Tran | | | | | | [place], [place] | | | | | | [address] | | | | | | [phone] | | | +--------+ + + + [...]
--- OUTSIDE RECORDS SUMMARY | ~2019-04-10 | XMS | Encounter Summary ---
Demographics + + + | Address | [address] | | | [place] [address] | + + + | Home Phone [...] Team Providers + +------+ + | Care Figurine Maker Name | Role | Phone | [...] neoplasm of | [address] | [address] [facility] | | | | | prostate | [facility] | [facility] | | | | | (HCC) | Way | Rd [place], | | | | | Procedures | [place], [place] | [place] | | | | | Consult, | [address] | [address] | | | | | treat, f/u | Phone: | Phone: | | | | | | [phone] | [phone] | | | | | | Fax: | Fax: | | | | | | [phone] | [phone] | +--------+--------+ + + + + Encounter Details +--------+ + + + + | Date | Type | Department | Care Team | Description | +--------+ + + + + | 09/24/ | Hospital | Radiation Oncology | | | | 2014 | Encounter | at [facility] [address] | | | | | | [address] | | | | | | [place] | | | | | | [place], [place] | | | | | | [address] | | | | | | [phone] | | | +--------+ + + + [...]
--- OUTSIDE RECORDS SUMMARY | ~2019-04-10 | XMS | Encounter Summary ---
Demographics + + + | Address | [address] | | | [place] [address] | + + + | Home Phone [...] Providers + +------+ + | Care Oil Program Compliance Specialist Name | Role | Phone | [...] 2008 | Visit | at [facility] [address] [facility] | [address] | Therapy | | | | [address] | [place] [place]des [place], | | | | | [place] | [place] [address] | | | | | [place], [place] | [phone] | | | | | [address] | | | | | | [phone] | | | +--------+---------+ + + + [...] is a 73 y.o. male with a [id number] SCCA of TIMBO with posterior CW and [...]
--- OUTSIDE RECORDS SUMMARY | ~2019-04-10 | XMS | Encounter Summary ---
Demographics + + + | Address | [address] | | | [place] [address] | + + + | Home Phone [...] Team Providers + +------+ + | Care Procurement Consultant Name | Role | Phone | [...] | | 2019 | Support | at [facility] [address] | [address] | | | | Staff | [address] | [place], [place] | | | | | [place] | [address] | | | | | [place], [place] | | | | | | [address] | | | | | | [phone] | | | +--------+ + + + [...] and is alone. The patient lives in [place]. He will stay at [facility] in [place] with his , and plans on takin [...]
--- OUTSIDE RECORDS SUMMARY | ~2019-04-10 | XMS | Encounter Summary ---
Demographics + + + | Address | [address] | | | [place] [address] | + + + | Home Phone | | + + + | Preferred Language | Unknown | + + + | Marital Status | Single | + + + | Taoist Affiliation | Unknown | + + + [...] Team Providers + +------+ + | Care Aeronautical Products Sales Engineer Name | Role | Phone | [...] Tran | | | | | | [place], [place] | | | | | | [address] | | | | | | [phone] | | | +--------+ + + + [...]
--- OUTSIDE RECORDS SUMMARY | ~2019-04-10 | XMS | Encounter Summary ---
Demographics + + + | Address | [address] | | | [place] [address] | + + + | Home Phone [...] Team Providers + +------+ + | Care Furniture Mover Name | Role | Phone | + [...] | | | 2019 | | at [facility] [address] | [address] | | | | | [address] | [place] [address], | | | | | [place] | [place] [address] | | | | | [place] | [phone] | | | | | [address] | | | | | | [phone] | | | +--------+ + + + [...]
--- OUTSIDE RECORDS SUMMARY | ~2019-04-10 | XMS | Encounter Summary ---
Demographics + + + | Address | [address] | | | [place] [address] | + + + | Home Phone [...] Team Providers + +------+ + | Care Proration Clerk Name | Role | Phone | [...] Tran | | | | | | [place], [place] | | | | | | [address] | | | | | | [phone] | | | +--------+ + + + [...]
--- OUTSIDE RECORDS SUMMARY | ~2019-04-10 | XMS | Encounter Summary ---
Demographics + + + | Address | [address] | | | [place] [address] | + + + | Home Phone [...] | + + +---------+ + | Alia Trcay | ECON | Unknown | | + + +---------+ + Care Team Providers + +------+ + | Care Library Monitor Name | Role | Phone | + +------+ + PCP | Unavailable | + +------+ + Encounter Details +--------+ + + + + | Date | Type | Department | Care Team | Description | +--------+ + + + + | 08/26/ | Embossing Machine Operator | Radiation Oncology | Ye Doss MD | Lung Cancer (HCC) | | 2008 | | at [facility] [address] | [address] | (Primary Dx) | | | | [address] | [place], | | | | | [place] | [place] [address] | | | | | [place], [place] | [phone] | | | | | [address] | | | | | | [phone] | | | +--------+ + + + [...]
--- OUTSIDE RECORDS SUMMARY | ~2019-04-10 | XMS | Encounter Summary ---
Demographics + + + | Address | [address] | | | [place] [address] | + + + | Home Phone [...] Team Providers + +------+ + | Care Nutrition Manager Name | Role | Phone | [...] | [address] | [address] [facility] | | | | | prostate | [facility] | [facility] | | | | | (HCC) | Way | Rd [place], | | | | | Procedures | [place], [place] | [place] | | | | | Consult, | [address] | [address] | | | | | treat, f/u | Phone: | Phone: | | | | | | [phone] | [phone] | | | | | | Fax: | Fax: | | | | | | [phone] | [phone] | +--------+--------+ + + + + Encounter Details +--------+ + + + + | Date | Type | Department | Care Team | Description | +--------+ + + + + | 10/02/ | Hospital | Radiation Oncology | | | | 2014 | Encounter | at [facility] [address] | | | | | | [address] | | | | | | [place] | | | | | | [place], [place] | | | | | | [address] | | | | | | [phone] | | | +--------+ + + + [...]
--- OUTSIDE RECORDS SUMMARY | ~2019-04-10 | XMS | Encounter Summary ---
Demographics + + + | Address | [address] | | | [place] [address] | + + + | Home Phone [...] Providers + +------+ + | Care Quality Control Engineer Name | Role | Phone | [...]
--- OUTSIDE RECORDS SUMMARY | ~2019-04-10 | XMS | Encounter Summary ---
Demographics + + + | Address | [address] | | | [place] [address] | + + + | Home Phone [...] Team Providers + +------+ + | Care Immunopathologist Name | Role | Phone | + +------+ + PCP | Unavailable | + +------+ + Encounter Details +--------+ + + + + | Date | Type | Department | Care Team | Description | +--------+ + + + + | 09/15/ | Hospital | Radiation Oncology | | | | 2008 | Encounter | at [facility] [address] | | | | | | [address] | | | | | | [place] | | | | | | [place], [place] | | | | | | [address] | | | | | | [phone] | | | +--------+ + + + [...]
--- OUTSIDE RECORDS SUMMARY | ~2019-04-10 | XMS | Encounter Summary ---
Demographics + + + | Address | [address] | | | [place] [address] | + + + | Home Phone [...] Team Providers + +------+ + | Care Bessemer Converter Blower Name | Role | Phone | + [...] Tran | | | | | | [place], [place] | | | | | | [address] | | | | | | [phone] | | | +--------+ + + + [...]
--- OUTSIDE RECORDS SUMMARY | ~2019-04-10 | XMS | Clinical Summary ---
Demographics + + + | Address | [address] | | | [place] [address] | + + + | Home Phone | | + + + | Preferred Language | Unknown | + + + | Marital Status | Single | + + + | Advent Affiliation | Unknown | + + + | Race | Unknown | + + + | Ethnic Group | Unknown | + + + Author + + + | Author | [facility] | | | and [place] | + + + | Organization | [facility] | | | [...] Team Providers + +------+ + | Care Riveter Name | Role | Phone | + [...]
--- OUTSIDE RECORDS SUMMARY | ~2019-04-10 | XMS | Encounter Summary ---
Demographics + + + | Address | [address] | | | [place] [address] | + + + | Home Phone [...] Team Providers + +------+ + | Care Mammalogist Name | Role | Phone | + [...] 2008 | on | at [facility] [address] [facility] | [address] | Treatment Planning | | | | [address] | [address] [place], | Note | | | | [place] | [place] [address] | | | | | [place], [place] | [phone] | | | | | [address] | | | | | | [phone] | | | +--------+ + + + [...]
--- OUTSIDE RECORDS SUMMARY | ~2019-04-10 | XMS | Encounter Summary ---
Demographics + + + | Address | [address] | | | [place] [address] | + + + | Home Phone [...] Team Providers + +------+ + | Care It Application Support Analyst Name | Role | Phone | [...] neoplasm of | [address] | [address] [facility] | | | | | prostate | [facility] | [facility] | | | | | (HCC) | Way | Rd [place], | | | | | Procedures | [place], [place] | [place] | | | | | Consult, | [address] | [address] | | | | | treat, f/u | Phone: | Phone: | | | | | | [phone] | [phone] | | | | | | Fax: | Fax: | | | | | | [phone] | [phone] | +--------+--------+ + + + + Encounter Details +--------+ + + + + | Date | Type | Department | Care Team | Description | +--------+ + + + + | 09/18/ | Hospital | Radiation Oncology | | | | 2014 | Encounter | at [facility] [address] | | | | | | [address] | | | | | | [place] | | | | | | [place], [place] | | | | | | [address] | | | | | | [phone] | | | +--------+ + + + [...]
--- OUTSIDE RECORDS SUMMARY | ~2019-04-10 | XMS | Encounter Summary ---
Demographics + + + | Address | [address] | | | [place] [address] | + + + | Home Phone [...] Team Providers + +------+ + | Care Zoology Professor Name | Role | Phone | + [...] | on | at [facility] [address] [facility] | [address] [facility] [address] | RT Clinical | | | | [address] | [place], | Treatment Planning | | | | [place] | [place] [address] | Note | | | | [place], [place] | [phone] | | | | | [address] | | | | | | [phone] | | | +--------+ + + + [...]
--- OUTSIDE RECORDS SUMMARY | ~2019-04-10 | XMS | Encounter Summary ---
Demographics + + + | Address | [address] | | | [place] [address] | + + + | Home Phone | | + + + | Preferred Language | Unknown | + + + | Marital Status | Single | + + + | Yazdanism Affiliation | Unknown | + + + [...] Team Providers + +------+ + | Care Post Partum Nurse Name | Role | Phone | + +------+ + PCP | Unavailable | + +------+ + Encounter Details +--------+ + + + + | Date | Type | Department | Care Team | Description | +--------+ + + + + | 08/31/ | Abstract | Radiation Oncology | Ye Doss MD | | | 2008 | | at [facility] [address] [facility] | [address] | | | | | [address] | [address] [facility] | | | | | [place] | [place] [address] | | | | | [place], [place] | [phone] | | | | | [address] | | | | | | [phone] | | | +--------+ + + + [...]
--- OUTSIDE RECORDS SUMMARY | ~2019-04-10 | XMS | Encounter Summary ---
Demographics + + + | Address | [address] | | | [place] [address] | + + + | Home Phone [...] Team Providers + +------+ + | Care Garment Examiner Name | Role | Phone | + [...] | | 2019 | Visit | at [facility] [address] | [address] | radiotherapy | | | | [address] | [address] [place], | (Primary Dx) | | | | [place] | [place] [address] | | | | | [place], [place] | [phone] | | | | | [address] | | | | | | [phone] | | | +--------+---------+ + + + [...] AM PDTFUP with new chest CT in [place] [address] more to go documented in this encounter Progress Notes Ye Doss MD - 02/11/2019 11:20 AM PDTJust starting this SBRT yesterday 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 The patient will be receiving [...]
--- OUTSIDE RECORDS SUMMARY | ~2019-04-10 | XMS | Encounter Summary ---
Demographics + + + | Address | [address] | | | [place] [address] | + + + | Home Phone [...] Team Providers + +------+ + | Care Equine Breeder Name | Role | Phone | + [...] neoplasm of | [address] | [address] [facility] | | | | | prostate | [facility] | [facility] | | | | | (HCC) | Way | Rd [place], | | | | | Procedures | [place], [place] | [place] | | | | | Consult, | [address] | [address] | | | | | treat, f/u | Phone: | Phone: | | | | | | [phone] | [phone] | | | | | | Fax: | Fax: | | | | | | [phone] | [phone] | +--------+--------+ + + + + Encounter Details +--------+ + + + + | Date | Type | Department | Care Team | Description | +--------+ + + + + | 09/08/ | Hospital | Radiation Oncology | | | | 2014 | Encounter | at [facility] [address] | | | | | | [address] | | | | | | [place] | | | | | | [place], [place] | | | | | | [address] | | | | | | [phone] | | | +--------+ + + + [...]
--- OUTSIDE RECORDS SUMMARY | ~2019-04-10 | XMS | Encounter Summary ---
Demographics + + + | Address | [address] | | | [place] [address] | + + + | Home Phone [...] Team Providers + +------+ + | Care Sensor Operator Name | Role | Phone | [...] Tran | | | | | | [place], [place] | | | | | | [address] | | | | | | [phone] | | | +--------+ + + + [...]
--- OUTSIDE RECORDS SUMMARY | ~2019-04-10 | XMS | Encounter Summary ---
Demographics + + + | Address | [address] | | | [place] [address] | + + + | Home Phone [...] Team Providers + +------+ + | Care Marine Structural Welder Name | Role | Phone | + [...] Tran | | | | | | [place], [place] | | | | | | [address] | | | | | | [phone] | | | +--------+ + + + [...]
--- OUTSIDE RECORDS SUMMARY | ~2019-04-10 | XMS | Encounter Summary ---
Demographics + + + | Address | [address] | | | [place] [address] | + + + | Home Phone [...] Providers + +------+ + | Care Vp Director Of Creative Strategy Name | Role | Phone | + [...] Tran | | | | | | [place], [place] | | | | | | [address] | | | | | | [phone] | | | +--------+ + + + [...]
--- OUTSIDE RECORDS SUMMARY | ~2019-04-10 | XMS | Encounter Summary ---
Demographics + + + | Address | [address] | | | [place] [address] | + + + | Home Phone [...] Team Providers + +------+ + | Care Extruder Operator Multiple Name | Role | Phone | + [...]
--- OUTSIDE RECORDS SUMMARY | ~2019-04-10 | XMS | Encounter Summary ---
Demographics + + + | Address | [address] | | | [place] [address] | + + + | Home Phone [...] Team Providers + +------+ + | Care Screen Door Maker Name | Role | Phone | [...] | [address] | [place] [place] [place], | | | | | [place] | [place] [address] | | | | | [place], [place] | [phone] | | | | | [address] | | | | | | [phone] | | | +--------+ + + + [...]
--- OUTSIDE RECORDS SUMMARY | ~2019-04-10 | XMS | Encounter Summary ---
Demographics + + + | Address | [address] | | | [place] [address] | + + + | Home Phone [...] Providers + +------+ + | Care Sales And Marketing Specialist Name | Role | Phone [...] neoplasm of | [address] | [address] [employer] | | | | | prostate | [facility] | [facility] | | | | | (HCC) | Way | Rd [place], | | | | | Procedures | [place], [place] | [place] | | | | | Consult, | [address] | [address] | | | | | treat, f/u | Phone: | Phone: | | | | | | [phone] | [phone] | | | | | | Fax: | Fax: | | | | | | [phone] | [phone] | +--------+--------+ + + + + Encounter Details +--------+ + + + + | Date | Type | Department | Care Team | Description | +--------+ + + + + | 09/09/ | Hospital | Radiation Oncology | | | | 2014 | Encounter | at [facility] [address] | | | | | | [address] | | | | | | [place] | | | | | | [place], [place] | | | | | | [address] | | | | | | [phone] | | | +--------+ + + + [...]
--- OUTSIDE RECORDS SUMMARY | ~2019-04-10 | XMS | Encounter Summary ---
Demographics + + + | Address | [address] | | | [place] [address] | + + + | Home Phone [...] Providers + +------+ + | Care Leather Goods Ii Assembler Name | Role | Phone | [...] Tran | | | | | | [place], [place] | | | | | | [address] | | | | | | [phone] | | | +--------+ + + + [...]
--- OUTSIDE RECORDS SUMMARY | ~2019-04-10 | XMS | Encounter Summary ---
Demographics + + + | Address | [address] | | | [place] [address] | + + + | Home Phone [...] Team Providers + +------+ + | Care Ground Nuclear Weapons Assembly Officer Name | Role | Phone | [...] 09/03/ | Clinical | Radiation Oncology | Ynf Moya [address] | Teaching session | | 2014 | Support | at [facility] [address] | [address] | with patient | | | Staff | [address] | [place], [place] | | | | | [place] | [address] | | | | | [place], [place] | | | | | | [address] | | | | | | [phone] | | | +--------+ + + + [...] location of treatment. The pt lives in [place], [place]; he is staying locally at [facility] housing during the course of his [...]
--- OUTSIDE RECORDS SUMMARY | ~2019-04-10 | XMS | Encounter Summary ---
Demographics + + + | Address | [address] | | | [place] [address] | + + + | Home Phone [...] Team Providers + +------+ + | Care Gasateria Attendant Name | Role | Phone | [...] | | | [address] | [place] [address] | | | | | [place], [place] | [phone] | | | | | [address] | | | | | | [phone] | | | +--------+ + + + [...]
--- OUTSIDE RECORDS SUMMARY | ~2019-04-10 | XMS | Encounter Summary ---
Demographics + + + | Address | [address] | | | [place] [address] | + + + | Home Phone [...] Team Providers + +------+ + | Care Sleep Technologist Name | Role | Phone | [...] | | prostate | [facility] | [facility] | | | | | (HCC) | Way | [address] [place], | | | | | Procedures | [place], [place] | [place] | | | | | Consult, | [address] | [address] | | | | | treat, f/u | Phone: | Phone: | | | | | | [phone] | [phone] | | | | | | Fax: | Fax: | | | | | | [phone] | [phone] | +--------+--------+ + + + + Encounter Details +--------+ + + + + | Date | Type | Department | Care Team | Description | +--------+ + + + + | 10/07/ | Hospital | Radiation Oncology | | | | 2014 | Encounter | at [facility] [address] | | | | | | [address] | | | | | | [place] | | | | | | [place], [place] | | | | | | [address] | | | | | | [phone] | | | +--------+ + + + [...]
--- OUTSIDE RECORDS SUMMARY | ~2019-04-10 | XMS | Encounter Summary ---
Demographics + + + | Address | [address] | | | [place] [address] | + + + | Home Phone [...] Team Providers + +------+ + | Care Bottle Blower Name | Role | Phone | + +------+ + PCP | Unavailable | + +------+ + Encounter Details +--------+ + + + + | Date | Type | Department | Care Team | Description | +--------+ + + + + | 10/16/ | Hospital | Radiation Oncology | | | | 2008 | Encounter | at [facility] [address] | | | | | | [address] | | | | | | [place] | | | | | | [place], [place] | | | | | | [address] | | | | | | [phone] | | | +--------+ + + + [...]
--- OUTSIDE RECORDS SUMMARY | ~2019-04-10 | XMS | Encounter Summary ---
Demographics + + + | Address | [address] | | | [place] [address] | + + + | Home Phone [...] Team Providers + +------+ + | Care Coil Inspector Name | Role | Phone | [...] Tran | | | | | | [place], [place] | | | | | | [address] | | | | | | [phone] | | | +--------+ + + + [...]
--- OUTSIDE RECORDS SUMMARY | ~2019-04-10 | XMS | Encounter Summary ---
Demographics + + + | Address | [address] | | | [place] [address] | + + + | Home Phone [...] Team Providers + +------+ + | Care Client Account Representative Name | Role | Phone | [...] 2008 | Visit | at [facility] [address] [facility] | [address] | Therapy | | | | [address] | Charis Valdes [place], | | | | | [place] | [place] [address] | | | | | [place], [place] | [phone] | | | | | [address] | | | | | | [phone] | | | +--------+---------+ + + + [...] is a 73 y.o. male with a [id number] SCCA of TIMBO with posterior CW and [...] Signs are recorded in the nursing note. mAmon Tracy's mode of transportation is ambulatory. The [...] up both zofran and ativan today at [place]-will try ativan for anxiety-help sleeping at night. Nursing Intervention: continue supportive care.Electronically signed by Mila Martinez at 12:39 PM PDTdocumented in this encounter Plan of Treatment Not on filedocumented as of this encounter Visit Diagnoses + + | Diagnosis | + + | OTV/Radiation Therapy Radiotherapy | + + documented in this encounter"
--- OUTSIDE RECORDS SUMMARY | ~2019-04-10 | XMS | Encounter Summary ---
Demographics + + + | Address | [address] | | | [place] [address] | + + + | Home Phone [...] Team Providers + +------+ + | Care Junk Removal Specialist Name | Role | Phone | [...] Tran | | | | | | [place], [place] | | | | | | [address] | | | | | | [phone] | | | +--------+ + + + [...]
--- OUTSIDE RECORDS SUMMARY | ~2019-04-10 | XMS | Encounter Summary ---
Demographics + + + | Address | [address] | | | [place] [address] | + + + | Home Phone [...] Team Providers + +------+ + | Care Administrator Of Home Health Name | Role | Phone | [...] | [facility] | [facility] | | | | | (HCC) | Way | Rd [place], | | | | | Procedures | [place], [place] | [place] | | | | | Consult, | [address] | [address] | | | | | treat, f/u | Phone: | Phone: | | | | | | [phone] | [phone] | | | | | | Fax: | Fax: | | | | | | [phone] | [phone] | +--------+--------+ + + + + Encounter Details +--------+ + + + + | Date | Type | Department | Care Team | Description | +--------+ + + + + | 09/29/ | Hospital | Radiation Oncology | | | | 2014 | Encounter | at [facility] [address] | | | | | | [address] | | | | | | [place] | | | | | | [place], [place] | | | | | | [address] | | | | | | [phone] | | | +--------+ + + + [...]
--- OUTSIDE RECORDS SUMMARY | ~2019-04-10 | XMS | Encounter Summary ---
Demographics + + + | Address | [address] | | | [place] [address] | + + + | Home Phone [...] Team Providers + +------+ + | Care Developer Designer Name | Role | Phone | [...] Tran | | | | | | [place], [place] | | | | | | [address] | | | | | | [phone] | | | +--------+ + + + [...]
--- OUTSIDE RECORDS SUMMARY | ~2019-04-10 | XMS | Encounter Summary ---
Demographics + + + | Address | [address] | | | [place] [address] | + + + | Home Phone [...] Team Providers + +------+ + | Care Electronic Typesetting Machine Operator Name | Role | Phone [...] Tran | | | | | | [place], [place] | | | | | | [address] | | | | | | [phone] | | | +--------+ + + + [...]
--- OUTSIDE RECORDS SUMMARY | ~2019-04-10 | XMS | Encounter Summary ---
Demographics + + + | Address | [address] | | | [place] [address] | + + + | Home Phone | | + + + | Preferred Language | Unknown | + + + | Marital Status | Single | + + + | Alevism Affiliation | Unknown | + + + [...] Team Providers + +------+ + | Care Executive Candidate Developer Name | Role | Phone | [...] | [address] | Charis Valdes [place], | | | | | [place] | [place] [address] | | | | | [place], [place] | [phone] | | | | | [address] | | | | | | [phone] | | | +--------+ + + + [...]
--- OUTSIDE RECORDS SUMMARY | ~2019-04-10 | XMS | Encounter Summary ---
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 | MD Rihsabh | | | | | neoplasm of | [address] | [address] [facility] | | | | | prostate | [facility] | [facility] | | | | | (HCC) | Way | Rd [place], | | | | | Procedures | [place], [place] | [place] | | | | | Consult, | [address] | [address] | | | | | treat, f/u | Phone: | Phone: | | | | | | [phone] | [phone] | | | | | | Fax: | Fax: | | | | | | [phone] | [phone] | +--------+--------+ + + + + Encounter Details +--------+ + + + + | Date | Type | Department | Care Team | Description | +--------+ + + + + | 09/14/ | Hospital | Radiation Oncology | | | | 2014 | Encounter | at [facility] [address] | | | | | | [address] | | | | | | [place] | | | | | | [place], [place] | | | | | | [address] | | | | | | [phone] | | | +--------+ + + + [...]
--- OUTSIDE RECORDS SUMMARY | ~2019-04-10 | XMS | Encounter Summary ---
Demographics + + + | Address | [address] | | | [place] [address] | + + + | Home Phone [...] Team Providers + +------+ + | Care Nurse Charge Rn Name | Role | Phone | [...] of | [address] | [address] [facility] | | | | | prostate | [facility] | [facility] | | | | | (HCC) | Way | Rd [place], | | | | | Procedures | [place], [place] | [place] | | | | | Consult, | [address] | [address] | | | | | treat, f/u | Phone: | Phone: | | | | | | [phone] | [phone] | | | | | | Fax: | Fax: | | | | | | [phone] | [phone] | +--------+--------+ + + + + Encounter Details +--------+ + + + + | Date | Type | Department | Care Team | Description | +--------+ + + + + | 09/07/ | Hospital | Radiation Oncology | | | | 2014 | Encounter | at [facility] [address] | | | | | | [address] | | | | | | [place] | | | | | | [place], [place] | | | | | | [address] | | | | | | [phone] | | | +--------+ + + + [...]
--- OUTSIDE RECORDS SUMMARY | ~2019-04-10 | XMS | Encounter Summary ---
Demographics + + + | Address | [address] | | | [place] [address] | + + + | Home Phone [...] Team Providers + +------+ + | Care Pipe Turner Name | Role | Phone | + [...] | | | | neoplasm of | [place] | [address] [facility] | | | | | lung, | A MEDICAL | [facility] | | | | | unspecified | CENTER [address] | [address] [place], | | | | | laterality, | [place] | [place] | | | | | unspecified | [place] | [address] | | | | | part of lung | HOS[address]ITAL [address] | Phone: | | | | | (HCC) | [place], | [phone] | | | | | Procedures | [place] [address] | Fax: | | | | | SIMULATION | Phone: | [phone] | | | | | IMAGING | [phone] | | | | | | | Fax: | | | | | | | [phone] | | +--------+--------+ + + + + [...] | | | | neoplasm of | [place] | [address] [facility] | | | | | lung, | A MEDICAL | [facility] | | | | | unspecified | [place] [address] | [address] [place], | | | | | laterality, | [address] [place] | [place] | | | | | unspecified | [place] | [address] | | | | | part of lung | HOSPITAL | Phone: | | | | | (HCC) | [place], | [phone] | | | | | Procedures | [place] [address] | Fax: | | | | | SIMULATION | Phone: | [phone] | | | | | IMAGING | [phone] | | | | | | | Fax: | | | | | | | [phone] | | +--------+--------+ + + + + [...] Tran | | | | | | [place], [place] | | | | | | [address] | | | | | | [phone] | | | +--------+ + + + [...]
--- OUTSIDE RECORDS SUMMARY | ~2019-04-10 | XMS | Encounter Summary ---
Demographics + + + | Address | [address] | | | [place] [address] | + + + | Home Phone [...] Team Providers + +------+ + | Care Training Developer Name | Role | Phone | [...]
--- OUTSIDE RECORDS SUMMARY | ~2019-04-10 | XMS | Encounter Summary ---
Demographics + + + | Address | [address] | | | [place] [address] | + + + | Home Phone [...] Team Providers + +------+ + | Care Permaculture Designer Name | Role | Phone | [...] neoplasm of | [address] | [address] [facility] | | | | | prostate | [facility] | [facility] | | | | | (HCC) | Way | Rd [place], | | | | | Procedures | [place], [place] | [place] | | | | | Consult, | [address] | [address] | | | | | treat, f/u | Phone: | Phone: | | | | | | [phone] | [phone] | | | | | | Fax: | Fax: | | | | | | [phone] | [phone] | +--------+--------+ + + + + Encounter Details +--------+ + + + + | Date | Type | Department | Care Team | Description | +--------+ + + + + | 09/22/ | Hospital | Radiation Oncology | | | | 2014 | Encounter | at [facility] [address] | | | | | | [address] | | | | | | [place] | | | | | | [place], [place] | | | | | | [address] | | | | | | [phone] | | | +--------+ + + + [...]
--- OUTSIDE RECORDS SUMMARY | ~2019-04-10 | XMS | Encounter Summary ---
Demographics + + + | Address | [address] | | | [place] [address] | + + + | Home Phone [...] Team Providers + +------+ + | Care Skip Miner Name | Role | Phone | + [...] Tran | | | | | | [place], [place] | | | | | | [address] | | | | | | [phone] | | | +--------+ + + + [...]
--- OUTSIDE RECORDS SUMMARY | ~2019-04-10 | XMS | Encounter Summary ---
Demographics + + + | Address | [address] | | | [place] [address] | + + + | Home Phone [...] Providers + +------+ + | Care General Road Production Manager Name | Role | Phone | [...] | | | Order | | [facility] | | | | | | [place] [id number] [facility] | | | | | | [facility] | | | | | | RD [place], [place] | | | | | | [...]
--- OUTSIDE RECORDS SUMMARY | ~2019-04-10 | XMS | Encounter Summary ---
Demographics + + + | Address | [address] | | | [place] [address] | + + + | Home Phone [...] Team Providers + +------+ + | Care Barrel Washer Machine Name | Role | Phone | [...] Tran | | | | | | [place], [place] | | | | | | [address] | | | | | | [phone] | | | +--------+ + + + [...]
--- OUTSIDE RECORDS SUMMARY | ~2019-04-10 | XMS | Encounter Summary ---
Demographics + + + | Address | [address] | | | [place] [address] | + + + | Home Phone [...] Team Providers + +------+ + | Care Video Game Designer Name | Role | Phone | [...] neoplasm of | [address] | [address] [facility] | | | | | prostate | [facility] | [facility] | | | | | (HCC) | Way | Rd [place], | | | | | Procedures | [place], [place] | [place] | | | | | Consult, | [address] | [address] | | | | | treat, f/u | Phone: | Phone: | | | | | | [phone] | [phone] | | | | | | Fax: | Fax: | | | | | | [phone] | [phone] | +--------+--------+ + + + + Encounter Details +--------+ + + + + | Date | Type | Department | Care Team | Description | +--------+ + + + + | 10/06/ | Hospital | Radiation Oncology | | | | 2014 | Encounter | at [facility] [address] | | | | | | [address] | | | | | | [place] | | | | | | [place], [place] | | | | | | [address] | | | | | | [phone] | | | +--------+ + + + [...]
--- OUTSIDE RECORDS SUMMARY | ~2019-04-10 | XMS | Encounter Summary ---
Demographics + + + | Address | [address] | | | [place] [address] | + + + | Home Phone [...] Team Providers + +------+ + | Care Display Screen Fabricator Name | Role | Phone | + [...] | | | | | prostate | [facility] | [facility] | | | | | (HCC) | Way | Rd [place], | | | | | Procedures | [place], [place] | [place] | | | | | Consult, | [address] | [address] | | | | | treat, f/u | Phone: | Phone: | | | | | | [phone] | [phone] | | | | | | Fax: | Fax: | | | | | | [phone] | [phone] | +--------+--------+ + + + + Encounter Details +--------+ + + + + | Date | Type | Department | Care Team | Description | +--------+ + + + + | 10/07/ | Hospital | Radiation Oncology | | | | 2014 | Encounter | at [facility] [address] | | | | | | [address] | | | | | | [place] | | | | | | [place], [place] | | | | | | [address] | | | | | | [phone] | | | +--------+ + + + [...]
--- OUTSIDE RECORDS SUMMARY | ~2019-04-10 | XMS | Encounter Summary ---
Demographics + + + | Address | [address] | | | [place] [address] | + + + | Home Phone [...] Providers + +------+ + | Care Legal Secretary Receptionist Name | Role | Phone | + [...] neoplasm of | [address] | [address] [facility] | | | | | prostate | [facility] | [facility] | | | | | (HCC) | Way | Rd [place], | | | | | Procedures | [place], [place] | [place] | | | | | Consult, | [address] | [address] | | | | | treat, f/u | Phone: | Phone: | | | | | | [phone] | [phone] | | | | | | Fax: | Fax: | | | | | | [phone] | [phone] | +--------+--------+ + + + + Encounter Details +--------+ + + + + | Date | Type | Department | Care Team | Description | +--------+ + + + + | 10/09/ | Hospital | Radiation Oncology | | | | 2014 | Encounter | at [facility] [address] | | | | | | [address] | | | | | | [place] | | | | | | [place], [place] | | | | | | [address] | | | | | | [phone] | | | +--------+ + + + [...]
--- OUTSIDE RECORDS SUMMARY | ~2019-04-10 | XMS | Encounter Summary ---
Demographics + + + | Address | [address] | | | [place] [address] | + + + | Home Phone [...] Team Providers + +------+ + | Care Ophthalmic Photographer Name | Role | Phone | + +------+ + PCP | Unavailable | + +------+ + Encounter Details +--------+ + + + + | Date | Type | Department | Care Team | Description | +--------+ + + + + | 09/02/ | Results | Radiation Oncology | Ye Doss MD | | | 2008 | Only | at [facility] [address] [facility] | [address] | | | | | [address] | Charis Valdes [facility] | | | | | [place] | [place] [address] | | | | | [place], [place] | [phone] | | | | | [address] | | | | | | [phone] | | | +--------+ + + + [...]
--- OUTSIDE RECORDS SUMMARY | ~2019-04-10 | XMS | Encounter Summary ---
Demographics + + + | Address | [address] | | | [place] [address] | + + + | Home Phone [...] Team Providers + +------+ + | Care Drill Grinder Name | Role | Phone | [...] neoplasm of | [address] | [address] [facility] | | | | | prostate | [facility] | [facility] | | | | | (HCC) | Way | Rd [place], | | | | | Procedures | [place], [place] | [place] | | | | | Consult, | [address] | [address] | | | | | treat, f/u | Phone: | Phone: | | | | | | [phone] | [phone] | | | | | | Fax: | Fax: | | | | | | [phone] | [phone] | +--------+--------+ + + + + Encounter Details +--------+ + + + + | Date | Type | Department | Care Team | Description | +--------+ + + + + | 09/16/ | Hospital | Radiation Oncology | | | | 2014 | Encounter | at [facility] [address] | | | | | | [address] | | | | | | [place] | | | | | | [place], [place] | | | | | | [address] | | | | | | [phone] | | | +--------+ + + + [...]
--- OUTSIDE RECORDS SUMMARY | ~2019-04-10 | XMS | Encounter Summary ---
Demographics + + + | Address | [address] | | | [place] [address] | + + + | Home Phone [...] Team Providers + +------+ + | Care Corn Grinder Name | Role | Phone | [...] | | prostate | [facility] | [facility] | | | | | (HCC) | Way | Rd [place], | | | | | Procedures | [place], [place] | [place] | | | | | Consult, | [address] | [address] | | | | | treat, f/u | Phone: | Phone: | | | | | | [phone] | [phone] | | | | | | Fax: | Fax: | | | | | | [phone] | [phone] | +--------+--------+ + + + + Encounter Details +--------+ + + + + | Date | Type | Department | Care Team | Description | +--------+ + + + + | 09/14/ | Hospital | Radiation Oncology | | | | 2014 | Encounter | at [facility] [address] | | | | | | [address] | | | | | | [place] | | | | | | [place], [place] | | | | | | [address] | | | | | | [phone] | | | +--------+ + + + [...]
--- OUTSIDE RECORDS SUMMARY | ~2019-04-10 | XMS | Encounter Summary ---
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 This was treated successfully with jose adjuvant radiotherapy followed by surgical resection. Stage cT3a, [place] 4+4 (3 of 12 cores), adenocarcinoma of the prostate. His pre-treatment PSA is 26.5 ng/mL drawn on 08/03/14. He is to be treated to a total dose of 70 Gy over 28 fra ctions with an IMRT technique with image guidance using [place] beacons. The patient will be receiving concurrent [...]
--- OUTSIDE RECORDS SUMMARY | ~2019-04-10 | XMS | Encounter Summary ---
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 Consultation was requested to evaluate for pre-operati ve vs. definitive radiation in conjunction with chemotherapy. HPI: He underwent CXR to evaluate left anterior CW pain in 04/2008, which showed a 3cm cavitary TIMBO mass. Subsequent CT chest at [facility] 06/17/08 showed a 4cm cavitary mass [...] transverse process. His case was discussed at [place] multi-disci plinary lung conference 08/17/08 with a [...] Use: 2 drinks daily Social History Narrative Inherited [employer], then [employer]. Plays [employer]. ALLERGIES: NKDA MEDICATIONS: Aspirin 81mg Ec Tab QD Albuterol 90/Ipratrop 18mcg 200d QID Hydrochlorothiazide 25mg QD Metformin Hcl 1000mg BID Omeprazole 20mg QD Simvastatin 80mg QD Vardenafil Hcl 20mg Lisinopril 20mg QD Terazosin Hcl 2mg QD REVIEW OF SYSTEMS: The [facility] Radiation Oncology Questionnaire was completed by [...] concerns. EVELYN EDWARDS MD RADIATION MEDICINE [address] [place] [address] Mailcode: [address] [place] [address] CC: Oj Russo MD This note was uploaded into the [place] electronic medical record so it can be viewed by the ref erring provider, Oj Russo MD. documented in this e ncounter Plan of Treatment Not on filedocumented as of this encounter Visit Diagnoses Not on filedocumented in this encounter"
--- OUTSIDE RECORDS SUMMARY | ~2019-04-10 | XMS | Encounter Summary ---
Demographics + + + | Address | [address] | | | [place] [address] | + + + | Home Phone [...] Providers + +------+ + | Care Salesperson Furniture Name | Role | Phone | + [...] | [address] | Char[place] | | | | | [place] | [place] [address] | | | | | [place] | [phone] | | | | | [address] | | | | | | [phone] | | | +--------+ + + + [...]
--- OUTSIDE RECORDS SUMMARY | ~2019-04-10 | XMS | Encounter Summary ---
Demographics + + + | Address | [address] | | | [place] [address] | + + + | Home Phone [...] Team Providers + +------+ + | Care Brand Coordinator Name | Role | Phone | [...] neoplasm of | [address] | [address] [facility] | | | | | prostate | [facility] | [facility] | | | | | (HCC) | Way | Rd [place], | | | | | Procedures | [place], [place] | [place] | | | | | Consult, | [address] | [address] | | | | | treat, f/u | Phone: | Phone: | | | | | | [phone] | [phone] | | | | | | Fax: | Fax: | | | | | | [phone] | [phone] | +--------+--------+ + + + + Encounter Details +--------+ + + + + | Date | Type | Department | Care Team | Description | +--------+ + + + + | 10/08/ | Hospital | Radiation Oncology | | | | 2014 | Encounter | at [facility] [address] | | | | | | [address] | | | | | | [place] | | | | | | [place], [place] | | | | | | [address] | | | | | | [phone] | | | +--------+ + + + [...]
--- OUTSIDE RECORDS SUMMARY | ~2019-04-10 | XMS | Encounter Summary ---
Demographics + + + | Address | [address] | | | [place] [address] | + + + | Home Phone [...] Team Providers + +------+ + | Care Guide Cruise Name | Role | Phone | + [...] Rd | | | | | | [place], [place] | | | | | | [address] | | | +--------+ + + + [...]
--- OUTSIDE RECORDS SUMMARY | ~2019-04-10 | XMS | Encounter Summary ---
Demographics + + + | Address | [address] | | | [place] [address] | + + + | Home Phone [...] Team Providers + +------+ + | Care Dough Raiser Name | Role | Phone | + [...] Tran | | | | | | [place], [place] | | | | | | [address] | | | | | | [phone] | | | +--------+ + + + [...]
--- OUTSIDE RECORDS SUMMARY | ~2019-04-10 | XMS | Encounter Summary ---
Demographics + + + | Address | [address] | | | [place] [address] | + + + | Home Phone [...] Team Providers + +------+ + | Care Paint Striping Machine Operator Name | Role | Phone [...] Rd | | | | | | [place], [place] | | | | | | [address] | | | +--------+ + + + [...]
--- OUTSIDE RECORDS SUMMARY | ~2019-04-10 | XMS | Encounter Summary ---
Demographics + + + | Address | [address] | | | [place] [address] | + + + | Home Phone [...] Team Providers + +------+ + | Care Slide Fasteners Inspector Name | Role | Phone | [...] neoplasm of | [address] | [address] [facility] | | | | | prostate | [facility] | [facility] | | | | | (HCC) | Way | Rd [place], | | | | | Procedures | [place], [place] | [place] | | | | | Consult, | [address] | [address] | | | | | treat, f/u | Phone: | Phone: | | | | | | [phone] | [phone] | | | | | | Fax: | Fax: | | | | | | [phone] | [phone] | +--------+--------+ + + + + Encounter [...] Tran | | | | | | [place], [place] | | | | | | [address] | | | | | | [phone] | | | +--------+ + + + [...]
--- OUTSIDE RECORDS SUMMARY | ~2019-04-10 | XMS | Encounter Summary ---
Demographics + + + | Address | [address] | | | [place] [address] | + + + | Home Phone [...] Providers + +------+ + | Care Cutter Hot Knife Name | Role | Phone | + [...] Tran | | | | | | [place], [place] | | | | | | [address] | | | | | | [phone] | | | +--------+ + + + [...]
--- OUTSIDE RECORDS SUMMARY | ~2019-04-10 | XMS | Encounter Summary ---
Demographics + + + | Address | [address] | | | [place] [address] | + + + | Home Phone [...] Providers + +------+ + | Care Sales Enablement Manager Name | Role | Phone | [...] neoplasm of | [address] | [address] [facility] | | | | | prostate | [facility] | [facility] | | | | | (HCC) | Way | Rd [place], | | | | | Procedures | [place], [place] | [place] | | | | | Consult, | [address] | [address] | | | | | treat, f/u | Phone: | Phone: | | | | | | [phone] | [phone] | | | | | | Fax: | Fax: | | | | | | [phone] | [phone] | +--------+--------+ + + + + Encounter [...] Tran | | | | | | [place], [place] | | | | | | [address] | | | | | | [phone] | | | +--------+ + + + [...]
--- OUTSIDE RECORDS SUMMARY | ~2019-04-10 | XMS | Encounter Summary ---
Demographics + + + | Address | [address] | | | [place] [address] | + + + | Home Phone [...] Team Providers + +------+ + | Care Cemetery Laborer Name | Role | Phone | + [...] neoplasm of | [address] | [address] [facility] | | | | | prostate | [facility] | [facility] | | | | | (HCC) | Way | Rd [place], | | | | | Procedures | [place], [place] | [place] | | | | | Consult, | [address] | [address] | | | | | treat, f/u | Phone: | Phone: | | | | | | [phone] | [phone] | | | | | | Fax: | Fax: | | | | | | [phone] | [phone] | +--------+--------+ + + + + Encounter [...] Tran | | | | | | [place], [place] | | | | | | [address] | | | | | | [phone] | | | +--------+ + + + [...]
--- OUTSIDE RECORDS SUMMARY | ~2019-04-10 | XMS | Encounter Summary ---
Demographics + + + | Address | [address] | | | [place] [address] | + + + | Home Phone [...] Team Providers + +------+ + | Care Fixer Boarding Room Name | Role | Phone | + [...] | on | at [facility] [address] [facility] | [address] | with patient | | | | [address] | Charis Valdes [place], | | | | | [place] | [place] [address] | | | | | [place], [place] | [phone] | | | | | [address] | | | | | | [phone] | | | +--------+ + + + [...]
--- OUTSIDE RECORDS SUMMARY | ~2019-04-10 | XMS | Encounter Summary ---
Demographics + + + | Address | [address] | | | [place] [address] | + + + | Home Phone [...] Providers + +------+ + | Care Sensor Specialist Name | Role | Phone | [...] | | | | | | [place], [place] | | | | | | [address] | | | | | | [phone] | | | +--------+ + + + [...]
--- OUTSIDE RECORDS SUMMARY | ~2019-04-10 | XMS | Encounter Summary ---
Demographics + + + | Address | [address] | | | [place] [address] | + + + | Home Phone [...] Team Providers + +------+ + | Care Rotational Moulding Operator Name | Role | Phone | [...] Tran | | | | | | [place], [place] | | | | | | [address] | | | | | | [phone] | | | +--------+ + + + [...]
--- OUTSIDE RECORDS SUMMARY | ~2019-04-10 | XMS | Encounter Summary ---
Demographics + + + | Address | [address] | | | [place] [address] | + + + | Home Phone | | + + + | Preferred Language | Unknown | + + + | Marital Status | Single | + + + | Pentecostal Affiliation | Unknown | + + + [...] Providers + +------+ + | Care Patient Registration Supervisor Name | Role | Phone | [...] Tran | | | | | | [place], [place] | | | | | | [address] | | | | | | [phone] | | | +--------+ + + + [...]
--- OUTSIDE RECORDS SUMMARY | ~2019-04-10 | XMS | Encounter Summary ---
Demographics + + + | Address | [address] | | | [place] [address] | + + + | Home Phone [...] Team Providers + +------+ + | Care Forensic Manager Name | Role | Phone | [...] | on | at [facility] [address] [facility] | [address] [facility] [address] | RT Clinical | | | | [address] | Charis Valdes [place], | Treatment Planning | | | | [place] Tr[place] | [place] [address] | Note | | | | [place], [place] | [phone] | | | | | [address] | | | | | | [phone] | | | +--------+ + + + [...]
--- OUTSIDE RECORDS SUMMARY | ~2019-04-10 | XMS | Encounter Summary ---
Demographics + + + | Address | [address] | | | [place] [address] | + + + | Home Phone [...] Team Providers + +------+ + | Care Fisher Name | Role | Phone | + [...] | [address] | Charis Valdes [place], | | | | | [place] Tr[place] | [place] [address] | | | | | [place], [place] | [phone] | | | | | [address] | | | | | | [phone] | | | +--------+---------+ + + + [...] male with a history of a Stage [id number] SCCA of TIMBO with posterior CW and [...] an IMRT technique with image guidance using [place] beacons. The patient will be receiving concurrent [...]
--- OUTSIDE RECORDS SUMMARY | ~2019-04-10 | XMS | Encounter Summary ---
Demographics + + + | Address | [address] | | | [place] [address] | + + + | Home Phone [...] Team Providers + +------+ + | Care Flow Specialist Name | Role | Phone | [...] Tran | | | | | | [place], [place] | | | | | | [address] | | | | | | [phone] | | | +--------+ + + + [...]
--- OUTSIDE RECORDS SUMMARY | ~2019-04-10 | XMS | Encounter Summary ---
Demographics + + + | Address | [address] | | | [place] [address] | + + + | Home Phone [...] Team Providers + +------+ + | Care Piercing Artist Name | Role | Phone | + [...]
--- OUTSIDE RECORDS SUMMARY | ~2019-04-10 | XMS | Encounter Summary ---
Demographics + + + | Address | [address] | | | [place] [address] | + + + | Home Phone [...] Author + + + | Author | [facility] | + + + | Organization | [facility] | + + + | Address | Unknown | + + + | Phone | Unavailable | + + + Support + + +---------+ + | Name | Relationship | Address | Phone | + + +---------+ + | Alia Tracy | ECON | Unknown | | + + +---------+ + Care Team Providers + +------+ + | Care Kiln Door Repairer Name | Role | Phone | [...] | | prostate | [facility] | [facility] | | | | | (HCC) | Way | [address] [place], | | | | | Procedures | [place], [place] | [place] | | | | | Consult, | [address] | [address] | | | | | treat, f/u | Phone: | Phone: | | | | | | [phone] | [phone] | | | | | | Fax: | Fax: | | | | | | [phone] | [phone] | +--------+--------+ + + + + Encounter Details +--------+ + + + + | Date | Type | Department | Care Team | Description | +--------+ + + + + | 09/08/ | Hospital | Radiation Oncology | | | | 2014 | Encounter | at [facility] [address] | | | | | | [address] | | | | | | Martell Tran | | | | | | [place], [place] | | | | | | [address] | | | | | | [phone] | | | +--------+ + + + [...]
--- OUTSIDE RECORDS SUMMARY | ~2019-04-10 | XMS | Encounter Summary ---
Demographics + + + | Address | [address] | | | [place] [address] | + + + | Home Phone [...] Team Providers + +------+ + | Care Ordnance Artificer Name | Role | Phone | + [...] Rd | | | | | | [place], [place] | | | | | | [address] | | | +--------+ + + + [...]
--- OUTSIDE RECORDS SUMMARY | ~2019-04-10 | XMS | Encounter Summary ---
Demographics + + + | Address | [address] | | | [place] [address] | + + + | Home Phone [...] Providers + +------+ + | Care Central Processing Tech Name | Role | Phone | [...] Tran | | | | | | [place], [place] | | | | | | [address] | | | | | | [phone] | | | +--------+ + + + [...]
--- OUTSIDE RECORDS SUMMARY | ~2019-04-10 | XMS | Encounter Summary ---
Demographics + + + | Address | [address] | | | [place] [address] | + + + | Home Phone [...] Team Providers + +------+ + | Care Room Service Waiter Name | Role | Phone | + [...] 2008 | on | at [facility] [address] [facility] | [address] | Treatment Planning | | | | [address] | Charis Valdes [place], | Note | | | | [place] Tr[place] | [place] [address] | | | | | [place], [place] | [phone] | | | | | [address] | | | | | | [phone] | | | +--------+ + + + [...]
--- OUTSIDE RECORDS SUMMARY | ~2019-04-10 | XMS | Encounter Summary ---
Demographics + + + | Address | [address] | | | [place] [address] | + + + | Home Phone [...] Team Providers + +------+ + | Care Landcare Officer Name | Role | Phone | [...] Tran | | | | | | [place], [place] | | | | | | [address] | | | | | | [phone] | | | +--------+ + + + [...]
--- OUTSIDE RECORDS SUMMARY | ~2019-04-10 | XMS | Encounter Summary ---
Demographics + + + | Address | [address] | | | [place] [address] | + + + | Home Phone [...] Team Providers + +------+ + | Care Local Bulk Driver Name | Role | Phone | [...] neoplasm of | [address] | [address] [facility] | | | | | prostate | [facility] | [facility] | | | | | (HCC) | Way | Rd [place], | | | | | Procedures | [place], [place] | [place] | | | | | Consult, | [address] | [address] | | | | | treat, f/u | Phone: | Phone: | | | | | | [phone] | [phone] | | | | | | Fax: | Fax: | | | | | | [phone] | [phone] | +--------+--------+ + + + + Encounter Details +--------+ + + + + | Date | Type | Department | Care Team | Description | +--------+ + + + + | 09/18/ | Hospital | Radiation Oncology | | | | 2014 | Encounter | at [facility] [address] | | | | | | [address] | | | | | | [place] Tran | | | | | | [place], [place] | | | | | | [address] | | | | | | [phone] | | | +--------+ + + + [...]
--- OUTSIDE RECORDS SUMMARY | ~2019-04-10 | XMS | Encounter Summary ---
Demographics + + + | Address | [address] | | | [place] [address] | + + + | Home Phone [...] Team Providers + +------+ + | Care Human Service Coordinator Name | Role | Phone | [...] 2008 | Visit | at [facility] [address] [facility] | [address] | Therapy | | | | [address] | Charis Valdes [place], | | | | | [place] Tr[place] | [place] [address] | | | | | [place], [place] | [phone] | | | | | [address] | | | | | | [phone] | | | +--------+---------+ + + + [...] and chemotherapy both on 10/19 [facility] at [place] [facility] with a new chest CT 11/16 Evaluate for surgical resection at that FUP [facility] Evelyn Vicente MD - 10/13/2008 3:57 PM PDT 10/13/2008 3:46 PM Ammon Tracy is a 73 y.o. male with a [id number] SCCA of TIMBO with posterior CW and [...] We would like to see him in [place] [facility] 11/16/08 , with CT prior. [...]
--- OUTSIDE RECORDS SUMMARY | ~2019-04-10 | XMS | Encounter Summary ---
Demographics + + + | Address | [address] | | | [place] [address] | + + + | Home Phone [...] Providers + +------+ + | Care Mental Health Program Director Name | Role | Phone | [...] Tran | | | | | | [place], [place] | | | | | | [address] | | | | | | [phone] | | | +--------+ + + + [...]
--- OUTSIDE RECORDS SUMMARY | ~2019-04-10 | XMS | Encounter Summary ---
Demographics + + + | Address | [address] | | | [place] [address] | + + + | Home Phone [...] Providers + +------+ + | Care Patient Relations Coordinator Name | Role | Phone | [...] Tran | | | | | | [place], [place] | | | | | | [address] | | | | | | [phone] | | | +--------+ + + + [...]
--- OUTSIDE RECORDS SUMMARY | ~2019-04-10 | XMS | Encounter Summary ---
Demographics + + + | Address | [address] | | | [place] [address] | + + + | Home Phone [...] Providers + +------+ + | Care Plastic Welding Machine Operator Name | Role | Phone [...] Rd | | | | | | [place], [place] | | | | | | [address] | | | +--------+ + + + [...]
--- OUTSIDE RECORDS SUMMARY | ~2019-04-10 | XMS | Encounter Summary ---
Demographics + + + | Address | [address] | | | [place] [address] | + + + | Home Phone [...] Team Providers + +------+ + | Care Application Infrastructure Engineer Name | Role | Phone | [...] neoplasm of | [address] | [address] [facility] | | | | | prostate | [facility] | [facility] | | | | | (HCC) | Way | Rd [place], | | | | | Procedures | [place], [place] | [place] | | | | | Consult, | [address] | [address] | | | | | treat, f/u | Phone: | Phone: | | | | | | [phone] | [phone] | | | | | | Fax: | Fax: | | | | | | [phone] | [phone] | +--------+--------+ + + + + Encounter [...] Tran | | | | | | [place], [place] | | | | | | [address] | | | | | | [phone] | | | +--------+ + + + [...]
--- OUTSIDE RECORDS SUMMARY | ~2019-04-10 | XMS | Encounter Summary ---
Demographics + + + | Address | [address] | | | [place] [address] | + + + | Home Phone [...] Providers + +------+ + | Care Head Swamper Name | Role | Phone | + [...] | | | | prostate | [facility] | [facility] | | | | | (HCC) | Way | Rd [place], | | | | | Procedures | [place], [place] | [place] | | | | | Consult, | [address] | [address] | | | | | treat, f/u | Phone: | Phone: | | | | | | [phone] | [phone] | | | | | | Fax: | Fax: | | | | | | [phone] | [phone] | +--------+--------+ + + + + Encounter Details +--------+ + + + + | Date | Type | Department | Care Team | Description | +--------+ + + + + | 09/17/ | Hospital | Radiation Oncology | | | | 2014 | Encounter | at [facility] [address] | | | | | | [address] | | | | | | Martell Tran | | | | | | [place], [place] | | | | | | [address] | | | | | | [phone] | | | +--------+ + + + [...]
--- OUTSIDE RECORDS SUMMARY | ~2019-04-10 | XMS | Encounter Summary ---
Demographics + + + | Address | [address] | | | [place] [address] | + + + | Home Phone [...] Providers + +------+ + | Care Network And Threat Support Specialist Name | Role | Phone | [...]
--- OUTSIDE RECORDS SUMMARY | ~2019-04-10 | XMS | Encounter Summary ---
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 This was treated successfully with jose adjuvant radiotherapy followed by surgical resection. Stage cT3a, [place] 4+4 (3 of 12 cores), adenocarcinoma of the prostate. His pre-treatment PSA is 26.5 ng/mL drawn on 08/03/14. He is to be treated to a total dose of 70 Gy over 28 fra ctions with an IMRT technique with image guidance using [place] beacons. The patient will be receiving concurrent [...]
--- OUTSIDE RECORDS SUMMARY | ~2019-04-10 | XMS | Encounter Summary ---
Demographics + + + | Address | [address] | | | [place] [address] | + + + | Home Phone [...] Team Providers + +------+ + | Care Absorption Plant Operator Name | Role | Phone | [...] of | [address] | [address] [facility] | | | | | prostate | [facility] | [facility] | | | | | (HCC) | Way | Rd [place], | | | | | Procedures | [place], [place] | [place] | | | | | Consult, | [address] | [address] | | | | | treat, f/u | Phone: | Phone: | | | | | | [phone] | | | | | | Fax: | Fax: | | | | | | [phone] | [phone] | +--------+--------+ + + + + Encounter Details +--------+ + + + + | Date | Type | Department | Care Team | Description | +--------+ + + + + | 10/05/ | Hospital | Radiation Oncology | | | | 2014 | Encounter | at [facility] [address] | | | | | | [address] | | | | | | [place] Tran | | | | | | [place], [place] | | | | | | [address] | | | | | | [phone] | | | +--------+ + + + [...]
--- OUTSIDE RECORDS SUMMARY | ~2019-04-10 | XMS | Encounter Summary ---
Demographics + + + | Address | [address] | | | [place] [address] | + + + | Home Phone [...] Team Providers + +------+ + | Care Call Center Recruiter Name | Role | Phone | + [...] Tran | | | | | | [place], [place] | | | | | | [address] | | | | | | [phone] | | | +--------+ + + + [...]
--- OUTSIDE RECORDS SUMMARY | ~2019-04-10 | XMS | Encounter Summary ---
Demographics + + + | Address | [address] | | | [place] [address] | + + + | Home Phone [...] + +------+ + | Care Food Service Substitute Name | Role | Phone | + [...] | | 2014 | Support | at [facility] [address] | [address] | with patient | | | Staff | [address] | [place], [place] | | | | | [place] Tran | [address] | | | | | [place], [place] | | | | | | [address] | | | | | | [phone] | | | +--------+ + + + [...] location of treatment. The pt lives in [place], [place]; he is staying locally at [facility] housing during the course of his [...]
--- OUTSIDE RECORDS SUMMARY | ~2019-04-10 | XMS | Encounter Summary ---
Demographics + + + | Address | [address] | | | [place] [address] | + + + | Home Phone [...] Team Providers + +------+ + | Care Lighting Fixtures Decorator Name | Role | Phone | + [...] prostate | [facility] | [facility] | | | | | (HCC) | Way | [address] [place], | | | | | Procedures | [place], [place] | [place] | | | | | Consult, | [address] | [address] | | | | | treat, f/u | Phone: | Phone: | | | | | | [phone] | [phone] | | | | | | Fax: | Fax: | | | | | | [phone] | [phone] | +--------+--------+ + + + + Encounter Details +--------+ + + + + | Date | Type | Department | Care Team | Description | +--------+ + + + + | 10/07/ | Hospital | Radiation Oncology | | | | 2014 | Encounter | at [facility] [address] | | | | | | [address] | | | | | | [place] Tran | | | | | | [place], [place] | | | | | | [address] | | | | | | [phone] | | | +--------+ + + + [...]
--- OUTSIDE RECORDS SUMMARY | ~2019-04-10 | XMS | Encounter Summary ---
Demographics + + + | Address | [address] | | | [place] [address] | + + + | Home Phone [...] Team Providers + +------+ + | Care Psychiatric Rn Name | Role | Phone | [...] | prostate | [facility] | [facility] | | | | | (HCC) | Way | [address] [place], | | | | | Procedures | [place], [place] | [place] | | | | | Consult, | [address] | [address] | | | | | treat, f/u | Phone: | Phone: | | | | | | [phone] | [phone] | | | | | | Fax: | Fax: | | | | | | [phone] | [phone] | +--------+--------+ + + + + Encounter Details +--------+ + + + + | Date | Type | Department | Care Team | Description | +--------+ + + + + | 10/02/ | Hospital | Radiation Oncology | | | | 2014 | Encounter | at [facility] [address] | | | | | | [address] | | | | | | [place] Tran | | | | | | [place], [place] | | | | | | [address] | | | | | | [phone] | | | +--------+ + + + [...]
--- OUTSIDE RECORDS SUMMARY | ~2019-04-10 | XMS | Encounter Summary ---
Demographics + + + | Address | [address] | | | [place] [address] | + + + | Home Phone [...] Tran | | | | | | [place], [place] | | | | | | [address] | | | | | | [phone] | | | +--------+ + + + [...]
--- OUTSIDE RECORDS SUMMARY | ~2019-04-10 | XMS | Encounter Summary ---
Demographics + + + | Address | [address] | | | [place] [address] | + + + | Home Phone [...] Team Providers + +------+ + | Care Level Vial Marker Name | Role | Phone | + [...] Tran | | | | | | [place], [place] | | | | | | [address] | | | | | | [phone] | | | +--------+ + + + [...]
--- OUTSIDE RECORDS SUMMARY | ~2019-04-10 | XMS | Encounter Summary ---
Demographics + + + | Address | [address] | | | [place] [address] | + + + | Home Phone [...] Providers + +------+ + | Care Leather Piece Inspector Name | Role | Phone | [...] neoplasm of | [address] | [address] [facility] | | | | | prostate | [facility] | [facility] | | | | | (HCC) | Way | [address] [place], | | | | | Procedures | [place], [place] | [place] | | | | | Consult, | [address] | [address] | | | | | treat, f/u | Phone: | Phone: | | | | | | [phone] | [phone] | | | | | | Fax: | Fax: | | | | | | [phone] | [phone] | +--------+--------+ + + + + Encounter Details +--------+ + + + + | Date | Type | Department | Care Team | Description | +--------+ + + + + | 09/15/ | Hospital | Radiation Oncology | | | | 2014 | Encounter | at [facility] [address] | | | | | | [address] | | | | | | Mart[place] Tran | | | | | | [place], [place] | | | | | | [address] | | | | | | [phone] | | | +--------+ + + + [...]
--- OUTSIDE RECORDS SUMMARY | ~2019-04-10 | XMS | Encounter Summary ---
Demographics + + + | Address | [address] | | | [place] [address] | + + + | Home Phone [...] Team Providers + +------+ + | Care Mechanical Estimator Name | Role | Phone | + [...] | | | [place] | [place] [address] | | | | | [place], [place] | [phone] | | | | | [address] | | | | | | [phone] | | | +--------+ + + + [...]
--- OUTSIDE RECORDS SUMMARY | ~2019-04-10 | XMS | Encounter Summary ---
Demographics + + + | Address | [address] | | | [place] [address] | + + + | Home Phone [...] Team Providers + +------+ + | Care Rim Fire Charger Operator Name | Role | Phone | [...] | | | | | | [place], [place] | | | | | | [address] | | | | | | [phone] | | | +--------+ + + + [...]
--- OUTSIDE RECORDS SUMMARY | ~2019-04-10 | XMS | Encounter Summary ---
Demographics + + + | Address | [address] | | | [place] [address] | + + + | Home Phone [...] Providers + +------+ + | Care Welding Machine Setter Name | Role | Phone [...] | | | prostate | [facility] | [facility] | | | | | (HCC) | Way | Rd [place], | | | | | Procedures | [place], [place] | [place] | | | | | Consult, | [address] | [address] | | | | | treat, f/u | Phone: | Phone: | | | | | | [phone] | [phone] | | | | | | Fax: | Fax: | | | | | | [phone] | [phone] | +--------+--------+ + + + + Encounter [...] Tran | | | | | | [place], [place] | | | | | | [address] | | | | | | [phone] | | | +--------+ + + + [...]
--- OUTSIDE RECORDS SUMMARY | ~2019-04-10 | XMS | Encounter Summary ---
Demographics + + + | Address | [address] | | | [place] [address] | + + + | Home Phone [...] Team Providers + +------+ + | Care Account Manager Employee Benefits Name | Role | Phone | + [...] | [address] | Charis Valdes [place] | | | | | [place] Tr[place] | [place] [address] | | | | | [place] | [phone] | | | | | [address] | | | | | | [phone] | | | +--------+ + + + [...]
--- OUTSIDE RECORDS SUMMARY | ~2019-04-10 | XMS | Encounter Summary ---
Demographics + + + | Address | [address] | | | [place] [address] | + + + | Home Phone [...] Team Providers + +------+ + | Care Machine Records Units Supervisor Name | Role | Phone | [...] Rd | | | | | | [place], [place] | | | | | | [address] | | | +--------+ + + + [...]
--- OUTSIDE RECORDS SUMMARY | ~2019-04-10 | XMS | Encounter Summary ---
Demographics + + + | Address | [address] | | | [place] [address] | + + + | Home Phone [...] Team Providers + +------+ + | Care Hospice Manager Name | Role | Phone | [...] | | | | neoplasm of | [place] | [address] [facility] | | | | | lung, | A MEDICAL | [facility] | | | | | unspecified | CENTER [address] | [address] [place], | | | | | laterality, | [address] [place] | [place] | | | | | unspecified | [place] | [address] | | | | | part of lung | [address] | Phone: | | | | | (HCC) | [place], | [phone] | | | | | Procedures | [place] [address] | Fax: | | | | | SIMULATION | Phone: | [phone] | | | | | IMAGING | [phone] | | | | | | | Fax: | | | | | | | [phone] | | +--------+--------+ + + + + [...] | | | | | pulmonary | [place] | [address] [facility] | | | | | nodule | A MEDICAL | [facility] | | | | | | [place] [address] | [address] [place], | | | | | | [address] [place] | [place] | | | | | | [place] | [address] | | | | | | [address] | Phone: | | | | | | [place], | [phone] | | | | | | [place] [address] | Fax: | | | | | | Phone: | [phone] | | | | | | [phone] | | | | | | | Fax: | | | | | | | [phone] | | + +--------+ + + + + Encounter Details +--------+---------+ + + + | Date | Type | Department | Care Team | Description | +--------+---------+ + + + | 02/06/ | Office | Radiation Oncology | Ye Doss MD | Malignant neoplasm | | 2019 | Visit | at [facility] [address] | [address] | of lung, unspecified | | | | [address] | [address] [place], | laterality, | | | | [place] | [place] [address] | unspecified part of | | | | [place], [place] | [phone] | lung (HCC) (Primary | | | | [address] | | Dx) | | | | [phone] | | | +--------+---------+ + + + [...] ONCOLOGY CONSULTATION Requesting Physician: Oj Russo MD [facility] [address] [place] [address] Identification/Chief Complaint: Ammon Tracy is a 84 year old male with RUL nodule s/p bronch EBUS confirmed to be non small lung cancer. HPI: Mr. Ammon Tracy is a 84 y.o. 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 This was treated successfully w ith neoadjuvant radiotherapy followed by surgical resection back in 2008. He also had a hx o f adenocarcinoma of the prostate, which he was treated to a total dose of 70 Gy over 28 frac tions with an IMRT technique with image guidance using [place] beacons, completed 10/09/14. Rip hanson now has [...] Brother Prostate Cancer REVIEW OF SYSTEMS: [facility] Radiation Oncology Questionnaire was completed [...] y.o. 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 This was treated success fully with neoadjuvant radiotherapy followed by surgical resection back in 2008. He also had a hx of adenocarcinoma of the prostate, which he was treated to a total dose of 70 Gy over 28 fractions with an IMRT technique with image guidance using [employer] beacons, completed 09/19 07/05. He now has [...]
--- OUTSIDE RECORDS SUMMARY | ~2019-04-10 | XMS | Encounter Summary ---
Demographics + + + | Address | [address] | | | [place] [address] | + + + | Home Phone [...] Team Providers + +------+ + | Care Route Delivery Service Driver Name | Role | Phone | [...] | | | | neoplasm of | [place] | [address] [facility] | | | | | lung, | A MEDICAL | [facility] | | | | | unspecified | CENTER [address] | [address] [place], | | | | | laterality, | [address] [place] | [place] | | | | | unspecified | [place] | [address] | | | | | part of lung | [address] | Phone: | | | | | (HCC) | [place], | [phone] | | | | | Procedures | [place] [address] | Fax: | | | | | SIMULATION | Phone: | [phone] | | | | | IMAGING | [phone] | | | | | | | Fax: | | | | | | | [phone] | | +--------+--------+ + + + + [...] | | | | | pulmonary | [place] | [address] [facility] | | | | | nodule | A MEDICAL | [facility] | | | | | | [place] [address] | [address] [place], | | | | | | [place] | [place] | | | | | | [place] | [address] | | | | | | [address] | Phone: | | | | | | [place], | [phone] | | | | | | [place] [address] | Fax: | | | | | | Phone: | [phone] | | | | | | [phone] | | | | | | | Fax: | | | | | | | [phone] | | + +--------+ + + + + Encounter Details +--------+---------+ + + + | Date | Type | Department | Care Team | Description | +--------+---------+ + + + | 02/06/ | Office | Radiation Oncology | Ye Doss MD | Malignant neoplasm | | 2019 | Visit | at [facility] [address] | [address] | of lung, unspecified | | | | [address] | [place], | laterality, | | | | [place] | [place] [address] | unspecified part of | | | | [place], [place] | [phone] | lung (HCC) (Primary | | | | [address] | | Dx) | | | | [phone] | | | +--------+---------+ + + + [...] ONCOLOGY CONSULTATION Requesting Physician: Oj Russo MD [facility] [address] [place] [address] Identification/Chief Complaint: Ammon Tracy is a 84 year old male with RUL nodule s/p bronch EBUS confirmed to be non small lung cancer. HPI: Mr. Ammon Tracy is a 84 y.o. 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 This was treated successfully w ith neoadjuvant radiotherapy followed by surgical resection back in 2008. He also had a hx o f adenocarcinoma of the prostate, which he was treated to a total dose of 70 Gy over 28 frac tions with an IMRT technique with image guidance using [place] beacons, completed 10/09/14. Rip hanson now has [...] Brother Prostate Cancer REVIEW OF SYSTEMS: [facility] Radiation Oncology Questionnaire was completed by [...] y.o. 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 This was treated success fully with neoadjuvant radiotherapy followed by surgical resection back in 2008. He also had a hx of adenocarcinoma of the prostate, which he was treated to a total dose of 70 Gy over 28 fractions with an IMRT technique with image guidance using [employer] beacons, completed 09/19 07/05. He now has [...]
--- OUTSIDE RECORDS SUMMARY | ~2019-04-10 | XMS | Encounter Summary ---
Demographics + + + | Address | [address] | | | [place] [address] | + + + | Home Phone [...] Team Providers + +------+ + | Care Motorcycle Riding Instructor Name | Role | Phone | [...] neoplasm of | [address] | [address] [facility] | | | | | prostate | [facility] | [facility] | | | | | (HCC) | Way | Rd [place], | | | | | Procedures | [place], [place] | [place] | | | | | Consult, | [address] | [address] | | | | | treat, f/u | Phone: | Phone: | | | | | | [phone] | [phone] | | | | | | Fax: | Fax: | | | | | | [phone] | [phone] | +--------+--------+ + + + + Encounter Details +--------+ + + + + | Date | Type | Department | Care Team | Description | +--------+ + + + + | 09/24/ | Hospital | Radiation Oncology | | | | 2014 | Encounter | at [facility] [address] | | | | | | [address] | | | | | | [place] | | | | | | [place], [place] | | | | | | [address] | | | | | | [phone] | | | +--------+ + + + [...]
--- OUTSIDE RECORDS SUMMARY | ~2019-04-10 | XMS | Encounter Summary ---
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 This was treated successfully with jose adjuvant radiotherapy followed by surgical resection. Stage cT3a, [place] 4+4 (3 of 12 cores), adenocarcinoma of the prostate. His pre-treatment PSA is 26.5 ng/mL drawn on 08/03/14. He is to be treated to a total dose of 70 Gy over 28 fra ctions with an IMRT technique with image guidance using [place] beacons. The patient will be receiving concurrent [...]
--- OUTSIDE RECORDS SUMMARY | ~2019-04-10 | XMS | Encounter Summary ---
Demographics + + + | Address | [address] | | | [place] [address] | + + + | Home Phone [...] Team Providers + +------+ + | Care Phlebotomist Prn Name | Role | Phone | + [...] neoplasm of | [address] | [address] [facility] | | | | | prostate | [facility] | [facility] | | | | | (HCC) | Way | [address], | | | | | Procedures | [place], [place] | [place] | | | | | Consult, | [address] | [address] | | | | | treat, f/u | Phone: | Phone: | | | | | | [phone] | [phone] | | | | | | Fax: | Fax: | | | | | | [phone] | [phone] | +--------+--------+ + + + + Encounter [...] Tran | | | | | | [place], [place] | | | | | | [address] | | | | | | [phone] | | | +--------+ + + + [...]
[~2019-04-10 14:56] MED LIST changes: +MUCUS RELIEF C200 MG PO; +PREDNISONE20 MG PO; +STIOLTO RESPIMAT4 GM INH; +VOLTAREN100 GM TOP
--- OUTSIDE RECORDS SUMMARY | 2019-04-10 14:58 | XMS ---
PreManage Notification: BRADY VILLANUEVA Security Manager Risk Management Events No recent Security Events currently on file CRITERIA MET - [facility] - Has Care Guidelines CARE PROVIDERS NAZIA AGOSTO Physical Therapist 12/02/2018-Current PHONE: [phone] JOSEMANUEL CHIN Internal Medicine 12/02/2018-Current HEMANTH PHONE: [phone] Mitchell Levin MD Treatment Current PHONE: Unknown Connie has no Care Guidelines for this patient. Care History Medical/Surgical 12/02/2018 [facility] - PATIENT CURRENTLY RECEIVES SERVICES AT THE [facility]. - PATIENT HAS A UROLOGIST AT THE [facility]. E.D. VISIT COUNT (12 MO.) 4 NAJ[facility] Irvin TOTAL 4 NOTE: Visits indicate total known visits. ED/UCC VISIT TRACKING (12 MO.) 04/10/2019 14:56 [facility] [place] TYPE: Emergency COMPLAINT: - SOB 02/24/2019 07:11 [facility] [place] TYPE: Emergency COMPLAINT: - SOB 11/30/2018 09:35 [facility] [place] TYPE: Emergency COMPLAINT: - BLOOD IN URINE DIAGNOSES: - Personal history of nicotine dependence - Urinary tract infection, site not specified - Hematuria, unspecified - Other long-term (current) drug therapy - penitentiary (current) use of aspirin - Personal history of malignant neoplasm of prostate 10/31/2018 21:03 [facility] [place] TYPE: Emergency COMPLAINT: - FALL, ETOH INTOXICATION DIAGNOSES: - Alcohol abuse with intoxication, unspecified - Personal history of malignant neoplasm of bronchus and lung - Personal history of malignant neoplasm of prostate INPATIENT VISIT TRACKING (12 MO.) 02/24/2019 11:07 [facility] TYPE: Critical Care COMPLAINT: - HYPOXIC RESP FAILURE DIAGNOSES: - penitentiary (current) use of aspirin - Other superintendent container terminal (current) drug therapy - Hyperlipidemia, unspecified - Chronic obstructive pulmonary disease w (acute) exacerbation - Acute respiratory failure with hypoxia - Personal history of nicotine dependence - Personal history of malignant neoplasm of prostate - Acquired absence of lung [part of] - Unspecified dementia without behavioral disturbance - Unspecified mood [affective] disorder - Personal history of malignant neoplasm of bronchus and lung - Benign prostatic hyperplasia without lower urinry tract symp [email or web address]
[2019-04-10] MEDS ORDERED: IPRAT-ALBUT 0.5-3 ML INH (16:44)
[2019-04-10] MEDS ORDERED: PREDNISONE20 MG PO (16:44)
== END 2019-04-10 17:01 | disposition home or self-care (01) ==
LOC: ED 14:56
DX: J44.1 Chronic obstructive pulmonary disease with (acute) exacerbation (principal); Z85.46 Personal history of malignant neoplasm of prostate; Z87.891 Personal history of nicotine dependence; Z79.899 Other long term (current) drug therapy; Z79.82 Long term (current) use of aspirin
CPT/HCPCS: 71045; 80053; 83880; 84484; 85025; 94640; 96374; 99285-25; J2930

== ENCOUNTER 2020-02-09 12:17 | Emergency (ER) | payer OTHER ==
[~2020-02-09] VITALS: Ht 175.3 cm; Wt 73.9 kg
--- OUTSIDE RECORDS SUMMARY | ~2020-02-09 | XMS | Encounter Summary ---
Demographics + + + | Address | [address] | | | [place] [address] | + + + | Home Phone | | + + + | Preferred Language | Unknown | + + + | Marital Status | Single | + + + | Confucianism Affiliation | Unknown | + + + | Race | Unknown | + + + | Ethnic Group | Other Race | + + + Author + + + | Author | [facility] | + + + | Organization | [facility] | + + + | Address | Unknown | + + + | Phone | Unavailable | + + + Support + + +---------+ + | Name | Relationship | Address | Phone | + + +---------+ + | Alia Tracy | ECON | Unknown | | + + +---------+ + Care Team Providers + +------+ + | Care Sales Strategy Manager Name | Role | Phone | + [...] neoplasm of | [address] | [address] [facility] | | | | | prostate | [facility] | [facility] | | | | | (HCC) | Way | [address] [place], | | | | | Procedures | [place], [place] | [place] | | | | | Consult, | [address] | [address] | | | | | treat, f/u | Phone: | Phone: | | | | | | [phone] | [phone] | | | | | | Fax: | Fax: | | | | | | [phone] | [phone] | +--------+--------+ + + + + Encounter Details +--------+ + + + + | Date | Type | Department | Care Team | Description | +--------+ + + + + | 10/06/ | Hospital | Radiation Oncology | | | | 2014 | Encounter | at [facility] [address] | | | | | | [address] | | | | | | [place] | | | | | | [place], [place] | | | | | | [address] | | | | | | [phone] | | | +--------+ + + + [...] on file | | + + + documented as of this encounter [...]
--- OUTSIDE RECORDS SUMMARY | ~2020-02-09 | XMS | Encounter Summary ---
Demographics + + + | Address | [address] | | | [place] [address] | + + + | Home Phone | | + + + | Preferred Language | Unknown | + + + | Marital Status | Single | + + + | Islam Affiliation | Unknown | + + + | Race | Unknown | + + + | Ethnic Group | Other Race | + + + Author + + + | Author | [facility] | + + + | Organization | [facility] | + + + | Address | Unknown | + + + | Phone | Unavailable | + + + Support + + +---------+ + | Name | Relationship | Address | Phone | + + +---------+ + | Alia Tracy | ECON | Unknown | | + + +---------+ + Care Team Providers + +------+ + | Care Road Crew Member Name | Role | Phone | + +------+ + PCP | Unavailable | + +------+ + Encounter Details +--------+ + + + + | Date | Type | Department | Care Team | Description | +--------+ + + + + | 09/02/ | Hospital | Radiation Oncology | | | | 2008 | Encounter | at [facility] [address] | | | | | | [address] | | | | | | [place], [address] [place] [address] | | | | | | [place], [place] | | | | | | [address] | | | | | | [phone] | | | +--------+ + + + [...] + + documented as of this encounter Discharge Zo Horowitz Faculty - 09/02/2008 12:00 AM PDT documented in this encounter Medications at Time of Discharge [...] +---------+--------+ + documented as of this encounter Procedure Notes Other, Faculty - 09/02/2008 11:59 PM PDT Other, Faculty - 09/02/2008 12:00 AM PDTAssociate d Order(s): LAB RESULTS; LAB RESULTS documented in this encounter Miscellaneous Notes Scan - Other, Faculty - 09/02/2008 11:59 PM PDT documented in this encounter Plan of Treatment Not on filedocumented as of this encounter Procedures + +--------+ + + + | Procedure Name | Priori | Date/Time | Associated Diagnosis | Comments | | | ty | | | | + +--------+ + + + | LAB RESULTS | | 09/02/2008 | | Results for this | | | | 12:00 AM | | procedure are in the | | | | PDT | | results section. | + +--------+ + + + documented in this encounter Results LAB RESULTS (09/02/2008 12:00 AM PDT) + + + | Narrative | Performed At | + + + | | | + + + + + | Procedure Note | + + | Jeane Horowitz - 09/02/2008 12:00 AM PDT | + + documented in this encounter Visit Diagnoses Not on filedocumented in this encounter"
--- OUTSIDE RECORDS SUMMARY | ~2020-02-09 | XMS | Encounter Summary ---
Demographics + + + | Address | [address] | | | [place] [address] | + + + | Home Phone | | + + + | Preferred Language | Unknown | + + + | Marital Status | Single | + + + | Mosque Affiliation | Unknown | + + + | Race | Unknown | + + + | Ethnic Group | Other Race | + + + Author + + + | Author | [facility] | + + + | Organization | [facility] | + + + | Address | Unknown | + + + | Phone | Unavailable | + + + Support + + +---------+ + | Name | Relationship | Address | Phone | + + +---------+ + | Alia Tracy | ECON | Unknown | | + + +---------+ + Care Team Providers + +------+ + | Care Automobile Travel Club Counselor Name | Role | Phone | + [...] neoplasm of | [address] | [address] [facility] | | | | | prostate | [facility] | [facility] | | | | | (HCC) | Way | [address] [place], | | | | | Procedures | [place], [place] | [place] | | | | | Consult, | [address] | [address] | | | | | treat, f/u | Phone: | Phone: | | | | | | [phone] | [phone] | | | | | | Fax: | Fax: | | | | | | [phone] | [phone] | +--------+--------+ + + + + Encounter Details +--------+ + + + + | Date | Type | Department | Care Team | Description | +--------+ + + + + | 09/23/ | Hospital | Radiation Oncology | | | | 2014 | Encounter | at [facility] [address] | | | | | | [address] | | | | | | [place] | | | | | | [place], [place] | | | | | | [address] | | | | | | [phone] | | | +--------+ + + + [...]
--- OUTSIDE RECORDS SUMMARY | ~2020-02-09 | XMS | Encounter Summary ---
Demographics + + + | Address | [address] | | | [place] [address] | + + + | Home Phone | | + + + | Preferred Language | Unknown | + + + | Marital Status | Single | + + + | Restorationism Affiliation | Unknown | + + + | Race | Unknown | + + + | Ethnic Group | Other Race | + + + Author + + + | Author | [facility] | + + + | Organization | [facility] | + + + | Address | Unknown | + + + | Phone | Unavailable | + + + Support + + +---------+ + | Name | Relationship | Address | Phone | + + +---------+ + | Alia Tracy | ECON | Unknown | | + + +---------+ + Care Team Providers + +------+ + | Care Typewriter Assembler Name | Role | Phone | + +------+ + | No Pcp Per Patient | PCP | Unavailable | + +------+ + Reason for Visit + +--------+ + | Reason | Onset | Comments | | | Date | | + +--------+ + | On Treatment Visit | 09/08/ | | | (OTV) | 2015 | | + +--------+ + Encounter Details +--------+---------+ + + + | Date | Type | Department | Care Team | Description | +--------+---------+ + + + | 09/08/ | Office | Radiation Oncology | Rishabh Quan MD | Radiotherapy | | 2014 | Visit | at [facility] [address] | [address] | (Primary Dx) | | | | [address] | [facility], | | | | | [place], [facility] floor | [place] [address] | | | | | [place], [place] | [phone] | | | | | [address] | | | | | | [phone] | | | +--------+---------+ + + + [...] free to contact us with further questions: [phone] documented in this encounter Progress Notes Rishabh Quan MD - 09/08/2014 5:52 PM PDTI personally interviewed Ammon Hilliard Tracyjulius uplicated the pertinent parts of the physical examination and formulated the treatment plan. I reviewed the excellent note by Dr. Flores and entered my findings directly into his not e. oni Flores MD - 0 09/08/2014 5:39 PM PDT 09/08/2014 Ammon Tracy is a 79 y.o. 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 This was treated successfully with jose adjuvant radiotherapy followed by surgical resection. Stage cT3a, [place] 4+4 (3 of 12 cores), adenocarcinoma of the prostate. His pre-treatment PSA is 26.5 ng/mL drawn on 08/03/14. He is to be treated to a total dose of 70 Gy over 28 fra ctions with an IMRT technique with image guidance using [place] beacons. The patient will be receiving concurrent [...] films were reviewed. Will try some metamucil. irly, Zhanna Mon RN - 5:15 PM PDT Nursing Note [...]
--- OUTSIDE RECORDS SUMMARY | ~2020-02-09 | XMS | Encounter Summary ---
Demographics + + + | Address | [address] | | | [place] [address] | + + + | Home Phone | | + + + | Preferred Language | Unknown | + + + | Marital Status | Single | + + + | Presybeterian Affiliation | Unknown | + + + | Race | Unknown | + + + | Ethnic Group | Other Race | + + + Author + + + | Author | [facility] | + + + | Organization | [facility] | + + + | Address | Unknown | + + + | Phone | Unavailable | + + + Support + + +---------+ + | Name | Relationship | Address | Phone | + + +---------+ + | Alia Tracy | ECON | Unknown | | + + +---------+ + Care Team Providers + +------+ + | Care Contract Programmer Name | Role | Phone | + +------+ + | No Pcp Per Patient | PCP | Unavailable | + +------+ + Encounter Details +--------+ + + + + | Date | Type | Department | Care Team | Description | +--------+ + + + + | 08/31/ | Results | Radiation Oncology | Rishabh Quan MD | | | 2014 | Only | at [facility] [address] | [address] | | | | | [address] | [facility], | | | | | [place], [facility] floor | [place] [address] | | | | | [place], [place] | [phone] | | | | | [address] | | | | | | [phone] | | | +--------+ + + + [...] | | + +---------+--------+ + + | RX SIMULATION | Imaging | Routin | | 08/31/2014 2:05 PM | | | | e | | PDT | + +---------+--------+ + + documented as of this encounter Visit Diagnoses Not on filedocumented in this encounter"
--- OUTSIDE RECORDS SUMMARY | ~2020-02-09 | XMS | Encounter Summary ---
Demographics + + + | Address | [address] | | | [place] [address] | + + + | Home Phone | | + + + | Preferred Language | Unknown | + + + | Marital Status | Single | + + + | Yazidi Affiliation | Unknown | + + + | Race | Unknown | + + + | Ethnic Group | Other Race | + + + Author + + + | Author | [facility] | + + + | Organization | [facility] | + + + | Address | Unknown | + + + | Phone | Unavailable | + + + Support + + +---------+ + | Name | Relationship | Address | Phone | + + +---------+ + | Alia Tracy | ECON | Unknown | | + + +---------+ + Care Team Providers + +------+ + | Care Vacuum Plastic Forming Machine Operator Name | Role | Phone | + +------+ + PCP | Unavailable | + +------+ + Encounter Details +--------+ + + + + | Date | Type | Department | Care Team | Description | +--------+ + + + + | 09/24/ | Hospital | Radiation Oncology | | | | 2008 | Encounter | at [facility] [address] | | | | | | [address] | | | | | | [place], [address] [place] [address] | | | | | | [place], [place] | | | | | | [address] | | | | | | [phone] | | | +--------+ + + + [...]
--- OUTSIDE RECORDS SUMMARY | ~2020-02-09 | XMS | Encounter Summary ---
Demographics + + + | Address | [address] | | | [place] [address] | + + + | Home Phone | | + + + | Preferred Language | Unknown | + + + | Marital Status | Single | + + + | Muslim Affiliation | Unknown | + + + [...] Team Providers + +------+ + | Care Customer Care Assistant Name | Role | Phone | [...] [address] | | | | | | [address] | | | | | | [place], [address] [place] [address] | | | | | | [place], [place] | | | | | | [address] | | | | | | [phone] | | | +--------+ + + + [...]
--- OUTSIDE RECORDS SUMMARY | ~2020-02-09 | XMS | Encounter Summary ---
Demographics + + + | Address | [address] | | | [place] [address] | + + + | Home Phone | | + + + | Preferred Language | Unknown | + + + | Marital Status | Single | + + + | Pentecostalism Affiliation | Unknown | + + + | Race | Unknown | + + + | Ethnic Group | Other Race | + + + Author + + + | Author | [facility] | + + + | Organization | [facility] | + + + | Address | Unknown | + + + | Phone | Unavailable | + + + Support + + +---------+ + | Name | Relationship | Address | Phone | + + +---------+ + | Alia Tracy | ECON | Unknown | | + + +---------+ + Care Team Providers + +------+ + | Care Teacher Hearing Impaired Name | Role | Phone | + +------+ + | No Pcp Per Patient | PCP | Unavailable | + +------+ + Encounter Details +--------+ + + + + | Date | Type | Department | Care Team | Description | +--------+ + + + + | 08/14/ | Document-Sc | UNKNOWN DEPARTMENT | Unknown . | | | 2014 | anned | [address] | | | | | | [address] | | | | | | [place], [place] | | | | | | [address] | | | +--------+ + + + [...]
--- OUTSIDE RECORDS SUMMARY | ~2020-02-09 | XMS | Encounter Summary ---
Demographics + + + | Address | [address] | | | [place] [address] | + + + | Home Phone | | + + + | Preferred Language | Unknown | + + + | Marital Status | Single | + + + | Buddhist Affiliation | Unknown | + + + [...] Team Providers + +------+ + | Care Kitchen Designer Name | Role | Phone | + [...] [address] | | | | | | [address] | | | | | | [place], [address] [place] [address] | | | | | | [place], [place] | | | | | | [address] | | | | | | [phone] | | | +--------+ + + + [...] with | | | | | | [place]. Patient | | | | | | [...] | + + + + + | [facility] | [address] | [place] [address] | | | PATHOLOGY | [address] [...] with | | | | | | [place]. Patient | | | | | | [...] | + + + + + | [facility] | [address] | [place] [address] | | | PATHOLOGY | [address] | | | + + + + + documented in this encounter Visit Diagnoses Not on filedocumented in this encounter"
--- OUTSIDE RECORDS SUMMARY | ~2020-02-09 | XMS | Encounter Summary ---
Demographics + + + | Address | [address] | | | [place] [address] | + + + | Home Phone | | + + + | Preferred Language | Unknown | + + + | Marital Status | Single | + + + | Denominational Affiliation | Unknown | + + + [...] Team Providers + +------+ + | Care Party Coordinator Name | Role | Phone | + [...] neoplasm of | [address] | [address] [facility] | | | | | prostate | [facility] | [facility] | | | | | (HCC) | Way | [address] [place], | | | | | Procedures | [place], [place] | [place] | | | | | Consult, | [address] | [address] | | | | | treat, f/u | Phone: | Phone: | | | | | | [phone] | [phone] | | | | | | Fax: | Fax: | | | | | | [phone] | [phone] | +--------+--------+ + + + + Encounter Details +--------+ + + + + | Date | Type | Department | Care Team | Description | +--------+ + + + + | 09/18/ | Hospital | Radiation Oncology | | | | 2014 | Encounter | at [facility] [address] | | | | | | [address] | | | | | | [place] | | | | | | [place], [place] | | | | | | [address] | | | | | | [phone] | | | +--------+ + + + [...]
--- OUTSIDE RECORDS SUMMARY | ~2020-02-09 | XMS | Encounter Summary ---
Demographics + + + | Address | [address] | | | [place] [address] | + + + | Home Phone [...] Author + + + | Author | [facility] | + + + | Organization | [facility] | + + + | Address | Unknown | + + + | Phone | Unavailable | + + + Support + + +---------+ + | Name | Relationship | Address | Phone | + + +---------+ + | Alia Tracy | ECON | Unknown | | + + +---------+ + Care Team Providers + +------+ + | Care Vp Clinical Research Name | Role | Phone | + [...] [address] | | | | | | [address] | | | | | | [place], [address] [place] [address] | | | | | | [place], [place] | | | | | | [address] | | | | | | [phone] | | | +--------+ + + + [...]
--- OUTSIDE RECORDS SUMMARY | ~2020-02-09 | XMS | Encounter Summary ---
Demographics + + + | Address | [address] | | | [place] [address] | + + + | Home Phone | | + + + | Preferred Language | Unknown | + + + | Marital Status | Single | + + + | Catholic Affiliation | Unknown | + + + [...] Team Providers + +------+ + | Care Section Chief Name | Role | Phone | + +------+ + | No Pcp Per Patient | PCP | Unavailable | + +------+ + Reason for Visit + +--------+ + | Reason | Onset | Comments | | | Date | | + +--------+ + | RT Treatment Summary | 02/18/ | | | | 2018 | | + +--------+ + Encounter Details +--------+ + + + + | Date | Type | Department | Care Team | Description | +--------+ + + + + | 02/18/ | Documentati | Radiation Oncology | Neftali Bernardo MD | RT Treatment Summary | | 2019 | on | at [facility] [address] | [address] | | | | | [address] | [facility], | | | | | [place], [facility] floor | [place] [address] | | | | | [place], [place] | [phone] | | | | | [address] | | | | | | [phone] | | | +--------+ + + + [...] + + documented as of this encounter Miscellaneous Notes Telephone Encounter - Post, MD Neftali - 05/09/2019 9:46 AM PSTRADIATION ONCOLOGY TREATMENT SUMMARY IDENTIFICATION: Ammon Tracy is a 84 y.o. 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 This was treated success fully with neoadjuvant radiotherapy followed by surgical resection. 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 His pre-treatment PSA is 26.5 ng/mL drawn on 08/03/14. He was treated to a total dose of 70 Gy over 28 fraction s with an IMRT technique with image guidance using [employer] beacons, completed 10/09/14. The patient will be receiving concurrent androgen deprivation for 24 months. 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 FOLLOW UP: He will be scheduled for CT chest in 3 months, with follow-up after. For further details about the treatment plan please contact our office at [phone]. Neftali Bernardo MD, PGY2 Dept of Radiation Medicine [facility] 9:5 0 AM PSTdocumented in this encounter Plan of Treatment Not on filedocumented as of this encounter Visit Diagnoses Not on filedocumented in this encounter"
--- OUTSIDE RECORDS SUMMARY | ~2020-02-09 | XMS | Encounter Summary ---
Demographics + + + | Address | [address] | | | [place] [address] | + + + | Home Phone | | + + + | Preferred Language | Unknown | + + + | Marital Status | Single | + + + | Judaism Affiliation | Unknown | + + + [...] Team Providers + +------+ + | Care Chairman President And Chief Executive Officer Name | Role | Phone | + +------+ + | No Pcp Per Patient | PCP | Unavailable | + +------+ + Reason for Visit + +--------+ + | Reason | Onset | Comments | | | Date | | + +--------+ + | RT Plan Review Note | 02/07/ | | | | 2019 | | + +--------+ + Encounter Details +--------+ + + + + | Date | Type | Department | Care Team | Description | +--------+ + + + + | 02/07/ | Documentati | Radiation Oncology | Ye Doss MD | RT Plan Review Note | | 2018 | on | at [facility] [address] | [address] | | | | | [address] | [facility], | | | | | [place], [facility] floor | [place] [address] | | | | | [place], [place] | [phone] | | | | | [address] | | | | | | [phone] | | | +--------+ + + + [...] this encounter Miscellaneous Notes Telephone Encounter - Ye Doss MD - 02/07/2019 2:07 PM PDTRadiotherapy Plan Review N ote Review Date: 02/07/2019 Clinical History: Ammon Tracy is a 84 y.o. male with history of a Stage [id number] S CCA of TIMBO with posterior CW and left T5 transverse process invasion. This was treated succe ssfully with neoadjuvant radiotherapy followed by surgical resection. Stage cT3a, Leburn 4+4 (3 of 12 cores), adenocarcinoma of the prostate. His pre-treatment PSA is 26.5 ng/mL drawn on 08/03/14. He was treated to a total dose of 70 Gy over 28 fraction s with an IMRT technique with image guidance using [employer] beacons, completed 10/09/14. The patient will be receiving concurrent androgen deprivation for 24 months. 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 Type of Plan: VMAT Rationale: Initial Plan Treatment volume: RUL NSCLC Planned Total RT Dose: 11 Gy per fraction x 5 fractions Energy: 6x Beam Arrangement: VMAT Number of unique ports: Two partial arcs 180 to 30 degrees then back Isodose Line: 100% covers 95% of the PTV Treatment Setup and Devices: Vac-Loc and rotation or arc therapy Critical Structures: Cord max dose: 11.1 Gy Cord + 5 mm: 12.2 Gy Esophagus max dose: 9.3 Gy Airway max dose: 11.7 Gy Chest wall max dose: 28.6 Gy Heart max dose: 4.5 Gy Total Lung mean dose: 5.4 Gy; V20 8.3%; V13.5 13.9%; V10 18%; V5 24% V13.5 431 mls V12.5 463 mls Max dose: 71.1 Gy (129%) in the ITV He is set to start Saturday 02/10 He will be treated 02/10, 02/11, 02/14, 02/17 and 02/19 Ye Doss MD documented in this enco unter Plan of Treatment Not on filedocumented as of this encounter Visit Diagnoses Not on filedocumented in this encounter"
--- OUTSIDE RECORDS SUMMARY | ~2020-02-09 | XMS | Encounter Summary ---
Demographics + + + | Address | [address] | | | [place] [address] | + + + | Home Phone | | + + + | Preferred Language | Unknown | + + + | Marital Status | Single | + + + | Hindu Affiliation | Unknown | + + + | Race | Unknown | + + + | Ethnic Group | Other Race | + + + Author + + + | Author | [facility] | + + + | Organization | [facility] | + + + | Address | Unknown | + + + | Phone | Unavailable | + + + Support + + +---------+ + | Name | Relationship | Address | Phone | + + +---------+ + | Alia Tracy | ECON | Unknown | | + + +---------+ + Care Team Providers + +------+ + | Care Deputy Grand Jury Name | Role | Phone | + [...] neoplasm of | [address] | [address] [facility] | | | | | prostate | [facility] | [facility] | | | | | (HCC) | Way | Rd [place], | | | | | Procedures | [place], [place] | [place] | | | | | Consult, | [address] | [address] | | | | | treat, f/u | Phone: | Phone: | | | | | | [phone] | [phone] | | | | | | Fax: | Fax: | | | | | | [phone] | [phone] | +--------+--------+ + + + + Encounter Details +--------+ + + + + | Date | Type | Department | Care Team | Description | +--------+ + + + + | 09/11/ | Hospital | Radiation Oncology | | | | 2014 | Encounter | at [facility] [address] | | | | | | [address] | | | | | | [place] | | | | | | [place], [place] | | | | | | [address] | | | | | | [phone] | | | +--------+ + + + [...]
--- OUTSIDE RECORDS SUMMARY | ~2020-02-09 | XMS | Encounter Summary ---
Demographics + + + | Address | [address] | | | [place] [address] | + + + | Home Phone | | + + + | Preferred Language | Unknown | + + + | Marital Status | Single | + + + | Hoahaoism Affiliation | Unknown | + + + [...] Team Providers + +------+ + | Care Mental Hygiene Consultant Name | Role | Phone | + [...]
--- OUTSIDE RECORDS SUMMARY | ~2020-02-09 | XMS | Encounter Summary ---
Demographics + + + | Address | [address] | | | [place] [address] | + + + | Home Phone [...] + + + | Author | [facility] | + + + | Organization | [facility] | + + + | Address | Unknown | + + + | Phone | Unavailable | + + + Support + + +---------+ + | Name | Relationship | Address | Phone | + + +---------+ + | Alia Tracy | ECON | Unknown | | + + +---------+ + Care Team Providers + +------+ + | Care Panel Machine Setter Name | Role | Phone [...] | 2019 | Encounter | at [facility] [address] | | | | | | [address] | | | | | | [place], [address] [place] [address] | | | | | | [place], [place] | | | | | | [address] | | | | | | [phone] | | | +--------+ + + + [...]
--- OUTSIDE RECORDS SUMMARY | ~2020-02-09 | XMS | Encounter Summary ---
Demographics + + + | Address | [address] | | | [place] [address] | + + + | Home Phone [...] Team Providers + +------+ + | Care Offender Job Retention Specialist Name | Role | Phone | [...] [address] | | | | | | [address] | | | | | | [place], [facility] floor | | | | | | [place], [place] | | | | | | [address] | | | | | | [phone] | | | +--------+ + + + [...]
--- OUTSIDE RECORDS SUMMARY | ~2020-02-09 | XMS | Encounter Summary ---
Demographics + + + | Address | [address] | | | [place] [address] | + + + | Home Phone [...] Team Providers + +------+ + | Care Fuel Quality Tech Name | Role | Phone | + +------+ + | No Pcp Per Patient | PCP | Unavailable | + +------+ + Reason for Visit + +--------+ + | Reason | Onset | Comments | | | Date | | + +--------+ + | On Treatment Visit | | | | (OTV) | | | + +--------+ + | On Treatment Visit | 02/11/ | | | (OTV) | 2019 | | + +--------+ + Encounter Details +--------+---------+ + + + | Date | Type | Department | Care Team | Description | +--------+---------+ + + + | 02/11/ | Office | Radiation Oncology | Ye Doss MD | Encounter for | | 2019 | Visit | at [facility] [address] | [address] [facility] | radiotherapy | | | | [address] | [address] [place], | (Primary Dx) | | | | Pavilion, 4th floor | [place] [address] | | | | | [place], [place] | [phone] | | | | | [address] | | | | | | [phone] | | | +--------+---------+ + + + [...] AM PDTFUP with new chest CT in [place] [address] more to go documented in this encounter Progress Notes Ye Doss MD - 02/11/2019 11:20 AM PDTJust starting this SBRT yesterday history of a Stage [id number] SCCA of TIMBO with posterior CW and [...] an IMRT technique with image guidance using [employer] beacons, completed 10/09/14. The patient will be [...] FUP with new chest CT in May JH ergovind, VIKA Santos - 11:20 AM PDT [...]
--- OUTSIDE RECORDS SUMMARY | ~2020-02-09 | XMS | Encounter Summary ---
Demographics + + + | Address | [address] | | | [place] [address] | + + + | Home Phone [...] Team Providers + +------+ + | Care Or Rn Name | Role | Phone | + [...]
--- OUTSIDE RECORDS SUMMARY | ~2020-02-09 | XMS | Encounter Summary ---
Demographics + + + | Address | [address] | | | [place] [address] | + + + | Home Phone | | + + + | Preferred Language | Unknown | + + + | Marital Status | Single | + + + | Roman Catholic Affiliation | Unknown | + + [...] Team Providers + +------+ + | Care Piece Dyer Name | Role | Phone | + [...] [address] | | | | | | [address] | | | | | | [place], [address] [place] [address] | | | | | | [place], [place] | | | | | | [address] | | | | | | [phone] | | | +--------+ + + + [...]
--- OUTSIDE RECORDS SUMMARY | ~2020-02-09 | XMS | Encounter Summary ---
Demographics + + + | Address | [address] | | | [place] [address] | + + + | Home Phone [...] Team Providers + +------+ + | Care Retanned Leather Roller Name | Role | Phone | + [...]
--- OUTSIDE RECORDS SUMMARY | ~2020-02-09 | XMS | Encounter Summary ---
Demographics + + + | Address | [address] | | | [place] [address] | + + + | Home Phone [...] Team Providers + +------+ + | Care Scada Technician Name | Role | Phone | [...] neoplasm of | [address] | [address] [facility] | | | | | prostate | [facility] | [facility] | | | | | (HCC) | Way | Rd [place], | | | | | Procedures | [place], [place] | [place] | | | | | Consult, | [address] | [address] | | | | | treat, f/u | Phone: | Phone: | | | | | | [phone] | [phone] | | | | | | Fax: | Fax: | | | | | | [phone] | [phone] | +--------+--------+ + + + + Encounter Details +--------+ + + + + | Date | Type | Department | Care Team | Description | +--------+ + + + + | 09/30/ | Hospital | Radiation Oncology | | | | 2014 | Encounter | at [facility] [address] | | | | | | [address] | | | | | | [place] | | | | | | [place], [place] | | | | | | [address] | | | | | | [phone] | | | +--------+ + + + [...]
--- OUTSIDE RECORDS SUMMARY | ~2020-02-09 | XMS | Encounter Summary ---
Demographics + + + | Address | [address] | | | [place] [address] | + + + | Home Phone | | + + + | Preferred Language | Unknown | + + + | Marital Status | Single | + + + | Latter Day Affiliation | Unknown | + + + | Race | Unknown | + + + | Ethnic Group | Unknown | + + + Author + + + | Author | [facility] | | | and [place] | + + + | Organization | [facility] | | | and [...] Team Providers + +------+ + | Care Traditional Chinese Herbalist Name | Role | Phone | + +------+ + PCP | Unavailable | + +------+ + Encounter Details +--------+ + + + + | Date | Type | Department | Care Team | Description | +--------+ + + + + | 10/04/ | Hospital | [facility] | Víctor Schwartz | | | 1995 | Encounter | MED CTR XRAY [address] | | | | | [place] | [facility] | | | | | [place] [address] | [place] | | | | | [phone] | [id number] | | | | | | | [...]
--- OUTSIDE RECORDS SUMMARY | ~2020-02-09 | XMS | Encounter Summary ---
Demographics + + + | Address | [address] | | | [place] [address] | + + + | Home Phone [...] Team Providers + +------+ + | Care Powder Coat Painter Name | Role | Phone | + +------+ + PCP | Unavailable | + +------+ + Encounter Details +--------+ + + + + | Date | Type | Department | Care Team | Description | +--------+ + + + + | 10/13/ | Hospital | Radiation Oncology | | | | 2008 | Encounter | at [facility] [address] | | | | | | [address] | | | | | | [place], [address] [place] [address] | | | | | | [place], [place] | | | | | | [address] | | | | | | [phone] | | | +--------+ + + + [...]
--- OUTSIDE RECORDS SUMMARY | ~2020-02-09 | XMS | Encounter Summary ---
Demographics + + + | Address | [address] | | | [place] [address] | + + + | Home Phone [...] Author + + + | Author | [facility] | + + + | Organization | [facility] | + + + | Address | Unknown | + + + | Phone | Unavailable | + + + Support + + +---------+ + | Name | Relationship | Address | Phone | + + +---------+ + | Alia Tracy | ECON | Unknown | | + + +---------+ + Care Team Providers + +------+ + | Care Optical Glass Sawyer Name | Role | Phone | + [...] neoplasm of | [address] | [address] [facility] | | | | | prostate | [facility] | [facility] | | | | | (HCC) | Way | Rd [place], | | | | | Procedures | [place], [place] | [place] | | | | | Consult, | [address] | [address] | | | | | treat, f/u | Phone: | Phone: | | | | | | [phone] | [phone] | | | | | | Fax: | Fax: | | | | | | [phone] | [phone] | +--------+--------+ + + + + Encounter Details +--------+ + + + + | Date | Type | Department | Care Team | Description | +--------+ + + + + | 09/16/ | Hospital | Radiation Oncology | | | | 2014 | Encounter | at [facility] [address] | | | | | | [address] | | | | | | [place] | | | | | | [place], [place] | | | | | | [address] | | | | | | [phone] | | | +--------+ + + + [...]
--- OUTSIDE RECORDS SUMMARY | ~2020-02-09 | XMS | Encounter Summary ---
Demographics + + + | Address | [address] | | | [place] [address] | + + + | Home Phone [...] + + + | Author | [facility] | + + + | Organization | [facility] | + + + | Address | Unknown | + + + | Phone | Unavailable | + + + Support + + +---------+ + | Name | Relationship | Address | Phone | + + +---------+ + | Alia Tracy | ECON | Unknown | | + + +---------+ + Care Team Providers + +------+ + | Care Mixed Crop Farmer Name | Role | Phone | [...] [address] | | | | | | [address] | | | | | | [place], [address] [place] [address] | | | | | | [place], [place] | | | | | | [address] | | | | | | [phone] | | | +--------+ + + + [...]
--- OUTSIDE RECORDS SUMMARY | ~2020-02-09 | XMS | Encounter Summary ---
Demographics + + + | Address | [address] | | | [place] [address] | + + + | Home Phone | | + + + | Preferred Language | Unknown | + + + | Marital Status | Single | + + + | Sikh Affiliation | Unknown | + + + [...] Team Providers + +------+ + | Care Punch Out Crew Member Name | Role | Phone | + +------+ + PCP | Unavailable | + +------+ + Encounter Details +--------+ + + + + | Date | Type | Department | Care Team | Description | +--------+ + + + + | 10/02/ | Hospital | Radiation Oncology | | | | 2008 | Encounter | at [facility] [address] | | | | | | [address] | | | | | | [place], [address] [place] [address] | | | | | | [place], [place] | | | | | | [address] | | | | | | [phone] | | | +--------+ + + + [...]
--- OUTSIDE RECORDS SUMMARY | ~2020-02-09 | XMS | Encounter Summary ---
Demographics + + + | Address | [address] | | | [place] [address] | + + + | Home Phone [...] Team Providers + +------+ + | Care Shower Maid Name | Role | Phone | + [...] neoplasm of | [address] | [address] [facility] | | | | | prostate | [facility] | [facility] | | | | | (HCC) | Way | Rd [place], | | | | | Procedures | [place], [place] | [place] | | | | | Consult, | [address] | [address] | | | | | treat, f/u | Phone: | Phone: | | | | | | [phone] | [phone] | | | | | | Fax: | Fax: | | | | | | [phone] | [phone] | +--------+--------+ + + + + Encounter Details +--------+ + + + + | Date | Type | Department | Care Team | Description | +--------+ + + + + | 10/05/ | Hospital | Radiation Oncology | | | | 2014 | Encounter | at [facility] [address] | | | | | | [address] | | | | | | [place] | | | | | | [place], [place] | | | | | | [address] | | | | | | [phone] | | | +--------+ + + + [...]
--- OUTSIDE RECORDS SUMMARY | ~2020-02-09 | XMS | Encounter Summary ---
Demographics + + + | Address | [address] | | | [place] [address] | + + + | Home Phone [...] Team Providers + +------+ + | Care Contact Agent Name | Role | Phone | + +------+ + | No Pcp Per Patient | PCP | Unavailable | + +------+ + Reason for Visit + +--------+ + | Reason | Onset | Comments | | | Date | | + +--------+ + | On Treatment Visit | 09/22/ | | | (OTV) | 2015 | | + +--------+ + Encounter Details +--------+---------+ + + + | Date | Type | Department | Care Team | Description | +--------+---------+ + + + | 09/22/ | Office | Radiation Oncology | Eugenia Sousa MD | Radiotherapy | | 2014 | Visit | at [facility] [address] | [address] | (Primary Dx) | | | | [address] | [place], [place] | | | | | [place], [facility] floor | [address] | | | | | [place], [place] | [phone] | | | | | [address] | | | | | | [phone] | | | +--------+---------+ + + + [...] + + + | Blood Pressure | 110/67 | 09/22/2014 10:06 AM | | | | | PDT | | + + + + + | Pulse | 74 | 09/22/2014 10:06 AM | | | | | PDT | | + + + + + | Temperature | 36.9 C (98.5 F) | 09/22/2014 10:06 AM | | | | | PDT [...] | Weight | 80 kg (176 lb 4.8 | 09/22/2014 10:06 AM | | | | oz) | PDT | | + + + + + | Height | - | - | | + + + + + | Body Mass Index | 26.03 | 09/08/2014 5:13 PM | | | | | PDT | | + + + + + documented in this encounter Progress Eugenia Magana Md - 09/24/2014 1:43 PM PDTAttending Teaching Statement I saw and examined Ammon Tracy and discussed his management with the resident. I have reviewed the RT treatment plan this week. I reviewed this week's port films and imaging. Cont RT. Eugenia Sousa MD Staff Physician Dept of Radiation Medicine Bunny Pickens MD, PhD - 09/22/2014 10:21 AM PDT 09/22/2014 10:22 AM 14 of 28 fractions Urination [place], Ammon Tracy notes nocturia of 5 times per night. 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 The patient will be receiving concurrent [...] films were reviewed. Will try some metamucil. Maggie Harris - 9:56 AM PDT Nursing Note Patient here for an On Treatment Visit. Completed 14 fractions of a planned 28. Current dose 3500 cGy of total 7000 cGy. Vitals/Pain Level: BP 110/67 | Pulse 74 | Temp (Src) 36.9 C (98.5 F) (Oral) | Wt 79.969 kg (176 lb 4.8 oz) | BMI 26.02 kg/(m^2) Pain Score: Wt Readings from Last 3 Encounters: 09/22/14 79.969 kg (176 lb 4.8 oz) 09/14/14 80.015 kg (176 lb 6.4 oz) 09/08/14 80.196 kg (176 lb 12.8 oz) Subjective: Pt reports 5/10 fatigue level. Nocturia x5-6. Objective: Pt alert, oriented, and ambulatory. Nursing Plan: Continue supportive care. Will continue to monitor. documented in this encounter Plan of Treatment Not on filedocumented as of this encounter Visit Diagnoses + + | Diagnosis | + + | Radiotherapy - Primary | + + documented in this encounter"
--- OUTSIDE RECORDS SUMMARY | ~2020-02-09 | XMS | Encounter Summary ---
Demographics + + + | Address | [address] | | | [place] [address] | + + + | Home Phone [...] Team Providers + +------+ + | Care Hogshead Hooper Name | Role | Phone | + +------+ + PCP | Unavailable | + +------+ + Encounter Details +--------+ + + + + | Date | Type | Department | Care Team | Description | +--------+ + + + + | 07/23/ | Document-Sc | UNKNOWN DEPARTMENT | Radiologist, Nuc | | | 2008 | anned | [address] | [facility] | | | | | [address] | | | | | | [place], [place] | | | | | | [address] | | | +--------+ + + + [...] documented as of this encounter Miscellaneous Notes Randy - Jeane Horowitz - 07/23/2008 12:00 AM PSTAssociated Order(s): ORDERS OTHER documented in this encou nter Plan of Treatment Not on filedocumented as [...] | Procedure Note | + + | Other, Faculty - 07/23/2008 12:00 AM PST | | | + + documented in this encounter Visit Diagnoses Not on filedocumented in this encounter"
--- OUTSIDE RECORDS SUMMARY | ~2020-02-09 | XMS | Encounter Summary ---
Demographics + + + | Address | [address] | | | [place] [address] | + + + | Home Phone [...] Team Providers + +------+ + | Care Type Copyist Name | Role | Phone | + [...] neoplasm of | [address] | [address] [facility] | | | | | prostate | [facility] | [facility] | | | | | (HCC) | Way | [address] [place], | | | | | Procedures | [place], [place] | [place] | | | | | Consult, | [address] | [address] | | | | | treat, f/u | Phone: | Phone: | | | | | | [phone] | [phone] | | | | | | Fax: | Fax: | | | | | | [phone] | [phone] | +--------+--------+ + + + + Encounter Details +--------+ + + + + | Date | Type | Department | Care Team | Description | +--------+ + + + + | 10/07/ | Hospital | Radiation Oncology | | | | 2014 | Encounter | at [facility] [address] | | | | | | [address] | | | | | | [place] | | | | | | [place], [place] | | | | | | [address] | | | | | | [phone] | | | +--------+ + + + [...]
--- OUTSIDE RECORDS SUMMARY | ~2020-02-09 | XMS | Encounter Summary ---
Demographics + + + | Address | [address] | | | [place] [address] | + + + | Home Phone [...] Team Providers + +------+ + | Care Rug Frame Mounter Name | Role | Phone | + +------+ + PCP | Unavailable | + +------+ + Encounter Details +--------+ + + + + | Date | Type | Department | Care Team | Description | +--------+ + + + + | 09/02/ | Results | Radiation Oncology | Ye Doss MD | | | 2008 | Only | at [facility] [address] | [address] | | | | | [address] | [facility] | | | | | [place], [address] [place] [address] | [place] [address] | | | | | [place], [place] | [phone] | | | | | [address] | | | | | | [phone] | | | +--------+ + + + [...] SIMULATION | Imaging | Routin | | 09/02/2008 2:33 PM | | | | e | | PDT | + +---------+--------+ + + documented as of this encounter Visit Diagnoses Not on filedocumented in this encounter"
--- OUTSIDE RECORDS SUMMARY | ~2020-02-09 | XMS | Encounter Summary ---
Demographics + + + | Address | [address] | | | [place] [address] | + + + | Home Phone | | + + + | Preferred Language | Unknown | + + + | Marital Status | Single | + + + | Anabaptist Affiliation | Unknown | + + + [...] Team Providers + +------+ + | Care Event Crew Technician Name | Role | Phone | [...] | | | | | | [address] | | | | | | [place], [address] [place] [address] | | | | | | [place], [place] | | | | | | [address] | | | | | | [phone] | | | +--------+ + + + [...]
--- OUTSIDE RECORDS SUMMARY | ~2020-02-09 | XMS | Encounter Summary ---
Demographics + + + | Address | [address] | | | [place] [address] | + + + | Home Phone [...] Team Providers + +------+ + | Care Injection Molder Name | Role | Phone | [...] | | 2019 | Support | at [facility] [address] | [facility] | | | | Staff | [address] | [place], [place] | | | | | [place], 4th floor | [address] | | | | | [place], [place] | | | | | | [address] | | | | | | [phone] | | | +--------+ + + + [...] documented as of this encounter Progress Notes Lucie Leonardo RN - 02/06/2019 2:00 PM PDTNursing Note: Met with Ammon Tracy today to give site specific radiation treatment education. Jeyson de leon is alert, oriented, and ambulatory with stable gait, and is alone. The patient lives in [place]. He will stay at [facility] in [place] with his , and plans on [place] the shuttle to daily radiation treatments. The [...]
--- OUTSIDE RECORDS SUMMARY | ~2020-02-09 | XMS | Encounter Summary ---
Demographics + + + | Address | [address] | | | [place] [address] | + + + | Home Phone [...] Team Providers + +------+ + | Care Aircraft Armorer Name | Role | Phone | + [...] | [facility] | [facility] | | | | | (HCC) | Way | [address] [place], | | | | | Procedures | [place], [place] | [place] | | | | | Consult, | [address] | [address] | | | | | treat, f/u | Phone: | Phone: | | | | | | [phone] | [phone] | | | | | | Fax: | Fax: | | | | | | [phone] | [phone] | +--------+--------+ + + + + Encounter Details +--------+ + + + + | Date | Type | Department | Care Team | Description | +--------+ + + + + | 09/17/ | Hospital | Radiation Oncology | | | | 2014 | Encounter | at [facility] [address] | | | | | | [address] | | | | | | [place] | | | | | | [place], [place] | | | | | | [address] | | | | | | [phone] | | | +--------+ + + + [...]
--- OUTSIDE RECORDS SUMMARY | ~2020-02-09 | XMS | Encounter Summary ---
Demographics + + + | Address | [address] | | | [place] [address] | + + + | Home Phone [...] Team Providers + +------+ + | Care Community Development Coordinator Name | Role | Phone | + +------+ + PCP | Unavailable | + +------+ + Encounter Details +--------+ + + + + | Date | Type | Department | Care Team | Description | +--------+ + + + + | 08/18/ | Office | Radiation Oncology | Ye Doss MD | CORRESPONDENCE | | 2008 | [facility]ECX | [facility] [address] | [address] | | | | | [address] | [place], | | | | | [place], [place] | [place] [address] | | | | | [address] | [phone] | | | | | [phone] | | | +--------+ + + + [...] as of this encounter Progress Notes Ye Dsos MD - 08/23/2008 2:19 PM PDTI saw [...] CPRS to communicate with [facility] providers. 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 Consultation was requested to evaluate for pre-operati ve vs. definitive radiation in conjunction with chemotherapy. HPI: He underwent CXR to evaluate left anterior CW pain in 04/2008, which showed a 3cm cavitary TIMBO mass. Subsequent CT chest at [facility] [place] 06/17/08 showed a 4cm cavitary mass with [...] transverse process. His case was discussed at [facility] multi-disci plinary lung conference 08/17/08 with a consensus for the next step to be evaluation of the m ediastinum with EBUS vs. mediastinoscopy. We are seeing him in consultation for radiation, either pre-operative or definitive. Currently, he is doing pretty well. He reports some ache, 3/10 in the left upper chest. H valentin uses Vicodin 1qhs and Excedrin 1000mg daily [...] Use: 2 drinks daily Social History Narrative [employer], then [employer]. Plays [employer]. ALLERGIES: NKDA MEDICATIONS: Aspirin 81mg Ec Tab QD Albuterol 90/Ipratrop 18mcg 200d QID Hydrochlorothiazide 25mg QD Metformin Hcl 1000mg BID Omeprazole 20mg QD Simvastatin 80mg QD Vardenafil Hcl 20mg Lisinopril 20mg QD Terazosin Hcl 2mg QD REVIEW OF SYSTEMS: [facility] Radiation Oncology Questionnaire was completed by the patient and reviewed with th e patient. It's positive for chest wall [...] or concerns. EVELYN EDWARDS MD RADIATION MEDICINE [facility] Mailcode: [id number] [place] [address] CC: Oj Russo MD This note was uploaded into the [facility] electronic medical record so it can be viewed by the ref erring provider, Oj Russo MD. documented in this e ncounter Miscellaneous Notes Scan - Other, Faculty - 08/26/2008 11:15 AM PDT documented in this encounter Plan of Treatment Not on filedocumented as of this encounter Visit Diagnoses Not on filedocumented in this encounter"
--- OUTSIDE RECORDS SUMMARY | ~2020-02-09 | XMS | Encounter Summary ---
Demographics + + + | Address | [address] | | | [place] [address] | + + + | Home Phone | | + + + | Preferred Language | Unknown | + + + | Marital Status | Single | + + + | Protestant Affiliation | Unknown | + + + | Race | Unknown | + + + | Ethnic Group | Other Race | + + + Author + + + | Author | [facility] | + + + | Organization | [facility] | + + + | Address | Unknown | + + + | Phone | Unavailable | + + + Support + + +---------+ + | Name | Relationship | Address | Phone | + + +---------+ + | Alia Tracy | ECON | Unknown | | + + +---------+ + Care Team Providers + +------+ + | Care Streetcar Operator Name | Role | Phone | [...] 09/02/ | Documentati | Radiation Oncology | Acacia Randall MD | RT Clinical | | 2008 | on | at [facility] [address] | [address] [facility] | Treatment Planning | | | | [address] | [facility], | Note | | | | [place], 4th floor | [place] [address] | | | | | [place], [place] | [phone] | | | | | [address] | | | | | | [phone] | | | +--------+ + + + [...] this encounter Miscellaneous Notes Telephone Encounter - Acacia Randall MD - 09/02/2008 9:57 AM PDTRT Clinical Treatment Plan dewayne Note Date: 09/02/2008 Clinical History: Ammon Tracy is a 73 y.o. male with [id number] SCCA of TIMBO with pos terior CW and left T5 transverse process invasion. . Clinical treatment planning for radiation therapy includes interpretation of diagnostic rossy ts, ordering of additional tests to delineate the treatment volume and surrounding normal st ructures, consideration of treatment duration and daily dose, consideration of radiation mod ality and energy, determination of the number and size of treatment ports, planning of appro priate radiation treatment devices, correlation of physical examination findings with imagin g studies and other studies to delineate the precise location of the target and sequencing i n combination of radiation treatment with other cancer therapies. Treatment Volume: TIMBO lung cancer Planned Total RT Dose: 180 cGy per fraction x 25 fractions Energy: 6 MV/23 MV Beam Arrangement: AP/PA Number of unique ports: two Treatment Setup and Devices: Vac-Loc, complex MLC design and contrast Dosimetry requested: 3D Plan (because the PTV is difficult to visualize by fluoroscopy and the irregular PTV is close to critical structures) Special Factors: --Chemotherapy: Ammon Tracy will receive cisplatin/etoposide felicia motherapy concurrently (or within 90 days) of the scheduled radiation treatments. Extra julia nning will be required to coordinate the timing of the radiation with the chemotherapy admin istration to ensure maximum destruction of tumor tissue. Furthermore, additional time will be spent in treatment planning and caring for Ammon Tracy because of the increased effects of the concurrent treatment modalities. Plan neoadjuvant chemotherapy and radiation prior to planned surgical resection of this TIMBO SCCA Start: Thursday 09/14 ACACIA RANDALL MD documented in this enco unter Plan of Treatment Not on filedocumented as of this encounter Visit Diagnoses Not on filedocumented in this encounter"
--- OUTSIDE RECORDS SUMMARY | ~2020-02-09 | XMS | Encounter Summary ---
Demographics + + + | Address | [address] | | | [place] [address] | + + + | Home Phone [...] Team Providers + +------+ + | Care Pest Control Service Representative Name | Role | Phone | [...] neoplasm of | [address] | [address] [facility] | | | | | prostate | [facility] | [facility] | | | | | (HCC) | Way | [address] [place], | | | | | Procedures | [place], [place] | [place] | | | | | Consult, | [address] | [address] | | | | | treat, f/u | Phone: | Phone: | | | | | | [phone] | [phone] | | | | | | Fax: | Fax: | | | | | | [phone] | [phone] | +--------+--------+ + + + + Encounter Details +--------+ + + + + | Date | Type | Department | Care Team | Description | +--------+ + + + + | 09/22/ | Hospital | Radiation Oncology | | | | 2014 | Encounter | at [facility] [address] | | | | | | [address] | | | | | | [place] | | | | | | [place], [place] | | | | | | [address] | | | | | | [phone] | | | +--------+ + + + [...]
--- OUTSIDE RECORDS SUMMARY | ~2020-02-09 | XMS | Clinical Summary ---
Demographics + + + | Address | [address] | | | [place] [address] | + + + | Home Phone [...] Providers + +------+ + | Care Engineering Designer Name | Role | Phone | + +------+ + | No Pcp Per Patient | PCP | Unavailable | + +------+ + Source Comments KORTNEY is fully live on both [facility] and [facility] Allergies + + + + + [...] cancer | 08/26/2008 | + + + Family History + + +------+ + | [...] on file | | + + + Last Filed Vital Signs + [...] Health Maintenance | Due Date | Last | Comments | | | | Done | | + + + + + | Influenza (Flu) | | 02/13/20 | | | vaccination (#1) | 0 | 19, | | | | | 03/05/20 | | | | | 17, | | | | | 03/17/20 | | | | | 16, | | | | | Addition | | | | | al | | | | | history | | | | | exists | | + + + + + | Pneumococcal | Completed | 03/17/20 | | | vaccination | | 16, | | | | | 11/12/19 | | | | | 15 | | + + + + + Results Not on filefrom Last 3 Months Insurance + +--------+ +--------+ [...] + +--------+ | [facility] | [facility] | [id number] | Effect | [phone] | [address] | Agency | | ADMINISTRATION | COMMUN | | mera | [phone] | [phone] | | | | ITY | | for | | [place], | | | | [place]SOU | | all | | [place] [address] | | | | RCE | | [...] Self | [birth year] | [address] | | [address] | josé/Sonny | | 1935 | [phone] | [place] [address] | | | prateek | | | 3 (Home) | | + +--------+ +--------+ + + | Ammon Tracy | OLY | Self | [birth year] | [address] | | [address] | [address] | | 1935 | [phone] | [place] [address] | | | red | | | 3 (Home) | | + +--------+ +--------+ + + Advance Directives + + + + + | Type | Date Recorded | Patient | Explanation | | | | Mallet Cutter | | + + + + + | Advance | | | | | Directives and | | | | | Living Will | | | | + + + + + | Power of | | | | | Cadd Operator | | | | + + + + +
--- OUTSIDE RECORDS SUMMARY | ~2020-02-09 | XMS | Encounter Summary ---
Demographics + + + | Address | [address] | | | [place] [address] | + + + | Home Phone [...] Team Providers + +------+ + | Care Operations Research Group Manager Name | Role | Phone | [...] [address] | | | | | | [address] | | | | | | [place], [address] [place] [address] | | | | | | [place], [place] | | | | | | [address] | | | | | | [phone] | | | +--------+ + + + [...]
--- OUTSIDE RECORDS SUMMARY | ~2020-02-09 | XMS | Clinical Summary ---
Demographics + + + | Address | [address] | | | [place] [address] | + + + | Home Phone | | + + + | Preferred Language | Unknown | + + + | Marital Status | Single | + + + | Lutheran Affiliation | Unknown | + + + | Race | Unknown | + + + | Ethnic Group | Unknown | + + + Author + + + | Author | [facility] | | | and [place] | + + + | Organization | [facility] | | | and [...] Team Providers + +------+ + | Care Electrician Wiring Name | Role | Phone | + [...] + + + Last Filed Vital Signs Not on file Plan of Treatment + + +-------+ + | Health Maintenance | Due Date | Last | Comments | | | | Done | | + + +-------+ + | Vaccine: | | | | | Dtap/Tdap/Td (1 - | 5 | | | | Tdap) | | | | + + +-------+ + | Vaccine: Zoster (1 | | | | | of 2) | 6 | | | + + +-------+ + | Vaccine: | | | | | Pneumococcal 65+ (1 | 1 | | | | of 1 - PPSV23) | | | | + + +-------+ + | Vaccine: Influenza | | | | | (#1) | 0 | | | + + +-------+ + Results Not on filefrom Last 3 Months"
--- OUTSIDE RECORDS SUMMARY | ~2020-02-09 | XMS | Encounter Summary ---
Demographics + + + | Address | [address] | | | [place] [address] | + + + | Home Phone [...] Team Providers + +------+ + | Care Outside Maintenance Worker Name | Role | Phone | + +------+ + | No Pcp Per Patient | PCP | Unavailable | + +------+ + Reason for Visit + + + | Reason | Comments | + + + | RT Simulation Note | | + + + | RT Clinical | | | Treatment Planning | | | Note | | + + + Encounter Details +--------+ + + + + | Date | Type | Department | Care Team | Description | +--------+ + + + + | 08/31/ | Documentati | Radiation Oncology | Rishabh Quan MD | RT Simulation Note; | | 2014 | on | at [facility] [address] | [address] | RT Clinical | | | | [address] | Charis Valdes [place], | Treatment Planning | | | | [place], 4th floor | [place] [address] | Note | | | | [place], [place] | [phone] | | | | | [address] | | | | | | [phone] | | | +--------+ + + + [...] this encounter Miscellaneous Notes Telephone Encounter - Rishabh Quan MD - 08/31/2014 12:20 PM PDTTREATMENT PLANNING NOTE FOR PROSTATE IMRT Ammon Tracy is a 79 y.o. 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 His pre-treatment PSA is 26.5 ng/mL drawn on 08/03/14. He is t o be treated to a total dose of 70 Gy over 28 fractions with an IMRT technique with image gu idance using [place] beacons. The patient will be receiving concurrent androgen deprivation for 24 months. His first inj ections was 08/14/14 Treatment Plan Statement of medical necessity for IMRT for the treatment of prostate cancer The prostate and seminal vesicles form a concave PTV. Standard 3-D conformal therapy canno t produce a concave dose distribution to cover the PTV without including excessive amounts o f rectum and bladder. Prior to the baptism of IMRT for the treatment of prostate cancer, Gra de 2 and Grade 3 rectal toxicity easily exceeded 15%. With IMRT, we can lower those rates t o < 5%. Statement of medical necessity for 3-D plan If the pelvic lymph nodes require treatment, a 3-D plan is essential to delineate the analo gous blood vessels that are adjacent to the lymph nodes at risk of harboring micro-metastati c disease. Additionally, the critical structures of the rectum, bladder, penile bulb, and f emoral necks need to have a 3-dimensional dose volume histogram constructed to enable the chino ost to be planned with accurate dose constraints. Treatment Plan Description The patient is immobilized with a vac-loc. The patient was asked to do an enema before sim ulation to emulate the anatomy once the patient has undergone 2 weeks of therapy. The entir e prostate will receive 70 Gy over 28 fractions. Volumetric IMRT will be delivered with [facility] through 2 - 3 arcs. Radiation Dose Targets Organ min Dose max Dose margins priority Pelvis - Gy 45 Gy 5 mm 10 Prostate 70 Gy <86 Gy 7 mm, except 4 mm post & inferior 10 SV 66 Gy 7 mm, except 4 mm post & inferior 1 Rectum <10% to receive > 70 Gy 10 Bladder 95%< 75 Gy 2 Soft tissue outside pelvis 50 Gy 4 Femoral neck 100% <50 Gy 8 Sigmoid 100% <60 Gy 10 Small Bowel 100% <50 Gy 10 Statement of medical necessity for Image Guidance Image guidance must be performed daily and, when possible, real-time with [place] tracking. The prostate can move up to 1.8 cm beyond our treatment margins of 4 mm. And real-time tr acking data demonstrate the prostate moves out of the treatment margins 10% of the beam-on t awa. If [place] is not being used, CBCT daily will be used to localize the prostate and its markers. Treatment Orders IMRT Phantom QA must be done prior to beginning treatment. Measurements should be 5% of predicted. Diodes should be taken once a week to confirm machine output during treatment. [place] localization or cone beam CT will be taken for localization of fiducial markers wit hin the prostate. The isocenter will then be shifted to replicate the exact location (withi n 2 mm) of the fiducial markers identified in the treatment plan. The physician will verify at the start and weekly that the fiducials are correctly localized. 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 This was treated successfully with neoadjuvant radiotherapy followed by surg ical resection. 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 [place] beacons. he was brought into the simulator where a vac-loc was used for immobilization to ensure the ability to deliver accurate and reliable daily treatments. A CT scan was performed without contrast. CT scan images were obtained to enable us to design MLC beam ports and / or RapidArc arc ra diation delivery. documented in this encou nter Plan of Treatment Not on filedocumented as of this encounter Visit Diagnoses Not on filedocumented in this encounter"
--- OUTSIDE RECORDS SUMMARY | ~2020-02-09 | XMS | Encounter Summary ---
Demographics + + + | Address | [address] | | | [place] [address] | + + + | Home Phone [...] Team Providers + +------+ + | Care Crawler Dragline Operator Name | Role | Phone | [...] [address] | [address] [facility] | | | | | prostate | [facility] | [facility] | | | | | (HCC) | Way | [address] [place], | | | | | Procedures | [place], [place] | [place] | | | | | Consult, | [address] | [address] | | | | | treat, f/u | Phone: | Phone: | | | | | | [phone] | [phone] | | | | | | Fax: | Fax: | | | | | | [phone] | [phone] | +--------+--------+ + + + + Encounter Details +--------+ + + + + | Date | Type | Department | Care Team | Description | +--------+ + + + + | 10/07/ | Hospital | Radiation Oncology | | | | 2014 | Encounter | at [facility] [address] | | | | | | [address] | | | | | | [place] | | | | | | [place], [place] | | | | | | [address] | | | | | | [phone] | | | +--------+ + + + [...]
--- OUTSIDE RECORDS SUMMARY | ~2020-02-09 | XMS | Encounter Summary ---
Demographics + + + | Address | [address] | | | [place] [address] | + + + | Home Phone | | + + + | Preferred Language | Unknown | + + + | Marital Status | Single | + + + | Temple Affiliation | Unknown | + + + [...] Team Providers + +------+ + | Care Carbide Grinder Name | Role | Phone | + [...] [address] | | | | | | [address] | | | | | | [place], [address] [place] [address] | | | | | | [place], [place] | | | | | | [address] | | | | | | [phone] | | | +--------+ + + + [...]
--- OUTSIDE RECORDS SUMMARY | ~2020-02-09 | XMS | Encounter Summary ---
Demographics + + + | Address | [address] | | | [place] [address] | + + + | Home Phone [...] Team Providers + +------+ + | Care Trade Clerk Name | Role | Phone | + [...] | | | | | | [place] [address] | | | | | | [place], [address] [place] [address] | | | | | | [place], [place] | | | | | | [address] | | | | | | [phone] | | | +--------+ + + + [...]
--- OUTSIDE RECORDS SUMMARY | ~2020-02-09 | XMS | Encounter Summary ---
Demographics + + + | Address | [address] | | | [place] [address] | + + + | Home Phone [...] Team Providers + +------+ + | Care Tool And Fixture Repairer Name | Role | Phone | [...] MD | | | 2019 | | at [facility] [address] | [address] | | | | | [address] | [facility], | | | | | [place], [address] [place] [address] | [place] [address] | | | | | [place], [place] | [phone] | | | | | [address] | | | | | | [phone] | | | +--------+ + + + [...] this encounter Miscellaneous Notes Telephone Encounter - Lucie Leonardo RN - 02/13/2019 1:53 PM PDTFinal treatment now sched ul 02/18. documented i keith this encounter Plan of Treatment Not on filedocumented as of this encounter Visit Diagnoses Not on filedocumented in this encounter"
--- OUTSIDE RECORDS SUMMARY | ~2020-02-09 | XMS | Encounter Summary ---
Demographics + + + | Address | [address] | | | [place] [address] | + + + | Home Phone [...] Team Providers + +------+ + | Care Butcher Fish Name | Role | Phone | + +------+ + PCP | Unavailable | + +------+ + Reason for Visit + +--------+ + | Reason | Onset | Comments | | | Date | | + +--------+ + | On Treatment Visit | 10/06/ | | | (OTV) | 2008 | | + +--------+ + Encounter Details +--------+---------+ + + + | Date | Type | Department | Care Team | Description | +--------+---------+ + + + | 10/06/ | Office | Radiation Oncology | Ye Doss MD | OTV/Radiation | | 2008 | Visit | at [facility] [address] | [address] | Therapy | | | | [address] | [facility], | | | | | [place], 4th floor | [place] [address] | | | | | [place], [place] | [phone] | | | | | [address] | | | | | | [phone] | | | +--------+---------+ + + + [...] Final chemotherapy starts 10/13-ends October 19 J[facility] icquarEvelyn short MD - 10/06/2008 1:02 PM PDT 10/06/2008 12:54 PM Ammon Tracy is a 73 y.o. male with a [id number] SCCA of TIMBO with posterior CW and [...] patient's chart a nd films were reviewed. achel Hensley - 12:50 PM PDT Nursing Note Vitals: [...] to drink fluids documented in this encounter Miscellaneous Notes Scan - Other, Faculty - 06/24/2009 1:33 PM PST documented in t his encounter Plan of Treatment Not on filedocumented as of this encounter Visit Diagnoses + + | Diagnosis | + + | OTV/Radiation Therapy Radiotherapy | + + documented in this encounter"
--- OUTSIDE RECORDS SUMMARY | ~2020-02-09 | XMS | Encounter Summary ---
Demographics + + + | Address | [address] | | | [place] [address] | + + + | Home Phone [...] Team Providers + +------+ + | Care Hearing And Speech Assistant Name | Role | Phone | [...] [address] | | | | | | [address] | | | | | | [place], [address] [place] [address] | | | | | | [place], [place] | | | | | | [address] | | | | | | [phone] | | | +--------+ + + + [...] +---------+--------+ + documented as of this encounter Miscellaneous Notes Scan - Other, Faculty - 10/19/2008 11:59 PM PDT Scan - Other, Faculty - 10/19/2008 11:59 PM PDT Scan - Other, Faculty - 10/19/2008 11:59 PM PDT documented in this encounter Plan of Treatment Not on filedocumented as of this encounter Visit Diagnoses Not on filedocumented in this encounter"
--- OUTSIDE RECORDS SUMMARY | ~2020-02-09 | XMS | Encounter Summary ---
Demographics + + + | Address | [address] | | | [place] [address] | + + + | Home Phone [...] Author + + + | Author | [facility] | + + + | Organization | [facility] | + + + | Address | Unknown | + + + | Phone | Unavailable | + + + Support + + +---------+ + | Name | Relationship | Address | Phone | + + +---------+ + | Alia Tracy | ECON | Unknown | | + + +---------+ + Care Team Providers + +------+ + | Care Regulatory Compliance Engineer Name | Role | Phone | + +------+ + | No Pcp Per Patient | PCP | Unavailable | + +------+ + Reason for Visit + +--------+ + | Reason | Onset | Comments | | | Date | | + +--------+ + | RT Simulation Note | 02/06/ | | | | 2019 | | + +--------+ + Encounter Details +--------+ + + + + | Date | Type | Department | Care Team | Description | +--------+ + + + + | 02/06/ | Documentati | Radiation Oncology | Ye Doss MD | RT Simulation Note | | 2018 | on | at [facility] [address] | [address] | | | | | [address] | [facility], | | | | | [place], [facility] floor | [place] [address] | | | | | [place], [place] | [phone] | | | | | [address] | | | | | | [phone] | | | +--------+ + + + [...] Telephone Encounter - Ye Doss MD - 02/06/2019 2:33 PM PDTRT Simulation Documentatio n Note Date simulated: 02/06/2019 Reason: Initial simulation Clinical History: Ammon Tracy is a 84 y.o. male with history of a Stage [id number] S CCA of TIMBO with posterior CW and left T5 transverse process invasion. This was treated succe ssfully with neoadjuvant radiotherapy followed by surgical resection. Stage cT3a, [place] 4+4 (3 of 12 cores), adenocarcinoma of the prostate. His pre-treatment PSA is 26.5 ng/mL drawn on 08/03/14. He was treated to a total dose of 70 Gy over 28 fraction s with an IMRT technique with image guidance using [employer] be[employer]Lockets, completed 10/09/14. The patient will be receiving concurrent androgen deprivation for 24 months. 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 Treatment Devices: vac-loc and wing board. Contrast used: none. Procedure description: Ammon Tracy was brought into the simulation room and place d in the supine, arms up position on the table. He was able to attain and maintain stable t reatment position on the table without difficulty. Estimator Jewelry and axial images were obtained. I set approximate field borders to encompass the thorax and the patient underwent 4DCT scannin g. The patient was marked. The patient tolerated the procedure well, and we will proceed w ith radiation treatment planning and field-shape confirmation simulation. Please refer to t he RT Clinical Treatment Plan for additional treatment planning details. Level of Complexity: Vac-Loc Critical Structures: lung, esophagus, heart and chest wall Unique patient treatment issues or concerns: SBRT I was personally present for the simulation and verified the setup. Ye Doss MD documented in this enco unter Plan of Treatment Not on filedocumented as of this encounter Visit Diagnoses Not on filedocumented in this encounter"
--- OUTSIDE RECORDS SUMMARY | ~2020-02-09 | XMS | Encounter Summary ---
Demographics + + + | Address | [address] | | | [place] [address] | + + + | Home Phone [...] Team Providers + +------+ + | Care Property Coordinator Name | Role | Phone | [...] | | | | neoplasm of | [place] | [address] [facility] | | | | | lung, | [facility] | [facility] | | | | | unspecified | CENTER [address] | [address] [place], | | | | | laterality, | [place] | [place] | | | | | unspecified | [place] | [address] | | | | | part of lung | HOS[address]ITAL [address] | Phone: | | | | | (HCC) | [place], | [phone] | | | | | Procedures | [place] [address] | Fax: | | | | | SIMULATION | Phone: | [phone] | | | | | IMAGING | [phone] | | | | | | | Fax: | | | | | | | [phone] | | +--------+--------+ + + + + Reason for Visit + + + | Reason | Comments | + + + | Consultation | | + + + Intake Referral (Routine) +--------+--------+ + + + + | [...] | | | | | pulmonary | [place] | [address] [facility] | | | | | nodule | [facility]ICAL | [facility] | | | | | | CENTER [address] | [address] [place], | | | | | | [address] [place] | [place] | | | | | | [place] | [address] | | | | | | [address] | Phone: | | | | | | [place], | [phone] | | | | | | [place] [address] | Fax: | | | | | | Phone: | [phone] | | | | | | [phone] | | | | | | | Fax: | | | | | | | [phone] | | +--------+--------+ + + + + Encounter Details +--------+---------+ + + + | Date | Type | Department | Care Team | Description | +--------+---------+ + + + | 02/06/ | Office | Radiation Oncology | Ye Doss MD | Malignant neoplasm | | 2019 | Visit | at [facility] [address] | [address] | of lung, unspecified | | | | [address] | [facility], | laterality, | | | | Pav[place], 4th floor | [place] [address] | unspecified part of | | | | [place], [place] | [phone] | lung (HCC) (Primary | | | | [address] | | Dx) | | | | [phone] | | | +--------+---------+ + + + [...] ONCOLOGY CONSULTATION Requesting Physician: Oj Russo MD [facility] [address] [facility] [place] [address] Identification/Chief Complaint: Ammon Tracy is a 84 year old male with RUL nodule s/p bronch EBUS confirmed to be non small lung cancer. HPI: Mr. Ammon Tracy is a 84 y.o. male with history of a Stage [id number] SCCA of [place]FF[place] L with posterior CW and left T5 transverse process invasion. This was treated successfully w [facility] neoadjuvant radiotherapy followed by surgical resection back in 2008. He also had a hx o f adenocarcinoma of the prostate, which he was treated to a total dose of 70 Gy over 28 frac tions with an IMRT technique with image guidance using [place] beacons, completed 10/09/14. Rip hanson now has [...] Prostate Cancer REVIEW OF SYSTEMS: The [facility] Radiation Oncology Questionnaire was completed by [...] y.o. male with history of a Stage [id number] SCC A of TIMBO with posterior CW and left T5 transverse process invasion. This was treated success fully with neoadjuvant radiotherapy followed by surgical resection back in 2008. He also had a hx of adenocarcinoma of the prostate, which he was treated to a total dose of 70 Gy over 28 fractions with an IMRT technique with image guidance using [place] beacons, completed 09/19 07/05. 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 We plan SBRT to this cancer. The pat ient is being seen today in consultation for [...]
--- OUTSIDE RECORDS SUMMARY | ~2020-02-09 | XMS | Encounter Summary ---
Demographics + + + | Address | [address] | | | [place] [address] | + + + | Home Phone [...] Team Providers + +------+ + | Care Sludge Control Attendant Name | Role | Phone | [...] neoplasm of | [address] | [address] [facility] | | | | | prostate | [facility] | [facility] | | | | | (HCC) | Way | Rd [place], | | | | | Procedures | [place], [place] | [place] | | | | | Consult, | [address] | [address] | | | | | treat, f/u | Phone: | Phone: | | | | | | [phone] | [phone] | | | | | | Fax: | Fax: | | | | | | [phone] | [phone] | +--------+--------+ + + + + Encounter Details +--------+ + + + + | Date | Type | Department | Care Team | Description | +--------+ + + + + | 09/08/ | Hospital | Radiation Oncology | | | | 2014 | Encounter | at [facility] [address] | | | | | | [address] | | | | | | [place] | | | | | | [place], [place] | | | | | | [address] | | | | | | [phone] | | | +--------+ + + + [...]
--- OUTSIDE RECORDS SUMMARY | ~2020-02-09 | XMS | Encounter Summary ---
Demographics + + + | Address | [address] | | | [place] [address] | + + + | Home Phone [...] Team Providers + +------+ + | Care Compressor Mechanic Bus Name | Role | Phone | + [...] | | | | | prostate | [facility] | [facility] | | | | | (HCC) | Way | Rd [place], | | | | | Procedures | [place], [place] | [place] | | | | | Consult, | [address] | [address] | | | | | treat, f/u | Phone: | Phone: | | | | | | [phone] | [phone] | | | | | | Fax: | Fax: | | | | | | [phone] | [phone] | +--------+--------+ + + + + Encounter Details +--------+ + + + + | Date | Type | Department | Care Team | Description | +--------+ + + + + | 09/09/ | Hospital | Radiation Oncology | | | | 2014 | Encounter | at [facility] [address] | | | | | | [address] | | | | | | [place] | | | | | | [place], [place] | | | | | | [address] | | | | | | [phone] | | | +--------+ + + + [...]
--- OUTSIDE RECORDS SUMMARY | ~2020-02-09 | XMS | Encounter Summary ---
Demographics + + + | Address | [address] | | | [place] [address] | + + + | Home Phone [...] Team Providers + +------+ + | Care Legal Aide Name | Role | Phone | [...] [address] | | | | | | [address] | | | | | | [place], [address] [place] [address] | | | | | | [place], [place] | | | | | | [address] | | | | | | [phone] | | | +--------+ + + + [...]
--- OUTSIDE RECORDS SUMMARY | ~2020-02-09 | XMS | Encounter Summary ---
Demographics + + + | Address | [address] | | | [place] [address] | + + + | Home Phone [...] Team Providers + +------+ + | Care Pbx Manager Name | Role | Phone | + +------+ + | No Pcp Per Patient | PCP | Unavailable | + +------+ + Reason for Visit + +--------+ + | Reason | Onset | Comments | | | Date | | + +--------+ + | On Treatment Visit | 10/05/ | | | (OTV) | 2015 | [...] | (Primary Dx) | | | | [address] | [facility], | | | | | [place], [facility] floor | [place] [address] | | | | | [place], [place] | [phone] | | | | | [address] | | | | | | [phone] | | | +--------+---------+ + + + [...] 10:26 AM PDTIt was great seeing you toda y. Please go to the lab for a [...] of this note might be different from han umana. 10/05/2014 10:24 AM 23 of 28 fractions Urination houstonAmmon notes nocturia of 1-2 times per night. [...] is good. He [place] the [place] once a day. Physical exam is unremarkable. Vital signs documented in the nursing note. Chart reviewed. Continue with radiation. 09/08/2014 Ammon Tracy is a 79 y.o. male with a history of a Stage [id number] SCCA of TIMBO with posterior CW and [...] an IMRT technique with image guidance using [place] beacons. The patient will be receiving concurrent [...]
--- OUTSIDE RECORDS SUMMARY | ~2020-02-09 | XMS | Encounter Summary ---
Demographics + + + | Address | [address] | | | [place] [address] | + + + | Home Phone [...] + + + | Author | [facility] | + + + | Organization | [facility] | + + + | Address | Unknown | + + + | Phone | Unavailable | + + + Support + + +---------+ + | Name | Relationship | Address | Phone | + + +---------+ + | Alia Tracy | ECON | Unknown | | + + +---------+ + Care Team Providers + +------+ + | Care Family Services Assistant Name | Role | Phone | [...] | Clinical | Radiation Oncology | Yfn Moya1 S | Teaching session | | 2014 | Support | at [facility] [address] | [facility] | with patient | | | Staff | [address] | [place], [place] | | | | | [place], 4th floor | [address] | | | | | [place], [place] | | | | | | [address] | | | | | | [phone] | | | +--------+ + + + [...] location of treatment. The pt lives in [place], [place]; he is staying locally at [facility] housing during the course of his treatment. At the conclusion of the discussion the pt states that he unde rstands the information discussed and has no questions at this time. The pt will be seen tanisha de los santos. Patient's medications reviewed and updated. See Patient Education Activity for details of teaching session documented in this encounter Plan of Treatment Not on filedocumented as of this encounter Visit Diagnoses + + | Diagnosis | + + | Malignant neoplasm of prostate (HCC) - Primary Malignant neoplasm of prostate | + + documented in this encounter
--- OUTSIDE RECORDS SUMMARY | ~2020-02-09 | XMS | Encounter Summary ---
Demographics + + + | Address | [address] | | | [place] [address] | + + + | Home Phone [...] Team Providers + +------+ + | Care Warp Hanger Name | Role | Phone | + [...] of | [address] | [address] [facility] | | | | | prostate | [facility] | [facility] | | | | | (HCC) | Way | Rd [place], | | | | | Procedures | [place], [place] | [place] | | | | | Consult, | [address] | [address] | | | | | treat, f/u | Phone: | Phone: | | | | | | [phone] | [phone] | | | | | | Fax: | Fax: | | | | | | [phone] | [phone] | +--------+--------+ + + + + Encounter Details +--------+ + + + + | Date | Type | Department | Care Team | Description | +--------+ + + + + | 09/14/ | Hospital | Radiation Oncology | | | | 2014 | Encounter | at [facility] [address] | | | | | | [address] | | | | | | [place] | | | | | | [place], [place] | | | | | | [address] | | | | | | [phone] | | | +--------+ + + + [...]
--- OUTSIDE RECORDS SUMMARY | ~2020-02-09 | XMS | Encounter Summary ---
Demographics + + + | Address | [address] | | | [place] [address] | + + + | Home Phone [...] Team Providers + +------+ + | Care Project Manager/Design Manager Name | Role | Phone | + +------+ + | No Pcp Per Patient | PCP | Unavailable | + +------+ + Reason for Visit + +--------+ + | Reason | Onset | Comments | | | Date | | + +--------+ + | On Treatment Visit | 09/14/ | | | (OTV) | 2015 | [...] | (Primary Dx) | | | | [address] | [facility], | | | | | [place], [facility] floor | [place] [address] | | | | | [place], [place] | [phone] | | | | | [address] | | | | | | [phone] | | | +--------+---------+ + + + [...] MD - 09/14/2014 8:50 AM PDTPSYLLIUM SEED DARLENE is metam ucil. documented in this encounter Progress Notes Rishabh Quan MD - 09/14/2014 8:47 AM PDTFormatting of this note might be different from t cait original. 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 The patient will be receiving concurrent [...]
--- OUTSIDE RECORDS SUMMARY | ~2020-02-09 | XMS | Encounter Summary ---
Demographics + + + | Address | [address] | | | [place] [address] | + + + | Home Phone [...] Team Providers + +------+ + | Care Mechanic Recovery Name | Role | Phone | + [...]
--- OUTSIDE RECORDS SUMMARY | ~2020-02-09 | XMS | Encounter Summary ---
Demographics + + + | Address | [address] | | | [place] [address] | + + + | Home Phone | | + + + | Preferred Language | Unknown | + + + | Marital Status | Single | + + + | Gnosticist Affiliation | Unknown | + + + [...] Team Providers + +------+ + | Care Electrical Engineering Technologist Name | Role | Phone | + [...] [address] | | | | | | [address] | | | | | | [place], [address] [place] [address] | | | | | | [place], [place] | | | | | | [address] | | | | | | [phone] | | | +--------+ + + + [...]
--- OUTSIDE RECORDS SUMMARY | ~2020-02-09 | XMS | Encounter Summary ---
Demographics + + + | Address | [address] | | | [place] [address] | + + + | Home Phone [...] Providers + +------+ + | Care Medical Practice Manager Name | Role | Phone | [...] Rd | | | | | | [place], [place] | | | | | | [address] | | | +--------+ + + + [...]
--- OUTSIDE RECORDS SUMMARY | ~2020-02-09 | XMS | Encounter Summary ---
Demographics + + + | Address | [address] | | | [place] [address] | + + + | Home Phone [...] Team Providers + +------+ + | Care Pattern Duplicator Name | Role | Phone | + [...] Kevin | Therapy | | | | [address] | [facility], | | | | | [place], [address] [place] [address] | [place] [address] | | | | | [place], [place] | [phone] | | | | | [address] | | | | | | [phone] | | | +--------+---------+ + + + [...] and chemotherapy both on 10/19 FUP at [place] [facility] with a new chest CT 11/16 Evaluate for surgical resection at that FUP JH icquartEvelyn MD - 10/13/2008 3:57 PM PDT 10/13/2008 3:46 PM Ammon Tracy is a 73 y.o. male with a [id number] SCCA of TIMBO with posterior CW and [...] We would like to see him in [place] [facility] 11/16/08 , with CT prior. Order for CT chest in [facility]. Please have him go to lab prior to CT. Lamare led him to watch for fever this next week. The patient's chart and films were reviewed. ila Martinez - 3:38 PM PDT Nursing Note Vitals: [...] care. Electronically signed by Mila Martinez at 9 3:43 PM PDTdocumented in this encounter Plan of Treatment Not on filedocumented as of this encounter Visit Diagnoses + + | Diagnosis | + + | OTV/Radiation Therapy Radiotherapy | + + documented in this encounter"
--- OUTSIDE RECORDS SUMMARY | ~2020-02-09 | XMS | Encounter Summary ---
Demographics + + + | Address | [address] | | | [place] [address] | + + + | Home Phone [...] Team Providers + +------+ + | Care Auto Service Representative Name | Role | Phone [...] [address] | | | | | | [address] | | | | | | [place], [facility] floor | | | | | | [place], [place] | | | | | | [address] | | | | | | [phone] | | | +--------+ + + + [...]
--- OUTSIDE RECORDS SUMMARY | ~2020-02-09 | XMS | Encounter Summary ---
Demographics + + + | Address | [address] | | | [place] [address] | + + + | Home Phone [...] Team Providers + +------+ + | Care Brick Setter Name | Role | Phone | [...] [address] | | | | | | [address] | | | | | | [place], [address] [place] [address] | | | | | | [place], [place] | | | | | | [address] | | | | | | [phone] | | | +--------+ + + + [...]
--- OUTSIDE RECORDS SUMMARY | ~2020-02-09 | XMS | Encounter Summary ---
Demographics + + + | Address | [address] | | | [place] [address] | + + + | Home Phone [...] Team Providers + +------+ + | Care Head Of Sales Promotion Name | Role | Phone | + +------+ + PCP | Unavailable | + +------+ + Encounter Details +--------+ + + + + | Date | Type | Department | Care Team | Description | +--------+ + + + + | 07/23/ | Hospital | Radiation Medicine | | | | 2008 | Encounter | at [facility] [address] | | | | | | [address] | | | | | | [place], [address] [place] [address] | | | | | | [place], [place] | | | | | | [address] | | | | | | [phone] | | | +--------+ + + + [...] + + documented as of this encounter Procedure Notes Other, Faculty - 07/24/2008 12:00 AM PSTAssociated Order(s): ORDERS OTHER; ORDERS OTHER documented in this encounter Plan of Treatment + +---------+--------+ [...] | + + | Other, Faculty - 07/24/2008 12:00 AM PST | | | + + documented in this encounter Visit Diagnoses + + | Diagnosis | + + | Malignant neoplasm of bronchus and lung, unspecified site | + + documented in this encounter"
--- OUTSIDE RECORDS SUMMARY | ~2020-02-09 | XMS | Encounter Summary ---
Demographics + + + | Address | [address] | | | [place] [address] | + + + | Home Phone [...] Team Providers + +------+ + | Care Radio Electrician Name | Role | Phone | + [...] | | | | prostate | [facility] | [facility] | | | | | (HCC) | Way | [address] [place], | | | | | Procedures | [place], [place] | [place] | | | | | Consult, | [address] | [address] | | | | | treat, f/u | Phone: | Phone: | | | | | | [phone] | [phone] | | | | | | Fax: | Fax: | | | | | | [phone] | [phone] | +--------+--------+ + + + + Encounter Details +--------+ + + + + | Date | Type | Department | Care Team | Description | +--------+ + + + + | 09/24/ | Hospital | Radiation Oncology | | | | 2014 | Encounter | at [facility] [address] | | | | | | [address] | | | | | | [place] | | | | | | [place], [place] | | | | | | [address] | | | | | | [phone] | | | +--------+ + + + [...]
--- OUTSIDE RECORDS SUMMARY | ~2020-02-09 | XMS | Encounter Summary ---
Demographics + + + | Address | [address] | | | [place] [address] | + + + | Home Phone [...] Team Providers + +------+ + | Care Mold Maker Apprentice Name | Role | Phone | + +------+ + PCP | Unavailable | + +------+ + Reason for Visit + +--------+ + | Reason | Onset | Comments | | | Date | | + +--------+ + | On Treatment Visit | 09/22/ | | | (OTV) | 2008 | [...] Kevin | Therapy | | | | [address] | [facility], | | | | | [place], 4th floor | [place] [address] | | | | | [place], [place] | [phone] | | | | | [address] | | | | | | [phone] | | | +--------+---------+ + + + [...] magnesium Watch for fever next week JH icquarEvelyn short MD - 09/22/2008 12:44 PM PDT 09/22/2008 12:38 PM Ammon Tracy is a 73 y.o. male with a [id number] SCCA of TIMBO with posterior CW and [...] The patient's chart and films were reviewed. ia Young - 0 09/22/2008 12:26 PM PDT Nursing [...]
--- OUTSIDE RECORDS SUMMARY | ~2020-02-09 | XMS | Encounter Summary ---
Demographics + + + | Address | [address] | | | [place] [address] | + + + | Home Phone [...] Providers + +------+ + | Care Director Cardiology Name | Role | Phone | + +------+ + PCP | Unavailable | + +------+ + Reason for Visit + +--------+ + | Reason | Onset | Comments | | | Date | | + +--------+ + | On Treatment Visit | 09/15/ | | | (OTV) | 2008 | [...] Kevin | Therapy | | | | [address] | [facility], | | | | | [place], 4th floor | [place] [address] | | | | | [place], [place] | [phone] | | | | | [address] | | | | | | [phone] | | | +--------+---------+ + + + [...] tenderness L upper back Continue RT JH icquartEvelyn MD - 09/15/2008 12:56 PM PDT 09/15/2008 12:55 PM Ammon Tracy is a 73 y.o. male with a [id number] SCCA of TIMBO with posterior CW and [...] patient's chart and films were revie sun. Mila Stoddard - 12:39 PM PDTNursing Note Vitals: BP [...]
--- OUTSIDE RECORDS SUMMARY | ~2020-02-09 | XMS | Encounter Summary ---
Demographics + + + | Address | [address] | | | [place] [address] | + + + | Home Phone [...] Team Providers + +------+ + | Care Mandolin Repair Person Name | Role | Phone | + [...] | | | | | | [address] | | | | | | [place], [address] [place] [address] | | | | | | [place], [place] | | | | | | [address] | | | | | | [phone] | | | +--------+ + + + [...]
--- OUTSIDE RECORDS SUMMARY | ~2020-02-09 | XMS | Encounter Summary ---
Demographics + + + | Address | [address] | | | [place] [address] | + + + | Home Phone [...] Team Providers + +------+ + | Care Sheep Rancher Name | Role | Phone | + [...] [address] | [address] | with patient | | | | [address] | [facility], | | | | | [place], 4th floor | [place] [address] | | | | | [place], [place] | [phone] | | | | | [address] | | | | | | [phone] | | | +--------+ + + + [...] this encounter Miscellaneous Notes Telephone Encounter - Jia Young - 09/14/2008 1:37 PM PDTMet with the pt today. Gav e the pt a site specific radiation therapy pt information packet, which he will take to revi ew. Discussed with the pt the overall process of his radiation treatment, the projected num samir of treatments planned, the possible short term side effects associated with this course of therapy and the schedule for weekly physician visits. The pt is receiving concurrent felicia motherapy with Cisplatin and Etoposide, so emphasis was placed on maintaining adequate hydra tion and nutrition. The potential need for prophylactic IV hydration was discussed with the pt. The importance of using antiemetic medications also emphasized. The pt lives in [facility], but is staying locally at the [facility] and has his cell phone wit With # [phone]. At the conclusion of the discussion the pt states that he understands the information discussed and has no questions at this time. The pt will be seen weekly/prn. The pt's med ication list was reviewed and updated. Barriers to learning: none Referral to: none Preferred learning method: Verbal and written Electronically signed by Jia Young at 0 09/14/2008 1:37 PM PDTdocumented in this encounter Plan of Treatment Not on filedocumented as of this encounter Visit Diagnoses Not on filedocumented in this encounter"
--- OUTSIDE RECORDS SUMMARY | ~2020-02-09 | XMS | Encounter Summary ---
Demographics + + + | Address | [address] | | | [place] [address] | + + + | Home Phone [...] Team Providers + +------+ + | Care Credit Collections Specialist Name | Role | Phone | [...] [address] | | | | | | [address] | | | | | | [place], [address] [place] [address] | | | | | | [place], [place] | | | | | | [address] | | | | | | [phone] | | | +--------+ + + + [...]
--- OUTSIDE RECORDS SUMMARY | ~2020-02-09 | XMS | Encounter Summary ---
Demographics + + + | Address | [address] | | | [place] [address] | + + + | Home Phone [...] + +------+ + | Care Manager Of Health Name | Role | Phone | + [...] | | | | | prostate | [facility] | [facility] | | | | | (HCC) | Way | Rd [place], | | | | | Procedures | [place], [place] | [place] | | | | | Consult, | [address] | [address] | | | | | treat, f/u | Phone: | Phone: | | | | | | [phone] | [phone] | | | | | | Fax: | Fax: | | | | | | [phone] | [phone] | +--------+--------+ + + + + Encounter Details +--------+ + + + + | Date | Type | Department | Care Team | Description | +--------+ + + + + | 09/10/ | Hospital | Radiation Oncology | | | | 2014 | Encounter | at [facility] [address] | | | | | | [address] | | | | | | [place] | | | | | | [place], [place] | | | | | | [address] | | | | | | [phone] | | | +--------+ + + + [...]
--- OUTSIDE RECORDS SUMMARY | ~2020-02-09 | XMS | Encounter Summary ---
Demographics + + + | Address | [address] | | | [place] [address] | + + + | Home Phone [...] Author + + + | Author | [facility] | + + + | Organization | [facility] | + + + | Address | Unknown | + + + | Phone | Unavailable | + + + Support + + +---------+ + | Name | Relationship | Address | Phone | + + +---------+ + | Alia Tracy | ECON | Unknown | | + + +---------+ + Care Team Providers + +------+ + | Care International Trade Analyst Name | Role | Phone | + +------+ + PCP | Unavailable | + +------+ + Encounter Details +--------+ + + + + | Date | Type | Department | Care Team | Description | +--------+ + + + + | 08/26/ | Correctional Officer | Radiation Oncology | Ye Doss MD | Lung Cancer (HCC) | | 2008 | | at [facility] [address] | [address] | (Primary Dx) | | | | [address] | [facility] | | | | | [place], 4th floor | [place] [address] | | | | | [place], [place] | [phone] | | | | | [address] | | | | | | [phone] | | | +--------+ + + + [...]
--- OUTSIDE RECORDS SUMMARY | ~2020-02-09 | XMS | Encounter Summary ---
Demographics + + + | Address | [address] | | | [place] [address] | + + + | Home Phone [...] Team Providers + +------+ + | Care Meat Stuffer Name | Role | Phone | + [...] prostate | [facility] | [facility] | | | | | (HCC) | Way | Rd [place], | | | | | Procedures | [place], [place] | [place] | | | | | Consult, | [address] | [address] | | | | | treat, f/u | Phone: | Phone: | | | | | | [phone] | [phone] | | | | | | Fax: | Fax: | | | | | | [phone] | [phone] | +--------+--------+ + + + + Encounter Details +--------+ + + + + | Date | Type | Department | Care Team | Description | +--------+ + + + + | 09/15/ | Hospital | Radiation Oncology | | | | 2014 | Encounter | at [facility] [address] | | | | | | [address] | | | | | | [place] | | | | | | [place], [place] | | | | | | [address] | | | | | | [phone] | | | +--------+ + + + [...]
--- OUTSIDE RECORDS SUMMARY | ~2020-02-09 | XMS | Encounter Summary ---
Demographics + + + | Address | [address] | | | [place] [address] | + + + | Home Phone [...] Team Providers + +------+ + | Care Archaeologist Name | Role | Phone | + [...] Canceled | | Radiation | Diagnoses | Mark | [facility] | | | | Oncology | Malignant | Doni oSriano MD | [place] [address] | | | | | neoplasm of | [address] | [address] | | | | | prostate | [facility] | [facility] | | | | | (HCC) | [facility] | [place], [place] | | | | | Procedures | [place], [place] | [address] | | | | | SIMULATION, | [address] | Phone: | | | | | RADIATION | | [phone] | | | | | | | Fax: | | | | | | | [phone] | + +--------+ + + + + [...] | 2015 | Visit | at [facility] [address] | [address] | of prostate (HCC) | | | | [address] | [facility] [place], | (Primary Dx) | | | | [place], 4th floor | [place] [address] | | | | | [place], [place] | [phone] | | | | | [address] | | | | | | [phone] | | | +--------+---------+ + + + [...] [place], call you about housing here in [place] during treatment. We will setup the bone scan and CT Pelvis as well as thebeacon placement to coordinate over the same trip. START TAKING THE BICALUTAMIDE TWO DAYS BEFORE THE BONE SCAN IS SCHEDULED, NOT ANY EARLIER!! One to two weeks after the beacon placement we will setup the simulation (planning) appoint ment here at [facility]. You should plan to start radiation two to three weeks after the planning session documented in this encounter Progress Notes Rishabh Quan MD - 08/11/2014 2:28 PM PDTI personally interviewed julius Sandoval uplicated [...] clinic and reviewed the Introduction to the [facility] Radiation Oncology Departme nt pt information [...] in regards to lung cancer by his shoeblack Dr. Russo yesterday. Consultation was requested to evaluate for radiotherapy. 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 Radiation Oncology Questionnaire was completed by [...] is a 79 y.o. 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 His pre-treatment PSA is 26.5 ng/mL from 08/02/2014. We counseled him abou t the different treatment options. We discussed in detail the treatment options for high-ri sk prostate cancer as defined by NCCN guidelines: Low (T1 - T2a and Newell score 2 - 6 and PSA < 10 ng/mL), Intermediate (Q1i-M5m or Newell score of 7 or PSA 10 - 20 ng/mL), High (T3 a or Newell score 8 - 10 or PSA > [...] randomized trials ( SWOG 8794 and EORTC 82887) have demonstrated a significant benefit with the addition of adju vant radiation for patients with any high-risk features found at the time of surgery. The 5 -year disease free survival for surgery alone in this population of patients from the two ia was 40 - 50%. With the addition of radiation, the 5-year disease-free survival for fernanda huddleston followed by adjuvant radiation is about 70 - 75%. . We would want to restage with bone scan and CT Pelvis w/contrast before proceeding with ro atment and will ask the [place] try to coordinate with injection, beacon placement here at [facility]. His previous bone scan had a right [...] the results documented in this encou nter Miscellaneous Notes Scan - Other, Faculty - 08/10/2014 12:38 PM PDTElectronically signed by Faculty Other at 12:38 PM PDTdocumented in this encounter Plan of Treatment + + [...]
--- OUTSIDE RECORDS SUMMARY | ~2020-02-09 | XMS | Encounter Summary ---
Demographics + + + | Address | [address] | | | [place] [address] | + + + | Home Phone [...] Team Providers + +------+ + | Care Facilities Assistant Name | Role | Phone | [...] | | | | neoplasm of | [place] [facility] | [address] [facility] | | | | | lung, | A MEDICAL | [facility] | | | | | unspecified | CENTER [address] | [address] [place], | | | | | laterality, | [place] [address] [place] | [place] | | | | | unspecified | [place] | [address] | | | | | part of lung | [address] | Phone: | | | | | (HCC) | [place], | [phone] | | | | | Procedures | [place] [address] | Fax: | | | | | SIMULATION | Phone: | [phone] | | | | | IMAGING | [phone] | | | | | | | Fax: | | | | | | | [phone] | | +--------+--------+ + + + + [...] | | | | neoplasm of | [place] [facility] | [address] [facility] | | | | | lung, | A MEDICAL | [facility] | | | | | unspecified | [place] [address] | [address] [place], | | | | | laterality, | [address] [place] | [place] | | | | | unspecified | [place] | [address] | | | | | part of lung | HOSPITAL | Phone: | | | | | (HCC) | [place], | [phone] | | | | | Procedures | [place] [address] | Fax: | | | | | SIMULATION | Phone: | [phone] | | | | | IMAGING | [phone] | | | | | | | Fax: | | | | | | | [phone] | | +--------+--------+ + + + + Encounter Details +--------+ + + + + | Date | Type | Department | Care Team | Description | +--------+ + + + + | 02/06/ | Hospital | Radiation Oncology | | | | 2019 | Encounter | at [facility] [address] | | | | | | [address] | | | | | | [address] | | | | | | [place], [place] | | | | | | [address] | | | | | | [phone] | | | +--------+ + + + [...]
--- OUTSIDE RECORDS SUMMARY | ~2020-02-09 | XMS | Encounter Summary ---
Demographics + + + | Address | [address] | | | [place] [address] | + + + | Home Phone [...] Team Providers + +------+ + | Care Baker Operator Automatic Name | Role | Phone | + [...] neoplasm of | [address] [facility] | | | | | prostate | [facility] | [facility] | | | | | (HCC) | Way | Rd [place], | | | | | Procedures | [place], [place] | [place] | | | | | Consult, | [address] | [address] | | | | | treat, f/u | Phone: | Phone: | | | | | | [phone] | [phone] | | | | | | Fax: | Fax: | | | | | | [phone] | [phone] | +--------+--------+ + + + + Encounter Details +--------+ + + + + | Date | Type | Department | Care Team | Description | +--------+ + + + + | 09/07/ | Hospital | Radiation Oncology | | | | 2014 | Encounter | at [facility] [address] | | | | | | [address] | | | | | | [place] | | | | | | [place], [place] | | | | | | [address] | | | | | | [phone] | | | +--------+ + + + [...]
--- OUTSIDE RECORDS SUMMARY | ~2020-02-09 | XMS | Encounter Summary ---
Demographics + + + | Address | [address] | | | [place] [address] | + + + | Home Phone [...] Team Providers + +------+ + | Care Foot Worker Name | Role | Phone | + +------+ + | No Pcp Per Patient | PCP | Unavailable | + +------+ + Reason for Visit + +--------+ + | Reason | Onset | Comments | | | Date | | + +--------+ + | RT Clinical | 02/06/ | | | Treatment Planning | 2019 | | | Note | | | + +--------+ + Encounter Details +--------+ + + + + | Date | Type | Department | Care Team | Description | +--------+ + + + + | 02/06/ | Documentati | Radiation Oncology | Ye Doss MD | RT Clinical | | 2019 | on | at [address] [address] | [address] | Treatment Planning | | | | [address] | [facility] [place], | Note | | | | [place], 4th floor | [place] [address] | | | | | [place], [place] | [phone] | | | | | [address] | | | | | | [phone] | | | +--------+ + + + [...] Encounter - Ye Doss MD - 02/06/2019 2:38 PM PDTRT Clinical Treatment Plan dewayne Note Date: 02/06/2019 Clinical History: Ammon Tracy is a 84 y.o. 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 The patient will be receiving concurrent androgen deprivation for 24 months. 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 Special tests interpreted: [facility] Treatment Volume: RUL Lung Planned Total RT Dose: 11 Gy per fraction x 5 fractions Energy: 6x Beam Arrangement: SBRT VMAT Number of unique ports: SBRT VMAT Treatment Setup and Devices: Vac-Loc Dosimetry requested: VMAT Plan (because the irregular PTV is close to critical structures) Normal Tissue (DVH) Constraints: We have drawn a single ITV measuring 7 ml and expanded and trimmed to create a single PTV w hich measures 23.1 ml. Please treat the PTV 11 Gy x 5 to 55 Gy. Please aim for a hotspot of 120-130% and please pu t the hotpot in the ITV. Aim for a D2 < 54%. Normal constraints: Cord max < 15 Gy Cord + 5 mm < 20 Gy Esophagus max < 15 Gy Airway max < 25 Gy Chest wall max < 40 Gy; V30 < 10 ml Heart max < 20 Gy Total lung V20 < 10%; V13.5 < 25%; V13.5 < 500 ml; V12.5 < 750 ml IMRT: Yes IMRT will be required because of the PTV is concave and close to critcal structures. Special Factors: --Stereotactic Body Radiotherapy: Mr. Tracy will be receiving Stereotacti c Body Radiation Therapy. The medical need is indicated in the treatment plan note. As a r esult, additional time and effort will be devoted to contouring the tumor volumes and critic al normal structures for the development of the treatment plan with the physics and dosimetr y personnel to ensure that the critical structures in or near the treatment field are protec balwinder while optimally irradiating the tumor volume. This will include a careful review of all the CT images in the plan for a complete 3-D analysis. The goal is to optimize the cancer treatment to preserve as much function as possible for Mr. Tracy. Special Physics Consult: No Setup and Localization Orders: Verification Sim, CBCT before each treatment Start SBRT Saturday 02/10 He will be treated on 02/10, 02/11, 02/14, 02/17, and 02/19 at [facility]. Ye Doss MD documented in this enco unter Plan of Treatment Not on filedocumented as of this encounter Visit Diagnoses Not on filedocumented in this encounter"
--- OUTSIDE RECORDS SUMMARY | ~2020-02-09 | XMS | Encounter Summary ---
Demographics + + + | Address | [address] | | | [place] [address] | + + + | Home Phone [...] Providers + +------+ + | Care Manager Law Name | Role | Phone | + [...] | | | | Order | | [facility] | | | | | | [place] [id number] [facility] | | | | | | [facility] | | | | | | RD [place], [place] | | | | | | [...]
--- OUTSIDE RECORDS SUMMARY | ~2020-02-09 | XMS | Encounter Summary ---
Demographics + + + | Address | [address] | | | [place] [address] | + + + | Home Phone [...] Team Providers + +------+ + | Care Leadership Intern Name | Role | Phone | + +------+ + PCP | Unavailable | + +------+ + Encounter Details +--------+ + + + + | Date | Type | Department | Care Team | Description | +--------+ + + + + | 09/02/ | Documentati | Radiation Oncology | Acacia Randall MD | | | 2008 | on | at [address] | [address] | | | | | [address] [place] [address] | [facility], | | | | | [place], [address] [place] [address] | [place] [address] | | | | | [place], [place] | [phone] | | | | | [address] | | | | | | [phone] | | | +--------+ + + + [...] Encounter - Acacia Randall MD - 09/02/2008 9:53 AM PDTRT Simulation Documentatio n Note Date simulated: 09/02/2008 Reason: Initial simulation Clinical History: Ammon Tracy is a 73 y.o. 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 Contrast used: IVC. Procedure description: Ammon Tracy was brought into the simulation room and place d in the supine position on the table. He patient was able to attain and maintain stable tr eatment position on the table without difficulty. [employer] Music Teacher and axial images were obtained. I s et approximate field borders to encompass the left lung and the patient underwent CT scannin g. The patient was marked. The patient tolerated the procedure well, and we will proceed w [facility] radiation treatment planning and field-shape confirmation simulation. Please refer to t he RT Clinical Treatment Plan for additional treatment planning details. Level of Complexity: Vac-Loc, complex MLC design and contrast Critical Structures: cord and lung, esophagus, heart Unique patient treatment issues or concerns: He will receive neoadjuvant chemoRT prior to p lanned surgical resection 180 cGy x 25/45 Gy Start 09/14/08 He takes metformin and is instructed to hold this for 48 hours ACACIA RANDALL MD documented in this enco unter Plan of Treatment Not on filedocumented as of this encounter Visit Diagnoses Not on filedocumented in this encounter"
--- OUTSIDE RECORDS SUMMARY | ~2020-02-09 | XMS | Encounter Summary ---
Demographics + + + | Address | [address] | | | [place] [address] | + + + | Home Phone [...] Team Providers + +------+ + | Care Poultry Tender Name | Role | Phone | [...] [address] | | | | | | [place] [place] [address] | | | | | | [place], [address] [place] [address] | | | | | | [place], [place] | | | | | | [address] | | | | | | [phone] | | | +--------+ + + + [...]
--- OUTSIDE RECORDS SUMMARY | ~2020-02-09 | XMS | Encounter Summary ---
Demographics + + + | Address | [address] | | | [place] [address] | + + + | Home Phone [...] Team Providers + +------+ + | Care Historiographer Name | Role | Phone | + [...] | [facility] | [facility] | | | | | (HCC) | Way | [address] [place], | | | | | Procedures | [place], [place] | [place] | | | | | Consult, | [address] | [address] | | | | | treat, f/u | Phone: | Phone: | | | | | | [phone] | [phone] | | | | | | Fax: | Fax: | | | | | | [phone] | [phone] | +--------+--------+ + + + + Encounter Details +--------+ + + + + | Date | Type | Department | Care Team | Description | +--------+ + + + + | 09/03/ | Hospital | Radiation Oncology | | | | 2014 | Encounter | at [facility] [address] | | | | | | [address] [address] | | | | | | [place] | | | | | | [place], [place] | | | | | | [address] | | | | | | [phone] | | | +--------+ + + + [...]
--- OUTSIDE RECORDS SUMMARY | ~2020-02-09 | XMS | Encounter Summary ---
Demographics + + + | Address | [address] | | | [place] [address] | + + + | Home Phone [...] Team Providers + +------+ + | Care Sorter Laundry Articles Name | Role | Phone | + [...] [address] | | | | | | [place] [address] | | | | | | [place], [address] [place] [address] | | | | | | [place], [place] | | | | | | [address] | | | | | | [phone] | | | +--------+ + + + [...]
--- OUTSIDE RECORDS SUMMARY | ~2020-02-09 | XMS | Encounter Summary ---
Demographics + + + | Address | [address] | | | [place] [address] | + + + | Home Phone [...] Team Providers + +------+ + | Care Shift Manager Name | Role | Phone | + +------+ + PCP | Unavailable | + +------+ + Reason for Visit + +--------+ + | Reason | Onset | Comments | | | Date | | + +--------+ + | On Treatment Visit | 09/29/ | | | (OTV) | 2008 | [...] Kevin | Therapy | | | | [address] | [facility], | | | | | [place], 4th floor | [place] [address] | | | | | [place], [place] | [phone] | | | | | [address] | | | | | | [phone] | | | +--------+---------+ + + + [...] - chemo finished last Thursday 09/21 JH icEvelyn zhang MD - 09/29/2008 1:21 PM PDT 09/29/2008 1:15 PM Ammon Tracy is a 73 y.o. male with a [id number] SCCA of TIMBO with posterior CW and [...] looks great. A/P: Continue with neoadjuvant-intent chemoradiation achel Hensley - 2008 1:08 PM PDT Nursing Note [...]
--- OUTSIDE RECORDS SUMMARY | ~2020-02-09 | XMS | Encounter Summary ---
Demographics + + + | Address | [address] | | | [place] [address] | + + + | Home Phone [...] Team Providers + +------+ + | Care Kardex Clerk Name | Role | Phone | [...] | | | | | prostate | [facility] | [facility] | | | | | (HCC) | Way | [address] [place], | | | | | Procedures | [place], [place] | [place] | | | | | Consult, | [address] | [address] | | | | | treat, f/u | Phone: | Phone: | | | | | | [phone] | [phone] | | | | | | Fax: | Fax: | | | | | | [phone] | [phone] | +--------+--------+ + + + + Encounter Details +--------+ + + + + | Date | Type | Department | Care Team | Description | +--------+ + + + + | 10/01/ | Hospital | Radiation Oncology | | | | 2014 | Encounter | at [facility] [address] | | | | | | [place] [address] | | | | | | [place] | | | | | | [place], [place] | | | | | | [address] | | | | | | [phone] | | | +--------+ + + + [...]
--- OUTSIDE RECORDS SUMMARY | ~2020-02-09 | XMS | Encounter Summary ---
Demographics + + + | Address | [address] | | | [place] [address] | + + + | Home Phone [...] Team Providers + +------+ + | Care Resource Agent Name | Role | Phone | [...] | prostate | [facility] | [facility] | | | | | (HCC) | Way | [address] [place], | | | | | Procedures | [place], [place] | [place] | | | | | Consult, | [address] | [address] | | | | | treat, f/u | Phone: | Phone: | | | | | | [phone] | [phone] | | | | | | Fax: | Fax: | | | | | | [phone] | [phone] | +--------+--------+ + + + + Encounter Details +--------+ + + + + | Date | Type | Department | Care Team | Description | +--------+ + + + + | 09/25/ | Hospital | Radiation Oncology | | | | 2014 | Encounter | at [facility] [address] | | | | | | [place] [address] | | | | | | [place] | | | | | | [place], [place] | | | | | | [address] | | | | | | [phone] | | | +--------+ + + + [...]
--- OUTSIDE RECORDS SUMMARY | ~2020-02-09 | XMS | Encounter Summary ---
Demographics + + + | Address | [address] | | | [place] [address] | + + + | Home Phone [...] Team Providers + +------+ + | Care Cathode Washer Name | Role | Phone | + [...] [address] | | | | | | [place] [address] | | | | | | [place], [address] [place] [address] | | | | | | [place], [place] | | | | | | [address] | | | | | | [phone] | | | +--------+ + + + [...]
--- OUTSIDE RECORDS SUMMARY | ~2020-02-09 | XMS | Encounter Summary ---
Demographics + + + | Address | [address] | | | [place] [address] | + + + | Home Phone [...] Team Providers + +------+ + | Care Dictaphone Transcriber Name | Role | Phone | + [...] Rd | | | | | | [place], [place] | | | | | | [address] | | | +--------+ + + + [...]
--- OUTSIDE RECORDS SUMMARY | ~2020-02-09 | XMS | Encounter Summary ---
Demographics + + + | Address | [address] | | | [place] [address] | + + + | Home Phone [...] Providers + +------+ + | Care Residential Tech Name | Role | Phone | + +------+ + | No Pcp Per Patient | PCP | Unavailable | + +------+ + Reason for Visit + +--------+ + | Reason | Onset | Comments | | | Date | | + +--------+ + | On Treatment Visit | 09/28/ | | | (OTV) | 2015 | [...] | (Primary Dx) | | | | [address] | [facility], | | | | | [place], [facility] floor | [place] [address] | | | | | [place], [place] | [phone] | | | | | [address] | | | | | | [phone] | | | +--------+---------+ + + + [...] might be different from t he original. 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 This was treated successfully with jose adjuvant radiotherapy followed by surgical resection. Stage cT3a, [place] 4+4 (3 of 12 cores), adenocarcinoma of the prostate. His pre-treatment PSA is 26.5 ng/mL drawn on 08/03/14. He is to be treated to a total dose of 70 Gy over 28 fra ctions with an IMRT technique with image guidance using [place] beacons. The patient will be receiving concurrent [...] films were reviewed. Will try some metamucil. Sabiha Buck, LISA - 09/28/2014 5:40 PM PDT Nursing Note [...]
--- OUTSIDE RECORDS SUMMARY | ~2020-02-09 | XMS | Encounter Summary ---
Demographics + + + | Address | [address] | | | [place] [address] | + + + | Home Phone [...] Team Providers + +------+ + | Care Gas System Operator Name | Role | Phone | [...] | | | | | [place], [address] [place] [address] | | | | | | [place], [place] | | | | | | [address] | | | | | | [phone] | | | +--------+ + + + [...]
--- OUTSIDE RECORDS SUMMARY | ~2020-02-09 | XMS | Encounter Summary ---
Demographics + + + | Address | [address] | | | [place] [address] | + + + | Home Phone [...] Team Providers + +------+ + | Care Pig Breeder Name | Role | Phone | [...] [address] | | | | | | [address] | | | | | | [place], [address] [place] [address] | | | | | | [place], [place] | | | | | | [address] | | | | | | [phone] | | | +--------+ + + + [...]
--- OUTSIDE RECORDS SUMMARY | ~2020-02-09 | XMS | Encounter Summary ---
Demographics + + + | Address | [address] | | | [place] [address] | + + + | Home Phone [...] Providers + +------+ + | Care House Director Name | Role | Phone | [...] neoplasm of | [address] [facility] | | | | | prostate | [facility] | [facility] | | | | | (HCC) | Way | Rd [place], | | | | | Procedures | [place], [place] | [place] | | | | | Consult, | [address] | [address] | | | | | treat, f/u | Phone: | Phone: | | | | | | [phone] | [phone] | | | | | | Fax: | Fax: | | | | | | [phone] | [phone] | +--------+--------+ + + + + Encounter Details +--------+ + + + + | Date | Type | Department | Care Team | Description | +--------+ + + + + | 09/28/ | Hospital | Radiation Oncology | | | | 2014 | Encounter | at [facility] [address] | | | | | | [address] | | | | | | [place] | | | | | | [place], [place] | | | | | | [address] | | | | | | [phone] | | | +--------+ + + + [...]
--- OUTSIDE RECORDS SUMMARY | ~2020-02-09 | XMS | Encounter Summary ---
Demographics + + + | Address | [address] | | | [place] [address] | + + + | Home Phone [...] Providers + +------+ + | Care Community Recreation Programmer Name | Role | Phone | + +------+ + PCP | Unavailable | + +------+ + Encounter Details +--------+ + + + + | Date | Type | Department | Care Team | Description | +--------+ + + + + | 08/31/ | Abstract | Radiation Oncology | Ye Doss MD | | | 2008 | | at [address] [address] | [address] | | | | | [address] [place] [address] | [facility] | | | | | [place], [address] [place] [address] | [place] [address] | | | | | [place], [place] | [phone] | | | | | [address] | | | | | | [phone] | | | +--------+ + + + [...]
--- OUTSIDE RECORDS SUMMARY | ~2020-02-09 | XMS | Encounter Summary ---
Demographics + + + | Address | [address] | | | [place] [address] | + + + | Home Phone [...] Team Providers + +------+ + | Care Drum Maker Name | Role | Phone | [...] [address] | | | | | | [place] [address] | | | | | | [place], [address] [place] [address] | | | | | | [place], [place] | | | | | | [address] | | | | | | [phone] | | | +--------+ + + + [...]
--- OUTSIDE RECORDS SUMMARY | ~2020-02-09 | XMS | Encounter Summary ---
Demographics + + + | Address | [address] | | | [place] [address] | + + + | Home Phone [...] Team Providers + +------+ + | Care Instant Printer Operator Name | Role | Phone | [...] neoplasm of | [address] | [address] [facility] | | | | | prostate | [facility] | [facility] | | | | | (HCC) | Way | Rd [place], | | | | | Procedures | [place], [place] | [place] | | | | | Consult, | [address] | [address] | | | | | treat, f/u | Phone: | Phone: | | | | | | [phone] | [phone] | | | | | | Fax: | Fax: | | | | | | [phone] | [phone] | +--------+--------+ + + + + Encounter Details +--------+ + + + + | Date | Type | Department | Care Team | Description | +--------+ + + + + | 09/04/ | Hospital | Radiation Oncology | | | | 2014 | Encounter | at [facility] [address] | | | | | | [address] | | | | | | [place] | | | | | | [place], [place] | | | | | | [address] | | | | | | [phone] | | | +--------+ + + + [...]
--- OUTSIDE RECORDS SUMMARY | ~2020-02-09 | XMS | Encounter Summary ---
Demographics + + + | Address | [address] | | | [place] [address] | + + + | Home Phone [...] Team Providers + +------+ + | Care Motor Bus Driver Name | Role | Phone | [...] Rd | | | | | | [place], [place] | | | | | | [address] | | | +--------+ + + + [...]
--- OUTSIDE RECORDS SUMMARY | ~2020-02-09 | XMS | Encounter Summary ---
Demographics + + + | Address | [address] | | | [place] [address] | + + + | Home Phone [...] Team Providers + +------+ + | Care Finisher Machine Name | Role | Phone | [...] neoplasm of | [address] | [address] [facility] | | | | | prostate | [facility] | [facility] | | | | | (HCC) | Way | Rd [place], | | | | | Procedures | [place], [place] | [place] | | | | | Consult, | [address] | [address] | | | | | treat, f/u | Phone: | Phone: | | | | | | [phone] | [phone] | | | | | | Fax: | Fax: | | | | | | [phone] | [phone] | +--------+--------+ + + + + Encounter Details +--------+ + + + + | Date | Type | Department | Care Team | Description | +--------+ + + + + | 10/09/ | Hospital | Radiation Oncology | | | | 2014 | Encounter | at [facility] [address] | | | | | | [address] | | | | | | [place] | | | | | | [place], [place] | | | | | | [address] | | | | | | [phone] | | | +--------+ + + + [...]
--- OUTSIDE RECORDS SUMMARY | ~2020-02-09 | XMS | Encounter Summary ---
Demographics + + + | Address | [address] | | | [place] [address] | + + + | Home Phone [...] Team Providers + +------+ + | Care Endocrinologist Name | Role | Phone | + [...] on | at [address] | ,PhD [address] [facility] | | | | | [address] | [facility] | | | | | [place], 4th floor | [place], [place] | | | | | [place] | [address] | | | | | [address] | [phone] | | | | | [phone] | | | +--------+ + + + [...] this encounter Miscellaneous Notes Telephone Encounter - Bunny Lopez MD,PhD - 11/30/2014 4:30 PM PDTRADIATION ONCOLOGY TREATMENT SUMMARY IDENTIFICATION: history of a Stage [id number] SCCA of TIMBO with posterior CW and left T5 transv erse process invasion. This was treated successfully with neoadjuvant radiotherapy followed by surgical resection. 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 His pre-treatment PSA is 26.5 ng/mL drawn on 08/03/14. He was treated to a total dose of 70 Gy over 28 fraction s with an IMRT technique with image guidance using dreamsha.re beacons, completed 10/09/14. The patient will be receiving concurrent androgen deprivation for 24 months. His first inje ctions was 08/14/14 TREATMENT SITE: Prostate and SV START DATE: 09/03/14 COMPLETION DATE: 10/09/2014 TOTAL DOSE RECEIVED: 7000 cGy FRACTION SIZE: 250 cGy / day NUMBER OF FRACTIONS: 28 ELAPSED DAYS: 37 TREATMENT DESCRIPTION: The prostate was treated using a RapidArc IMRT plan using 6MV phot ons to a dose of 70 Gy at 2.5 Gy per day. The SV were treated to 66 Gy. COMMENTS: The patient tolerated treatment well with grade I urinary toxicity. He will ge t a repeat PSA now at the end of treatment, in 3 months, and in 6 months, and he will see us for a follow up visit in 6 months. Bunny Lopez MD, PhD Dept of Radiation Medicine [facility] documented in th is encounter Plan of Treatment Not on filedocumented as of this encounter Visit Diagnoses Not on filedocumented in this encounter"
--- OUTSIDE RECORDS SUMMARY | ~2020-02-09 | XMS | Encounter Summary ---
Demographics + + + | Address | [address] | | | [place] [address] | + + + | Home Phone [...] Team Providers + +------+ + | Care Broaching Machine Repairer Name | Role | Phone | [...] of | [address] | [address] [facility] | | | | | prostate | [facility] | [facility] | | | | | (HCC) | Way | [address] [place], | | | | | Procedures | [place], [place] | [place] | | | | | Consult, | [address] | [address] | | | | | treat, f/u | Phone: | Phone: | | | | | | [phone] | [phone] | | | | | | Fax: | Fax: | | | | | | [phone] | [phone] | +--------+--------+ + + + + Encounter Details +--------+ + + + + | Date | Type | Department | Care Team | Description | +--------+ + + + + | 09/29/ | Hospital | Radiation Oncology | | | | 2014 | Encounter | at [facility] [address] | | | | | | [place] [address] | | | | | | [place] | | | | | | [place], [place] | | | | | | [address] | | | | | | [phone] | | | +--------+ + + + [...]
--- OUTSIDE RECORDS SUMMARY | ~2020-02-09 | XMS | Encounter Summary ---
Demographics + + + | Address | [address] | | | [place] [address] | + + + | Home Phone [...] Providers + +------+ + | Care Advertising Teacher Name | Role | Phone | [...] [address] | | | | | | [address] | | | | | | [place], [address] [place] [address] | | | | | | [place], [place] | | | | | | [address] | | | | | | [phone] | | | +--------+ + + + [...]
--- OUTSIDE RECORDS SUMMARY | ~2020-02-09 | XMS | Encounter Summary ---
Demographics + + + | Address | [address] | | | [place] [address] | + + + | Home Phone [...] Team Providers + +------+ + | Care Streaming Media Specialist Name | Role | Phone | [...] [address] | | | | | | [address] | | | | | | [place], [address] [place] [address] | | | | | | [place], [place] | | | | | | [address] | | | | | | [phone] | | | +--------+ + + + [...]
--- OUTSIDE RECORDS SUMMARY | ~2020-02-09 | XMS | Encounter Summary ---
Demographics + + + | Address | [address] | | | [place] [address] | + + + | Home Phone [...] Providers + +------+ + | Care Supervisor [employer]ension [employer] Name | Role | Phone | + +------+ + PCP | Unavailable | + +------+ + Encounter Details +--------+ + + + + | Date | Type | Department | Care Team | Description | +--------+ + + + + | 06/02/ | Hospital | [facility] | | | | 2000 | Encounter | [facility] | | | | | | CONV DEPT [address] | | | | | | [place], | | | | | | [place] [address] | | | | | | [phone] | | | +--------+ + + + [...]
--- OUTSIDE RECORDS SUMMARY | ~2020-02-09 | XMS | Encounter Summary ---
Demographics + + + | Address | [address] | | | [place] [address] | + + + | Home Phone [...] Providers + +------+ + | Care Director Of Strategic Partnerships Name | Role | Phone | + [...] prostate | [facility] | [facility] | | | | | (HCC) | Way | [address], | | | | | Procedures | [place], [place] | [place] | | | | | Consult, | [address] | [address] | | | | | treat, f/u | Phone: | Phone: | | | | | | [phone] | [phone] | | | | | | Fax: | Fax: | | | | | | [phone] | [phone] | +--------+--------+ + + + + Encounter Details +--------+ + + + + | Date | Type | Department | Care Team | Description | +--------+ + + + + | 10/02/ | Hospital | Radiation Oncology | | | | 2014 | Encounter | at [facility] [address] | | | | | | [address] | | | | | | [place] | | | | | | [place], [place] | | | | | | [address] | | | | | | [phone] | | | +--------+ + + + [...]
--- OUTSIDE RECORDS SUMMARY | ~2020-02-09 | XMS | Encounter Summary ---
Demographics + + + | Address | [address] | | | [place] [address] | + + + | Home Phone [...] Providers + +------+ + | Care Roll Mechanic Name | Role | Phone | [...] | prostate | [facility] | [facility] | | | | | (HCC) | Way | [address], | | | | | Procedures | [place], [place] | [place] | | | | | Consult, | [address] | [address] | | | | | treat, f/u | Phone: | Phone: | | | | | | [phone] | [phone] | | | | | | Fax: | Fax: | | | | | | [phone] | [phone] | +--------+--------+ + + + + Encounter Details +--------+ + + + + | Date | Type | Department | Care Team | Description | +--------+ + + + + | 10/08/ | Hospital | Radiation Oncology | | | | 2014 | Encounter | at [facility] [address] | | | | | | [address] | | | | | | [place] | | | | | | [place], [place] | | | | | | [address] | | | | | | [phone] | | | +--------+ + + + [...]
--- OUTSIDE RECORDS SUMMARY | ~2020-02-09 | XMS | Encounter Summary ---
Demographics + + + | Address | [address] | | | [place] [address] | + + + | Home Phone [...] Team Providers + +------+ + | Care Jewelry Dipper Name | Role | Phone | + [...] [address] | | | | | | [address] | | | | | | [place], [address] [place] [address] | | | | | | [place], [place] | | | | | | [address] | | | | | | [phone] | | | +--------+ + + + [...]
--- OUTSIDE RECORDS SUMMARY | ~2020-02-09 | XMS | Encounter Summary ---
Demographics + + + | Address | [address] | | | [place] [address] | + + + | Home Phone [...] Team Providers + +------+ + | Care Slip Dumper Name | Role | Phone | + [...] | at [facility] [address] | [address] [facility] | | | | | [address] | [facility], | | | | | [place], [facility] | [place] [address] | | | | | [place], [place] | [phone] | | | | | [address] | | | | | | [phone] | | | +--------+ + + + [...] this encounter Miscellaneous Notes Telephone Encounter - Christina Becker MD - 03/05/2009 8:20 AM PDTRADIATION ONCOLOGY [facility] SUMMARY IDENTIFICATION: 74 y.o. 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 TREATMENT SITE: [facility] Lung TREATMENT INTENT: Neoadjuvant/Curative with concurrent chemotherapy TOTAL DOSE DELIVERED: 4500 cGy in 25 fractions. START DATE: 09/14/2008 END DATE: 10/19/2008 TREATMENT DESCRIPTION: The patient was treated with AP and PA mcdonough with 23MV photons at 180 cGy per day x 25 fractions to a total dose of 4500 cGy. COMMENTS: He tolerated therapy well with minimal toxicity. The patient was scheduled for a regular follow up appointment with us on 11/16/08 in the [place] lung clinic with a CT scan. He will see thoracic surgery that day as well for consideration of definitive resection. He w as instructed to call or return sooner if any new problems or complaints. CHRISTINA BECKER MD documented in this encounter Plan of Treatment Not on filedocumented as of this encounter Visit Diagnoses Not on filedocumented in this encounter"
--- OUTSIDE RECORDS SUMMARY | ~2020-02-09 | XMS | Encounter Summary ---
Demographics + + + | Address | [address] | | | [place] [address] | + + + | Home Phone [...] Team Providers + +------+ + | Care Boom Storage Name | Role | Phone | + [...] neoplasm of | [address] [facility] | | | | | prostate | [facility] | [facility] | | | | | (HCC) | Way | [address] [place], | | | | | Procedures | [place], [place] | [place] | | | | | Consult, | [address] | [address] | | | | | treat, f/u | Phone: | Phone: | | | | | | [phone] | [phone] | | | | | | Fax: | Fax: | | | | | | [phone] | [phone] | +--------+--------+ + + + + Encounter Details +--------+ + + + + | Date | Type | Department | Care Team | Description | +--------+ + + + + | 09/21/ | Hospital | Radiation Oncology | | | | 2014 | Encounter | at [facility] [address] | | | | | | [address] | | | | | | [place] | | | | | | [place], [place] | | | | | | [address] | | | | | | [phone] | | | +--------+ + + + [...]
[~2020-02-09 12:17] MED LIST changes: +IPRAT-ALBUT 0.5-3 ML INH
--- OUTSIDE RECORDS SUMMARY | 2020-02-09 12:20 | XMS ---
PreManage Notification: BRADY VILLANUEVA Security Adaptive Physical Educator Events No recent Security Events currently on file CRITERIA MET - [facility] - Has Care Guidelines CARE PROVIDERS NAZIA AGOSTO Physical Therapist 12/02/2018-Current PHONE: [phone] JOSEMANUEL CHIN Internal Medicine 12/02/2018-Current HEMANTH PHONE: [phone] Connie has no Care Guidelines for this patient. Care History Medical/Surgical 12/02/2018 [facility] - PATIENT CURRENTLY RECEIVES SERVICES AT THE [facility]. - PATIENT HAS A UROLOGIST AT THE [facility]. E.D. VISIT COUNT (12 MO.) 3 NAJMA Irvin TOTAL 3 NOTE: Visits indicate total known visits. ED/UCC VISIT TRACKING (12 MO.) 02/09/2020 12:18 NAJMA [place] TYPE: Emergency COMPLAINT: - LOW BP, WEAKNESS 04/10/2019 14:56 [facility] [place] TYPE: Emergency COMPLAINT: - SOB DIAGNOSES: - half-way (current) use of aspirin - Shortness of breath - Personal history of malignant neoplasm of prostate - Other usp (current) drug therapy - Personal history of nicotine dependence - Chronic obstructive pulmonary disease with (acute) exacerbati 02/24/2019 07:11 [facility] [place] TYPE: Emergency COMPLAINT: - SOB INPATIENT VISIT TRACKING (12 MO.) 02/24/2019 11:07 NAJ[facility] [place]as [place] TYPE: Critical Care COMPLAINT: - HYPOXIC RESP FAILURE DIAGNOSES: - half-way (current) use of aspirin - Other medical terminologist (current) drug therapy - Hyperlipidemia, unspecified - Chronic obstructive pulmonary disease with (acute) exacerbati - Acute respiratory failure with hypoxia - Personal history of nicotine dependence - Personal history of malignant neoplasm of prostate - Acquired absence of lung [part of] - Unspecified dementia without behavioral disturbance - Unspecified mood [affective] disorder - Personal history of other malignant neoplasm of bronchus and - Benign prostatic hyperplasia without lower urinary tract symp [email or web address]
[2020-02-09] MEDS ORDERED: MIDODRINE HCL5 MG PO (12:41)
--- NOTE | 2020-02-09 18:54 | EKG ---
[facility] [address] [facility] [place] [address] Signed Sinus rhythm with frequent premature ventricular complexes in a pattern of bigeminy Possible Left atrial enlargement Borderline ECG When compared with ECG of 24-FEB-2019 12:08, premature ventricular complexes are now present Nonspecific T wave abnormality now evident in Anterior leads Confirmed by GORDON ASHRAF MD ([id number]) on 02/09/2020 6:53:50 PM Electronically Signed By: GORDON ASHRAF MD 02/09/20 1854 PATIENT NAME: BRADY VILLANUEVA Electrocardiogram DATE OF : 37 PHYSICIAN: GORDON ASHRAF MD REPORT #: [id number] REPORT IS CONFIDENTIAL AND NOT TO BE RELEASED WITHOUT AUTHORIZATION
== END 2020-02-09 15:10 | disposition home or self-care (01) ==
LOC: ED 12:17
DX: E86.0 Dehydration (principal); N17.9 Acute kidney failure, unspecified; Z85.46 Personal history of malignant neoplasm of prostate; Z87.891 Personal history of nicotine dependence; Z79.899 Other long term (current) drug therapy; Z79.82 Long term (current) use of aspirin
CPT/HCPCS: 71045; 80053; 81001; 83735; 84484; 85025; 93005; 93010; 96360; 99284-25; J7030

== ENCOUNTER 2020-09-19 14:56 | Emergency (ER) | payer OTHER ==
[~2020-09-19] VITALS: Ht 177.8 cm; Wt 68.0 kg
[~2020-09-19 14:56] MED LIST changes: +MIDODRINE HCL5 MG PO
[2020-09-19] MEDS ORDERED: HYDROCODON-ACE1 EA10 PO (17:29)
--- NOTE | 2020-09-20 10:40 | EKG ---
[facility] [address] [facility] [place] [address] Signed Normal sinus rhythm Normal ECG When compared with ECG of 09-FEB-2020 12:32, premature ventricular complexes are no longer present Confirmed by GORDON ASHRAF MD ([id number]) on 09/20/2020 10:40:08 AM Electronically Signed By: GORDON ASHRAF MD 09/20/20 1040 PATIENT NAME: BRADY VILLANUEVA Electrocardiogram DATE OF : 37 PHYSICIAN: GORDON ASHRAF MD REPORT #: [id number] REPORT IS CONFIDENTIAL AND NOT TO BE RELEASED WITHOUT AUTHORIZATION
== END 2020-09-19 17:47 | disposition home or self-care (01) ==
LOC: ED 14:56
DX: S22.42XA Multiple fractures of ribs, left side, initial encounter for closed fracture (principal); S32.019A Unspecified fracture of first lumbar vertebra, initial encounter for closed fracture; S32.029A Unspecified fracture of second lumbar vertebra, initial encounter for closed fracture; S32.039A Unspecified fracture of third lumbar vertebra, initial encounter for closed fracture; R22.2 Localized swelling, mass and lump, trunk; W11.XXXA Fall on and from ladder, initial encounter; Z85.46 Personal history of malignant neoplasm of prostate; Z87.891 Personal history of nicotine dependence; Z79.899 Other long term (current) drug therapy; Z85.118 Personal history of other malignant neoplasm of bronchus and lung
CPT/HCPCS: 70450; 71260; 72125; 74177; 80053; 81001; 83690; 84484; 85025; 85610; 93005; 93010; 99284-25; J3010; Q9967

== ENCOUNTER 2021-05-25 17:35 | Emergency (ER) | payer OTHER ==
[~2021-05-25] VITALS: Ht 177.8 cm; Wt 68.0 kg
[~2021-05-25 17:35] MED LIST changes: +HYDROCODON-ACE1 EA10 PO
[2021-05-25] MEDS ORDERED: CEPHALEXIN500 MG PO (20:30)
== END 2021-05-25 22:24 | disposition home or self-care (01) ==
LOC: ED 17:35
DX: N39.0 Urinary tract infection, site not specified (principal); D64.9 Anemia, unspecified; Z20.822 Contact with and (suspected) exposure to COVID-19; Z79.899 Other long term (current) drug therapy
CPT/HCPCS: 71045; 80053; 81001; 85025; 85610; 85730; 87088; 96365; 99285-25; C9803; G0480; J0696; J7030; U0003

== ENCOUNTER 2021-10-12 10:20 | Day surgery (SDC) | payer OTHER ==
[~2021-10-12] VITALS: Ht 177.8 cm; Wt 70.0 kg
[~2021-10-12 10:20] MED LIST changes: +CEPHALEXIN500 MG PO; +NAMENDA5 MG PO
--- NOTE | 2021-10-12 13:21 | NUR ---
10/12/21 1321 [facility] 1227 PT ARRIVED IN PACU NON RESPONSIVE TO NOXIOUS STIMULI WITH OPA IN PLACE LAYING PRONE. 1235 PT REACTIVE. OPA REMOVED AND REPOSITIONED TO BACK. 1240 PT TALKING TO STAFF. NO C/O'S. 1245 SITTING AT SIDE OF BED GETTING DRESSED. DC INSTRUCTIONS GIVEN. 1255 LEFT VIA W/C. DC INSTRUCTIONS GIVEN TO AT TRUCK. ALL QUESTIONS ANSWERED.
--- NOTE | 2021-10-18 15:15 | PATH ---
[facility] [address] [facility] [place], [place] [address] Signed SPECIMEN(S): A BONE MARROW - CORE SPECIMEN(S): B BONE MARROW - ASPIRATION SPECIMEN(S): C FLOW CYTOMETRY, EDTA ASP CLINICAL HISTORY: Bone marrow biopsy. 86-year-old male with progressive macrocytic anemia, normal B12 and folate. See attached. 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 Peripheral blood: - Moderate macrocytic, normochromic anemia. - Mild neutropenia. B. Bone marrow aspirate smears, clot section/cell block and trephine biopsy: - Hypercellular bone marrow with erythroid hyperplasia and dyserythropoiesis. - Increased sideroblastic iron with ring sideroblasts identified (more than 15%). - Please see Diagnostic Comment. DIAGNOSTIC COMMENT: The bone marrow morphologic evaluation is significant for erythroid hyperplasia with dyserythropoiesis characterized by megaloblastic changes, nuclear budding and increased mitosis. Also, numerous ring sideroblasts are identified. The myeloid also show hypogranulation and atypical pattern of maturation. 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 Cytogenetic studies and FISH for MDS are pending and will be reported in an addendum. Also, study for SF3B1 mutation is pending and will be reported in an addendum. This case is reviewed and dictated by Aurea Rhodes MD. A board-certified hematopathologist. NA:caw:C1NR PERIPHERAL BLOOD: HEMOGRAM ([facility], 10/12/2021): WBC 2.2 K/uL, RBC 2.64 M/uL, HGB 9.4 g/dL, HCT 28.0%, MCV 105.9 fL, MCH 35.7 pg, MCHC 33.7 g/dL, RDW 28.8%, PLT 187 K/uL, MPV 8.8 fL. DIFFERENTIAL COUNT (manual): 45% neutrophils, 44% lymphocytes, 3% monocytes, 7% eosinophils and 1% basophils. Absolute neutrophil count is 0.99 K/uL. Review of the peripheral blood smear and CBC data demonstrates that the RBCs PATIENT NAME: BRADY VILLANUEVA PATHOLOGY DATE OF : 37 REPORT #: [id number] PHYSICIAN: IGOR BARKLEY PCP: NAZIA AGOSTO REPORT IS CONFIDENTIAL AND NOT TO BE RELEASED WITHOUT AUTHORIZATION [facility] [address] [place], [place] [address] Signed are decreased in number with moderate macrocytic, normochromic anemia present. Moderate anisopoikilocytosis is present with occasional teardrop cells seen. No rouleaux formation is identified. No nucleated RBCs are encountered. The WBCs are also decreased in number with mild neutropenia noted. Neutrophils show unremarkable morphology. The platelets are normal in number and unremarkable in morphology. BONE MARROW: BONE MARROW ASPIRATE SMEARS: The bone marrow aspirate smears are adequately cellular for evaluation. Erythroid hyperplasia is present with megaloblastic changes and occasional cells in mitosis identified. No increase in blasts is identified. The myeloid are relatively decreased with delay in maturation noted. The megakaryocytes are scattered and appear normal in number with unremarkable morphology. BONE MARROW DIFFERENTIAL COUNT (300 cells): 1.5% blasts, 1% promyelocytes, 12% myelocytes, 32% neutrophils, 4% lymphocytes, 1% monocytes and 47% erythroid. BONE MARROW CORE BIOPSY AND CLOT SECTION: The bone marrow core biopsy demonstrates hypercellular bone marrow for age with an average cellularity of 70%. Trilineage hematopoiesis is present with erythroid hyperplasia also noted. There are no lymphoid aggregates, granulomas or metastatic tumor cells present. The megakaryocytes are scattered and appear normal in number, morphology and distribution. The clot section shows similar findings. SPECIAL STAINS (with appropriate reactive controls): - Iron (aspirate smears): Increased storage iron; many ring sideroblasts identified (more than15%). - Iron (block B1): Increased sideroblastic iron with ring sideroblasts identified. - Reticulin stain (block A1): No increase in bone marrow reticulin fibrosis. IMMUNOHISTOCHEMICAL STAINS (block A1 with appropriate reactive controls): - CD34: Highlights scattered positive cells with no increase in blasts noted. - CD117: Highlights scattered positive cells with no increase in blasts noted. - CD71: Highlights erythroid precursors and confirms erythroid hyperplasia. - MPO: Highlights myeloid precursors. - Factor VIII: Highlights many megakaryocytes with normal number and distribution. NA:caw PATIENT NAME: BRADY VILLANUEVA PATHOLOGY DATE OF : 37 REPORT #: [id number] PHYSICIAN: IGOR PATHOLOGY PCP: NAZIA AGOSTO REPORT IS CONFIDENTIAL AND NOT TO BE RELEASED WITHOUT AUTHORIZATION [facility] [address] [place] [id number] Signed FLOW CYTOMETRY: Bone marrow aspirate, flow cytometry: - No increase in blasts (1.3% myeloblasts). - Abnormal myeloid maturation. - B-cell population with atypical marking. - Normal T-cell phenotype. - See Comment. COMMENT: The myeloid population comprises 87% of the total events. Decreased CD10 expression and atypical maturation pattern in the CD13 vs CD16 plot are observed. 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 Correlation with clinical, morphologic, and genetic findings is recommended for full interpretation and to assess for disease processes not fully examined by flow cytometry analysis, including myelodysplastic syndrome and myeloproliferative neoplasm. 2% of lymphocytes are lambda-biased B-cells with a decreased kappa:lambda ratio of 0.9:1. The significant of this finding is unclear. Correlation with histology is needed for further assessment. FLOW CYTOMETRY ANALYSIS: FLOW DIFFERENTIAL (% Total CD45 vs. SSC gating): Myeloid 87%; Lymphoid 4%; Monocyte 2%; Dim CD45/Blast: 1.3%. Cell Count: 9.9 x 10*3/uL. POPULATION ANALYSIS: BLASTS: Analysis of the dim CD45 gate demonstrates 1.3% myeloblasts by CD34/CD117. LYMPHOID CELLS: The lymphocyte gate comprises 4% of total events and includes 86% T-cells with a CD4:CD8 ratio of 0.9:1 and normal mares T-cell antigen expression. 2% of lymphocytes are lambda-biased B-cells with a kappa:lambda ratio of 0.9:1. The remainders are NK-cells. MYELOID CELLS: The myeloid population comprises 87% of the total events. Decreased SSC, decreased CD10 expression and atypical maturation pattern in the CD13 vs CD16 plot are observed. MONOCYTES: The monocyte population comprises 2% of the total events. Monocytes are not increased. Some decreased CD14 expression is observed. PLASMA CELLS: 0.3% plasma cells are detected in the screening gate neg-dimCD45/CD38. Plasma cells are CD45 dim and positive for CD19. ANTIBODIES USED: KAPPA, LAMBDA, CD20, CD10, CD19, CD23, CD38, CD16, CD56, CD8, CD5, CD2, CD4, CD7, CD3, CD14, CD33, CD13, HLADR, CD34, CD117, CD15, CD45. TOTAL ANTIBODIES USED: 23. JNB FINAL DIAGNOSIS PERFORMED BY: Aurea Rhodes MD, FACP, Oct 13 2021 1:43PM PATIENT NAME: BRADY VILLANUEVA PATHOLOGY DATE OF : 37 REPORT #: [id number] PHYSICIAN: IGOR BARKLEY PCP: NAZIA AGOSTO REPORT IS CONFIDENTIAL AND NOT TO BE RELEASED WITHOUT AUTHORIZATION [facility] [address] [place], [place] [address] Signed CYTOGENETICS: Pending, to be reported by addendum. FISH ANALYSIS: Pending, to be reported by addendum. MOLECULAR / PCR: Pending, to be reported by addendum. GROSS DESCRIPTION: Two specimens are received in two containers, labeled "CM." A. The specimen, labeled "CM, core," is received in formalin and consists of one cylindrical bone core fragment measuring 0.2-0.3 cm in diameter and 0.7 cm in length. The specimen is entirely submitted in cassette (A1) following decalcification in Immunocal. Cold ischemic time: Cannot be determined because of lack of information. Approximate time in formalin: 6 hours. B. The specimen, labeled "CM, clot," is received in formalin and consists of thickened clot material measuring 2.0 x 1.2 x 0.3 cm in aggregate. The specimen is filtered and entirely submitted in cassette (B1). Bone marrow inventory also includes: Two peripheral smears, one EDTA tube bone marrow, two heparin tubes (one bone marrow, one peripheral blood). AT (under the direct supervision of a pathologist) The Gross Description was prepared using a voice recognition system. The report was reviewed for accuracy; however, sound-alike word errors, addition and/or deletions may occur. If there is any question about this report, please contact Client Services. ADDITIONAL NOTES: Immunohistochemical and/or in situ hybridization studies were performed on this case with the appropriate positive controls that react as expected. This test was developed and its performance characteristics determined by [facility]. It has not been cleared or approved by the U.S. Food and Drug Administration. The FDA has determined that such clearance or approval is not necessary. This test is used for clinical purposes. It should not be regarded as investigational or for research. [facility] is certified under the Clinical Laboratory Improvement PATIENT NAME: BRADY VILLANUEVA PATHOLOGY DATE OF : 37 REPORT #: [id number] PHYSICIAN: IGOR BARKLEY PCP: NAZIA AGOSTO REPORT IS CONFIDENTIAL AND NOT TO BE RELEASED WITHOUT AUTHORIZATION [address] [address] Signed Amendments of 1988 (CLIA) as qualified to perform high complexity clinical laboratory testing. This assay has not been validated for specimens that have been decalcified. In this case, certain antibodies were performed by both immunohistochemistry and flow cytometry analysis because flow cytometry analysis did not fully explain all the light microscopic findings. Immunohistochemistry aided in the analysis. Both methods are deemed medically necessary in this case. This test was developed and its performance characteristics determined by [facility]. It has not been cleared or approved by the US Food and Drug Administration. The FDA does not require this test to go through premarket FDA review. This test is used for clinical purposes. It should not be regarded as investigational or for research. This laboratory is certified under the Clinical Laboratory Improvement Amendments (CLIA) as qualified to perform high complexity clinical laboratory testing. PERFORMING LABORATORY: The technical component was performed by [facility], [address] [place] [id number] (CLIA#: [id number]). Professional interpretation was performed by [facility], [facility], [address] [place] [address] (CLIA#: [id number]). A portion of the technical component was performed by [facility], [address] [place] [id number] (CLIA# [id number]). A portion of the technical component was performed by [facility], [address] [place] [id number] (CLIA#: [id number]). Professional interpretation was performed by [facility], [place] [address] (CLIA#: [id number]). IMAGES: [id number]: [id number]: [id number] Diagnostician: Meaghan Canela MD Pathologist Electronically Signed 10/18/2021 Copies: PATIENT NAME: BRADY VILLANUEVA PATHOLOGY DATE OF : 37 REPORT #: [id number] PHYSICIAN: IGOR PATHOLOGY PCP: NAZIA AGOSTO REPORT IS CONFIDENTIAL AND NOT TO BE RELEASED WITHOUT AUTHORIZATION [address] [place], [place] [address] Signed ~ PATIENT NAME: BRADY VILLANUEVA PATHOLOGY DATE OF : 37 REPORT #: [id number] PHYSICIAN: IGOR PATHOLOGY PCP: NAZIA AGOSTO REPORT IS CONFIDENTIAL AND NOT TO BE RELEASED WITHOUT AUTHORIZATION
== END 2021-10-12 12:55 | disposition home or self-care (01) ==
LOC: DS 10:20 → OPS 10:20 → DS 12:00 → OPS 12:55
PROVIDERS: ATTEND Specialist
PROC: 079T3ZX Drainage of Bone Marrow, Percutaneous Approach, Diagnostic (ICD-10-PCS; 2021-10-12)
PROC: 07DR3ZX Extraction of Iliac Bone Marrow, Percutaneous Approach, Diagnostic (ICD-10-PCS; principal; 2021-10-12 12:00)
DX: D53.9 Nutritional anemia, unspecified (principal); D70.9 Neutropenia, unspecified; D75.89 Other specified diseases of blood and blood-forming organs; E11.9 Type 2 diabetes mellitus without complications; I10 Essential (primary) hypertension; Z88.8 Allergy status to other drugs, medicaments and biological substances
CPT/HCPCS: 36415; 85007; 85025; J2704; J7121

== ENCOUNTER 2022-07-10 12:02 | Emergency (ER) | payer OTHER ==
[~2022-07-10] VITALS: Ht 177.8 cm; Wt 71.2 kg
[2022-07-10] MEDS ORDERED: MYRBETRIQ25 MG PO (12:31)
== END 2022-07-10 16:46 | disposition home or self-care (01) ==
LOC: ED 12:02
DX: F10.129 Alcohol abuse with intoxication, unspecified (principal); R33.9 Retention of urine, unspecified; Z88.8 Allergy status to other drugs, medicaments and biological substances; Z79.899 Other long term (current) drug therapy
CPT/HCPCS: 36415; 51702; 51798; 80053; 81001; 85025; 85060; 99284; G0480

== ENCOUNTER 2022-08-02 20:30 | Emergency (ER) | payer OTHER ==
[~2022-08-02] VITALS: Ht 177.8 cm; Wt 67.5 kg
[~2022-08-02 20:30] MED LIST changes: +MYRBETRIQ25 MG PO
--- OUTSIDE RECORDS SUMMARY | 2022-08-02 21:03 | XMS ---
PreManage Notification: BRADY VILLANUEVA Security Converter Skimmer Events No recent Security Events currently on file CRITERIA MET - [facility] - 2 Visits in 30 Days CARE PROVIDERS NAZIA AGOSTO Physical Therapist 12/02/2018-Current PHONE: [phone] JOSEMANUEL CHIN Internal Medicine 12/02/2018-Current HEMANTH PHONE: [phone] Connie has no Care Guidelines for this patient. Care History Medical/Surgical 12/02/2018 [facility] - PATIENT CURRENTLY RECEIVES SERVICES AT THE [facility]. - PATIENT HAS A UROLOGIST AT THE [facility]. [facility]sa [facility] MO[facility] NOTE: Visits indicate total known visits. ED/UCC VISIT TRACKING (12 MO.) 08/02/2022 20:31 [facility]as [place] TYPE: Emergency COMPLAINT: - LOWER BACK PAIN,LT ELBOW PAIN 07/10/2022 12:02 [facility] [place] TYPE: Emergency COMPLAINT: - WEAKNESS DIAGNOSES: - Allergy status to other drugs, medicaments and biological substances - Other terminal operations supervisor (current) drug therapy - Alcohol abuse with intoxication, unspecified - Retention of urine, unspecified INPATIENT VISIT TRACKING (12 MO.) No inpatient visits to display in this time frame [email or web address]
== END 2022-08-02 23:58 | disposition home or self-care (01) ==
LOC: ED 20:30
DX: F10.129 Alcohol abuse with intoxication, unspecified (principal); F03.90 Unspecified dementia, unspecified severity, without behavioral disturbance, psychotic disturbance, mood disturbance, and anxiety; M25.551 Pain in right hip; G89.29 Other chronic pain; W19.XXXA Unspecified fall, initial encounter; Z88.8 Allergy status to other drugs, medicaments and biological substances; Z79.899 Other long term (current) drug therapy
CPT/HCPCS: 36415; 70450; 71045; 72125; 73502; 73522; 80053; 81001; 83880; 85025; 99284-25; G0480

== ENCOUNTER 2022-08-04 10:55 | Emergency (ER) | payer OTHER ==
[~2022-08-04] VITALS: Ht 177.8 cm; Wt 66.2 kg
--- OUTSIDE RECORDS SUMMARY | 2022-08-04 12:23 | XMS ---
PreManage Notification: BRADY VILLANUEVA Security Rn Neonatal Events No recent Security Events currently on file CRITERIA MET - [facility] - 2 Visits in 30 Days CARE PROVIDERS NAZIA AGOSTO Physical Therapist 12/02/2018-Current PHONE: [phone] JOSEMANUEL CHIN Internal Medicine 12/02/2018-Current HEMANTH PHONE: [phone] Connie has no Care Guidelines for this patient. Care History Medical/Surgical 12/02/2018 [facility] - PATIENT CURRENTLY RECEIVES SERVICES AT THE [facility]. - PATIENT HAS A UROLOGIST AT THE [facility]. E.DEsa VISIT COUNT (12 MO.) 3 NAJMA Irvin TOTAL 3 NOTE: Visits indicate total known visits. ED/UCC VISIT TRACKING (12 MO.) 08/04/2022 10:56 [facility]as [place] TYPE: Emergency COMPLAINT: - BACK PAIN 08/02/2022 20:31 [facility] [place] TYPE: Emergency COMPLAINT: - LOWER BACK PAIN,LT ELBOW PAIN DIAGNOSES: - Other chronic pain - Pain in right hip - Other chcf (current) drug therapy - Allergy status to other drugs, medicaments and biological substances - Unspecified dementia, unspecified severity, without behavioral disturbance, psychotic disturbance, mood disturbance, and anxiety - Unspecified fall, initial encounter - Alcohol abuse with intoxication, unspecified 07/10/2022 12:02 NA[facility]as [place] TYPE: Emergency COMPLAINT: - WEAKNESS DIAGNOSES: - Allergy status to other drugs, medicaments and biological substances - Other intermediate designer (current) drug therapy - Alcohol abuse with intoxication, unspecified - Retention of urine, unspecified INPATIENT VISIT TRACKING (12 MO.) No inpatient visits to display in this time frame [email or web address]
== END 2022-08-04 12:43 | disposition home or self-care (01) ==
LOC: ED 10:55
DX: M54.9 Dorsalgia, unspecified (principal); Z88.8 Allergy status to other drugs, medicaments and biological substances; Z79.899 Other long term (current) drug therapy
CPT/HCPCS: 99283

== ENCOUNTER 2023-03-10 16:31 | Emergency (ER) | payer OTHER ==
[~2023-03-10] VITALS: Ht 177.8 cm; Wt 70.5 kg
[~2023-03-10 16:31] MED LIST changes: +B-121000 MCG PO
[2023-03-10 17:23] LABS: BASOPHILS 1.7 % (0-2); HEMATOCRIT 27.2 % (35.0-50.0); HEMOGLOBIN 9.1 g/dL (12.0-18.0); LYMPHOCYTES 14.9 % (24-44); MCH 35.2 (27-36); MCHC 33.6 g/dl (30-36); MCV 104.8 fl (81-99); MONOCYTES 7.6 % (0-12); NEUTROPHILS 72.8 % (39-80); PLATELET COUNT 152 K/uL (140-440); RBC 2.59 M/ul (4.3-5.7); RDW 29.9 (10.5-15.0)
[2023-03-10 17:42] LABS: ALBUMIN 3.3 g/dL (3.4-5.0); ALBUMIN/GLOBULIN RATIO 1.18 (1.1-2.4); ALCOHOL, MEDICAL <3 ng/dL (<3); ALKALINE PHOSPHATASE 60 U/L (46-116); ALT (SGPT) 13 U/L (14-59); ANION GAP 8.5 (7-21); AST (SGOT) 17 U/L (15-37); BILIRUBIN, TOTAL 0.9 ng/dL (0.2-1.0); BUN/CREATININE RATIO 17.12 (6.0-28.6); CALCIUM 9.1 mg/dL (8.5-10.1); CARBON DIOXIDE 33 mmol/L (21-32); CHLORIDE 99 mmol/L (98-107); CREATININE, SERUM 1.46 mg/dL (0.70-1.30); GLOMERULAR FILTRATION RATE,EST 46 mL/min (>60); POTASSIUM 3.5 mmol/L (3.5-5.1); PROTEIN, TOTAL 6.1 g/dL (6.4-8.2); UREA NITROGEN 25 mg/dL (7-18)
[2023-03-10 18:28] LABS: BILIRUBIN, URINE NEGATIVE (negative); BLOOD/HGB, URINE MODERATE (Negative); KETONE, URINE NEGATIVE (Negative); LEUK ESTERASE, URINE MODERATE (negative); NITRITE, URINE NEGATIVE (negative); PH, URINE 6.5 (5-7)
[2023-03-10 18:36] LABS: WHITE BLOOD CELLS, URINE >50 /HPF (0-5)
[2023-03-10 18:37] LABS: BACTERIA, URINE 3+ /hpf (negative); EPITHELIAL CELLS, URINE SQUAMOUS 1+ /lpf (0-1+); REFLEX CULTURE, URINE Yes (No)
[2023-03-10] MEDS ORDERED: CEPHALEXIN500 M1 PO (18:45)
[2023-03-10 19:25] VITALS: BP 192/92
[2023-05-10] MEDS ORDERED: FLOMAX0.4 MG PO (09:23)
[2023-05-10] MEDS ORDERED: AMOX TR-K CLV1 EAC1 PO (12:46)
[2023-05-17] MEDS ORDERED: CEPHALEXIN500 M1 PO (07:17)
== END 2023-03-10 19:26 | disposition home or self-care (01) ==
LOC: ED 16:31
PROVIDERS: Emergency Medicine
DX: R53.1 Weakness (principal); N39.0 Urinary tract infection, site not specified; S20.229A Contusion of unspecified back wall of thorax, initial encounter; S70.01XA Contusion of right hip, initial encounter; F03.90 Unspecified dementia, unspecified severity, without behavioral disturbance, psychotic disturbance, mood disturbance, and anxiety; M62.50 Muscle wasting and atrophy, not elsewhere classified, unspecified site; D64.9 Anemia, unspecified; N18.9 Chronic kidney disease, unspecified; W19.XXXA Unspecified fall, initial encounter; Z88.8 Allergy status to other drugs, medicaments and biological substances; Z79.899 Other long term (current) drug therapy
CPT/HCPCS: 36415; 71045; 73502; 80053; 81001; 85025; 85060; 87088; 96374; 99283-25; A9270; G0480; J0696

== ENCOUNTER 2023-05-04 06:27 | Inpatient (IN) | payer OTHER, MEDICARE ==
[2023-05-04] VITALS (10 sets, daily range): BP systolic 88–134; BP diastolic 46–75
[~2023-05-04] VITALS: Ht 177.8 cm; Wt 58.5 kg
[~2023-05-04 06:27] MED LIST changes: +CEPHALEXIN500 M1 PO
[2023-05-04 06:58] LABS: PLATELET COUNT 173 K/uL (140-440)
[2023-05-04 07:00] LABS: HEMATOCRIT 26.3 % (35.0-50.0); HEMOGLOBIN 8.6 g/dL (12.0-18.0); MCH 36.1 (27-36); MCHC 32.9 g/dl (30-36); MCV 109.5 fl (81-99); RDW 29.2 (10.5-15.0)
[2023-05-04 07:16] LABS: ALBUMIN 3.6 g/dL (3.4-5.0); ALBUMIN/GLOBULIN RATIO 1.09 (1.1-2.4); ANION GAP 20.5 (7-21); BUN/CREATININE RATIO 16.07 (6.0-28.6); CALCIUM 8.7 mg/dL (8.5-10.1); CREATININE, SERUM 2.55 mg/dL (0.70-1.30); POTASSIUM 3.5 mmol/L (3.5-5.1); PROTEIN, TOTAL 6.9 g/dL (6.4-8.2)
[2023-05-04 07:19] LABS: BANDS, MANUAL DIFF 8; LYMPHOCYTES, MANUAL DIFF 2; MONOCYTES, MANUAL DIFF 2; NEUTROPHILS, MANUAL DIFF 88
[2023-05-04 07:22] LABS: LACTIC ACID, BLOOD 9.6 mmol/L (0.4-2.0)
[2023-05-04 07:33] LABS: INFLUENZA B NAA NEGATIVE (NEGATIVE); RESPIRATORY SYNCYTIAL VIR NAA NEGATIVE (NEGATIVE)
[2023-05-04 07:45] LABS: BILIRUBIN, URINE NEGATIVE (negative); BLOOD/HGB, URINE LARGE (Negative); KETONE, URINE NEGATIVE (Negative); LEUK ESTERASE, URINE LARGE (negative); NITRITE, URINE NEGATIVE (negative); PH, URINE 6.5 (5-7)
[2023-05-04 07:52] LABS: BACTERIA, URINE 4+ /hpf (negative); EPITHELIAL CELLS, URINE 0 /lpf (0-1+); RED BLOOD CELLS, URINE 21-40 /hpf (0-5); REFLEX CULTURE, URINE Yes (No); WHITE BLOOD CELLS, URINE >50 /HPF (0-5)
[2023-05-04 08:01] LABS: BASE EXCESS, BLOOD GAS 1.8 mmol/L (-2-2); HCO3, BLOOD GAS 24.7 mmol/L (22-26); PH, BLOOD GAS 7.48 (7.35-7.45); PO2, BLOOD GAS 376 mmHg (80-100); TOTAL CO2, BLOOD GAS 25.7
[2023-05-04 08:02] LABS: O2 SATURATION, BLOOD GAS > 100.0 % (95.0-100.0); OXYGEN RECEIVED, BLOOD GAS 15L
--- NOTE | 2023-05-04 09:35 | NUR ---
PT BROUGHT DOWN FROM ED, ADMITTED TO CCU ROOM 127 FOR UROSEPSIS. PT IS VERY DROWSY AND WANTING TO SLEEP, IS PRESENT WELL AND ANSWERING MOST QUESTIONS. SHE STATES PT HAS DEMENTIA, MUCH WORSE OVER THE LAST YEAR. PT IS AWAKE AND ALERT WHEN TRANSFERRED OVER TO BED. HE IS FINISHING UP THE SECOND LITER BOLUS FROM THE ED. INITIAL LACTIC WAS ELEVATED AT 9.6, WILL REDRAW NEXT LACTIC ACID WHEN THIS BOLUS IS COMPLETED. PT HAS AGUILLON IN PLACE DRAINING KADE URINE WITH SOME SEDIMENT NOTED. PT IS NOT ALERT AND ORIENTED, IS ONLY ORIENTED TO SELF AT THIS TIME, COMPLETELY DISORIENTED TO SITUATION, TIME, PLACE AND STATES THIS IS NORMAL. SHE STATES PT HAS BEEN HAVING UTI'S AND HAS BEEN TREATED WITH ABX, AND HE DID HAVE A FEVER YESTERDAY. EARLY THIS MORNING SHE HEARD THE FAUCET RUNNING AND GOT UP TO FIND HIM ON THE FLOOR AND CALLED EMS.
--- NOTE | 2023-05-04 10:00 | NUR ---
PTS SATS HAVE BEEN 88-90% ON ROOM AIR, OXYGEN APPLIED 2L/NC AND SPO2 UP TO 96%.
--- NOTE | 2023-05-04 10:00 | NUR ---
ROOM AIR SATS ARE 88-90%, PLACED ON 2L/NC AND SATS UP TO 96%.
--- NOTE | 2023-05-04 10:55 | NUR ---
MED REC COMPLETE
--- NOTE | 2023-05-04 11:11 | NUR ---
CCU ROUNDS. 15 MINUTES. PT RATHER HARD OF HEARING. REFERRED ME TO HIS FOR CONVERSATION. APPEARED ANXIOUS. EXPLORED SPIRUTAL RESOURCES. PROVIDED LABORATORY MILLER EDUCATION. ENCOURAGED FOCUS ON PRESENT. ENCOURAGED SELF CARE. PROVIDED PRAYER. EXPRESSED HOPE AND GRATITUDE.
--- NOTE | 2023-05-04 11:26 | NUR ---
PATIENT SLEEPING, HISTORY OF DEMENTIA. , JAZZY, IN ROOM. ANSWERS QUESTIONS. DEMOGRAPHICS VERIFIED. STATES SHE LIVES WITH PATIENT IN 2 STORY HOME, SHE DOES NOT ALLOW HIM NEAR THE BASEMENT FOR SAFETY. THEY DO HAVE 2 STAIRS TO GET INTO THE HOME SHE HELPS HIM WILL NORMALLY, BUT HE DOES OK NAVIGATING THE STEPS. STATES HE HAS A WALKER, CANE, WHEELCHAIR AND NEBULIZER MACHINE AT HOME. PROVIDES TRANSPORTATION WHEN NEEDED. PATIENT NO LONGER DRIVES. JAZZY STATES SHE HAS BEEN IN CONTACT WITH SOCIAL SECURITY REGARDING MEDICARE PART B FOR PATIENT WELL HAS [employer]. SHE IS WORKING ON GETTING PATIENT PLACED IN MEMORY CARE BECAUSE HE IS TOO MUCH AT HOME WITH HIS DEMENTIA. JAZZY STATES PENALTY FOR MEDICARE PART B ENROLLMENT IS LIKELY AND SHE DOES NOT FEEL THEY CAN AFFORD THAT. STATES [facility] C[facility] ARE ASSISTING HER AT HOME. STATES SHE HAS ONE MORE STEP FOR [employer] HOUSE REGARDING THE BANK AND HE "SHOULD BE ON THEIR LIST." DENIES THAT SHE HAS ANY NEEDS AT THIS TIME. WILL NOTIFY STAFF IF NEEDS ARISE.
--- NOTE | 2023-05-04 11:42 | NUR ---
SPOKE WITH [facility] STAFF, PATIENT IS CURRENTLY ON THEIR WAIT LIST.
--- NOTE | 2023-05-04 13:07 | NUR ---
PT CONTINUES TO REST WITH EYES CLOSED BUT IS EASILY AROUSABLE, LEAVING FOR THE DAY. BED ALARM IS ON.
--- NOTE | 2023-05-04 14:30 | NUR ---
PTS CONTINUES TO SET OFF IV PUMP WITH DISTAL OCCLUSION ALARMS D/T BENDING ARMS. NEW IV SITE PLACED IN RIGHT WRIST AREA 22 GUAGE.
--- NOTE | 2023-05-04 15:28 | NUR ---
PT RESTING WITH EYES CLOSED, RESP EVEN AND SLIGHTY TACHYPNEIC, RR 26 AND HR 90'S. SPO2 98% ON 2L/O2.
--- NOTE | 2023-05-04 15:33 | NUR ---
PT RESTING WITH EYES CLOSED, HR 80'S SINUS RHYTHM, SPO2 99% ON 2L/NC WITH RR 24. TEMP PER AGUILLON PROBE IS 99.2.
--- NOTE | 2023-05-04 16:35 | NUR ---
OT IN TO SEE PT
--- NOTE | 2023-05-04 17:45 | NUR ---
IN TO CHECK ON PT AFTER WORKING WITH OT, PT HAVING SOMEWHTA LABORED RESPIRATIONS, AND RR INCREASED 28-30. TEMPERATURE IS STARTING TO CLIMB PER AGUILLON TEMP PROBE. PT IS AWAKE AND IS MORE AGITATED THAN BEFORE, GETTING FRUSTRATED AND ANGRY THAT HE CANNOT GET UP TO WALK AROUND THE ROOM. ALUMINUM MOLDER AND THIS RN ATTEMPTING TO CALM AND REORIENT PT, CALL TO DR CALERO TO UPDATE HIM ON INCREASED WORK OF BREATHING AND AGITATION. ORDER GIVEN FOR CHEST XRAY AND MD STATES HE WILL BE DOWN TO SEE PT.
--- NOTE | 2023-05-04 17:50 | NUR ---
QUITE A BIT OF BLOOD NOTED IN AGUILLON CATHETER, AWARE AND PRESENT TO SEE IT. WILL CONT TO MONITOR.
--- NOTE | 2023-05-04 18:00 | NUR ---
XR IN FOR CHEST XRAY, DR CALERO IN TO SEE PT, ORDER GIVEN FOR IV TYLENOL PT IS NOT COOPERATIVE AND VERY AGITATED AT THIS TIME. TEMP NOW 102.2 AND HR 120'S WITH INCREASE IN TREMORS/SHAKING.
--- NOTE | 2023-05-04 19:30 | NUR ---
SHIFT REPORT AT BEDSIDE. PATIENT REQUIRES MULTIPLE STAFF MEMBERS TO KEEP HIM IN BED AND FROM PULLING ON MONITOR CORDS, AGUILLON, AND IV'S. PATIENT IS AGITATED AND DIFFICULT TO REDIRECT. DARK RED DRAINAGE NOTED IN PATIENT'S AGUILLON; NO TRAUMA NOTED AT MEATUS; AGUILLON IS SECURED TO LEG. DISCUSSED PATIENT'S AGITATION WITH CULINARY WORKER AND . WILL ORDER MEDS FOR HS AND ADDITIONAL STAFF MEMBER WILL BE PROVIDED FOR 1:1 MONITORING IF AVAILABLE.
--- NOTE | 2023-05-04 21:38 | NUR ---
UPDATE GIVEN TO MD; NEW ORDERS TO BE PLACED BY . PATIENT CONTINUES TO PULL AT LINES AND REQUIRE 1:1 SITTER FOR SAFETY. PATIENT'S BP SLIGHLTY CONCERNING; IV FLUID BOLUS ORDERED. URINE OUTPUT AND COLOR/CONSISTENCY NOTED AT WELL.
[2023-05-04 21:58] LABS: BASOPHILS 0.1 % (0-2); EOSINOPHILS 0.4 % (0-6); HEMOGLOBIN 6.8 g/dL (12.0-18.0); LYMPHOCYTES 1.8 % (24-44); MCH 36.5 (27-36); MCHC 34.1 g/dl (30-36); MCV 107.2 fl (81-99); MONOCYTES 4.1 % (0-12); NEUTROPHILS 93.6 % (39-80); PLATELET COUNT 121 K/uL (140-440); RBC 1.86 M/ul (4.3-5.7); RDW 28.8 (10.5-15.0)
[2023-05-04 22:06] LABS: ANION GAP 11.9 (7-21); BUN/CREATININE RATIO 19.57 (6.0-28.6); CALCIUM 7.4 mg/dL (8.5-10.1); CREATININE, SERUM 2.35 mg/dL (0.70-1.30); POTASSIUM 2.9 mmol/L (3.5-5.1)
--- NOTE | 2023-05-04 22:42 | EKG ---
[facility] [address] [facility] [facility] [place] [address] Signed Sinus tachycardia with frequent premature ventricular complexes ST \T\ T wave abnormality, consider lateral ischemia Abnormal ECG When compared with ECG of 19-SEP-2020 15:00, premature ventricular complexes are now present Vent. rate has increased BY [address] now depressed in Anterolateral leads T wave inversion now evident in Anterolateral leads Confirmed by Caitlin Hartley MD () on 05/04/2023 10:42:11 PM Electronically Signed By: CAITLIN HARTLEY MD 05/04/23 224 PATIENT NAME: BRADY VILLANUEVA Electrocardiogram DATE OF : 37 PHYSICIAN: CAITLIN HARTLEY MD REPORT #: [id number] REPORT IS CONFIDENTIAL AND NOT TO BE RELEASED WITHOUT AUTHORIZATION
--- NOTE | 2023-05-04 23:04 | NUR ---
BLOOD BAND DONE BY LAB STAFF. PATIENT CONTINUES TO BE CONFUSED AND CONTINUES TO PULL AT CORDS AND EXIT THE BED. 1:1 WITH STAFF FOR SAFETY. DICUSSED PLAN OF CARE WITH . WILL COME TO THE UNIT TO FILL OUT BLOOD CONSENT AND TALK WITH FAMILY.
--- NOTE | 2023-05-04 23:15 | NUR ---
ON THE UNIT. WITNESSED PHONE CONVERSATION WITH PATIENT'S , WHO CONSENTS TO BLOOD ADMINISTRATION. PATIENT CONTINUES TO BE RESTLESS AND AGITATED. DISCUSSED PLAN OF CARE WITH , JO ANN BELLAMY ORDERED. SEE EMAR.
[2023-05-04 23:54] LABS: ABO A; ANTIBODY SCREEN NEGATIVE; IS CROSSMATCH COMPATIBLE; RH NEGATIVE
--- NOTE | 2023-05-04 23:54 | NUR ---
PATIENT PROVIDED PRN HALDOL AND FIRST DOSE OF K+ REPLACEMENT. BLOOD PRODUCTS NOT YET READY FROM PHARMACY, VERIFIED WITH CASINO DUTY MANAGER. PATIENT CONTINUES TO REQUIRE DIRECT 1:1 FOR SAFETY.
[2023-05-04 23:55] LABS: ABO A; RH NEGATIVE
[2023-05-05] VITALS (29 sets, daily range): BP systolic 83–138; BP diastolic 47–106
--- NOTE | 2023-05-05 01:12 | NUR ---
PATIENT RECEIVING BLOOD PRODUCTS; NO SIGN OF REACTION AFTER 15 MINS. PATIENT CONTINUES TO PULL AT CORDS AND LINES AND ATTEMPT TO EXIT THE BED. PATIENT IS DIFFICULT TO REDIRECT AND REQUIRES CONSTANT 1:1
--- NOTE | 2023-05-05 03:00 | NUR ---
BLOOD PRODUCTS FINISHED. NO SIGN OF REACTION. PATIENT RESPONDED WELL TO PRECEDEX; TITRATING TO MAINTAIN RASS GOAL 0 TO -1. PATIENT IS CURRENTLY RASS -1. PATIENT SITTER REMAINS AT BEDSIDE FOR SAFETY.
--- NOTE | 2023-05-05 03:15 | NUR ---
PRECEDEX TITRATED OFF DUE HYPOTENSION. PATIENT APPEARS RESTFUL; REMAINS 1:1 WITH SITTER AND Q15M BP CHECKS.
--- NOTE | 2023-05-05 04:32 | NUR ---
PATIENT PULLING AT HIS AGUILLON AND ATTEMPTING TO GET OUT OF BED. PATIENT HITTING STAFF WHEN ABLE AND BEING VERBALLY ABUSIVE. PRECEDEX RESTARTED TO MAINTAIN RASS GOAL 0 TO -1. AGUILLON CLEANED AND BALLOON DEFLATED TO ALLOW ADVANCEMENT. DARK RED DRAINAGE NOTED IN AGUILLON; FLUSHED WITH 30 MLS NS. NO CLOTS NOTED. BALLOON RE-INFLATED AND AGUILLON SECURED WITH STAT LOCK. ATTENDS IN PLACE. PATIENT POSITIONED TO HIS LEFT SIDE. PRN HALDOL PROVIDED FOR AGITATION. PATIENT CONTINUES TO REQUIRE 1:1 STAFF FOR SAFETY.
[2023-05-05 05:50] LABS: BASOPHILS 0.5 % (0-2); EOSINOPHILS 0.1 % (0-6); HEMOGLOBIN 9.9 g/dL (12.0-18.0); LYMPHOCYTES 2.7 % (24-44); MCHC 34.1 g/dl (30-36); MCV 102.7 fl (81-99); MONOCYTES 3.1 % (0-12); NEUTROPHILS 93.6 % (39-80); PLATELET COUNT 130 K/uL (140-440); RBC 2.82 M/ul (4.3-5.7); RDW 29.8 (10.5-15.0)
--- NOTE | 2023-05-05 05:58 | NUR ---
PATIENT RESTING WITH EYES CLOSED. RASS SCORE -1. PATIENT RESPONDS TO STIMULI QUICKLY AND CONTINUES TO NOT FOLLOW INSTRUCTIONS. 1:1 STAFF WITH PATIENT FOR SAFETY.
[2023-05-05 06:05] LABS: ALBUMIN 2.9 g/dL (3.4-5.0); ANION GAP 15.4 (7-21); BILIRUBIN, TOTAL 1.6 ng/dL (0.2-1.0); BUN/CREATININE RATIO 19.02 (6.0-28.6); CALCIUM 7.7 mg/dL (8.5-10.1); CREATININE, SERUM 2.26 mg/dL (0.70-1.30); MAGNESIUM 1.3 mg/dL (1.8-2.4); PHOSPHORUS, INORGANIC 3.4 mg/dL (2.5-4.9); POTASSIUM 3.4 mmol/L (3.5-5.1); PROTEIN, TOTAL 5.8 g/dL (6.4-8.2)
--- NOTE | 2023-05-05 07:00 | NUR ---
RECIEVED REPORT FROM LISA DE LOS SANTOS. PT IS SLEEPING SOUNDLY WITH MOUTH OPEN, BREATHING SHALLOW, BUT MAINTAINING O2 SATS. AGUILLON IS DRAINING BLOOD TINGED URINE INTO BAG. ALL LINES RUNNING ORDERED.
--- NOTE | 2023-05-05 07:23 | NUR ---
UPDATE GIVEN TO
--- NOTE | 2023-05-05 08:00 | NUR ---
RN IN ROOM - PT RESTING COMFORTABLY AND QUIETLY IN BED, RR EVEN AND UNLABORED. VS STABLE ON MONITOR. PT RESPONDS TO TOUCH WITH PHYSICAL WITHDRAWL, CURRENT RASS -2, PRECEDEX GTT AT 0.7. AGUILLON CATH PATENT AND DRAINING BLOODY URINE, 25ML LAST HOUR. IV SITES PATENT X2. 1:1 SITTER AT BEDSIDE FOR PT SAFETY.
--- NOTE | 2023-05-05 08:33 | NUR ---
REPLACED BAG OF IVF.
--- NOTE | 2023-05-05 09:17 | NUR ---
RN AT BEDSIDE WITH MD ROUNDING - PT RASS REMAINS -2 WITH PRECEDEX GTT, MAP >65, LINE AND PT SAFETY WITH 1:1 SITTER IN ROOM. URINE OUTPUT ADEQUATE THIS HOUR.
--- NOTE | 2023-05-05 10:30 | NUR ---
PT REPOSISTIONED IN BED, RESPONSIVE WITH STIMULI BUT CALMS QUICKLY. PRECEDEX GTT AT 0.7MCG/KG/HR. FLUID BOLUS STARTED. URINE OUTPUT REMAINS ADEQUATE AND CLEARING IN COLOR.
--- NOTE | 2023-05-05 11:10 | NUR ---
PTS IN ROOM - UPDATED AND ALL QUESTIONS ANSWERED. NOTIFIED OF GRAM NEGATIVE RODS GROWTH IN BLOOD CULTURES. PT RESPONDING WELL TO FLUID BOLUS, MAP REMAINS GREATER >65, TEMP 98.3.
--- NOTE | 2023-05-05 12:13 | NUR ---
PT WOKE FOR FIRST TIME WHILE REPOSTIONING HIM WITH PRIMARY RN. PT WAS MILDLY COMBATIVE, PUSHING RN AWAY AND YELLING OUT. REPOSITIONED, CATH CARE COMPLETE. PT RETURNED TO SLEEPING SOUNDLY. ATTEMPTED TO HAVE HIM DRINK WATER, UNABLE TO COMPLETE TASK.
--- NOTE | 2023-05-05 12:19 | NUR ---
PT REPOSISTIONED TO RIGHT SIDE, WAKES WITH THIS AND SPEAKS WITH CONFUSION AND AGGITATION. ORAL CARE PROVIDED, UNABLE TO FOLLOW DIRECTIONS TO TAKE SIPS. PRECEDEX INCREASED TO 0.8MCG/KG/HR FOR APPROX 10 MINUTES PT WAS NOT REDIRECTABLE AND PULLING AT LINES. PT NOW RESTING CALMLY IN BED WITH HOB ELEVATED. BED ALARM ON.
--- NOTE | 2023-05-05 13:02 | NUR ---
PT RESTING WITHOUT DISTRESS ON RIGHT SIDE, SPONTANEOUS MOVEMENT IN BED. 1:1 AT BEDSIDE FOR LINE PROTECTION. IV SITES REMAIN PATENT, FLUIDS AND ABX INFUSING. PRECEDEX GTT REMAINS AT 0.7MCG/KG/HR.
--- NOTE | 2023-05-05 14:15 | NUR ---
PT REMAINS RESTING IN BED - WITHOUT DISTRESS - VS STABLE. 1:1 IN ROOM.
--- NOTE | 2023-05-05 16:00 | NUR ---
PT REPOSITIONED IN BED. PT RESTING WITH EYES CLOSED, RESPIRATIONS EVEN AND UNLABORED. CALL LIGHT WITHIN REACH AND PT PERSONAL BLANKET PLACED ON TOP OF HIM.
--- NOTE | 2023-05-05 17:09 | NUR ---
PT RESTING IN BED WITH CALL LIGHT WITHIN REACH. VS OBTAINED. PT RESPIRATIONS EVEN AND UNLABORED. ALL PATIENT NEEDS AT BEDSIDE.
--- NOTE | 2023-05-05 17:40 | NUR ---
MD NOTIFIED OF PT LOW URINE OUTPUT LAST 2 HOURS, INCREASING TEMP AND HYPOTENSION WITH MAPS >65. ORDERS RECEIVED FOR 1L BOLUS, ENTERED BY MD. PRECEDEX REMAINS AT 0.7MCG/KG/HR WITH PT RESTING COMFORTABLY BUT RESPONSIVE TO STIMULI, QUIETS EASILY.
--- NOTE | 2023-05-05 18:00 | NUR ---
PT FLUID BOLUS STARTED, PT WOKE BRIEFLY WHILE ADJUSTING IV AND TUBING ASKING IF IV WAS NOT WORKING, INFORMED IT IS. PT WENT BACK TO SLEEP. PT RESTING IN BED WITH EYES CLOSED, RESPIRATIONS EVEN AND UNLABORED.
--- NOTE | 2023-05-05 18:49 | NUR ---
PT REPOSITIONED IN BED FROM LEFT SIDE TO RIGHT WITH PILLOWS FOR COMFORT. PT OFFERED DRINK OF WATER, PT MUMBLED AND DECLINED. MOUTH SWAB USED TO MOISTEN MOUTH PT IS MOUTH BREATHING. BEDRAIL UP FOR SAFETY AND CALL LIGHT WITHIN REACH.
--- NOTE | 2023-05-05 19:58 | NUR ---
shift report received. patient rass score -1. lab in for scheduled draw. patient woke to stimuli. tolerated well.
[2023-05-05 20:24] LABS: ANION GAP 14.2 (7-21); BUN/CREATININE RATIO 21.42 (6.0-28.6); CALCIUM 7.5 mg/dL (8.5-10.1); CREATININE, SERUM 2.1 mg/dL (0.70-1.30); MAGNESIUM 1.8 mg/dL (1.8-2.4); POTASSIUM 4.2 mmol/L (3.5-5.1)
--- NOTE | 2023-05-05 21:00 | NUR ---
PATIENT REPOSITIONED IN BED. PILLOWS TO PROTECT SO AREAS. PATIENT WAKES EASILY TO STIMULI . PATIENT DOES NOT ANSWER ORIENTATION QUESTIONS OR FOLLOW COMMANDS. VS STABLE. IV SITES WNL X2. SCHEDULED MEDS PROVIDED. AGUILLON CARE DONE AND AGUILLON FLUSHED TO ENSURE NO CLOTS. CONCENTRATED URINE NOTED IN AGUILLON TUBE; OUTPUT IS BOARDERLINE INADEQUATE. WHEN NOT STIMULATED PATIENT RASS SCORE -1. PRECEDEX DRIP TITRATED ACCORDINGLY.
--- NOTE | 2023-05-05 21:14 | NUR ---
RESTING AND REAMINS ON RA. TAKING OFF RT SERVICE, PLEASE CALL WITH CONCERNS OR O2 USE.
[2023-05-06] VITALS (18 sets, daily range): BP systolic 94–154; BP diastolic 48–71
--- NOTE | 2023-05-06 00:14 | NUR ---
PATIENT REPOSITIONED IN BED. WAKES EASILY AND IS VERBALY NOT PLEASED WITH BEING MOVED. VS STABLE. PRECEDEX CONTINUED. IV SITES WNL X2. AGUILLON IN PLACE; FLUSHED WITH 10 MLS TO CLEAR CLOTS.
--- NOTE | 2023-05-06 00:53 | NUR ---
PATIENT YELLING OUT; DIFFICULT TO UNDERSTAND AND PATIENT VERBALY ABUSIVE TO STAFF WHEN CARE ATTEMPTING TO BE DONE. PATIENT PROVIDED PRN HALDOL PER ORDER. PRECEDEX NOT TITRATED DUE TO SOFT BP AND BRADYCARDIA. PATIENT STARTED TO SETTLED. ALLOWED ORAL CARE TO BE DONE AND APPEARED TO WANT A DRINK. 2-3 DROPS OF WATER AT A TIME PROVIDED TO PATIENT VIA STRAW AND PATIENT TOLERATED WELL. HOB >45 DEGREES.
--- NOTE | 2023-05-06 02:00 | NUR ---
PATIENT APPEARS RESTFUL; RASS -1. ALLOWED PATIENT TO REST. VS STABLE. IV SITE WNL X2.
[2023-05-06 03:04] LABS: FOLATE,SERUM 6.3 ng/mL (>=5.9)
--- NOTE | 2023-05-06 04:00 | NUR ---
PATIENT CALLING OUT. UPON ASSESSMENT IT SEEMED PATIENT WAS ASKING FOR WATER. PATIENT NOT ABLE TO USE STAW WELL; 2-3 SPOON FULLS OF WATER PROVIDED TO PATIENT. PATIENT TOLERATED WELL. PATIENT THANKED STAFF AND VERBALIZED THAT HE LIKED THE WATER. PATIENT APPEARS RESTFUL AND CALM. HOB > 45 DEGRESS. VS STABLE.
[2023-05-06 05:30] LABS: BASOPHILS 0.6 % (0-2); EOSINOPHILS 0.2 % (0-6); HEMATOCRIT 30.1 % (35.0-50.0); HEMOGLOBIN 10.2 g/dL (12.0-18.0); LYMPHOCYTES 5.7 % (24-44); MCHC 33.8 g/dl (30-36); MCV 103.5 fl (81-99); MONOCYTES 8.5 % (0-12); PLATELET COUNT 139 K/uL (140-440); RDW 30.2 (10.5-15.0)
[2023-05-06 05:55] LABS: ALBUMIN 2.2 g/dL (3.4-5.0); ALBUMIN/GLOBULIN RATIO 0.81 (1.1-2.4); ANION GAP 14.2 (7-21); BILIRUBIN, TOTAL 0.9 ng/dL (0.2-1.0); BUN/CREATININE RATIO 20.9 (6.0-28.6); CALCIUM 7.5 mg/dL (8.5-10.1); CREATININE, SERUM 2.2 mg/dL (0.70-1.30); POTASSIUM 4.2 mmol/L (3.5-5.1); PROTEIN, TOTAL 4.9 g/dL (6.4-8.2)
--- NOTE | 2023-05-06 06:00 | NUR ---
PATIENT REPOSITIONED. AGUILLON EMPTIED. IV SITES FLUSHED; WNL X2. PATIENT WOKE TO VOICE. PROVIDED PATIENT SIPS OF WATER WHICH HE TOLERATED. PATIENT IS DROWSY BUT CALM.
--- NOTE | 2023-05-06 08:51 | NUR ---
PT RESTING IN BED WITH EYES CLOSED WITHOUT DISTRESS, GARBLED SPEECH IN RESPONSE TO VERBAL OR TOUCH STIMULI. PRECEDEX GTT AT 0.5MCH/KG/HR. REPOSISTIONED IN BED TO RIGHT SIDE WITH PILLOWS. SKIN REMAINS INTACT, HEALS WITHOUT REDNESS OR SIGNS OF BREAKDOWN. AGUILLON DRAINING CLOUDY YELLOW URINE - 50ML LAST HOUR. IV SITES PATENT X2. AFEBRILE. SINUS CARO RATES IN MID 50'S.
--- NOTE | 2023-05-06 09:10 | NUR ---
RN IN ROOM ROUNDING WITH MD - PT TITRATED OFF OF PRECEDEX GTT AND NOTED TO HAVE LEFT SIDED FLACID RESPONSE IN BOTH ARM AND LEG, NO RESPONSE TO PAINFUL STIMULI ON LEFT SIDE, IMMEDIATE DROP TO BED WITH ARM AND LEG RAISED BY . 0912 - CT HEAD W/O CONTRAST ORDERED PER VERBAL ORDER BY MD. 09 - PT IN TRANSPORT TO CT WITH THIS RN AND FLOAT. CODE STROKE CALLED, CTA COMPLETE - CBG 129. TELE STROKE CONTACTED BY MD. REMAINED SINUS CARO THROUGHOUT STUDIES. PT AWOKE WITH STIMULI OF TRANSFERING TO TABLE AND BECAME AGGITATED BUT STILL WITHOUT MOVEMENT OF LEFT ARM TO PULL AT LINES.
--- NOTE | 2023-05-06 09:55 | NUR ---
PT BACK TO ROOM FROM CT - PT REMAINS DROWSY, PRECEDEX GTT REMAINS OFF. LEFT LEG AND ARM REMAIN FLACID TO COMMANDS WELL SPONTANEOUS MOVEMENT TO REMOVE LINES WITH RIGHT ARM/HAND. REMAINS SINUS CARO THROUGHOUT TRANSPORT, MAP >65, BOLUS ORDER RECEIVED, FLOAT RN AQUIRING IV ACCESS.
--- NOTE | 2023-05-06 10:50 | NUR ---
IV ACESS ESTABLISHED AND BOLUS IN PROGRESS. PT RESTING IN BED WITH EYES CLOSED, SPONTANEOUS RESPONSE TO STIMULI, REMAINS UNORIENTED TO ALL. SITTER REMAINS IN ROOM 1:1 FOR LINE SAFETY.
--- NOTE | 2023-05-06 11:14 | NUR ---
PT RESTING WITH EYES CLOSED - PT STALLION MANAGER SITTING AT BEDSIDE HOLDING HAND, INTERMITANT AWAKENING.
--- NOTE | 2023-05-06 12:16 | NUR ---
BOLUS COMPLETE - PT AWAKE AND ABLE TO VERBALIZE SOME COHERANT WORDS. PT REORIENTED TO EVENT PLACE AND TIME. SPEECH REMAINS GARBLED. REFLEXIVE WITHDRAWL TO TOUCH ON LEFT FOOT NOTED, RIGHT ARM REMAINS UNRESPONSIVE. SPOON OF WATER PLACED IN PTS MOUTH, DISCORDINATED SWALLOWING.
--- NOTE | 2023-05-06 14:20 | NUR ---
PT REPOSISTIONED TO RIGHT SIDE WITH PILLOWS, INTERMITANTLY ABLE TO ANSWER QUESTIONS ASKED. SMALL RESPONSE FROM LEFT HAND WHEN ASKED TO SQUEEZE, PT OTHERWISE UNABLE TO FOLLOW DIRECTIONS. NOT IN APPARENT DISTRESS, 1:1 AT BEDSIDE TO PROTECT LINES STILL NEEDED.
--- NOTE | 2023-05-06 14:51 | NUR ---
ROUNDING IN ROOM WITH MD - VERBAL ORDER RECEIVED TO BOLUS WITH LR, NS BOLUS CANCELLED. PT CONTINUES TO HAVE SOME SPONTANEOUS MOVEMENT OF LEFT FOOT, LEFT HAND WITHOUT.
--- NOTE | 2023-05-06 16:01 | NUR ---
PT MORE ALERT THIS AFTERNOON - SOME AGGITATION NOTED WITH CARES, PUSHING THIS RN AWAY. REMAINS DISORIENTED TO ALL. BOLUS COMPLETE.
--- NOTE | 2023-05-06 17:42 | NUR ---
PT REPOSISTIONED IN BED, ALERT AND DISORIENTED BUT PLEASANT. PT PASSESS GAS WITH TURNING IN BED, ATTENDS CLEAN AND DRY. NO SKIN BREAKDOWN NOTED ON BACK AND COCCYX. PT ABLE TO SIP 200ML OF BROTH, SOME DYSPHAGIA NOTED, STRONG COUGH REFLEX.
--- NOTE | 2023-05-06 19:30 | NUR ---
PATIENT RESTING IN BED WITH HOB ELEVATED. PATIENT IS ALERT AND TALKATIVE; ALTHOGUH SPEECH NOT ALWAYS CLEAR. PATIENT PULLED CARDIAC LEADS OFF; REPLACED AND COVERED PATIENT TO LIMIT PULLING ON LINES. PATIENT'S SITTER; MICHAEL IN WITH PATIENT.
--- NOTE | 2023-05-06 21:30 | NUR ---
PATIENT 1:1 WITH MICHAEL RN DUE TO FREQUENT INTERVENTION NEEDED FOR PATIENT TO NOT PULL ON AGUILLON, MONITOR CORDS, AND IV TUBING.
--- NOTE | 2023-05-06 22:00 | NUR ---
ATTEMPTS MADE TO PROVIDED PATIENT WITH PO MEDS. PATIENT REFUSING AND SPITS MEDS AT STAFF. PATIENT IS DIFFICULT TO UNDERSTAND AND CONTINUES TO BE ALERT BUT NOT ORIENTED. 1:1 STAFF REQUIRED FOR SAFETY.
[2023-05-07] VITALS (18 sets, daily range): BP systolic 141–179; BP diastolic 62–87
--- NOTE | 2023-05-07 | NUR ---
PATIENT REPOSITIONED IN BED. PATIENT ATTEMPTS TO PULL ON AGUILLON HAVE CAUSED SOME TENSION AT MEATUS AND PAIN. BARRIER CREAM APPLIED AND AGUILLON TUBING REPOSITIONED TO REDUCE PATIENT'S ABLITILY TO REACH IT. MICHAEL GONZALEZ ABLE TO CONVINCE PATIENT TO TAKE PO MEDS FOR AGITATION AND MELATONIN TO SLEEP.
--- NOTE | 2023-05-07 01:00 | NUR ---
PATIENT REMAINS 1:1 WITH MICHAEL GONZALEZ. RN REPORTS FREQUENT INTERVENTION TO MAINTAIN PATIENT SAFETY FROM PULLING LINES; INCLUDING AGUILLON.
--- NOTE | 2023-05-07 01:45 | NUR ---
PATIENT STARTING TO SETTLE. MORE RESTFUL. ATTEMPTS MADE TO REDUCE STIMULI MUCH POSSIBLE. PATIENT VS STABLE. IV FLUIDS PER ORDER, SITE WNL.
--- NOTE | 2023-05-07 02:30 | NUR ---
PATIENT CHEWING ON PULSE OX. REQUIRED STRONG ENCOURAGEMENT TO OPEN HIS MOUTH AND REMOVE MONITOR CORD. PATIENT DOES NOT FOLLOW INSTRUCTION WELL. REQUIRES FREQUENT INTERVENTION.
--- NOTE | 2023-05-07 02:55 | NUR ---
PATIENT APPEARS TO HAVE TROUBLE CLEARING THICK WHITE SECREATIONS. ORAL SUCTION DONE. PATIENT PULLING Sp02 AND CARDIAC LEADS OFF; REPLACED NEEDED.
--- NOTE | 2023-05-07 03:21 | NUR ---
PATIENT REMOVED ALL BEDDING AND MONITOR CORDS. PULLING AT AGUILLON AND PENIS; PATIENT INDICATED PAIN WITH PULLING. UNABLE TO EDUCATE PATIENT DUE TO COGNITIVE LIMITATIONS. NO SIGNS OF TRAUMA AT AGUILLON SITE AND NO BLOOD IN AGUILLON. SECURED IN STAT LOCK AND ATTENDS IN PLACE. ENCOURAGED PATIENT TO NOT PULL AT LINES. POSITIONED PATIENT FOR COMFORT. PATIENT IS ALERT AND TALKATIVE BUT NOT ORIENTED TO PERSON, PLACE, OR FOLLOWING INSTRUCTIONS. ANDRADE STATUS UNCHANGED. LEFT ARM RESISTENT WHEN HELD BUT OVERALL UNRESPONSIVE TO STIMULI. UNSURE IF PATIENT HAS FEELING IN THIS EXTREMITIY. PATIENT IS MOVING HIS LEFT LEG, ALTHOUGH LESS THAN HIS RIGHT. IV FLUIDS CONTINUE PER ORDER; SITE WNL.
[2023-05-07 06:23] LABS: ALBUMIN 2.4 g/dL (3.4-5.0); ALBUMIN/GLOBULIN RATIO 0.86 (1.1-2.4); ANION GAP 17.7 (7-21); BILIRUBIN, TOTAL 0.9 ng/dL (0.2-1.0); BUN/CREATININE RATIO 21.78 (6.0-28.6); CALCIUM 8.1 mg/dL (8.5-10.1); CREATININE, SERUM 2.02 mg/dL (0.70-1.30); POTASSIUM 3.7 mmol/L (3.5-5.1); PROTEIN, TOTAL 5.2 g/dL (6.4-8.2)
[2023-05-07 06:24] LABS: HEMATOCRIT 29.9 % (35.0-50.0); MCH 34.8 (27-36); MCHC 33.5 g/dl (30-36); MCV 103.7 fl (81-99); PLATELET COUNT 136 K/uL (140-440); RBC 2.89 M/ul (4.3-5.7)
[2023-05-07 06:40] LABS: CHOLESTEROL/HDL RATIO 5.9
[2023-05-07 06:48] LABS: LYMPHOCYTES, MANUAL DIFF 9; MONOCYTES, MANUAL DIFF 5; NEUTROPHILS, MANUAL DIFF 85
--- NOTE | 2023-05-07 07:45 | NUR ---
PT RESTING IN BED RESTLESS WITH 1:1 AT BEDSIDE, ALERT BUT DISORIENTED, SPEECH GARBLED. NO DISTRESS NOTED AT THIS TIME.
--- NOTE | 2023-05-07 08:20 | NUR ---
IV ABX STARTED. PT REMAINS RESTLESS IN BED BUT PLESANT - REDIRECTABLE WHEN PULLING ON LINES. AGUILLON CATH REPOSISTIONED IN ATTENDS, SMALL AMOUNT OF BLOOD SPOTTING NOTED FROM MEATUS. ASSESSMENT COMPLETE. PT UNINTERESTED IN SIPS OF CLEAR LIQS FOR BREAKFAST. 1:1 SITTER AT BEDSIDE.
--- NOTE | 2023-05-07 09:20 | NUR ---
Patient alert and disoriented. Spouse in room. Meeting with Dr. Zee, this nurse and Radha Taylor RN, regarding care going forward. has had patient on list at [facility]. Offered to reach out to [facility], refused to have patient chart sent to [facility]. Also discussed options out of town, spouse does not want him out of town.
--- NOTE | 2023-05-07 09:26 | NUR ---
RN ROUNDING WITH MD AND CASE MANAGMENT - MRI ORDER VERBAL DC'D BY MD, IMPROVED MOVEMENT OF LEFT HAND AND LEG. PT ALERT AND ENGAGED IN CONVERSATION BUT SPEECH IS GARBLED AND MOSTLY INAPPROPRIATE WHEN CLEAR. GENERALIZED EDEMA NOTED IN UPPER EXTREMETIES, LEFT ARM ELEVATED ON PILLOW. IV SITE PATENT WITH IVF RUNNING. LUNGS SOUNDS REMAIN COURSE WITH NON PRODUCTIVE COUGH, WET - NOT ABLE TO CLEAR WITH COUGH REFLEX. AGIULLON DRAINING YELLOW URINE WITHOUT BLOOD. 1:1 SITTER REMAINS AT BEDSIDE.
--- NOTE | 2023-05-07 09:45 | NUR ---
RN HELPING PHYSICAL THERAPY ANDREW, PT BACK TO BED WITH SMALL BM CLEANED AND NEW BEDING AND ATTENDS IN PLACE. AGUILLON CARE COMPLETE.
--- NOTE | 2023-05-07 11:03 | NUR ---
Spoke with after patient worked with PT. States she has no way of caring for him at home and she is ok with any facility that can take him. She has spoken with the [facility] [place] [facility] well as [facility]. States she will do what she needs to get help because he is too much now. Called Lana Prescott at [facility], no answer, message left. Also called [facility] and they have bed availability but unsure if they can take patient with his high needs, will call back.
--- NOTE | 2023-05-07 11:15 | NUR ---
SPOKE WITH LIA AT [facility], PATIENT TOO HIGH OF ACUITY NEEDS TO BE ACCEPTED AT THIS TIME.
--- NOTE | 2023-05-07 11:30 | NUR ---
PT RESTING IN BED AWAKE AND JABBERING CONTINUSOULY, LIGHTS OUT TO ENCOURAGE SLEEP. URINE OUTPUT PICKING UP, CLEAR YELLOW. 1:1 SITTER AT BEDSIDE.
--- NOTE | 2023-05-07 12:30 | NUR ---
PT RESTING IN BED WITH EYES OPEN, FIGETING WITH BLANKETS. 1:1 IN ROOM.
--- NOTE | 2023-05-07 13:09 | NUR ---
SPOKE WITH SIRIA CEVALLOS AT [facility]. STATES PATIENT IS ELIGIBLE FOR BENEFITS BUT STILL NEEDING FINANCIAL ASPECTS FINISHED.
--- NOTE | 2023-05-07 13:12 | NUR ---
CALLED [facility]. NO ANSWER. LEFT MESSAGE WITH CALLBACK NUMBER.
--- NOTE | 2023-05-07 13:30 | NUR ---
PT REMAINS ALERT BUT DISORIENTED, RESPONDS TO QUESTIONS WITH GARBLED SPEECH AND DISORIENTED THOUGHT PROCESS. DOES NOT APPEAR AGGITATED BUT NOTED TO HAVE INCREASING HEART RATE THROUGHOUT DAY. SPONTANEOUS MOVEMENT OF LEFT LEG AND ARM NOTED, ARM MUCH MORE WEAK THAN LEG. 1:1 SITTER AT BEDSIDE.
--- NOTE | 2023-05-07 15:13 | NUR ---
SPOKE WITH MEMORY MANAGER ADMINISTRATION AT [facility]. STATES TAMMY ROSAS RN, WILL BE IN TO ASSESS PATIENT TO DECIDE IF THEY CAN PROVIDE PATIENT'S NEEDS THERE. AND Radha NOLAND RN, NOTIFIED.
--- NOTE | 2023-05-07 15:58 | NUR ---
UR NOTE MCG URINARY TRACT INFECTION (ISC) INPATIENT 05/04/23 MET CLINICAL INDICATIONS FOR ADMISSION TO INPATIENT CARE GL DAY 1
--- NOTE | 2023-05-07 16:30 | NUR ---
PATIENT WAS BLADDER SCANNED AND 798 ML OF URINE WAS NOTED IN BLADDER. RN NOTIFIED. SITTER AND AT BEDSIDE
--- NOTE | 2023-05-07 18:05 | NUR ---
CATHETER FLUSHED WITH 30CC OF SALINE TO TROUBLESHOOT OBSTRUCTED FLOW. IMMEDIATE RETURN OF 800ML OF YELLOW CLOUDY URINE. PT RESTING CALMLY IN BED, WITHOUT ANY ACTUAL SLEEP TODAY. NO DISTRESS, APPEARS TO BE WRITING THINGS IN THE AIR WITH RIGHT HAND. 1:1 SITTER AT BEDSIDE.
--- NOTE | 2023-05-07 19:30 | NUR ---
REPORT RECEIVED AND CARE ASSUMED FROM LISA SNELL. SITTER AT BEDSIDE. PT CONFUSED. VSS AND NAD NOTED VIA DIRECT MONITOR.
--- NOTE | 2023-05-07 20:50 | NUR ---
SHIFT ASSESSMENT COMPLETE. SEE MEDITECH. PT REMAINS CONFUSED AND AGGRESSIVE. PT EASILY AGGITATED WHEN ASKED TO FOLLOW COMMANDS. LINES AND DRAINS PATENT. MAINTENANCE FLUIDS INFUSING PER EMAR. PT TURNS Q2 AND PRN COMPLETED. VSS AND NAD NOTED VIA DIRECT OBS AND CONTINUOUS MONITOR. RN SITTER AT BEDSIDE.
--- NOTE | 2023-05-07 21:35 | NUR ---
PT REMAINS CONFUSED, SPEAKING CONTINUOUSLY WITH FRAGMENTED CONVERSATION. PT CONTINUES TO ANSWER NO QUESTIONS APPROPRIATELY. PT L TUBING ASSEMBLER WEAKER THAN R TUBING ASSEMBLER. PT ABLE TO LIFT L ARM APPROXIMATELY 12 INCHES FOR 30 SECONDS. PT REMAINS COMBATIVE AND VERBALLY AGGRESSIVE. SITTER AT BEDSIDE. VSS VIA DIRECT OBS ABD CONTINUOUS MONITOR.
[2023-05-08] VITALS (10 sets, daily range): BP systolic 144–165; BP diastolic 68–85
--- NOTE | 2023-05-08 00:30 | NUR ---
SHIFT ASSESSMENT COMPLETE. SEE MEDITECH. PT AGUILLON PATENT AND DRAINING. MAINTENANCE FLUIDS INFUSING VIA PATENT PIV. RN SITTER AT BEDSIDE. PT REMAINS CONFUSED AND AGGITATED WHEN ASKED ORIENTATION QUESTIONS. BED IN LOCKED, LOWER POSITION. PT REPOSITIONED Q2 AND PRN. VSS AND NAD NOTED VIA DIRECT OBS AND CONTINUOUS MONITOR.
--- NOTE | 2023-05-08 02:01 | NUR ---
PT RESTING IN BED MUMBLING TO SELF. SITTER AT BEDSIDE. Q2 REPOSITIONING COMPLETE. LINES AND DRAINS PATENT. BED IN LOW, LOCKED POSITION. VSS AND NAD NOTED VIA DIRECT OBS AND CONTINUOUS MONITOR.
--- NOTE | 2023-05-08 04:00 | NUR ---
SHIFT ASSESSMENT COMPLETE. SEE MEDITECH. PT MUMBLING TO SELF. PT ANSWERS TO NAME, ANSWERS SOME QUESTIONS CORRECTLY. DOES NOT ANSWER ORIENTATION QUESTIONS CORRECTLY. PT DID NOT SQUEEZE WITH LEFT HAND WHEN ASKED THIS ASSESSMENT. PT DRAINS AND LINES PATENT. SITTER AT BEDSIDE. VSS VIA CONTINUOUS MONITOR.
[2023-05-08 05:36] LABS: HEMATOCRIT 28.7 % (35.0-50.0); HEMOGLOBIN 9.8 g/dL (12.0-18.0); MCH 35.4 (27-36); MCHC 34.3 g/dl (30-36); MCV 103.3 fl (81-99); PLATELET COUNT 146 K/uL (140-440); RBC 2.77 M/ul (4.3-5.7); RDW 30.3 (10.5-15.0)
[2023-05-08 05:58] LABS: ALBUMIN 2.2 g/dL (3.4-5.0); ALBUMIN/GLOBULIN RATIO 0.76 (1.1-2.4); ANION GAP 12.4 (7-21); BILIRUBIN, TOTAL 0.9 ng/dL (0.2-1.0); BUN/CREATININE RATIO 18.88 (6.0-28.6); CALCIUM 8.5 mg/dL (8.5-10.1); CREATININE, SERUM 1.8 mg/dL (0.70-1.30); POTASSIUM 3.4 mmol/L (3.5-5.1); PROTEIN, TOTAL 5.1 g/dL (6.4-8.2)
[2023-05-08 06:04] LABS: BANDS, MANUAL DIFF 17; EOSINOPHILS, MANUAL DIFF 1; LYMPHOCYTES, MANUAL DIFF 16; MONOCYTES, MANUAL DIFF 4; NEUTROPHILS, MANUAL DIFF 62
--- NOTE | 2023-05-08 06:20 | NUR ---
DR HARTLEY NOTIFIED FOR ORDERS. MAINTENANCE FLUID STOPPED PER MD. PT INCREASING COARSE BREATH SOUNDS TO R SIDE. VSS AND NAD NOTED VIA DIRECT OBS.
--- NOTE | 2023-05-08 07:23 | NUR ---
REPORT GIVEN AND CARE ENDORSED TO LISA FISHER AND LISA CARR. SITTER AT BEDSIDE. VSS VIA CONTINUOUS MONITOR.
--- NOTE | 2023-05-08 09:20 | NUR ---
Attempted to see pt. Staff from [facility] visiting with and ptEsa Gold their Rn will update me when they have finished.
--- NOTE | 2023-05-08 10:00 | NUR ---
CCU ROUNDS. PT DID NOT INTERACT. INDICATED DESIRE FOR PRAYER THAT PT "NOT SUFFER ANY LONGER" AND THAT "IF IT IS TIME HIS PATH BE MADE STRAIGHT." NORMALIZED 'S EXPERIENCE. PROVIDED PRAYER.
--- NOTE | 2023-05-08 10:00 | NUR ---
ORDERS RECEIVED TO TRANSFER TO [facility], WILL STAY IN ROOM 127 FOR HOUSE CONVENIENCE. PATIENT REMAINS IN CHAIR. AND SITTER IN ROOM. PATIENT IS SLEEPING, NO DISTRESS NOTED. IV KCL INFUSING.
--- NOTE | 2023-05-08 10:14 | NUR ---
Notified by [facility], they will accept this pt into their memory care unit on . Pt will need a hospital bed and a commode. [facility]
--- NOTE | 2023-05-08 10:50 | NUR ---
Spoke with pts , she is concerned about placement for pt. We discussed if she is able to care for him at home, and she does not believe she can. She is going to [employer] to work on [employer] med[employer] funds for payment.
--- NOTE | 2023-05-08 12:00 | NUR ---
[facility] STAFF HERE TO TALK WITH PATEINT AND PATIENT ABOUT POSSIBLE PLACEMENT. PATIENT IS SLEEPING IN THE CHAIR.
--- NOTE | 2023-05-08 13:00 | NUR ---
Called the [facility]. Spoke with the prothesis dept. She states they have to purchase a bed and this takes 1-2 weeks. She suggested I call Dr. Spencer and asked if he can order and put a durbin on it. I let her know I have Rx's from our hospitalist. She states this won't help, Dr. Diana will need to write the order. I attempted to call Dr. Spencer and held for 15 minutes. When I got their answering service, they stated this pt is not a [facility] pt, but is on home based services. I was then transferred to Renetta Cruz NP over the home based program. I updated her, [facility], can take this pt . IF he doesn't go he will be here until next Sunday when their staff returns for the holidays. Our physician will write pt does not meet criteria for a cont. stay. This could result in the pt receiving a bill. She called and messaged and stated the [facility] will provide [facility] with an auth for payment and delivery of a bed tomow or delivery. I called [facility]. Updated them, they have beds in stock. I will follow up tomorrow to check on auth for this bed.
--- NOTE | 2023-05-08 16:00 | NUR ---
FEW BITES OF APPLESAUSE AND PUDDING GIVEN. TOLERATED WELL NO COUGH NOTED WITH SWALLOW. WHENGAVE PATIENT WATER WITHOUT THICKENING HAD SLIGHT COUGH WITH SWALLOW. SITTING UP AT 90 DEGREEE ANGLE WHEN GIVING ANYTHING BY MOUTH. HAS BEEN CALM TODAY. HAS NOT BEEN PICKING OR PULLING AT THINGS. MOVING LEFT ARM MORE. NOT FOLLOWING COMMANDS. SAYING A LOT OF INCOMPREHENSIBLE WORDS.
--- NOTE | 2023-05-08 17:30 | NUR ---
TOOK FEW SIPS OF THICKENED WATER AND THICKENED ENSURE. TOOK THE WATER BETER THAN THE ENSURE.
--- NOTE | 2023-05-08 18:00 | NUR ---
TURNED TO LEFT SIDE. WHEN TURNING PATIENT, YELLING OUT CUSS WORDS.
--- NOTE | 2023-05-08 19:15 | NUR ---
REPORT TO NEXT SHIFT. SITTER IS ROOM.
--- NOTE | 2023-05-08 20:00 | NUR ---
PATIENT RESTING IN BED, ALERT AND TALKING BUT NOT ORIENTED. 1:1 SITTER IN ROOM FOR PATIENT SAFETY. PATIENT APPEARS COMFORTABLE.
--- NOTE | 2023-05-08 22:00 | NUR ---
EVENING MEDS PROVIDED PER ORDER. PO MEDS CRUSHED AND PLACED IN APPLED SAUCE. PATIENT TOOK MEDS WITHOUT ISSUE. VS STABLE. PATIENT IS CALM AND RESTING WITH EYES CLOSED BUT RESPONDS TO SOUND OR IS TALKING TO HIMSELF. PATIENT REPOSITIONED IN RIGHT SIDE. WITH MOVEMENT PATIENT BECAME AGITATED AND YELLED AT STAFF. ABLE TO CALM WITH A FEW MINS OF SOOTHING CONVERSATION. PATIENT LUNG SOUNDS ARE COARSE WITH UPPER AIRWAY SOUNDS; PATIENT ASPIRATION PRECAUTIONS AND HOB ELEVATED > 30 DEGREES. AGUILLON CARE DONE, PATIENT ALSO AGITATED WITH THIS CARE. ALLOWED PATIENT TO REST. 1:1 SITTER AT BEDSIDE FOR SAFETY.
[2023-05-09 05:37] LABS: HEMATOCRIT 30.2 % (35.0-50.0); HEMOGLOBIN 10.2 g/dL (12.0-18.0); MCH 35.3 (27-36); MCHC 33.8 g/dl (30-36); MCV 104.5 fl (81-99); PLATELET COUNT 177 K/uL (140-440); RBC 2.89 M/ul (4.3-5.7); RDW 30.4 (10.5-15.0)
[2023-05-09 05:52] LABS: ALBUMIN 2.3 g/dL (3.4-5.0); ALBUMIN/GLOBULIN RATIO 0.77 (1.1-2.4); ANION GAP 13.6 (7-21); BILIRUBIN, TOTAL 1.1 ng/dL (0.2-1.0); CALCIUM 8.7 mg/dL (8.5-10.1); CREATININE, SERUM 1.75 mg/dL (0.70-1.30); POTASSIUM 3.6 mmol/L (3.5-5.1); PROTEIN, TOTAL 5.3 g/dL (6.4-8.2)
[2023-05-09 06:03] LABS: BANDS, MANUAL DIFF 9; LYMPHOCYTES, MANUAL DIFF 19; MONOCYTES, MANUAL DIFF 4; NEUTROPHILS, MANUAL DIFF 67
[2023-05-09 06:23] VITALS: BP 170/86
--- NOTE | 2023-05-09 06:30 | NUR ---
VS AND I&O COMPLETED. PT REFUSES TO DRINK OR EAT. PT REPOSITIONED. PT RESTING IN ED, EYES CLOSED. OCCASSIONALLY TALKING. RAILS UP, BED LOW POSITION.
--- NOTE | 2023-05-09 07:15 | NUR ---
UPDATE GIVEN TO DR. KHADIJAH JONES POOR ORAL INTAKE AND LOW URINE OUTPUT
--- NOTE | 2023-05-09 07:35 | NUR ---
report from Mary santiago, dr merritt here on unit, aware of poor urine output over the night and pt. poor intake with risk for aspiration. pt resting with sitter in room.
--- NOTE | 2023-05-09 08:30 | NUR ---
Pt discussed in [address] Carter and will dc tomorrow. I will call and confirm with she is still in agreement for placement.
[2023-05-09 08:43] VITALS: BP 173/95
--- NOTE | 2023-05-09 08:58 | NUR ---
PT REPOSITIONED HOB UP FOR MEAL - THICKENED LIQUIDS STAFF ASSISTED PT TO FEED, HE WOULD NOT KEEP EYES OPEN, MUMBLES, BUT WILLING TO TAKE ORAL AND SWALLOW WITH CAUTION. WOULD NOT FEED/DRINK ON OWN. ENC. FLUIDS THICK.
--- NOTE | 2023-05-09 09:00 | NUR ---
Called and spoke with Alia. She states she is going to [facility] today to complete paper work. I then called [facility]. They did receive auth stating ok to deliver a bed. They need different [facility] called and spoke with Alon at [facility]. She states if the [facility] cannot [facility], they [facility] bed for [facility] use.
--- NOTE | 2023-05-09 09:32 | NUR ---
pt took very few sips of thick liquid with staff assist. pt repositioned to right side, iv abx started r arm. pt discussed with rt - enc. tcdb to pt. call light in reach and staff sitter in room.
--- NOTE | 2023-05-09 12:00 | NUR ---
pt vaishali in to see pt with joe. reports that pt is angry and agitated by her presence she decides to wait in waiting room with pt sister. rn provided tea and comfort, we confirmed pt had clothes to discharge and she brought in his WC. confirmed with [facility] dc workforce planner that they had connected and pt was headed home to rest. goal of dc tomorrow.
[2023-05-09 12:21] VITALS: BP 165/83
--- NOTE | 2023-05-09 13:00 | NUR ---
Called [facility] they cont. to wait for auth.
--- NOTE | 2023-05-09 13:26 | NUR ---
pt tollerated about 100 ml of thickend liq as provided to pt by staff - he would not take oral intake on own. pt then repositioned to back and right side to rest, sitter at side.
--- NOTE | 2023-05-09 13:43 | NUR ---
UR NOTE [facility]CG URINARY TRACT INFECTION (ISC) INPATIENT 05/06/23 VARIANCE GL DAY 2 05/08/23 VARIANCE GL DAY 2 05/09/23 MET GL DAY 2
--- NOTE | 2023-05-09 15:00 | NUR ---
Called and scheduled the WC van for 1 pm tomorrow after speaking with Alon and this is the time they want to admit. brought pts wc to his room and will take their commode to [facility]. Called [facility] and they still don't have auth.
--- NOTE | 2023-05-09 15:03 | NUR ---
this rn did bed bath and linen change - pt attends wet/saturated inspite of martinez cath - with poor output, flushed martinez with 10 ml of urine - blood clot expressed in martinez bag and immediate 1340 ml of urine out. call to notify dr merritt and order in for ignacio. notify to flush martinez prn if no urine out every 2 hours as needed.
[2023-05-09 16:48] VITALS: BP 148/72
--- NOTE | 2023-05-09 17:49 | NUR ---
dr merritt here update on pt status, pt eyes closed resp rate reg, sitter at side, martinez draining urine. call light in reach.
--- NOTE | 2023-05-09 21:00 | NUR ---
PATIENT AWAKE AND TALKING WITH STAFF. PATIENT RESPONDS TO VERBAL STIMULI BUT UNABLE TO ANSWER ORIENTATION QUESTIONS. PATIENT VS STABLE. REPOSITIONED PATIENT FOR COMFORT. LIGHT ORAL SUCTION DONE, PATIENT TOLERATED WELL. PO MEDS GIVEN CRUSHED IN APPLE SAUCE. PATIENT TOOK WELL. IV ABX STARTED PER ORDER, SITE WNL. AGUILLON CARE DONE, GENERALIZED SWELLING NOTED AT HEAD OF PENIS. CATH FLUSHED WITH 30MLS NS. STEDIMENT NOTED AND URINE OUTPUT IMPROVED.
[2023-05-09 22:02] VITALS: BP 134/64
--- NOTE | 2023-05-09 22:30 | NUR ---
PATIENT RESTING WITH EYES CLOSED. RR 16. Sp02 >90% ON ROOM AIR. ALLOWED PATIENT TO REST. SITTER AT BEDSIDE.
--- NOTE | 2023-05-10 00:47 | NUR ---
PATIENT REPOSITIONED IN BED. PATIENT HAD MOVED HIS BODY DOWN IN BED AND HIS LEFT LEG HANGING OUT OF BED. PATIENT APPEARS TO BE SLEEPING OFF AND ON. Sp02 IN PLACE, PATIENT MAINTAINING ROOM AIR. APPEARS MORE COMFORTABLE NOW. PATIENT SITTER AT BEDSIDE.
--- NOTE | 2023-05-10 03:00 | NUR ---
PATIENT HAS BEEN RESTING WITHOUT ISSUE FOR THE MAJORITY OF THIS SHIFT. PATIENT SITTER NOW LEAVING. WILL CONTINUE TO CHECK ON PATIENT REGULARLY. PATIENT HOB ELEVATED. BREATHING EVEN AND NON LABORED. AGUILLON IN PLACE. PATENT POSITIONED FOR COMFORT.
[2023-05-10 04:00] VITALS: BP 155/72
--- NOTE | 2023-05-10 04:00 | NUR ---
PATIENT APPEARS RESTFUL. RR 16. AGUILLON IN PLACE AND DRAINING FREELY.
--- NOTE | 2023-05-10 05:26 | NUR ---
PATIENT REPOSITIONED IN BED. CONTINUES TO REST WITH EYES CLOSED. WAKES TO STIMULI.
--- NOTE | 2023-05-10 06:30 | NUR ---
PATIENT REPOSITIONED IN BED. PATIENT MORE AGITATED WITH CARE. PATIENT ATTEMPTS TO HIT STAFF WITH RIGHT ARM. FIRM BOUNDARIES ENFORCED FOR PATIENT AND STAFF SAFETY. AGUILLON FLUSHED TO REDUCE SEDIMENT.
[2023-05-10 07:47] VITALS: BP 155/82
--- NOTE | 2023-05-10 07:47 | NUR ---
PT TRANSFERED FROM CCU TO RM 110. VSS. REPORT RECEIVED FROM MAMIE GONZALEZ, ALL QUESTIONS ANSWERED.
--- NOTE | 2023-05-10 08:00 | NUR ---
report to carol santiago in new room 110 trsf to med surg. pt eyes closed resp rate reg. am meds and chart to med surg. bed alarm on.
--- NOTE | 2023-05-10 08:30 | NUR ---
PT RESTING IN BED WITH EYES CLOSED, RESPIRATIONS EVEN AND UNLABORED. BED ALARM ON AND CALL LIGHT IN REACH
--- NOTE | 2023-05-10 09:00 | NUR ---
Called [facility] and they received a PO from the [facility]. They will deliver the bed before 1 pm to [facility]. I called Alon at [facility] and updated. Will fax orders when completed by Dr. Carter.
[2023-05-10 09:12] VITALS: BP 155/64
[2023-05-10] MEDS ORDERED: FLOMAX0.4 MG PO ×2 (09:23)
--- NOTE | 2023-05-10 10:00 | NUR ---
Spoke with Dr. Carter and requested orders to send to [facility]. He will compete shortly.
--- NOTE | 2023-05-10 10:32 | NUR ---
MS ROUNDS. NO VISIT. PT RECEIVING NURSING CARE. DID NOT DISTURB. PROVIDED SILENT PRAYER.
--- NOTE | 2023-05-10 12:30 | NUR ---
Texted Dr. Carter and requested he go to med surg and complete orders. Pts is here and she denies needs. Pt remains confused.
[2023-05-10] MEDS ORDERED: AMOX TR-K CLV1 EAC1 PO ×2 (12:46)
--- NOTE | 2023-05-10 12:50 | NUR ---
Orders completed and faxed to Alon at [facility]. Staff assisted pt to dress and he is combative getting into the wc. present and attempting to assist. Pt ready for dc.
--- NOTE | 2023-05-10 14:25 | NUR ---
Faxed Face sheet, H&P, DC summary, meds, labs, Imaging to [facility] program. Added a note they contiue to see this pt per 's request at [facility].
[2023-05-17] MEDS ORDERED: CEPHALEXIN500 M1 PO (07:17)
== END 2023-05-10 13:04 | DRG 872 ==
LOC: ED 06:27 → CCU 09:28 → MS 05-10 07:50
PROVIDERS: Emergency Medicine; Internal Medicine; ADMIT Family Medicine; ATTEND Family Medicine
PROC: 3E03329 Introduction of Other Anti-infective into Peripheral Vein, Percutaneous Approach (ICD-10-PCS; principal; 2023-05-04)
PROC: 0T9B70Z Drainage of Bladder with Drainage Device, Via Natural or Artificial Opening (ICD-10-PCS; 2023-05-04)
PROC: 4A033R1 Measurement of Arterial Saturation, Peripheral, Percutaneous Approach (ICD-10-PCS; 2023-05-04)
PROC: 30233N1 Transfusion of Nonautologous Red Blood Cells into Peripheral Vein, Percutaneous Approach (ICD-10-PCS; 2023-05-04)
DX: A41.9 Sepsis, unspecified organism (principal); N39.0 Urinary tract infection, site not specified; N17.9 Acute kidney failure, unspecified; D62 Acute posthemorrhagic anemia; G81.94 Hemiplegia, unspecified affecting left nondominant side; F10.139 Alcohol abuse with withdrawal, unspecified; B96.20 Unspecified Escherichia coli [E. coli] as the cause of diseases classified elsewhere; R65.20 Severe sepsis without septic shock; E86.0 Dehydration; R13.10 Dysphagia, unspecified; R33.9 Retention of urine, unspecified; E87.6 Hypokalemia; E83.42 Hypomagnesemia; W19.XXXA Unspecified fall, initial encounter; F17.210 Nicotine dependence, cigarettes, uncomplicated; G89.29 Other chronic pain; M25.559 Pain in unspecified hip; F03.90 Unspecified dementia, unspecified severity, without behavioral disturbance, psychotic disturbance, mood disturbance, and anxiety; D75.89 Other specified diseases of blood and blood-forming organs; D53.9 Nutritional anemia, unspecified; E80.6 Other disorders of bilirubin metabolism; Z85.46 Personal history of malignant neoplasm of prostate; Z85.118 Personal history of other malignant neoplasm of bronchus and lung; Z88.8 Allergy status to other drugs, medicaments and biological substances; Z79.899 Other long term (current) drug therapy; Z11.52 Encounter for screening for COVID-19
CPT/HCPCS: 36415; 36430; 36600; 70450; 70496; 70498; 71045; 80048; 80053; 80061; 81001; 82607; 82746; 82803; 83605; 83735; 84100; 84443; 85025; 85060; 86850; 86900; 86901; 86922; 87040; 87077; 87088; 87186; 87502; 92610; 93005; 93010; 97110; 97140; 97163; 97165; 97530; 97535; A9270; C9803; J0131; J0692; J0696; J0878; J1630; J1650; J3475; J3480; J3490; J7030; J7060; J7121; P9016; Q9967; U0002

== ENCOUNTER 2023-05-14 15:19 | Emergency (ER) | payer OTHER ==
[~2023-05-14] VITALS: Ht 177.8 cm; Wt 58.1 kg
[~2023-05-14 15:19] MED LIST changes: +AMOX TR-K CLV1 EAC1 PO
[2023-05-14 18:37] VITALS: BP 135/98
[2023-05-17] MEDS ORDERED: CEPHALEXIN500 M1 PO (07:17)
== END 2023-05-14 18:37 | disposition home or self-care (01) ==
LOC: ED 15:19
DX: Z46.6 Encounter for fitting and adjustment of urinary device (principal); Z88.8 Allergy status to other drugs, medicaments and biological substances
CPT/HCPCS: 51798; 99283

== ENCOUNTER 2023-05-15 08:55 | Emergency (ER) | payer OTHER ==
[~2023-05-15] VITALS: Ht 177.8 cm; Wt 58.3 kg
[2023-05-15 11:27] VITALS: BP 147/60
[2023-05-17] MEDS ORDERED: CEPHALEXIN500 M1 PO (07:17)
== END 2023-05-15 11:53 | disposition home or self-care (01) ==
LOC: ED 08:55
DX: R33.9 Retention of urine, unspecified (principal); T83.021A Displacement of indwelling urethral catheter, initial encounter; F03.90 Unspecified dementia, unspecified severity, without behavioral disturbance, psychotic disturbance, mood disturbance, and anxiety; G89.29 Other chronic pain; Z88.8 Allergy status to other drugs, medicaments and biological substances; Z79.899 Other long term (current) drug therapy
CPT/HCPCS: 51702; 51798; 99283

== ENCOUNTER 2023-05-21 08:02 | Emergency (ER) | payer OTHER ==
[~2023-05-21] VITALS: Ht 177.8 cm; Wt 60.5 kg
[2023-05-21] MEDS ORDERED: QUETIAPINE FUMA25 MG PO (08:19)
[2023-05-21 09:30] VITALS: BP 157/73
== END 2023-05-21 09:30 | disposition home or self-care (01) ==
LOC: ED 08:02
DX: Z46.6 Encounter for fitting and adjustment of urinary device (principal); N47.2 Paraphimosis; F03.90 Unspecified dementia, unspecified severity, without behavioral disturbance, psychotic disturbance, mood disturbance, and anxiety; Z79.899 Other long term (current) drug therapy
CPT/HCPCS: 51702; 99283; J1170

== ENCOUNTER 2023-06-04 07:17 | Emergency (ER) | payer OTHER ==
[~2023-06-04] VITALS: Ht 177.8 cm; Wt 60.5 kg
[~2023-06-04 07:17] MED LIST changes: +QUETIAPINE FUMA25 MG PO
[2023-06-04 08:45] VITALS: BP 156/74
== END 2023-06-04 08:47 | disposition home or self-care (01) ==
LOC: ED 07:17
DX: T83.021A Displacement of indwelling urethral catheter, initial encounter (principal); F03.90 Unspecified dementia, unspecified severity, without behavioral disturbance, psychotic disturbance, mood disturbance, and anxiety; Z88.8 Allergy status to other drugs, medicaments and biological substances; Z79.899 Other long term (current) drug therapy
CPT/HCPCS: 99283

== ENCOUNTER 2024-01-24 09:43 | Emergency (ER) | payer OTHER ==
[~2024-01-24 09:43] MED LIST changes: +CEFDINIR300 MG PO; +ONDANSETRON ODT4 MG PO
[2024-01-24] MEDS ORDERED: SODIUM CHLORIDE 0.9% 500 ML IV ONE (10:30)
[2024-01-24 10:41] LABS: BASOPHILS 0.8 % (0-2); EOSINOPHILS 3.1 % (0-6); HEMATOCRIT 31.9 % (35.0-50.0); HEMOGLOBIN 10.7 g/dL (12.0-18.0); LYMPHOCYTES 24.5 % (24-44); MCH 33.3 (27-36); MCHC 33.5 g/dl (30-36); MCV 99.5 fl (81-99); MONOCYTES 9.2 % (0-12); NEUTROPHILS 62.4 % (39-80); PLATELET COUNT 167 K/uL (140-440); RDW 23.9 (10.5-15.0)
[2024-01-24 10:58] LABS: ALBUMIN 3.3 g/dL (3.4-5.0); ALBUMIN/GLOBULIN RATIO 0.87 (1.1-2.4); ANION GAP 8.9 (7-21); BILIRUBIN, TOTAL 0.5 ng/dL (0.2-1.0); BUN/CREATININE RATIO 21.84 (6.0-28.6); CALCIUM 9.3 mg/dL (8.5-10.1); CREATININE, SERUM 2.06 mg/dL (0.70-1.30); POTASSIUM 3.9 mmol/L (3.5-5.1); PROTEIN, TOTAL 7.1 g/dL (6.4-8.2)
[2024-01-24] MEDS ORDERED: LIDOCAINE 2% VISCOUS 6 ML SYR TOP ONE (11:00)
[2024-01-24 11:26] LABS: BILIRUBIN, URINE NEGATIVE (negative); BLOOD/HGB, URINE TRACE-I (Negative); KETONE, URINE NEGATIVE (Negative); LEUK ESTERASE, URINE MODERATE (negative); NITRITE, URINE POSITIVE (negative)
[2024-01-24 11:34] LABS: BACTERIA, URINE 2+ /hpf (negative); CASTS, URINE NONE SEEN \\lpf; COLLECTION TYPE, URINE CLEAN CATCH; CRYSTALS, URINE NONE SEEN (0-1+); EPITHELIAL CELLS, URINE SQUAMOUS 1+ /lpf (0-1+); RED BLOOD CELLS, URINE 0-1 /hpf (0-5); REFLEX CULTURE, URINE Yes (No)
[2024-01-24] MEDS ORDERED: CEFTRIAXONE/SODIUM CHLORIDE 2 GM/100 ML PIGGYBACK IV ONE (12:15)
[2024-01-24 13:35] VITALS: BP 144/70
== END 2024-01-24 13:35 | disposition home or self-care (01) ==
LOC: ED 09:43
PROVIDERS: Emergency Medicine
DX: N39.0 Urinary tract infection, site not specified (principal); R53.1 Weakness; Z79.899 Other long term (current) drug therapy; Z88.8 Allergy status to other drugs, medicaments and biological substances
CPT/HCPCS: 36415; 71045; 80053; 81001; 85025; 85060; 87077; 87088; 87186; 96374; 99283-25; J0696; J7040

== ENCOUNTER 2024-06-25 11:34 | Emergency (ER) | payer OTHER ==
[~2024-06-25] VITALS: Ht 177.8 cm; Wt 68.0 kg
[2024-06-25 11:58] LABS: BASOPHILS 0.6 % (0-2); EOSINOPHILS 14.3 % (0-6); HEMATOCRIT 32.3 % (35.0-50.0); HEMOGLOBIN 10.8 g/dL (12.0-18.0); LYMPHOCYTES 20.4 % (24-44); MCHC 33.3 g/dl (30-36); MCV 102.2 fl (81-99); MONOCYTES 11.3 % (0-12); NEUTROPHILS 53.4 % (39-80); PLATELET COUNT 224 K/uL (140-440); RBC 3.16 M/ul (4.3-5.7); RDW 22.8 (10.5-15.0)
[2024-06-25 12:21] LABS: ALBUMIN 3.3 g/dL (3.4-5.0); ALBUMIN/GLOBULIN RATIO 0.92 (1.1-2.4); ANION GAP 11.7 (7-21); BILIRUBIN, TOTAL 0.4 ng/dL (0.2-1.0); BUN/CREATININE RATIO 16.92 (6.0-28.6); CREATININE, SERUM 1.95 mg/dL (0.70-1.30); POTASSIUM 4.7 mmol/L (3.5-5.1); PROTEIN, TOTAL 6.9 g/dL (6.4-8.2)
[2024-06-25 13:39] VITALS: BP 142/100
--- NOTE | 2024-06-26 13:25 | EKG ---
[facility] [address] [place] [address] Signed Normal sinus rhythm Normal ECG When compared with ECG of 04-MAY-2023 06:39, premature ventricular complexes are no longer present Vent. rate has decreased BY [address] no longer depressed in Anterolateral leads T wave inversion no longer evident in Anterolateral leads Confirmed by Roxy Mehta MD ([id number]) on 06/26/2024 1:25:07 PM Electronically Signed By: ROXY MEHTA MD 06/26/24 1325 PATIENT NAME: BRADY VILLANUEVA Electrocardiogram DATE OF : 37 PHYSICIAN: ROXY MEHTA MD REPORT #: [id number] REPORT IS CONFIDENTIAL AND NOT TO BE RELEASED WITHOUT AUTHORIZATION
== END 2024-06-25 13:45 | disposition home or self-care (01) ==
LOC: ED 11:34
PROVIDERS: Emergency Medicine
DX: R41.82 Altered mental status, unspecified (principal); F03.90 Unspecified dementia, unspecified severity, without behavioral disturbance, psychotic disturbance, mood disturbance, and anxiety; Z88.8 Allergy status to other drugs, medicaments and biological substances; Z79.899 Other long term (current) drug therapy
CPT/HCPCS: 36415; 71045; 80053; 85025; 85060; 93005; 93010; 99285-25

== ENCOUNTER 2024-09-08 15:11 | Observation (INO) | payer OTHER, MEDICARE ==
[~2024-09-08] VITALS: Ht 177.8 cm; Wt 54.4 kg
[2024-09-08 15:40] LABS: HEMOGLOBIN 9.6 g/dL (12.0-18.0)
[2024-09-08 15:43] LABS: MCH 32.4 (27-36); MCV 98.2 fl (81-99); PLATELET COUNT 196 K/uL (140-440); RBC 2.96 M/ul (4.3-5.7); RDW 24.2 (10.5-15.0)
[2024-09-08] MEDS ORDERED: CEFTRIAXONE SODIUM 2 GM in SODIUM CHLORIDE 0.9% 100 ML IV ONE (15:45)
[2024-09-08 15:57] LABS: LYMPHOCYTES, MANUAL DIFF 4; MONOCYTES, MANUAL DIFF 3; NEUTROPHILS, MANUAL DIFF 93
[2024-09-08 16:04] LABS: ALBUMIN 3.4 g/dL (3.4-5.0); ALBUMIN/GLOBULIN RATIO 0.81 (1.1-2.4); ANION GAP 13.8 (7-21); BUN/CREATININE RATIO 21.75 (6.0-28.6); CALCIUM 8.8 mg/dL (8.5-10.1); CREATININE, SERUM 2.39 mg/dL (0.70-1.30); POTASSIUM 3.8 mmol/L (3.5-5.1); PROTEIN, TOTAL 7.6 g/dL (6.4-8.2)
[2024-09-08] MEDS ORDERED: MORPHINE S100 MG/5 M PO (17:33)
[2024-09-08] MEDS ORDERED: ondansetron HCL 4 MG/2 ML VIAL IV PRN (19:15)
--- NOTE | 2024-09-08 19:20 | NUR ---
PATIENT ARRIVED TO THE FLOOR VIA STRETCHER. PATIENT MOVED FROM STRETCHER TO BED BY STAFF. PATIENT INCONT OF URINE. PATIENTS ATTEND CHANGED AND SHAYLEE CARE COMPLETED. PATIENT REPOSITIONED IN BED. PATIENT IS YELLING ANA AND KICKING. ADMISSION COMPLETED. BED ALARM AND FALL MATS IN PLACE.
--- NOTE | 2024-09-08 19:38 | NUR ---
REPORT RECEIVED FROM LISA MCALLISTER, ADMITTED TO RM 109 MS FROM ER.
[2024-09-08] MEDS ORDERED: ATROPINE SULFATE 1% OPTH DROPS SL PRN (19:45)
[2024-09-08] MEDS ORDERED: ARTIFICIAL TEARS 15 ML BTL OU PRN (19:45)
[2024-09-08] MEDS ORDERED: LORazepam 2 MG/ML VIAL IV PRN (19:45)
[2024-09-08] MEDS ORDERED: HYDROmorphone HCL 1 MG/ML SYR IV PRN (19:45)
[2024-09-08 19:53] VITALS: BP 140/54
[2024-09-08] MEDS ORDERED: SCOPOLAMINE 1 MG/3 DAYS PATCH 1 EACH TDSY TD SCH (20:00)
--- NOTE | 2024-09-08 20:13 | NUR ---
PATIENT IS COMBATIVE AND HITTING AND ATTEMPTING TO BITE STAFF. PATIENT REASSURED WITH THERAPUTIC COMMUNICATION. PATIENT GIVEN PRN MEDICATION-SEE EMAR. PATIENT IS ON RA. PATIENT REPOSITIONED IN BED. SCIENCE CONSULTANT IN ROOM WITH PATIENT AT THIS TIME. CALL LIGHT IN REACH. BED ALARM ON FOR SAFETY.
--- NOTE | 2024-09-08 20:28 | NUR ---
PATIENT IS RESTING IN BED WITH EYES CLOSED, RR 28. NAD NOTED. CALL LIGHT IN REACH. BED ALARM ON FOR SAFETY. FALL MATS IN PLACE.
--- NOTE | 2024-09-08 21:30 | NUR ---
PATIENT SLEEPING, RESPIRATIONS UNCHANGED. BED ALARM ON, NO NEEDS AT THIS TIME.
--- NOTE | 2024-09-08 22:42 | NUR ---
PATIENT SLEEPING, RESPIRATIONS UNCHANGED. NO NEEDS IDENTIFIED, BED ALARM ON, FALL MATS IN PLACE.
--- NOTE | 2024-09-08 23:28 | NUR ---
PATIENT REPOSITIONED, BRIEF CHANGED, PERICARE PROVIDED. WARM BLANKETS PROVIDED. NO FURTHER NEEDS IDENTIFIED, CALL LIGHT IN REACH
--- NOTE | 2024-09-09 02:11 | NUR ---
IN ROOM IN RESPONSE TO BED ALARM, PATIENT SOILED, ATTEMPTED TO TAKE OFF BRIEF. FULL BED CHANGE, BRIEF AND CHUX CHANGED. PATIENT AGITATED AND COMBATIVE WITH STAFF, PRN MEDICATION GIVEN. MALE EXTERNAL CATHETER PLACED, PERICARE PROVIDED. WARM BLANKET GIVEN, SETTLED INTO BED, BED ALARM ON. FALL MATS IN PLACE. NO FURTHER NEEDS IDENTIFIED, CALL LIGHT IN REACH.
--- NOTE | 2024-09-09 04:20 | NUR ---
PATIENT SLEEPING, RESPIRATIONS UNCHANGED, NO NEEDS IDENTIFIED
--- NOTE | 2024-09-09 05:00 | NUR ---
PATIENT GIVEN PRN PAIN MEDICATION. REPOSITIONED. NO FURTHER NEEDS. CALL LIGHT IN REACH
--- NOTE | 2024-09-09 06:00 | NUR ---
PATIENT SLEEPING, RESPIRATIONS UNCHANGED. NO NEEDS
--- NOTE | 2024-09-09 07:25 | NUR ---
report from night rn
--- NOTE | 2024-09-09 08:49 | NUR ---
MORNING ASSESSMENT IS COMPLETE. EDUARD RUEDA IN TO DO ORAL CARE AND HYGIENE FOR PATIENT. PATIENT REPOSITIONED TO LEFT SIDE. PATIENT IS BECOMING AGITATED AND PLAN TO GIVE ATIVAN.
--- NOTE | 2024-09-09 08:56 | NUR ---
PATIENT GIVEN 0.5MG OF IV ATIVAN. CASE MGMT, NAVA IN TO SEE PATIENT.
--- NOTE | 2024-09-09 08:58 | NUR ---
REFERRAL FOR HOSPICE FAXED TO [facility].
--- NOTE | 2024-09-09 09:09 | NUR ---
THIS MORING DID PATIENT ORAL CARE AND WASHED HIS FACE AND PUT LIP BALM ON HIS LIPS. THE NURSE AND I CHANGED HIS POSITION.
--- NOTE | 2024-09-09 09:27 | NUR ---
PATIENT IS RESTING CALMLY NOW.
--- NOTE | 2024-09-09 09:35 | NUR ---
In to see pt. He has labored, gurgling respirations. Discussed with his nurse, Racquel, my concern he would not tolerate transport to [facility]. I have a call into Fam the product safety technical assistant. is on her way here. I will return and speak with her.
--- NOTE | 2024-09-09 09:37 | NUR ---
UR CLINICAL REVIEW: BRIEN, MEETS GENERAL OBS CRITERIA FOR PAIN MANAGEMENT IV PAIN MEDS, IV ANXIOLYTICS [facility] OBS 09/08/24 @ 1904 ORDER MATCHES REG AUTH PENDING, WILL SEND CLINICALS VIA RIGHTFAX DC TO [facility] WITH HOSPICE 09/10/24
[2024-09-09] MEDS ORDERED: VENTOLIN HFA18 GM INH (09:56)
[2024-09-09] MEDS ORDERED: ANTI-DIARRHEAL2 M1 PO (09:57)
[2024-09-09] MEDS ORDERED: ONDANSETRON HCL4 MG PO (09:58)
[2024-09-09] MEDS ORDERED: PRESERVISION A1 EAC5 PO (09:58)
[2024-09-09] MEDS ORDERED: FLOMAX0.4 MG PO (09:59)
--- NOTE | 2024-09-09 09:59 | NUR ---
MED REC COMPLETE
--- NOTE | 2024-09-09 10:33 | NUR ---
VISITED DURING SPIRITUAL CARE ROUNDS. PT APPEARED TO BE SLEEPING. DID NOT DISTURB. PROVIDED PRAYER.
--- NOTE | 2024-09-09 10:39 | NUR ---
RR ARE 24, PATIENT GIVEN 0.5MG OF IV DILAUDID.
--- NOTE | 2024-09-09 10:45 | NUR ---
Returned and spoke with pts . Discussed my concern for pt to return to [facility]. I was also able to speak with Hospice and Fam. All are concerned. insists pt return to [facility]. She also voices complaint pt has been medicated as it was her wish he not be. We discussed pt was restless and air hungry so was medicated by the Rn. then stated understanding. cont. to insist pt return to [facility]. Let her know I will contact Fam and Hospice again.
--- NOTE | 2024-09-09 11:14 | NUR ---
PATIENT GIVEN ATROPINE DROPS FOR SECRETIONS. IS IN ROOM. NAVA CASE MGMT IN TO SPEAK WITH HER. PATIENT IS RESTING QUIETLY, RR 19. NO OTHER NEEDS AT THIS TIME.
--- NOTE | 2024-09-09 11:30 | NUR ---
I was able to reach Mell at Hospice and they do have a nurse that could admit this pt at 1 pm. I called Fam and she agrees they could accept him, but voices concern for transport. Let her know the is insisting. Return and admit set up for 1pm. [facility]spice requests pt to be medicated with Dilauded before he leaves. EMS called at 1220 for transport to [facility]. Discussed with , this may not be covered by Medicare. EMS will pick pt up close to 1 pm.
--- NOTE | 2024-09-09 12:39 | NUR ---
PATIENT GIVEN 0.5MG OF IV DILAUDID FOR RESP DISTRESS, MOANING, AND ANTICIPATED EMS TRANSFER TO [facility]ICE.
--- NOTE | 2024-09-09 12:44 | NUR ---
LEFT A/C IV REMOVED WITH CATHETER INTACT.
--- NOTE | 2024-09-09 14:05 | NUR ---
Notified by Fam, pt upon arrival to their facility.
[2024-09-11] MEDS ORDERED: SCOPOLAMINE 1 MG/3 DAYS PATCH 1 EACH TDSY TD SCH (09:00)
== END 2024-09-09 13:22 ==
LOC: ED 15:11 → MS 15:12
PROVIDERS: Emergency Medicine; ADMIT Student in an Organized Health Care Education/Training Program; ATTEND Student in an Organized Health Care Education/Training Program
DX: J18.9 Pneumonia, unspecified organism (principal); Z51.5 Encounter for palliative care; F03.90 Unspecified dementia, unspecified severity, without behavioral disturbance, psychotic disturbance, mood disturbance, and anxiety; Z66 Do not resuscitate; Z90.2 Acquired absence of lung [part of]; Z88.8 Allergy status to other drugs, medicaments and biological substances; Z79.899 Other long term (current) drug therapy
CPT/HCPCS: 36415; 71045; 80053; 83605; 83880; 84484; 85025; 87040; 96376; 99285-25; G0378; J1171; J2060